=== PATIENT | male | born 1970 | race Hispanic/Latino ===

== ENCOUNTER 2020-10-24 19:09 | Emergency (ER) | payer SELFPAY ==
--- NOTE | 2020-10-24 19:40 | Emergency Department Report ---
ED Neuro Deficit HPI - General Chief Complaint: Neuro Symptoms/Deficit Stated Complaint: STROKE Time Seen by Provider: 10/24/20 19:14 Source: EMS Mode of arrival: Stretcher Limitations: Other - History of Present Illness Initial Comments: [facility] Date of Service: 10/24/2020 19:15:47 Impression: I63.9 - Cerebrovascular accident (CVA), unspecified mechanism (HCC) Comments/Sign-Out: Could be cva versus hypertensive emergency or recurrence of prior stroke sx from HTN. Hes been out of his BP meds 5 years. recommended 20 mg of labetalol and started on nicardipine drip. His systolic blood pressure is actually too high to measure attempting to get a manual cuff.his symptoms started over 24 hours ago . recommend stroke workup and inpatient neurology consultation. Would try to get his pressure to approximately 200/105 Metrics: Last Known Well: 10/23/2020 08:00:00 [facility] Notification Time: 10/24/2020 19:15:47 Arrival Time: 10/24/2020 19:09:00 Stamp Time: 10/24/2020 19:15:47 Time First Login Attempt: 10/24/2020 19:20:14 Symptoms: left sided weakness/numbness NIHSS Start Assessment Time: 10/24/2020 19:25:00 Patient is not a candidate for Alteplase/Activase. Patient was not deemed candidate for Alteplase/Activase thrombolytics because of Last Well Known Above 4.[address] head showed no acute hemorrhage or acute core infarct. Clinical Presentation is not Suggestive of Large Vessel Occlusive Disease Radiologist was not called back for review of advanced imaging because na Our recommendations are outlined below. Recommendations: Activate Stroke Protocol Admission/Order Set Stroke/Telemetry Floor Neuro Checks Bedside Swallow Eval DVT Prophylaxis IV Fluids, Normal Saline Head of Bed 30 Degrees Euglycemia and Avoid Hyperthermia (PRN Acetaminophen) Initiate Aspirin 325 MG Daily Sign Out: Discussed with Emergency Department Provider History of Present Illness: Patient is a 50 year old Male. Patient was brought by EMS for symptoms of left sided weakness/numbness He stopped in at fire station for a BP check and it was 290 systolic. Hes had some left sided weakness and hx of 4 prior strokes. He said last night his bp was 245/12. Then at 11pm he noted his left leg was tingling then he go some heaviness today. He hasn't been to a doctor or filled his BP meds in 5 years. Past Medical History: Hypertension Hyperlipidemia Coronary Artery Disease Stroke There is NO history of Diabetes Mellitus There is NO history of Atrial Fibrillation Anticoagulant use: No Antiplatelet use: asa daily Examination: BP(290/150), Pulse(108), Blood Glucose(pending) 1A: Level of Consciousness - Alert; keenly responsive + 0 1B: Ask Month and Age - Both Questions Right + 0 1C: Blink Eyes & Squeeze Hands - Performs Both Tasks + 0 2: Test Horizontal Extraocular Movements - Normal + 0 3: Test Visual Jackson - No Visual Loss + 0 4: Test Facial Palsy (Use Grimace if Obtunded) - Normal symmetry + 0 5A: Test Left Arm Motor Drift - No Drift for 10 Seconds + 0 5B: Test Right Arm Motor Drift - No Drift for 10 Seconds + 0 6A: Test Left Leg Motor Drift - Drift, but doesn't hit bed + 1 6B: Test Right Leg Motor Drift - No Drift for 5 Seconds + 0 7: Test Limb Ataxia (FNF/Heel-Tellez) - No Ataxia + 0 8: Test Sensation - Mild-Moderate Loss: Less Sharp/More Dull + 1 9: Test Language/Aphasia - Normal; No aphasia + 0 10: Test Dysarthria - Normal + 0 11: Test Extinction/Inattention - No abnormality + 0 NIHSS Score: 2 Pre-Morbid Modified Ranking Scale: 0 Points = No symptoms at all Patient/Family was informed the Neurology Consult would occur via TeleHealth consult by way of interactive audio and video telecommunications and consented to receiving care in this manner. Due to the immediate potential for life-threatening deterioration due to underlying acute neurologic illness, I spent 35 minutes providing critical care. This time includes time for face to face visit via telemedicine, review of medical records, imaging studies and discussion of findings with providers, the patient and/or family. Dr Cony Mathews [facility] Case [id number] - Related Data Allergies/Adverse Reactions: Allergies Allergy/AdvReac Type Severity Reaction Status Date / Time No Known Allergies Allergy Unverified 10/24/20 19:13 ED Review of Systems ROS: Stated complaint: STROKE Other details as noted in HPI ED Neuro Physical Exam - General Limitations: Other Suspected Stroke: Yes - NIHSS Assessment Interval: Baseline 1a. Level of Consciousness: alert/keenly responsive 1b. LOC Questions: answers both correctly 1c. LOC Commands: performs tasks correctly 2. Best Gaze: normal 3. Visual: no visual loss 4. Facial Palsy: normal symmetrical movement 5b. Motor Arm Right: no drift 5a. Motor Arm Left: no drift 6a. Motor Leg Left: drift 6b. Motor Leg Right: no drift 7. Limb Ataxia: absent 8. Sensory: mild/moderate sensory loss 9. Best Language: no aphasia 10. Dysarthria: normal 11. Extinction/Inattention: no abnormality Total Score: 2 Stroke Severity: Minor Stroke ED Course Vital Signs 10/24/20 10/24/20 19:31 19:37 Pulse Rate 106 H Respiratory 28 H Rate Blood Pressure 205/103 [Right] O2 Sat by Pulse 97 Oximetry Critical care attestation.: If time is entered above; I have spent that time in minutes in the direct care of this critically ill patient, excluding procedure time. ED Disposition Clinical Impression: Stroke Qualifiers: CVA mechanism: other Qualified Code(s): I63.89 - Other cerebral infarction Disposition: DC09 OP ADMIT IP TO THIS HOSP Is pt being admited?: Yes Condition: Stable
--- NOTE | 2020-10-24 19:41 | Cat Scan Report ---
CT head/brain wo con INDICATION / CLINICAL INFORMATION: 50 years Male; Stroke symptoms. TECHNIQUE: Routine CT head without contrast. All CT scans at this location are performed using CT dos e reduction for ALARA by means of automated exposure control. COMPARISON: None. FINDINGS: BRAIN / INTRACRANIAL CONTENTS: There is moderate cerebral white matter disease most consistent with m icrovascular angiopathy. There appear to be couple old small lacunar infarcts involving the medial ca psular regions bilaterally. The motion degrades image quality. There is no clear CT evidence of acute intracranial hemorrhage or significant mass effect. There is notable asymmetry of the lateral ventricle with prominence of the right atrium and temporal horn which may be developmental. No obstructing lesions or significant mass effect is identified. The re is mild degree of cerebral atrophy. ORBITS: No significant abnormality of visualized orbits. SINUSES / MASTOIDS: There is scattered mucosal thickening within the ethmoid air cells. Mild mucosal thickening is noted within the visualized maxillary sinuses. CRANIOCERVICAL JUNCTION: No significant abnormality. ADDITIONAL FINDINGS: None. IMPRESSION: 1. There is moderate microvascular angiopathy as described without CT evidence of acute intracranial hemorrhage. The study was specified as code stroke and called to Dr. Mohr in the ER at 6:33 PM Central standard time Signer Name: Rocael Jaime MD Signed: 10/24/2020 7:37 PM Workstation Name: [id number]
[2020-10-24 19:45] LABS: Basophils # (Auto) 0.1 K/mm3 (0.0-0.1); Basophils % (Auto) 0.9 % (0.0-1.8); Eosinophils # (Auto) 0.3 K/mm3 (0.0-0.4); Eosinophils % (Auto) 4.5 % (0.0-4.3); Hematocrit 47.9 % (35.5-45.6); Hemoglobin 16.9 gm/dl (11.8-15.2); Lymphocytes # (Auto) 2.1 K/mm3 (1.2-5.4); Lymphocytes % (Auto) 28.9 % (13.4-35.0); Mean Corpuscular HGB Conc 35 % (32-34); Mean Corpuscular Volume 89 fl (84-94); Monocytes # (Auto) 0.8 K/mm3 (0.0-0.8); Platelet Count 216 K/mm3 (140-440); Red Blood Count 5.41 M/mm3 (3.65-5.03); Red Cell Distribution Width 14.4 % (13.2-15.2)
[2020-10-24 19:56] LABS: INR 0.91 (0.87-1.13)
[2020-10-24 19:57] LABS: Partial Thromboplastin Time 27.3 Sec. (24.2-36.6); Thrombin Time 16.2 Sec. (15.1-19.6)
[2020-10-24 20:03] LABS: Creatine Kinase MB 4.4 ng/mL (0.0-4.0)
[2020-10-24 20:06] LABS: BUN/Creatinine Ratio 18; Blood Urea Nitrogen 16 mg/dL (9-20); Calcium 9.1 mg/dL (8.4-10.2); Hemolysis Index 23
[2020-10-24] MEDS ORDERED: niCARdipine DRIP 40 MG/200 ML BAG IV ONE (20:23)
[2020-10-24] MEDS ORDERED: ASPIRIN 325 MG TAB PO ONE (20:24)
--- NOTE | 2020-10-24 20:43 | Emergency Department Report ---
ED Neuro Deficit HPI - General Chief Complaint: Neuro Symptoms/Deficit Stated Complaint: STROKE Time Seen by Provider: 10/24/20 19:14 Source: EMS Mode of arrival: Stretcher Limitations: Other - History of Present Illness Initial Comments: Patient is a 50-year-old male with a past medical history of hypertension who is been out of his blood pressure medications for approximately 5 days who is presenting with left-sided weakness and a limp. Patient states symptoms started approximately 20 hours ago. He states there is been no difficulty speaking or memory issues. He has no decreased sensation. Paramedics state that the patient had equal eyedotter strength but the patient does feel weaker on his left side. Denies any chest pain shortness of breath at this time. - Related Data Home Medications: Previous Rx's Medication Instructions Recorded Last Taken Type Metoprolol [Lopressor TAB] 50 mg PO BID #60 tablet 10/24/20 Unknown Rx Allergies/Adverse Reactions: Allergies Allergy/AdvReac Type Severity Reaction Status Date / Time No Known Allergies Allergy Unverified 10/24/20 19:13 ED Review of Systems ROS: Stated complaint: STROKE Other details as noted in HPI Comment: All other systems reviewed and negative ED Past Medical Hx - Medications Home Medications: Home Medications Medication Instructions Recorded Confirmed Last Taken Type Metoprolol [Lopressor TAB] 50 mg PO BID #60 tablet 10/24/20 Unknown Rx ED Neuro Physical Exam - General Limitations: Other General appearance: alert, in no apparent distress Suspected Stroke: Yes - Head Head exam: Present: atraumatic, normocephalic - Eye Eye exam: Present: normal appearance - ENT ENT exam: Present: normal orophraynx, mucous membranes moist - Neck Neck exam: Present: normal inspection - Respiratory Respiratory exam: Present: normal lung sounds bilaterally. Absent: respiratory distress, wheezes, rales, rhonchi - Cardiovascular Cardiovascular Exam: Present: regular rate, normal rhythm, normal heart sounds. Absent: systolic murmur, diastolic murmur, rubs, gallop - GI/Abdominal GI/Abdominal exam: Present: soft, normal bowel sounds. Absent: distended, tenderness, guarding, rebound, rigid - Rectal Rectal exam: Present: deferred - Extremities Exam Extremities exam: Present: normal inspection - Back Exam Back exam: Present: normal inspection - Neurological Exam Neurological exam: Present: alert, oriented X3 - NIHSS Assessment Interval: Baseline 1a. Level of Consciousness: alert/keenly responsive 1b. LOC Questions: answers both correctly 1c. LOC Commands: performs tasks correctly 2. Best Gaze: normal 3. Visual: no visual loss 4. Facial Palsy: normal symmetrical movement 5b. Motor Arm Right: no drift 5a. Motor Arm Left: no drift 6a. Motor Leg Left: drift 6b. Motor Leg Right: no drift 7. Limb Ataxia: absent 8. Sensory: mild/moderate sensory loss 9. Best Language: no aphasia 10. Dysarthria: normal 11. Extinction/Inattention: no abnormality Total Score: 2 Stroke Severity: Minor Stroke - Psychiatric Psychiatric exam: Present: normal affect, normal mood - Skin Skin exam: Present: warm, dry, intact, normal color. Absent: rash ED Course Vital Signs 10/24/20 10/24/20 10/24/20 19:30 19:31 19:37 Pulse Rate 109 H 106 H Respiratory 28 H Rate Blood Pressure 300/153 Blood Pressure 300/153 205/103 [Right] O2 Sat by Pulse 97 Oximetry 10/24/20 10/24/20 19:51 20:04 Pulse Rate 83 84 Respiratory 15 Rate Blood Pressure Blood Pressure 187/96 168/90 [Right] O2 Sat by Pulse 97 Oximetry - Reevaluation(s) Reevaluation #1: 10/24/20 20:38 Date of Service: 10/24/2020 19:15:47 Impression: I63.9 - Cerebrovascular accident (CVA), unspecified mechanism (HCC) Comments/Sign-Out: Could be cva versus hypertensive emergency or recurrence of prior stroke sx from HTN. Hes been out of his BP meds 5 years. recommended 20 mg of labetalol and started on nicardipine drip. His systolic blood pressure is actually too high to measure attempting to get a manual cuff.his symptoms started over 24 hours ago . recommend stroke workup and inpatient neurology consultation. Would try to get his pressure to approximately 200/105 Metrics: Last Known Well: 10/23/2020 08:00:00 [employer] Notification Time: 10/24/2020 19:15:47 Arrival Time: 10/24/2020 19:09:00 Stamp Time: 10/24/2020 19:15:47 Time First Login Attempt: 10/24/2020 19:20:14 Symptoms: left sided weakness/numbness NIHSS Start Assessment Time: 10/24/2020 19:25:00 Patient is not a candidate for Alteplase/Activase. Patient was not deemed candidate for Alteplase/Activase thrombolytics because of Last Well Known Above 4.[address] head showed no acute hemorrhage or acute core infarct. Clinical Presentation is not Suggestive of Large Vessel Occlusive Disease Radiologist was not called back for review of advanced imaging because na Our recommendations are outlined below. Recommendations: Activate Stroke Protocol Admission/Order Set Stroke/Telemetry Floor Neuro Checks Bedside Swallow Eval DVT Prophylaxis IV Fluids, Normal Saline Head of Bed 30 Degrees Euglycemia and Avoid Hyperthermia (PRN Acetaminophen) Initiate Aspirin 325 MG Daily Sign Out: Discussed with Emergency Department Provider History of Present Illness: Patient is a 50 year old Male. Patient was brought by EMS for symptoms of left sided weakness/numbness He stopped in at [facility] station for a BP check and it was 290 systolic. Hes had some left sided weakness and hx of 4 prior strokes. He said last night his bp was 245/12. Then at 11pm he noted his left leg was tingling then he go some hea viness today. He hasn't been to a doctor or filled his BP meds in 5 years. Past Medical History: Hypertension Hyperlipidemia Coronary Artery Disease Stroke There is NO history of Diabetes Mellitus There is NO history of Atrial Fibrillation Anticoagulant use: No Antiplatelet use: asa daily Examination: BP(290/150), Pulse(108), Blood Glucose(pending) 1A: Level of Consciousness - Alert; keenly responsive + 0 1B: Ask Month and Age - Both Questions Right + 0 1C: Blink Eyes & Squeeze Hands - Performs Both Tasks + 0 2: Test Horizontal Extraocular Movements - Normal + 0 3: Test Visual Jackson - No Visual Loss + 0 4: Test Facial Palsy (Use Grimace if Obtunded) - Normal symmetry + 0 5A: Test Left Arm Motor Drift - No Drift for 10 Seconds + 0 5B: Test Right Arm Motor Drift - No Drift for 10 Seconds + 0 6A: Test Left Leg Motor Drift - Drift, but doesn't hit bed + 1 6B: Test Right Leg Motor Drift - No Drift for 5 Seconds + 0 7: Test Limb Ataxia (FNF/Heel-Tellez) - No Ataxia + 0 8: Test Sensation - Mild-Moderate Loss: Less Sharp/More Dull + 1 9: Test Language/Aphasia - Normal; No aphasia + 0 10: Test Dysarthria - Normal + 0 11: Test Extinction/Inattention - No abnormality + 0 NIHSS Score: 2 Pre-Morbid Modified Ranking Scale: 0 Points = No symptoms at all Patient/Family was informed the Neurology Consult would occur via TeleHealth consult by way of interactive audio and video telecommunications and consented to receiving care in this manner. Due to the immediate potential for life-threatening deterioration due to underlying acute neurologic illness, I spent 35 minutes providing critical care. This time includes time for face to face visit via telemedicine, review of medical records, imaging studies and discussion of findings with providers, the patient and/or family. Dr Cony Mathews - Lab Data Result diagrams: 10/24/20 19:36 10/24/20 19:36 Lab Results 10/24/20 10/24/20 10/24/20 Range/Units 19:36 19:36 19:36 WBC 7.4 (4.5-11.0) K/mm3 RBC 5.41 H (3.65-5.03) M/mm3 Hgb 16.9 H (11.8-15.2) gm/dl Hct 47.9 H (35.5-45.6) % MCV 89 (84-94) fl MCH 31 (28-32) pg MCHC 35 H (32-34) % RDW 14.4 (13.2-15.2) % Plt Count 216 (140-440) K/mm3 Lymph % (Auto) 28.9 (13.4-35.0) % Young % (Auto) 11.0 H (0.0-7.3) % Eos % (Auto) 4.5 H (0.0-4.3) % Baso % (Auto) 0.9 (0.0-1.8) % Lymph # (Auto) 2.1 (1.2-5.4) K/mm3 Young # (Auto) 0.8 (0.0-0.8) K/mm3 Eos # (Auto) 0.3 (0.0-0.4) K/mm3 Baso # (Auto) 0.1 (0.0-0.1) K/mm3 Seg Neutrophils % 54.7 (40.0-70.0) % Seg Neutrophils # 4.1 (1.8-7.7) K/mm3 PT 12.2 (12.2-14.9) Sec. INR 0.91 (0.87-1.13) APTT 27.3 (24.2-36.6) Sec. Thrombin Time 16.2 (15.1-19.6) Sec. Sodium 138 (137-145) mmol/L Potassium 4.0 (3.6-5.0) mmol/L Chloride 100.2 (98-107) mmol/L Carbon Dioxide 26 (22-30) mmol/L Anion Gap 16 mmol/L BUN 16 (9-20) mg/dL Creatinine 0.9 (0.8-1.3) mg/dL Estimated GFR > 60 ml/min BUN/Creatinine Ratio 18 % Glucose 104 H (75-100) mg/dL Calcium 9.1 (8.4-10.2) mg/dL Total Creatine Kinase 148 (55-170) units/L CK-MB (CK-2) 4.4 H (0.0-4.0) ng/mL CK-MB (CK-2) Rel Index 2.9 (0-4) Troponin T < 0.010 (0.00-0.029) ng/mL Plasma/Serum Alcohol (0-0.07) % 10/24/20 Range/Units 19:36 WBC (4.5-11.0) K/mm3 RBC (3.65-5.03) M/mm3 Hgb (11.8-15.2) gm/dl Hct (35.5-45.6) % MCV (84-94) fl MCH (28-32) pg MCHC (32-34) % RDW (13.2-15.2) % Plt Count (140-440) K/mm3 Lymph % (Auto) (13.4-35.0) % Young % (Auto) (0.0-7.3) % Eos % (Auto) (0.0-4.3) % Baso % (Auto) (0.0-1.8) % Lymph # (Auto) (1.2-5.4) K/mm3 Young # (Auto) (0.0-0.8) K/mm3 Eos # (Auto) (0.0-0.4) K/mm3 Baso # (Auto) (0.0-0.1) K/mm3 Seg Neutrophils % (40.0-70.0) % Seg Neutrophils # (1.8-7.7) K/mm3 PT (12.2-14.9) Sec. INR (0.87-1.13) APTT (24.2-36.6) Sec. Thrombin Time (15.1-19.6) Sec. Sodium (137-145) mmol/L Potassium (3.6-5.0) mmol/L Chloride (98-107) mmol/L Carbon Dioxide (22-30) mmol/L Anion Gap mmol/L BUN (9-20) mg/dL Creatinine (0.8-1.3) mg/dL Estimated GFR ml/min BUN/Creatinine Ratio % Glucose (75-100) mg/dL Calcium (8.4-10.2) mg/dL Total Creatine Kinase (55-170) units/L CK-MB (CK-2) (0.0-4.0) ng/mL CK-MB (CK-2) Rel Index (0-4) Troponin T (0.00-0.029) ng/mL Plasma/Serum Alcohol < 0.01 (0-0.07) % - Radiology Data [facility] [address] [place] [address] Cat Scan Report Signed Patient: DAGMAR MARINELLI MR#: [id number] : 1970 Acct:[id number] Age/Sex: 50 / M ADM Date: 10/24/20 Loc: ED Attending Dr: Ordering Physician: ADAN MOHR MD Date of Service: 10/24/20 Procedure(s): CT head/brain wo con Accession Number(s): [id number] cc: ADAN MOHR MD CT head/brain wo con INDICATION / CLINICAL INFORMATION: 50 years Male; Stroke symptoms. TECHNIQUE: Routine CT head without contrast. All CT scans at this location are performed using CT dose reduction for ALARA by means of automated exposure control. COMPARISON: None. FINDINGS: BRAIN / INTRACRANIAL CONTENTS: There is moderate cerebral white matter disease most consistent with microvascular angiopathy. There appear to be couple old small lacunar infarcts involving the medial capsular regions bilaterally. The motion degrades image quality. There is no clear CT evidence of acute intracranial hemorrhage or significant mass effect. There is notable asymmetry of the lateral ventricle with prominence of the right atrium and temporal horn which may be developmental. No obstructing lesions or significant mass effect is identified. There is mild degree of cerebral atrophy. ORBITS: No significant abnormality of visualized orbits. SINUSES / MASTOIDS: There is scattered mucosal thickening within the ethmoid air cells. Mild mucosal thickening is noted within the visualized maxillary sinuses. CRANIOCERVICAL JUNCTION: No significant abnormality. ADDITIONAL FINDINGS: None. IMPRESSION: 1. There is moderate microvascular angiopathy as described without CT evidence of acute intracranial hemorrhage. The study was specified as code stroke and called to Dr. Mohr in the ER at 6:33 PM Central standard time Signer Name: Rocael Jaime MD Signed: 10/24/2020 7:37 PM Workstation Name: [id number] Transcribed By: MR Dictated By: Rocael Jaime MD Electronically Authenticated By: Rocael Jaime MD Signed Date/Time: 10/24/201936 - Medical Decision Making Patient is a 50-year-old male who is presenting with elevated blood pressure. Systolic was 300. Patient received 20 labetalol his blood pressure immediately dropped to 200 systolic. No bleeding was seen on CT. Patient blood pressure dropped to approximately 165 systolic but then started to rise again and at the time of discharge was greater than 200 systolic. Patient still has some mild subjective weakness on his left side. Patient was urged to be admitted to the hospital however he states he was unwilling and would like to sign out AGAINST MEDICAL ADVICE. Patient is fearful of being in the hospital secondary to COVID-19. I have given the patient reassurance that the patient would not be placed in the Covid unit but he states he is too scared to stay and to take his chances. He is ANO x3. Patient is states he would like our plan be which is to restart him on his blood pressure medications. Patient is states he will take a full dose aspirin and follow-up with neurology. Critical Care Time: Yes (30) Critical care attestation.: If time is entered above; I have spent that time in minutes in the direct care of this critically ill patient, excluding procedure time. ED Disposition Clinical Impression: Hypertensive emergency without congestive heart failure CVA (cerebral vascular accident) Qualifiers: CVA mechanism: other Qualified Code(s): I63.89 - Other cerebral infarction Disposition: DC-07 LEFT AGAINST MED ADVICE Is pt being admited?: No Does the pt Need Aspirin: No Condition: Serious Instructions: Hypertension (ED), Hypertension, Adult, [id number], Stroke Prevention, Ischemic Stroke, [id number], Aspirin capsules or tablets extended release Prescriptions: Metoprolol [Lopressor TAB] 50 mg PO BID #60 tablet Referrals: CARMINE GONZALES MD [Referring] - 3-5 Days Time of Disposition: 20:45
[2020-10-24 20:55] VITALS: BP 206/115
== END 2020-10-24 21:12 | disposition left against medical advice (07) ==
LOC: ED 19:09
DX: I16.0 Hypertensive urgency (principal); I63.89 Other cerebral infarction; Z79.899 Other long term (current) drug therapy
CPT/HCPCS: 36415; 70450; 80048; 80320; 82550; 82553; 82962; 84484; 85025; 85610; 85670; 85730; 96374; G0480

== ENCOUNTER 2021-04-17 15:03 | Inpatient (IN) | payer OTHER ==
--- NOTE | 2021-04-17 15:43 | Emergency Department Report ---
ED Altered Mental Status HPI - General Chief Complaint: Altered Mental Status Stated Complaint: ALTERED MENTAL STATUS PUI?: No Time Seen by Provider: 04/17/21 15:30 Source: EMS, old records reviewed Mode of arrival: Stretcher Limitations: No Limitations - History of Present Illness Initial Comments: CC: altered mental status HPI: This is a 50 yo male with hx of CVA, HTN who presents with altered mental status. Paramedics found patient laying on the kitchen floor. He abrupted got up and walked around the neighborhood,. He then laid back on the floor and would not response. Naloxone 2 mg given without effect. Blood sugar normal per EMS. No further hx available. Unknown last known well time patient was found on the floor approximately 2 PM.. Just prior to being found on the kitchen, patient was outside cutting grass. In September of this year, patient presented with stroke symptoms of left-sided weakness. He decided to leave AGAINST MEDICAL ADVICE declining hospitalization. Mother Janice and girlfriend Akila Patient was cutting grass. Mother Janice and girlfriend Akila were both at home. However they do not know what happened prior to finding Mr. Marinelli on the floor. His girlfriend Akila called EMS immediately. Mother states that her son has "not been right" since September. He has had "cognitive issues". Also appears to have had hearing loss in the right ear. MD Complaint: altered mental status, decreased responsiveness Severity: severe Consistency of Symptoms: waxing and waning Context: other (History of stroke) - Related Data Previous Rx's Medication Instructions Recorded Last Taken Type Metoprolol [Lopressor TAB] 50 mg PO BID #60 tablet 10/24/20 Unknown Rx Allergies Allergy/AdvReac Type Severity Reaction Status Date / Time No Known Allergies Allergy Unverified 10/24/20 19:13 ED Review of Systems ROS: Stated complaint: ALTERED MENTAL STATUS Other details as noted in HPI Comment: Unobtainable due to pts medical conditions (Altered mental status) ED Past Medical Hx - Past Medical History Previous Medical History?: Yes Hx Hypertension: Yes Hx CVA: Yes - Family History Family history: hypertension - Social History Smoking Status: Unknown if ever smoked - Medications Home Medications: Home Medications Medication Instructions Recorded Confirmed Last Taken Type Metoprolol [Lopressor TAB] 50 mg PO BID #60 tablet 10/24/20 Unknown Rx ED Physical Exam - General Limitations: No Limitations (Patient is moving all 4 extremities. Will not follow instructions. Poor eye contact. Nonverbal. ) General appearance: in no apparent distress, lethargic, other (Protecting airway) - Head Head exam: Present: atraumatic, normocephalic - Eye Eye exam: Present: normal appearance. Absent: scleral icterus, conjunctival injection - ENT ENT exam: Present: mucous membranes moist - Neck Neck exam: Present: normal inspection, full ROM. Absent: tenderness, meningismus - Respiratory Respiratory exam: Present: normal lung sounds bilaterally. Absent: respiratory distress, wheezes, rales, rhonchi - Cardiovascular Cardiovascular Exam: Present: regular rate, normal rhythm, normal heart sounds. Absent: systolic murmur, diastolic murmur, rubs, gallop - GI/Abdominal GI/Abdominal exam: Present: soft, normal bowel sounds. Absent: distended, tenderness, guarding, rebound - Rectal Rectal exam: Present: deferred - Extremities Exam Extremities exam: Present: normal inspection - Neurological Exam Neurological exam: Present: altered - Psychiatric Psychiatric exam: Present: flat affect - Skin Skin exam: Present: warm, dry, intact, normal color. Absent: rash - Assessment Assessment Interval: Baseline - Level of Consciousness 1a. Level of Consciousness: arousable/minor stimuli - LOC Questions 1b. LOC Questions: aphasic - LOC Command 1c. LOC Commands: performs no tasks correctly - Best Gaze 2. Best Gaze: normal - Visual 3. Visual: no visual loss - Facial Palsy 4. Facial Palsy: normal symmetrical movement - Motor Arm 5a. Motor Arm Left: no drift 5b. Motor Arm Right: no drift - Motor Leg 6a. Motor Leg Left: no drift 6b. Motor Leg Right: no drift - Limb Ataxia 7. Limb Ataxia: absent - Sensory 8. Sensory: normal - Best Language 9. Best Language: mute/global aphasia - Dysarthria 10. Dysarthria: mute/anarrthric - Extinction and Inattention 11. Extinction/Inattention: visual/tactile inattention - Scoring Total Score: 11 Stroke Severity: Moderate Stroke ED Course Vital Signs 04/17/21 04/17/21 04/17/21 15:42 15:46 16:00 Temperature 97.8 F Pulse Rate 92 H 92 H Respiratory 14 28 H 20 Rate Blood Pressure 121/77 125/82 Blood Pressure 121/77 [Right] O2 Sat by Pulse 85 90 97 Oximetry 04/17/21 04/17/21 04/17/21 16:16 16:30 16:46 Temperature Pulse Rate 94 H Respiratory 15 21 24 Rate Blood Pressure 125/82 125/82 125/82 Blood Pressure [Right] O2 Sat by Pulse 96 96 93 Oximetry 04/17/21 04/17/21 04/17/21 17:00 17:16 19:47 Temperature Pulse Rate 97 H 97 H 114 H Respiratory 27 H 17 21 Rate Blood Pressure 125/82 125/82 Blood Pressure 110/51 [Right] O2 Sat by Pulse 91 96 96 Oximetry - Reevaluation(s) Reevaluation #1: Dr. Valentino Rehman neurologist agrees that CVA is a concern and possibility. I spoke with radiologist who discovered left temporal lobe hypoattenuation which is new from previous CT representing possible acute infarct. Reevaluation #2: 04/17/21 19:13 Patient is altered. He will not allow EKG to be performed he continues to pull off the EKG leads. He now has right lower facial twitching partial seizure. Dr. Avelar recommended 2 mg of lorazepam and Keppra. Reevaluation #3: 04/17/21 19:26 I have attempted to call both contact numbers repeatedly without any success to contact next of kin. Nurse informed me that girlfriend did call. Phone number was not given. Neither phone number is functional. Reevaluation #4: 04/17/21 19:32 I spoke with body technician/painter to expedite transfer of images to [facility] PACS - Consultations Consultation #1: 04/17/21 19:13 I personally paged stroke attending at [place] Dr. Bond after speaking with radiologist and Dr. Avelar. Patient has distal M1 occlusion . Consultation #2: 04/17/21 19:[address] Godfrey discussed case with interventionalist. Considering infarct is evolving compared to imaging from 3 PM, repeat CT scanning of the head is requested by stroke attending to determine if patient is a candidate for intervention. Consultation #3: 04/17/21 20:18 CT head without contrast. According to recommendations by stroke attending at [place]. I informed her via phone that the images were transferred. - Lab Data Result diagrams: 04/17/21 15:55 04/17/21 15:55 Lab Results 04/17/21 04/17/21 04/17/21 Range/Units 15:55 15:55 15:55 WBC 13.4 H (4.5-11.0) K/mm3 RBC 5.81 H (3.65-5.03) M/mm3 Hgb 17.2 H (11.8-15.2) gm/dl Hct 51.2 H (35.5-45.6) % MCV 88 (84-94) fl MCH 30 (28-32) pg MCHC 34 (32-34) % RDW 14.4 (13.2-15.2) % Plt Count 258 (140-440) K/mm3 Lymph % (Auto) 16.0 (13.4-35.0) % [place] % (Auto) 8.1 H (0.0-7.3) % Eos % (Auto) 2.0 (0.0-4.3) % Baso % (Auto) 0.9 (0.0-1.8) % Lymph # (Auto) 2.2 (1.2-5.4) K/mm3 [place] # (Auto) 1.1 H (0.0-0.8) K/mm3 Eos # (Auto) 0.3 (0.0-0.4) K/mm3 Baso # (Auto) 0.1 (0.0-0.1) K/mm3 Seg Neutrophils % 73.0 H (40.0-70.0) % Seg Neutrophils # 9.8 H (1.8-7.7) K/mm3 Sodium 140 (137-145) mmol/L Potassium 3.9 (3.6-5.0) mmol/L Chloride 103.7 (98-107) mmol/L Carbon Dioxide 20 L (22-30) mmol/L Anion Gap 20 mmol/L BUN 25 H (9-20) mg/dL Creatinine 1.5 H (0.8-1.3) mg/dL Estimated GFR 49 ml/min BUN/Creatinine Ratio 17 % Glucose 138 H (75-100) mg/dL Lactic Acid 1.80 (0.7-2.0) mmol/L Calcium 9.5 (8.4-10.2) mg/dL Total Bilirubin 0.30 (0.1-1.2) mg/dL AST 18 (5-40) units/L ALT 22 (7-56) units/L Alkaline Phosphatase 96 (35-129) units/L Total Protein 7.8 (6.3-8.2) g/dL Albumin 4.4 (3.9-5) g/dL Albumin/Globulin Ratio 1.3 % Plasma/Serum Alcohol (0-0.07) % 04/17/ Range/Units 15:55 WBC (4.5-11.0) K/mm3 RBC (3.65-5.03) M/mm3 Hgb (11.8-15.2) gm/dl Hct (35.5-45.6) % MCV (84-94) fl MCH (28-32) pg MCHC (32-34) % RDW (13.2-15.2) % Plt Count (140-440) K/mm3 Lymph % (Auto) (13.4-35.0) % [place] % (Auto) (0.0-7.3) % Eos % (Auto) (0.0-4.3) % Baso % (Auto) (0.0-1.8) % Lymph # (Auto) (1.2-5.4) K/mm3 [place] # (Auto) (0.0-0.8) K/mm3 Eos # (Auto) (0.0-0.4) K/mm3 Baso # (Auto) (0.0-0.1) K/mm3 Seg Neutrophils % (40.0-70.0) % Seg Neutrophils # (1.8-7.7) K/mm3 Sodium (137-145) mmol/L Potassium (3.6-5.0) mmol/L Chloride (98-107) mmol/L Carbon Dioxide (22-30) mmol/L Anion Gap mmol/L BUN (9-20) mg/dL Creatinine (0.8-1.3) mg/dL Estimated GFR ml/min BUN/Creatinine Ratio % Glucose (75-100) mg/dL Lactic Acid (0.7-2.0) mmol/L Calcium (8.4-10.2) mg/dL Total Bilirubin (0.1-1.2) mg/dL AST (5-40) units/L ALT (7-56) units/L Alkaline Phosphatase (35-129) units/L Total Protein (6.3-8.2) g/dL Albumin (3.9-5) g/dL Albumin/Globulin Ratio % Plasma/Serum Alcohol < 0.01 (0-0.07) % - Radiology Data Radiology results: report reviewed Chest radiograph: Minimal bibasilar segmental atelectasis/parenchymal scarring Patient Name: DAGMAR MARINELLI Gender: Male Date of : 1970 Referring Provider: CLEM MOHR Organization: [facility] Accession Number: [id number] Requested Date: April 17, 2021 15:38 Report Status: Final Requested Procedure: 1 Procedure Description: CT head/brain wo con Modality: CT Findings Reporting MD: Luigi Antonio Dictation Time: April 17, 2021 16:19 Rodbuster: Not available Resourcing Consultant Date: CT head/brain wo con INDICATION: CODE STROKE [id number] Altered Mental Status. TECHNIQUE: All CT scans at this location are performed using CT dose reduction for ALARA by means of automated exposure control. COMPARISON: Head CT on 10/24/2020 FINDINGS: There is hypoattenuation in the left lateral temporal lobe cortex and questionable hypoattenuation in the posterior insular cortex and posterior temporal cortex. There is no hemorrhage or adverse mass effect. There is stable mild chronic small vessel schema change in the cerebral white matter. IMPRESSION: 1. Cortical hypoattenuation in the left lateral and posterior temporal lobe concerning for possible acute infarct. No hemorrhage. Findings discussed with Dr. Mohr at 4:19 PM central time. Signer Name: Luigi Antonio MD Signed: 04/17/2021 4:19 PM Workstation Name: [id number] EKG obtained 1907 EKG interpreted by in Sinus tachycardia rate 100 bpm normal axis normal intervals no ST-T sign ischemia - Medical Decision Making Acute CVA: Patient presents with mute aphasia and inattention. He is moving all 4 extremities. With unknown last time well, patient is not a TPA candidate. Teleneurologist also considered seizure as a cause of patient's presentation. Please see previous notes for discussions with family members and [facility] stroke attending. I spoke extensively with [place] stroke attending. She recommended ICU admission at our facility. Patient's repeat CT showed progression of a large left MCA infarct. Intervention will be likely dangerous and not helpful to patient. Patient not candidate for mechanical thrombectomy. Critical Care Time: Yes Critical care time in (mins) excluding proc time.: 95 Critical care attestation.: If time is entered above; I have spent that time in minutes in the direct care of this critically ill patient, excluding procedure time. 95 minutes of critical care time excluding procedures were used in the care of the patient. I came immediately to the bedside upon patient's arrival. I obtained history from EMS at the bedside. I discussed treatment plan with the nursing team members. I reviewed electronic record. I was concerned for CVA, intracranial hemorrhage. I attempted several times to contact family members. I spoke with several consultants including radiologist, teleneurologist and neurologist. Patient required multiple interventions and reassessments. ED Disposition Clinical Impression: Acute CVA (cerebrovascular accident), Acute ischemic left MCA stroke, Occlusion of middle cerebral artery Disposition: OP ADMIT IP TO THIS HOSP Is pt being admited?: Yes Does the pt Need Aspirin: No Condition: Stable
--- NOTE | 2021-04-17 16:05 | XRay Report ---
CHEST 1 VIEW 04/17/2021 2:57 PM INDICATION / CLINICAL INFORMATION: Altered Mental Status. COMPARISON: 11/02/12. FINDINGS: SUPPORT DEVICES: None. HEART / MEDIASTINUM: The heart size and pulmonary vasculature are normal. LUNGS / PLEURA: No significant pulmonary or pleural abnormality. Bibasilar subsegmental parenchymal d isease has almost completely resolved. Minimal residual disease is likely related to scarring. No new abnormality is present. There is no evidence of pneumothorax. ADDITIONAL FINDINGS: No significant additional findings. IMPRESSION: Minimal bibasilar subsegmental atelectasis/parenchymal scarring. Signer Name: Patrice Stern MD Signed: 04/17/2021 4:01 PM Workstation Name: [id number]
[2021-04-17 16:16] LABS: Basophils # (Auto) 0.1 K/mm3 (0.0-0.1); Basophils % (Auto) 0.9 % (0.0-1.8); Eosinophils # (Auto) 0.3 K/mm3 (0.0-0.4); Hematocrit 51.2 % (35.5-45.6); Hemoglobin 17.2 gm/dl (11.8-15.2); Lymphocytes # (Auto) 2.2 K/mm3 (1.2-5.4); Mean Corpuscular HGB Conc 34 % (32-34); Mean Corpuscular Volume 88 fl (84-94); Monocytes # (Auto) 1.1 K/mm3 (0.0-0.8); Monocytes % (Auto) 8.1 % (0.0-7.3); Platelet Count 258 K/mm3 (140-440); Red Blood Count 5.81 M/mm3 (3.65-5.03); Red Cell Distribution Width 14.4 % (13.2-15.2)
[2021-04-17 16:22] LABS: Bilirubin,Urine NEG (Negative); Blood,Urine SM (Negative); Color,Urine Yellow (Yellow); Hyaline Casts,Urine 11 /LPF; Mucus,Urine 1+ /HPF; Urobilinogen,Urine < 2.0 mg/dL (<2.0)
[2021-04-17 16:26] LABS: Amphetamine Screen,Urine Negative; Benzodiazepines Screen,Urine Negative; Cannabinoid Screen,Urine Negative; Cocaine Screen,Urine Negative; Methadone Screen,Urine Negative; Opiate Screen,Urine Negative
[2021-04-17] MEDS ORDERED: LORazepam 2 MG/ML VIAL IV ONE ×3 (16:26→20:00)
[2021-04-17 16:37] LABS: Albumin 4.4 g/dL (3.9-5); Calcium 9.5 mg/dL (8.4-10.2)
--- NOTE | 2021-04-17 17:23 | Cat Scan Report ---
CT head/brain wo con INDICATION: CODE STROKE [id number] Altered Mental Status. TECHNIQUE: All CT scans at this location are performed using CT dose reduction for ALARA by means of automated e xposure control. COMPARISON: Head CT on 10/24/2020 FINDINGS: There is hypoattenuation in the left lateral temporal lobe cortex and questionable hypoattenuation in the posterior insular cortex and posterior temporal cortex. There is no hemorrhage or adverse mass e ffect. There is stable mild chronic small vessel schema change in the cerebral white matter. IMPRESSION: 1. Cortical hypoattenuation in the left lateral and posterior temporal lobe concerning for possible a cute infarct. No hemorrhage. Findings discussed with Dr. Mohr at 4:19 PM central time. Signer Name: Luigi Antonio MD Signed: 04/17/2021 5:19 PM Workstation Name: [id number]
--- NOTE | 2021-04-17 17:33 | Consultation ---
Medications and Allergies Allergies Allergy/AdvReac Type Severity Reaction Status Date / Time No Known Allergies Allergy Unverified 10/24/20 19:13 Home Medications Medication Instructions Recorded Confirmed Last Taken Type Metoprolol [Lopressor TAB] 50 mg PO BID #60 tablet 10/24/20 Unknown Rx Physical Examination - Vital Signs Vital Signs: Vital Signs Temp Pulse Resp BP Pulse Ox 97.8 F 91 H 24 121/77 96 04/17/21 15:46 04/17/21 15:46 04/17/21 15:46 04/17/21 15:46 04/17/21 15:46 Results - Laboratory Findings CBC and BMP: 04/17/21 15:55 04/17/21 15:55 Abnormal Lab Findings: Abnormal Labs 04/17/21 04/17/21 15:55 15:55 WBC 13.4 H RBC 5.81 H Hgb 17.2 H Hct 51.2 H [place] % (Auto) 8.1 H [place] # (Auto) 1.1 H Seg Neutrophils % 73.0 H Seg Neutrophils # 9.8 H Carbon Dioxide 20 L BUN 25 H Creatinine 1.5 H Glucose 138 H Assessment and Plan [facility] Teleneurology Consult Note # Demographics Consult Type: Acute Stroke Level 1 (0-4.5 hrs) Patient Location: Emergency Room First Name: Chandler Last Name: Tc Date of : 1970 Age: 50 Gender: Male Time of Initial Page ( Time): 04/17/2021, 17:12 Time of Return Call ( Time): 04/17/2021, 17:12 # HPI History: 50 yo man with history of stroke/TIA presents with altered mental status, minimally responsive. Was given Narcan without any relief. CT head with left temporal lobe hypodensity concerning for acute stroke. Last Known Normal: I have collected independent history specific to time last normal or last known well. We have collaborated with the provider and at this time, we have the most current timeline with the information that is available. 7:00 am # Scores Time of exam and NIHSS ( Time): 04/17/2021, 17:18 Level of Consciousness 1a: [2] = Not alert; requires strong or painful stim LOC Questions 1b: [2] = Answers neither correctly LOC Commands 1c: [2] = Performs neither correctly Best Gaze 2: [0] = Normal Visual 3: [0] = No visual loss Facial Palsy 4: [0] = Normal symmetrical movements Motor Arm Left 5a: [2] = Some effort against gravity Motor Arm Right 5b: [2] = Some effort against gravity Motor Leg Left 6a: [2] = Some effort against gravity Motor Leg Right 6b: [2] = Some effort against gravity Limb Ataxia 7: [0] = Absent Sensory 8: [0] = Normal Best Language 9: [3] = Mute Dysarthria 10: [2] = Severe dysarthria Extinction and Inattention 11: [0] = No abnormality NIHSS Total: 19 # Exam SBP: 125 DBP: 82 Additional Exam Findings: Exam limited by lack of participation with patient # [id number] Past Medical History: stroke # Assessment Impression: AMS and left temporal lobe hypodensity. # Plan Thrombolytic/Intervention: NOT IV Thrombolysis or IA Intervention candidate Thrombolytic Exclusion: > 4.5 hours Intraarterial Exclusion: other CTA pending, call back if abnormal Target Blood Pressure: SBP < 220 Labs: hemoglobin A1c lipid panel Imaging: (urgency: STAT): CT Angiogram Head and CT Angiogram Neck AND call back with results if abnormal Imaging: (urgency: routine): MRI Brain without contrast Diagnostic Test: echo with bubble study Therapy/Evaluation: NPO until swallow evaluation PT/OT evaluation speech/swallow consultation Medication: aspirin 81 mg daily DVT Prophylaxis: SCD chemical DVT prophylaxis Other: I have discussed my recommendations with the referring provider Disposition: admit
[2021-04-17] MEDS ORDERED: METOCLOPRAMIDE 10 MG TAB PO PRN (18:30)
[2021-04-17] MEDS ORDERED: MAGNESIUM HYDROXIDE (MOM) ORAL LIQD UDC PO PRN (18:30)
[2021-04-17] MEDS ORDERED: oxyCODONE /ACETAMINOPHEN 5-325MG TAB PO PRN (18:30)
[2021-04-17] MEDS ORDERED: ONDANSETRON 4 MG/2 ML INJ IV PRN (18:30)
[2021-04-17] MEDS ORDERED: PROMETHAZINE 25 MG RECT SUPP PR PRN (18:30)
--- NOTE | 2021-04-17 18:36 | History and Physical Report ---
History of Present Illness Chief complaint: Confused History of present illness: 50 YO Male with HTN, CVA presents to ED for evaluation. Patient is lethargic with diminished cognition at the time my evaluation is unable to provide history. Patient history taken from EMS staff, as well as ED staff. As per staff the patient was found lying on his kitchen floor with decreased responsiveness. The patient was found to have a neurologic deficit. A code stroke was called and the patient was transported to [facility] for further care and evaluation of the aforementioned symptoms. The patient was seen and evaluated in the emergency department. All lab imaging studies reviewed. Patient was found to have a neurologic deficit and initiated on stroke protocol. Patient underwent CT scan of the brain and was found to have a large left hemispheric CVA. Repeat imaging study with CTA brain revealed an enlarging focal ischemic CVA with high risk for hemorrhagic conversion. The patient was also found to have systemic inflammatory response syndrome, THAI, with metabolic acidosis, encephalopathy. Patient admitted to ICU due to increased risk of worsening symptoms. Total neurology team consulted in ED. Neurology team also consulted. No further history is obtainable. No prior admission for review. No medication listed at time of admission for reconciliation. Patient has diminished cognition at the time of my evaluation but has a positive gag reflex and is able to protect his airway without difficulty. Past History Past Medical History: hypertension, stroke Past Surgical History: No surgical history, Other (Unable to obtain) Social history: single Family history: no significant family history, other (Unable to obtain) Medications and Allergies Allergies Allergy/AdvReac Type Severity Reaction Status Date / Time No Known Allergies Allergy Unverified 10/24/20 19:13 Home Medications Medication Instructions Recorded Confirmed Last Taken Type Metoprolol [Lopressor TAB] 50 mg PO BID #60 tablet 10/24/20 Unknown Rx Active Meds: Active Medications Acetaminophen (Acetaminophen 325 Mg Tab) 650 mg PO Q4H PRN PRN Reason: Pain, Mild (1-3) Aspirin (Aspirin 325 Mg Tab) 325 mg PO QDAY JUDY Atorvastatin Calcium (Atorvastatin 40 Mg Tab) 40 mg PO QHS JUDY Bisacodyl (Bisacodyl 10 Mg Rect Supp) 10 mg AK QDAY PRN PRN Reason: Constipation Hydromorphone HCl (Hydromorphone 1 Mg/1 Ml Inj) 0.5 mg IV Q12H PRN PRN Reason: Pain , Severe (7-10) Potassium Chloride/Sodium Chloride (Ns/Kcl 20meq) 1,000 mls @ 100 mls/hr IV DIRECT JUDY Magnesium Hydroxide (Magnesium Hydroxide (Mom) Oral Liqd Udc) 30 ml PO Q4H PRN PRN Reason: Constipation Metoclopramide HCl (Metoclopramide 10 Mg Tab) 10 mg PO Q6H PRN PRN Reason: Nausea And Vomiting Ondansetron HCl (Ondansetron 4 Mg/2 Ml Inj) 4 mg IV Q8H PRN PRN Reason: Nausea And Vomiting Oxycodone/Acetaminophen (Oxycodone /Acetaminophen 5-325mg Tab) 1 tab PO Q12H PRN PRN Reason: Pain, Moderate (4-6) Promethazine HCl (Promethazine 25 Mg Rect Supp) 25 mg AK Q6H PRN PRN Reason: Nausea And Vomiting Sodium Chloride (Sodium Chloride 0.9% 10 Ml Flush Syringe) 10 ml INJ PRN PRN PRN Reason: LINE FLUSH Review of Systems ROS unobtainable: due to mental status Exam - Constitutional Vitals: Temp Pulse Resp BP Pulse Ox 97.8 F 97 H 17 125/82 96 04/17/21 15:46 04/17/21 17:16 04/17/21 17:16 04/17/21 17:16 04/17/21 17:16 General appearance: Present: mild distress, disheveled, malodorous - EENT Eyes: Present: PERRL ENT: clear oral mucosa, hearing decreased - Neck Neck: Present: supple, normal ROM - Respiratory Respiratory effort: normal Respiratory: bilateral: CTA - Cardiovascular Heart Sounds: Present: S1 & S2. Absent: rub, click - Extremities Extremities: pulses symmetrical, No edema Peripheral Pulses: within normal limits - Abdominal General gastrointestinal: Present: soft, non-tender, non-distended, normal bowel sounds Male genitourinary: Present: normal - Integumentary Integumentary: Present: clear, dry, decreased turgor - Musculoskeletal Musculoskeletal: generalized weakness - Psychiatric Psychiatric: no appropriate mood/affect, no intact judgment & insight, no memory intact - Neurologic Neurologic: CNII-XII intact, focal deficits, no moves all extremities, no gait n ormal Results - Labs CBC & Chem 7: 04/17/21 15:55 04/17/21 15:55 Labs: Abnormal lab results 04/17/21 04/17/21 Range/Units 15:55 15:55 WBC 13.4 H (4.5-11.0) K/mm3 RBC 5.81 H (3.65-5.03) M/mm3 Hgb 17.2 H (11.8-15.2) gm/dl Hct 51.2 H (35.5-45.6) % [place] % (Auto) 8.1 H (0.0-7.3) % [place] # (Auto) 1.1 H (0.0-0.8) K/mm3 Seg Neutrophils % 73.0 H (40.0-70.0) % Seg Neutrophils # 9.8 H (1.8-7.7) K/mm3 Carbon Dioxide 20 L (22-30) mmol/L BUN 25 H (9-20) mg/dL Creatinine 1.5 H (0.8-1.3) mg/dL Glucose 138 H (75-100) mg/dL Assessment and Plan - Patient Problems (1) Acute CVA (cerebrovascular accident) Current Visit: Yes Status: Acute Plan to address problem: CVA protocol: Teleneurology consulted in ED, CT head, CTA brain, neuro check, seizure precaution, aspiration precaution, fall precautions, echocardiogram, carotid artery Doppler, antiplatelet therapy, supportive care. Repeat CT brain reveals enlarging left hemispheric CVA. Patient admitted to ICU and initiated on CVA protocol. The high probability of a clinically significant, sudden or life threatening deterioration of the [neuro, respiratory, pulmonary, renal] system(s) required my full and direct attention, intervention and personal management. The aggregate critical care time was [95] minutes. This time is in addition to time spent performing reported procedures but includes the following: [x] Data Review and interpretation [x] Patient assessment and monitoring of vital signs [x] Documentation [x] Medication orders and management (2) Encephalopathy Current Visit: Yes Status: Acute Plan to address problem: CT head, neuro check, seizure precaution, aspiration precautions, supportive care. (3) SIRS (systemic inflammatory response syndrome) Current Visit: Yes Status: Acute Plan to address problem: Empiric IV antibiotic therapy x1 dose, CBC, CMP, chest x-ray, urinalysis, supportive care, repeat CBC in a.m. (4) THAI (acute kidney injury) Current Visit: Yes Status: Acute Plan to address problem: IV fluid resuscitation therapy, BMP, repeat BMP in a.m. to monitor serum creatinine as well as GFR. (5) Acidosis Current Visit: Yes Status: Acute Plan to address problem: BMP, IV fluid resuscitation therapy, repeat BMP in a.m. (6) DVT prophylaxis Current Visit: Yes Status: Acute Plan to address problem: SCD to bilateral lower extremities while in bed,
--- NOTE | 2021-04-17 18:58 | Cat Scan Report ---
CTA NECK WITH CONTRAST HISTORY: COMPARISON: None. TECHNIQUE: Routine CTA of the neck was performed. 3-D/MIP reformats were postprocessed. Percentage s tenosis is determined by direct quantitative measurements of diseased internal carotid artery diamete r compared with normal distal internal carotid artery reference segments or by criteria similar to NA SCET where applicable.All CT scans at this location are performed using CT dose reduction for ALARA b y means of automated exposure control CONTRAST: 100 ml of Omnipaque 350 FINDINGS: Aortic arch: No significant abnormality. Cervical vertebral arteries: No significant abnormality. Both vertebral arteries are smaller in lumen Common carotid arteries: No significant abnormality. Carotid bifurcations: Right carotid bifurcation: 2 mm long atheromatous plaque in the proximal right internal carotid arter y; calcification with the thickness of 2 mm anteriorly; soft fibrous plaque between the lumen of the internal carotid artery and the calcification; near the upper end of the more than 50% stenoses Left carotid bifurcation: 2.2 cm long atheromatous plaque in the proximal left internal carotid arter y; large noncalcified fibrous plaque; peripheral calcification; Small ulcer; stenoses more than 60% C ervical internal carotid arteries: No significant abnormality. Additional findings: None. IMPRESSION: Ossified atheromatous plaques in both proximal internal carotid arteries with more than 50% stenoses on the right side and more than 60% stenoses on the left side; soft plaque bilaterally with the perip heral calcification; small ulcer in the left carotid plaque Signer Name: Selene Snider MD Signed: 04/17/2021 6:53 PM Workstation Name: [id number]
--- NOTE | 2021-04-17 19:04 | Cat Scan Report ---
CTA HEAD WITH CONTRAST HISTORY: Stroke COMPARISON: None. TECHNIQUE: Routine non-contrast CT Head, CTA of the head and post-contrast CT Head are performed. 3-D /MIP reformats postprocessed. All CT scans at this location are performed using CT dose reduction for ALARA by means of automated exposure control CONTRAST: 100 ml of Omnipaque 350 FINDINGS: CTA Head: Intracranial vertebral arteries: No significant abnormality. Basilar artery: Patent; smaller in lumen; atherosclerotic changes Posterior cerebral arteries: Both posterior communicating arteries are continuing as posterior cerebr al arteries; moderate atherosclerotic changes at the P2 segment bilaterally Intracranial internal carotid arteries: Atherosclerotic changes in the cavernous segment of right int ernal carotid artery; left internal carotid artery cavernous segment normal Anterior cerebral arteries: No significant abnormality. Middle cerebral arteries: Right M1 segment is normal; left M1 segment is occluded after the origin of left anterior temporal branch; branches of the middle cerebral artery in the left the sylvian fissur e are not opacified posteriorly; very little collateral circulation through the high convexity Dural venous sinuses:Not optimally opacified. No significant abnormality. Additional findings: None. IMPRESSION: Normal CTA of the head Occluded left M1 segment with very poor collateral circulation CODE STROKE: Time of Communication (ENROBING MACHINE FEEDER/CDT): 5:58 PM CDT Licensed Practitioner Receiving Report: ER Physician Signer Name: Selene Snider MD Signed: 04/17/2021 7:00 PM Workstation Name: [email or web address] ([email or web address])
[2021-04-17] MEDS ORDERED: levETIRAcetam 1000 MG/NS 0.75% 1,000 MG/100 ML BAG IV ONE (19:09)
[2021-04-17] MEDS ORDERED: SODIUM CHLORIDE 0.9% 1000 ML 1,000 ML IV ONE ×2 (20:37)
[2021-04-17] MEDS ORDERED: ASPIRIN 300 MG RECT SUPP PR STA (20:38)
--- NOTE | 2021-04-17 20:44 | Cat Scan Report ---
NONENHANCED CT SCAN OF THE HEAD: INDICATION / CLINICAL INFORMATION: 50 years Male; stroke, patient was given contrast 1745 for and angio head and neck, per Abel tomas a repeat head CT scan. TECHNIQUE: Routine CT head without contrast. All CT scans at this location are performed using CT dos e reduction for ALARA by means of automated exposure control. COMPARISON: CT scan of the head obtained today at 4:46 PM FINDINGS: BRAIN / INTRACRANIAL CONTENTS: Infarction has progressed to involve the posterior temporal lobe and l eft inferior parietal lobule. Hemorrhagic changes Paucity of opacified branches of the left middle cerebral artery No hemorrhagic changes marked dilatation of right temporal horn tip; unchanged since the previous CT scan CRANIOCERVICAL JUNCTION: No significant abnormality. ORBITS: No significant abnormality of visualized orbits. SINUSES / MASTOIDS: No significant abnormality of the visualized paranasal sinuses or mastoid air vilma ls. ADDITIONAL FINDINGS: None. IMPRESSION: To the CT scan obtained at 4:45 PM, nonhemorrhagic ischemic changes are now seen extending into the posterior temporal lobe and inferior parietal lobule on the left side: No mass effect over the atrium of the left lateral ventricle Signer Name: Selene Snider MD Signed: 04/17/2021 8:39 PM Workstation Name: [id number]
[2021-04-17] MEDS ORDERED: VANCOMYCIN/NS 1 GM/250 ML 1 GM/250 ML BAG IV ONE (20:48)
[2021-04-17] MEDS ORDERED: VANCOMYCIN 2,000 MG in SODIUM CHLORIDE 0.9% 500 ML 500 ML IV ONE (22:00)
[2021-04-18] MEDS: NACL 0.9%/KCL 20 MEQ 20 MEQ/1,000 ML BAG IV SCH ×2 (02:11→22:15)
[2021-04-18] MEDS ORDERED: VANCOMYCIN 2,000 MG in SODIUM CHLORIDE 0.9% 500 ML 500 ML IV ONE (03:10)
--- NOTE | 2021-04-18 08:58 | Progress Note ---
Assessment and Plan Assessment and plan: --Acute large left MCA distribution cerebrovascular accident[CVA] Current Visit: Yes Status: Acute Not a candidate for TPA CT head #2 nonhemorrhagic ischemic changes extending into the posterior temporal lobe inferior parietal lobe left-sided no mass-effect Telemetry neurologist evaluated the patient, Continue aspirin and statin Patient had extensive neuro work-up as mentioned below. PT OT rehabilitation, Swallow screen, possible Dobbhoff placement for medications and nutrition Neurochecks, supportive care Oxygen titrate O2 sats to more than 90% Pulmonary critical, neurology following. --CTA head; occluded left LA segment; Current Visit: Yes Status: Acute ER physician discussed and consulted [place] neurologist multiple times According to [place] neurologist, and their naprapath, patient is not a candidate for mechanical thrombectomy They recommended to admit the patient to ICU in our hospital and manage[according to ER physician's note] Neuro work-up so far: --CT head without contrast; 04/17/2021 1719 cortical hypoattenuation in the left lateral and posterior temporal lobe concerning for possible acute infarct no hemorrhage --CTA neck; ossified atheromatous plaque in both proximal internal carotid arteries > than 50% stenosis right ,>60% stenosis left --Carotid Doppler; bilateral carotid 50 to 69% stenosis --CT head #2 04/17/2021 8:39 PM Nonhemorrhagic ischemic changes are now seen extending into the posterior temporal lobe and inferior parietal lobules and the left side no mass-effect over the atrium or the left lateral ventricles --MRI brain; 04/18/2021 902 Large left MCA distribution infarction without hemorrhagic conversion or he rniation no hemorrhagic conversion or herniation large MCA infarct --Acute hypoxic respiratory failure; requiring BiPAP Current Visit: Yes Status: Acute Continue oxygen titrate O2 sats to more than 90% BiPAP as needed, pulmonary critical following --Metabolic encephalopathy: Current Visit: Yes Status: Acute CT head, neuro check, seizure precaution, aspiration precautions, supportive care. --SIRS (systemic inflammatory response syndrome) Current Visit: Yes Status: Acute Empiric IV antibiotic therapy x1 dose, cultures. Urine analysis --THAI (acute kidney injury) Current Visit: Yes Status: Acute Due to ATN, vasomotor nephropathy Gentle hydration, monitor renal function, avoid nephrotoxins Nephrology consult if needed --History of hypertension; Current Visit: Yes Status: Acute Patient's blood pressures in the lower range Gentle hydration, if no improvement added midodrine or vasopressors --Polysubstance abuse; Current Visit: Yes Status: Chronic Ongoing tobacco use, Alcohol use Recreational drug use Patient needs counseling, rehabilitation And detox programs when medically stable, --Monitor for alcohol withdrawal symptoms; Current Visit: Yes Status: Chronic Initiate CIWA protocol if needed --Obesity; BMI 31.5 Current Visit: Yes Status: Chronic Patient needs weight reduction when medically stable --DVT prophylaxis Current Visit: Yes Status: Acute SCD to bilateral lower extremities while in bed, Closely monitor the patient and adjust management as needed Plan of care reviewed with the patient's son Mr. Wade MontezJr. at [phone] He had numerous questions answered all of them. He was inquiring about transferring the patient to [facility]. I informed him after referring to the ER note that ER physician has contacted [place] multiple times yesterday In [place] neurologist and they naprapath felt that patient was not a candidate for thrombectomy, no indication for transfer The high probability of a clinically significant, sudden or life threatening deterioration of the [neuro, respiratory, pulmonary, metabolic ,renal] system(s) required my full and direct attention, intervention and personal management. The aggregate critical care time was [45] minutes. This time is in addition to time spent performing reported procedures but includes the following: [x] Data Review and interpretation [x] Patient assessment and monitoring of vital signs [x] Documentation [x] Medication orders and management History Interval history: I have seen and examined the patient in ICU this morning Patient's chart medications overnight events reviewed Patient is restless and agitated, restraint for safety Scheduled for MRI today Vital signs noted Hospitalist Physical - Constitutional Vitals: Temp Pulse Resp BP Pulse Ox 98.5 F 73 22 102/73 100 04/18/21 07:38 04/18/21 07:53 04/18/21 07:53 04/18/21 07:53 04/18/21 07:53 General appearance: Present: mild distress, obese, other (Agitated) - EENT Eyes: Present: PERRL, EOM intact - Neck Neck: Present: supple, normal ROM - Respiratory Respiratory effort: normal Respiratory: bilateral: diminished, rhonchi, negative: rales, wheezing - Cardiovascular Rhythm: regular Heart Sounds: Present: S1 & S2 - Extremities Extremities: no ischemia, No edema - Abdominal General gastrointestinal: soft, non-tender, non-distended, normal bowel sounds - Integumentary Integumentary: Present: clear, warm - Psychiatric Psychiatric: agitated, other (Noncommunicative) - Neurologic Neurologic: other (Acute CVA, agitated, noncommunicative) Results - Labs CBC & Chem 7: 04/17/21 15:55 04/17/21 15:55 Labs: Laboratory Last Values WBC 13.4 K/mm3 (4.5-11.0) H 04/17/21 15:55 RBC 5.81 M/mm3 (3.65-5.03) H 04/17/21 15:55 Hgb 17.2 gm/dl (11.8-15.2) H 04/17/21 15:55 Hct 51.2 % (35.5-45.6) H 04/17/21 15:55 MCV 88 fl (84-94) 04/17/21 15:55 MCH 30 pg (28-32) 04/17/21 15:55 MCHC 34 % (32-34) 04/17/21 15:55 RDW 14.4 % (13.2-15.2) 04/17/21 15:55 Plt Count 258 K/mm3 (140-440) 04/17/21 15:55 Lymph % (Auto) 16.0 % (13.4-35.0) 04/17/21 15:55 [place] % (Auto) 8.1 % (0.0-7.3) H 04/17/21 15:55 Eos % (Auto) 2.0 % (0.0-4.3) 04/17/21 15:55 Baso % (Auto) 0.9 % (0.0-1.8) 04/17/21 15:55 Lymph # (Auto) 2.2 K/mm3 (1.2-5.4) 04/17/21 15:55 [place] # (Auto) 1.1 K/mm3 (0.0-0.8) H 04/17/21 15:55 Eos # (Auto) 0.3 K/mm3 (0.0-0.4) 04/17/21 15:55 Baso # (Auto) 0.1 K/mm3 (0.0-0.1) 04/17/21 15:55 Seg Neutrophils % 73.0 % (40.0-70.0) H 04/17/21 15:55 Seg Neutrophils # 9.8 K/mm3 (1.8-7.7) H 04/17/21 15:55 Sodium 140 mmol/L (137-145) 04/17/21 15:55 Potassium 3.9 mmol/L (3.6-5.0) 04/17/21 15:55 Chloride 103.7 mmol/L (98-107) 04/17/21 15:55 Carbon Dioxide 20 mmol/L (22-30) L 04/17/21 15:55 Anion Gap 20 mmol/L 04/17/21 15:55 BUN 25 mg/dL (9-20) H 04/17/21 15:55 Creatinine 1.5 mg/dL (0.8-1.3) H 04/17/21 15:55 Estimated GFR 49 ml/min 04/17/21 15:55 BUN/Creatinine Ratio 17 % 04/17/21 15:55 Glucose 138 mg/dL (75-100) H 04/17/21 15:55 Lactic Acid 1.80 mmol/L (0.7-2.0) 04/17/21 15:55 Calcium 9.5 mg/dL (8.4-10.2) 04/17/21 15:55 Total Bilirubin 0.30 mg/dL (0.1-1.2) 04/17/21 15:55 AST 18 units/L (5-40) 04/17/21 15:55 ALT 22 units/L (7-56) 04/17/21 15:55 Alkaline Phosphatase 96 units/L (35-129) 04/17/21 15:55 Total Protein 7.8 g/dL (6.3-8.2) 04/17/21 15:55 Albumin 4.4 g/dL (3.9-5) 04/17/21 15:55 Albumin/Globulin Ratio 1.3 % 04/17/21 15:55 Urine Color Yellow (Yellow) 04/17/21 Unknown Urine Turbidity Hazy (Clear) 04/17/21 Unknown Urine pH 5.0 (5.0-7.0) 04/17/21 Unknown Ur Specific Colon 1.023 (1.003-1.030) 04/17/21 Unknown Urine Protein 30 mg/dl mg/dL (Negative) 04/17/21 Unknown Urine Glucose (UA) Neg mg/dL (Negative) 04/17/21 Unknown Urine Ketones Neg mg/dL (Negative) 04/17/21 Unknown Urine Blood Sm (Negative) 04/17/21 Unknown Urine Nitrite Neg (Negative) 04/17/21 Unknown Urine Bilirubin Neg (Negative) 04/17/21 Unknown Urine Urobilinogen < 2.0 mg/dL (<2.0) 04/17/21 Unknown Ur Leukocyte Esterase Neg (Negative) 04/17/21 Unknown Urine WBC (Auto) 2.0 /HPF (0.0-6.0) 04/17/21 Unknown Urine RBC (Auto) 2.0 /HPF (0.0-6.0) 04/17/21 Unknown U Epithel Cells (Auto) < 1.0 /HPF (0-13.0) 04/17/21 Unknown Hyaline Casts 11 /LPF 04/17/21 Unknown Urine Mucus 1+ /HPF 04/17/21 Unknown Urine Opiates Screen Negative 04/17/21 Unknown Urine Methadone Screen Negative 04/17/21 Unknown Ur Barbiturates Screen Negative 04/17/21 Unknown Ur Phencyclidine Scrn Negative 04/17/21 Unknown Ur Amphetamines Screen Negative 04/17/21 Unknown U Benzodiazepines Scrn Negative 04/17/21 Unknown Urine Cocaine Screen Negative 04/17/21 Unknown U Marijuana (THC) Screen Negative 04/17/21 Unknown Drugs of Abuse Note Disclamer 04/17/21 Unknown Plasma/Serum Alcohol < 0.01 % (0-0.07) 04/17/21 15:55 Active Medications - Current Medications Current Medications: Generic Name Dose Route Start Last Admin Trade Name Freq PRN Reason Stop Dose Admin Acetaminophen 650 mg 04/17/21 18:30 Acetaminophen 325 Mg Tab PO Q4H PRN Pain, Mild (1-3) Aspirin 325 mg 04/18/21 10:00 Aspirin 325 Mg Tab PO QDAY JUDY Atorvastatin Calcium 40 mg 04/17/21 22:00 04/17/21 22:00 Atorvastatin 40 Mg Tab PO Not Given QHS JUDY Bisacodyl 10 mg 04/17/21 18:30 Bisacodyl 10 Mg Rect Supp OR QDAY PRN Constipation Hydromorphone HCl 0.5 mg 04/17/21 18:30 Hydromorphone 1 Mg/1 Ml Inj IV Q12H PRN Pain , Severe (7-10) Potassium Chloride/Sodium Chloride 20 meq in 1,000 mls @ 100 mls/hr 04/17/21 19:00 04/18/21 02:11 Ns/Kcl 20meq IV 100 mls/hr DIRECT JUDY Administration Dexmedetomidine HCl 400 mcg/ 104 mls @ 4.737 mls/hr 04/18/21 00:05 04/18/21 01:10 Sodium Chloride IV 0.2 mcg/kg/hr TITRATE JUDY 4.737 mls/hr Titration Protocol 0.2 MCG/KG/HR Magnesium Hydroxide 30 ml 04/17/21 18:30 Magnesium Hydroxide (Mom) Oral Liqd Udc PO Q4H PRN Constipation Metoclopramide HCl 10 mg 04/17/21 18:30 Metoclopramide 10 Mg Tab PO Q6H PRN Nausea And Vomiting Ondansetron HCl 4 mg 04/17/21 18:30 Ondansetron 4 Mg/2 Ml Inj IV Q8H PRN Nausea And Vomiting Oxycodone/Acetaminophen 1 tab 04/17/21 18:30 Oxycodone /Acetaminophen 5-325mg Tab PO Q12H PRN Pain, Moderate (4-6) Promethazine HCl 25 mg 04/17/21 18:30 Promethazine 25 Mg Rect Supp OR Q6H PRN Nausea And Vomiting Sodium Chloride 10 ml 04/17/21 18:30 Sodium Chloride 0.9% 10 Ml Flush Syringe IV PRN PRN LINE FLUSH
[2021-04-18] MEDS ORDERED: LORazepam 2 MG/ML VIAL IV NR (09:15)
[2021-04-18] MEDS: HYDROmorphone 1 MG/1 ML INJ IV PRN (10:01)
[2021-04-18] MEDS: ASPIRIN 325 MG TAB PO SCH (11:27)
--- NOTE | 2021-04-18 12:50 | Consultation ---
History of Present Illness Consult date: 04/18/21 Requesting physician: KARO CARRENO Reason for consult: other (Acute CVA; Acute Encephalopathy) History of present illness: PULMONARY/CCM CONSULT NOTE (Full dictation # [id number]) Please see dictated notes for full details Past History Past Medical History: hypertension, stroke Past Surgical History: No surgical history, Other (Unable to obtain) Social history: single Family history: no significant family history, other (Unable to obtain) Medications and Allergies Allergies Allergy/AdvReac Type Severity Reaction Status Date / Time No Known Allergies Allergy Unverified 10/24/20 19:13 Home Medications Medication Instructions Recorded Confirmed Last Taken Type Metoprolol [Lopressor TAB] 50 mg PO BID #60 tablet 10/24/20 Unknown Rx Active Meds: Active Medications Acetaminophen (Acetaminophen 325 Mg Tab) 650 mg PO Q4H PRN PRN Reason: Pain, Mild (1-3) Aspirin (Aspirin 325 Mg Tab) 325 mg PO QDAY JUDY Last Admin: 04/18/21 11:27 Dose: Not Given Documented by: Atorvastatin Calcium (Atorvastatin 40 Mg Tab) 40 mg PO QHS JUDY Last Admin: 04/17/21 22:00 Dose: Not Given Documented by: Bisacodyl (Bisacodyl 10 Mg Rect Supp) 10 mg VA QDAY PRN PRN Reason: Constipation Hydromorphone HCl (Hydromorphone 1 Mg/1 Ml Inj) 0.5 mg IV Q12H PRN PRN Reason: Pain , Severe (7-10) Last Admin: 04/18/21 10:01 Dose: 0.5 mg Documented by: Potassium Chloride/Sodium Chloride (Ns/Kcl 20meq) 20 meq in 1,000 mls @ 100 mls/hr IV DIRECT JUDY Last Admin: 04/18/21 02:11 Dose: 100 mls/hr Documented by: Dexmedetomidine HCl 400 mcg/ (Sodium Chloride) 104 mls @ 4.737 mls/hr IV TITRATE JUDY; Protocol Last Admin: 04/18/21 12:03 Dose: 0.6 mcg/kg/hr, 14.212 mls/hr Documented by: Lorazepam (Lorazepam 2 Mg/Ml Vial) 2 mg IV BI APPLICATION DEVELOPER NR Stop: 04/18/21 23:59 Magnesium Hydroxide (Magnesium Hydroxide (Mom) Oral Liqd Udc) 30 ml PO Q4H PRN PRN Reason: Constipation Metoclopramide HCl (Metoclopramide 10 Mg Tab) 10 mg PO Q6H PRN PRN Reason: Nausea And Vomiting Ondansetron HCl (Ondansetron 4 Mg/2 Ml Inj) 4 mg IV Q8H PRN PRN Reason: Nausea And Vomiting Oxycodone/Acetaminophen (Oxycodone /Acetaminophen 5-325mg Tab) 1 tab PO Q12H PRN PRN Reason: Pain, Moderate (4-6) Promethazine HCl (Promethazine 25 Mg Rect Supp) 25 mg VA Q6H PRN PRN Reason: Nausea And Vomiting Sodium Chloride (Sodium Chloride 0.9% 10 Ml Flush Syringe) 10 ml IV PRN PRN PRN Reason: LINE FLUSH Physical Examination Vital signs: Vital Signs Pulse Resp Pulse Ox 92 H 14 85 04/17/21 15:42 04/17/21 15:42 04/17/21 15:42 Results - Laboratory Findings CBC and BMP: 04/17/21 15:55 04/17/21 15:55 Abnormal lab findings: Abnormal Labs 04/17/21 04/17/21 15:55 15:55 WBC 13.4 H RBC 5.81 H Hgb 17.2 H Hct 51.2 H [place] % (Auto) 8.1 H [place] # (Auto) 1.1 H Seg Neutrophils % 73.0 H Seg Neutrophils # 9.8 H Carbon Dioxide 20 L BUN 25 H Creatinine 1.5 H Glucose 138 H
[2021-04-18] MEDS ORDERED: SODIUM BICARBONATE 325 MG TAB FEEDTUBE PRN (13:56)
[2021-04-18] MEDS ORDERED: SIMPLE SYRUP 15 ML FEEDTUBE PRN ×2 (13:56)
[2021-04-18] MEDS ORDERED: LIPASE 10,500/PROTEASE 25,000/AMYLASE 43,750 (UNITS) DR CAP FEEDTUBE PRN (13:56)
--- NOTE | 2021-04-18 14:10 | Electrocardiograph Report ---
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
--- NOTE | 2021-04-18 16:52 | Magnetic Resonance Report ---
MR brain wo con INDICATION / CLINICAL INFORMATION: Acute CVA. TECHNIQUE: Multiplanar, multisequence MR images of the brain were obtained. COMPARISON: Yesterday 04/17/2021 CT head, CTA head 04/17/2021 FINDINGS: INTRACRANIAL: Large area of restricted diffusion seen within the left MCA territory. No hemorrhagic c onversion. No herniation. Ventricular caliber is normal. No extra-axial collection. No mass. Gliosis with hemosiderin staining seen within the right lateral temporal lobe related to remote insult. ORBITS: No significant abnormality of visualized orbits. SINUSES / MASTOIDS: No significant abnormality of visualized sinuses and mastoid air cells. ADDITIONAL FINDINGS: None. IMPRESSION: 1. Large left MCA distribution infarction without hemorrhagic conversion or herniation. Signer Name: Dereje Watson MD Signed: 04/18/2021 4:48 PM Workstation Name: [id number]
--- NOTE | 2021-04-18 17:04 | Vascular Lab Report ---
DUPLEX DOPPLER ULTRASOUND CAROTID, BILATERAL INDICATION / CLINICAL INFORMATION: Stroke. COMPARISON: CTA neck 04/17/2021. FINDINGS: Technically difficult and limited exam. RIGHT CAROTID: Intimal thickening and noncalcified plaque is visualized within the CCA and bulb. Calc ified plaque is also present within the bulb and ICA. - PLAQUE ESTIMATE (%): >50% - CCA velocity: 66 cm/sec. - ICA peak systolic velocity: 142 cm/sec. - ICA/CCA PSV Ratio: 2.1 Right Vertebral Artery: Antegrade flow. LEFT CAROTID: Intimal thickening and noncalcified plaque is visualized within the CCA and bulb. Calci fied plaque is also present within the bulb and ICA. - PLAQUE ESTIMATE (%): >50% - CCA velocity: 112 cm/sec. - ICA peak systolic velocity: 231 cm/sec. - ICA/CCA PSV Ratio: 2.1 Left Vertebral Artery: Antegrade flow. IMPRESSION: 1. Right Internal Carotid Artery: 50-69% diameter stenosis. 2. Left Internal Carotid Artery: 50-69% diameter stenosis. Velocity criteria are extrapolated from diameter data as defined by the Society of Radiologists in Ul trasound Consensus Conference, Radiology 2003; 229;340-346. NO STENOSIS (NORMAL) - Plaque = none; ICA PSV < 125 cm/sec; ICA/CCA PSV Ratio < 2.0 <50% STENOSIS - Plaque < 50%; ICA PSV < 125 cm/sec; ICA/CCA PSV Ratio < 2.0 50-69% STENOSIS - Plaque > 50%; ICA PSV = 125-230 cm/sec; ICA/CCA PSV Ratio = 2.0-4.0 >70% BUT <100% STENOSIS - Plaque > 50%; ICA PSV > 230 cm/sec; ICA/CCA PSV Ratio > 4.0 NEAR OCCLUSION - Plaque = visible lumen; ICA PSV = high/low/none; ICA/CCA PSV Ratio = variable TOTAL OCCLUSION - Plaque = no lumen; ICA PSV = none; ICA/CCA PSV Ratio = N/A Scribed by: Rowan Paige RDMS, RVT Scribed: 04/18/2021 11:09 AM I have reviewed the images, agree with this report, and edited this report as needed. Signer Name: Darnell Atkins MD Signed: 04/18/2021 4:59 PM Workstation Name: [id number]
--- NOTE | 2021-04-18 17:42 | Event Note ---
Date: 04/18/21 I spoke with patient's son Chandler Montez Junior at [phone] and discussed extensively patient's condition, tests and reports, MRI findings And ER physicians discussions with [place] neurologist Dr. Bond multiple times, discussing the treatment options and the transfer to their facility. As per [place] neurologist, Dr. Bond who discussed with the interventional list She recommended ICU admission at our facility[[facility] [place] [facility]]. Patient's repeat CT showed progression of a large left MCA infarct. Intervention will be likely dangerous and not helpful to patient. Patient not a candidate for mechanical thrombectomy. I assured him that if patient's condition changes, and if the need arises to transfer the patient For a higher level of care to a tertiary hospital, we will initiate the transfer Patient's son Mr. Wade Montez verbalized understanding And will discuss with his family.
--- NOTE | 2021-04-19 02:15 | Consultation ---
DATE OF CONSULTATION: 04/18/2021 PULMONARY CRITICAL CARE CONSULTATION CONSULTING PHYSICIAN: Dr. Clinton. REASON FOR CONSULTATION: Acute cerebrovascular accident with toxic metabolic encephalopathy, enlarging ischemic CVA. Acute hypoxemic respiratory failure. CHIEF COMPLAINT AND HISTORY OF PRESENT ILLNESS: As follows: The patient is a now 50-year-old obese male with past medical history significant amongst other things according to the son for a diagnosis of sleep disordered breathing, sleep apnea, previously on CPAP for about 10 years, but quit using the CPAP as well as hypertension, brought into the Emergency Room. He was lethargic with diminished cognition, unable to give much of the history. He was reportedly found lying on his kitchen floor with altered mental status. A code stroke was called on arrival. A CT scan of the brain showed a large left hemispheric CVA. A repeat imaging study with CT of the brain revealed an enlarging focal ischemic cerebrovascular accident with high risk for hemorrhagic conversion. He also has had the systemic inflammatory response syndrome. He was reportedly seen by the tele neurologist in the Emergency Room and it seemed it was definitely out of the TPA window. They had recommended apparently supportive care. He was admitted to the intensive care unit and I received a call later that evening that the patient was desaturating. This required the institution of noninvasive ventilatory therapy. He was reportedly very agitated also intermittently and he had been started on a Precedex drip. When I stopped by to see him today, he was on a Precedex drip. I believe going about 0.5 mcg on the dose and he was with intermittent apneas, obvious sleep disordered breathing. He had tolerated the noninvasive ventilation overnight. I do not have a history of vomiting or overt aspiration. He is described as a 20+ pack year daily smoker. The above is as much of the history of presentation as I have. PAST MEDICAL HISTORY: Hypertension, obesity, questionable prior CVA. PAST SURGICAL HISTORY: Unknown. MEDICATIONS: He was on at the time I stopped by to see him, according to the medication administration record included the following: He was on Tylenol 650 mg p.o. q. 4 hours p.r.n. mild pain or fevers, aspirin 325 mg p.o. daily, Lipitor 40 mg p.o. at bedtime, p.r.n., Dulcolax, Precedex drip was going at 0.5 mcg/kg/hour, Dilaudid 0.5 mg IV q. 12 hours p.r.n. severe pain, Ativan 2 mg IV to receive on-call to radiology, Reglan 10 mg p.o. q. 6 hours p.r.n. nausea and vomiting, Zofran 4 mg IV q. 8 hours p.r.n. nausea and vomiting, Percocet 5/325 one tablet p.o. q. 12 hours p.r.n. moderate pain and he received 20 mEq potassium chloride replacement earlier today. ALLERGIES: No known drug allergies. DIET: Obese gentleman. Acute weight loss or gain history is unknown. Family does deny. FAMILY AND SOCIAL HISTORY: Lives in the community. His son was in the room at my evaluation. He is described as a 20 plus pack year daily smoker. Son denies illicit drug use or abuse. Alcohol use or abuse history is unknown. FAMILY HISTORY: Otherwise unknown. REVIEW OF SYSTEMS: Unobtainable secondary to patient's medical and mental condition. Since he has been here, no gross hematochezia or melena, no gross hematuria, no hematemesis, no hemoptysis, no witnessed seizures. Review of systems otherwise unobtainable or as in body of history above. PHYSICAL EXAMINATION: VITAL SIGNS: At presentation, he was afebrile, temperature 97.8 degrees Fahrenheit, pulse of 92, respiratory rate of 24, blood pressure 121/77, O2 sats were as low as 85%; however on 4 liters nasal cannula, O2 sats were 99%. GENERAL: He is an elderly looking obese male. Normocephalic, atraumatic, lying in bed with obvious sleep-disordered breathing at the time of my evaluation, snoring and intermittent apneas. HEAD, EYES, EARS, NOSE, HEENT: Anicteric, No conjunctival erythema. Oropharynx was moist. No gross jugular venous distention, no thyromegaly. He does have a large neck circumference. Grossly, there were no palpable lymph nodes in the supraclavicular or submandibular lymph node chains. LUNGS: Auscultation of both lung crisostomo revealed diminished bilateral breath sounds, but clear. He did have referred upper airway sounds from the snoring. HEART: Sounds 1 and 2 are heard. There were regular rate and rhythm at the time of my evaluation without overt rubs or murmurs. ABDOMEN: Soft, full, protuberant. Bowel sounds are positive, nontender, no palpable hepatosplenomegaly. EXTREMITIES: Without overt digital clubbing or cyanosis, no pedal edema. Pedal pulses are 2+ bilaterally. NEUROLOGIC: Pupils are equal, round, about 3 mm, reactive to light. Extraocular muscle movements could not be assessed. He did have spontaneous movements to all extremities, was on a Precedex drip at that time, agitated when given a sedation vacation. SKIN: Was of normal turgor in the areas I examined without overt cellulitis or rash. Please see the wound care nurses' notes for full description of his skin. PSYCHIATRIC: Mood and affect were flat. He was encephalopathic. LABORATORY DATA: From my review, admission white cell count 13,400, hemoglobin 17.3, hematocrit 51.2, platelet count 258. No manual differential. Serum sodium 140, potassium 3.9, chloride 104, bicarbonate 20, BUN 25, creatinine 1.5, glucose 138. Liver function test within normal limits. Lactic acid within normal limits. Urinalysis negative for nitrites and leukocyte esterase essentially bland. Urine drug screen presumptive negative. Alcohol level undetectable. No microbiology studies. Chest x-ray, clear chest x-ray lordotic film. No acute process. Initial CT of the head, cortical hypotensive attenuation in the left lateral and posterior temporal lobe concerning for possible acute infarct. A repeat CTA of the head was also done yesterday, plaques in both proximal ICAs, more than 50% stenosis of the right side, 60% on the left side. The CTA done showed a normal CTA of the head. A repeat CT scan done a few hours after the first one shows nonhemorrhagic ischemic changes, now extended into the posterior temporal lobe and inferior parietal lobe on the left side. No mass effect. Carotid ultrasounds are pending. MRI of the brain is just about to be done. ASSESSMENT: 1. Acute cerebrovascular accident. 2. Acute toxic metabolic encephalopathy. 3. Sleep disordered breathing, obstructive sleep apnea by history. 4. Hypoxemic respiratory failure, mostly related to the sleep apnea. 5. Systemic inflammatory response syndrome at presentation. 6. Acute kidney injury. 7. Mild metabolic acidosis. 8. Leukocytosis. 9. Obesity. PLAN: Neurology consultation has been placed. I will defer to the neurologist. Of note, the MRI has been done. I have explained to the son that the workup is ongoing. His sleep-disordered breathing is probably going to be worse now that he has had a cerebrovascular accident. We will continue using bilevel positive airway pressure ventilation therapy scheduled at bedtime with p.r.n. daytime use. Supplemental oxygen will be used during the day to keep O2 sats greater than or equal to about 90%. Aspiration precautions will be maintained. With his mental status the way he is, a feeding tube will be placed and enteral nutrition will be the feeding modality of choice. Secondary prevention measures, aspirin, blood pressure control, lipid control will be deferred to the attending physician. EKG will be done to evaluate his QT interval. Especially while on the Precedex drip, gentle hydration will be given. We will repeat the serum electrolytes in the morning and a BUN and creatinine to see if that is improving. He is appropriately going to be placed on GI prophylaxis, DVT prophylaxis is going to be with SCDs for now until we get the MRI that showed there is no bleeding. Flu and pneumonia vaccination will be addressed per protocol. Thank you very much for the consult. We will follow along and make further recommendations as picture progresses/becomes clearer. He is critically ill and at high risk of from cardiopulmonary and neurologic system decompensation. At this time, I spent about 35-40 minutes of critical care time without overlap and excluding any procedural time that may be necessary. TID: [id number] RECEIPT: [id number] SAVITA/ISAAC
[2021-04-19 06:52] LABS: Basophils # (Auto) 0.1 K/mm3 (0.0-0.1); Basophils % (Auto) 0.7 % (0.0-1.8); Eosinophils # (Auto) 0.3 K/mm3 (0.0-0.4); Eosinophils % (Auto) 2.9 % (0.0-4.3); Hematocrit 43.2 % (35.5-45.6); Hemoglobin 14.7 gm/dl (11.8-15.2); Lymphocytes # (Auto) 1.8 K/mm3 (1.2-5.4); Lymphocytes % (Auto) 20.2 % (13.4-35.0); Mean Corpuscular HGB Conc 34 % (32-34); Mean Corpuscular Volume 91 fl (84-94); Monocytes # (Auto) 0.9 K/mm3 (0.0-0.8); Platelet Count 185 K/mm3 (140-440); Red Blood Count 4.76 M/mm3 (3.65-5.03); Red Cell Distribution Width 14.9 % (13.2-15.2)
[2021-04-19 07:12] LABS: Alanine Aminotransferase 16 units/L (7-56); Albumin 3.6 g/dL (3.9-5); BUN/Creatinine Ratio 22; BUN/Creatinine Ratio 23; Blood Urea Nitrogen 20 mg/dL (9-20); Blood Urea Nitrogen 21 mg/dL (9-20); Calcium 8.5 mg/dL (8.4-10.2); Calcium 8.6 mg/dL (8.4-10.2); Chol/HDL Ratio 5.92 %; HDL Cholesterol 38 mg/dL (40-59); Hemolysis Index 18; Hemolysis Index 52; LDL Cholesterol,Direct 170 mg/dL (50-130)
[2021-04-19] MEDS: HYDROmorphone 1 MG/1 ML INJ IV PRN (07:35)
[2021-04-19] MEDS ORDERED: LORazepam 2 MG/ML VIAL IV PRN ×2 (08:00)
--- NOTE | 2021-04-19 10:45 | XRay Report ---
ABDOMEN 1 VIEW 04/19/2021 9:59 AM INDICATION / CLINICAL INFORMATION: NG TUBE PLACEMENT. COMPARISON: None available. FINDINGS: TUBES / LINES: NG tube is within the stomach BOWEL GAS PATTERN: Nonspecific bowel gas pattern with fecal material and gas throughout. FREE AIR / EXTRALUMINAL GAS: None. Signer Name: Dustin Simpson MD Signed: 04/19/2021 10:41 AM Workstation Name: [id number] [id number]
[2021-04-19] MEDS: FAMOTIDINE 20 MG TAB PO SCH (12:52)
[2021-04-19] MEDS: ASPIRIN 325 MG TAB PO SCH (12:52)
--- NOTE | 2021-04-19 16:45 | Progress Note ---
Assessment and Plan Acute cerebrovascular accident Acute toxic metabolic encephalopathy LILO Acute Hypoxemic respiratory failure Acute kidney injuryMild metabolic acidosis Leukocytosis Obesity - continue Precedex drip - begin Seroquel 200 mg po bid - strict aspiration precautions - continue BIPAP qhs re: LILO with prn daytime use - tentatively transfer to step-down unit in am - continue care as below otherwise; - continue to wean supplemental oxygen for target O2 sat's > 90% acutely - prn bronchodilators with pulmonary hygiene per RT - continue accuchecks with glycemic control per SSI (While critically ill target blood glucose of 140-180 mg/dL; avoid hypoglycemia) - avoid nephrotoxins, renally dose all medications - continue to avoid benzodiazepine's, reduce the possibility of delirium - follow clinically re: WBC / fevers - prn analgesia per CPOT score - Maintenance of sleep-wake cycle, avoid delirium - continue enteral nutritional support at goal rate as tolerated - G.I. & VTE prophylaxis - PT/OT/ROM exercises - continue mobility protocols for pressure ulcer prophylaxis - Monitor hemodynamics closely - continue other care per attending / other consultants - discharge planning ongoing concurrently .... Re-evaluate in am & prn CONDITION: CRITICAL PROGNOSIS: GUARDED CODE STATUS: FULL CODE The high probability of a clinically significant, sudden or life-threatening deterioration of the [respiratory & neurologic] system(s) required my full and direct attention, intervention and personal management. The aggregate critical care time was [33] minutes without overlap. Time includes spent on; [x] Data Review and interpretation [x] Patient assessment and monitoring of vital signs [x] Documentation [x] Medication orders and management Subjective Date of service: 04/19/21 Principal diagnosis: Ac CVA; Ac encephalopathy; LILO; Acute Hypoxemic resp failure; THAI Interval history: Patient is seen today for: Acute cerebrovascular accident; Acute toxic metabolic encephalopathy; LILO; Acute Hypoxemic respiratory failure; THAI; Obesity Seen and examined at bedside; 24hour events reviewed; nursing and respiratory care staff consulted; no adverse overnight events reported to me; resting in bed; remains on supplemental oxygen; lethargic / sedated; remains on Precedex drip; agitated during SAT's; no emesis or overt aspiration Objective Vital Signs - 12hr 04/19/21 04/19/21 04/19/21 04:50 05:00 05:10 Temperature Pulse Rate 59 L 59 L 59 L Pulse Rate [ From Monitor] Respiratory 17 17 15 Rate Blood Pressure 124/64 116/63 116/63 O2 Sat by Pulse 100 100 100 Oximetry 04/19/21 04/19/21 04/19/21 05:20 05:30 05:40 Temperature Pulse Rate 60 57 L 58 L Pulse Rate [ From Monitor] Respiratory 15 15 20 Rate Blood Pressure 116/63 121/58 121/58 O2 Sat by Pulse 100 100 100 Oximetry 04/19/21 04/19/21 04/19/21 05:50 06:00 06:10 Temperature Pulse Rate 61 61 60 Pulse Rate [ From Monitor] Respiratory 19 16 20 Rate Blood Pressure 121/58 113/50 113/50 O2 Sat by Pulse 99 99 100 Oximetry 04/19/21 04/19/21 04/19/21 06:20 06:30 06:40 Temperature Pulse Rate 60 62 62 Pulse Rate [ From Monitor] Respiratory 17 19 22 Rate Blood Pressure 113/50 107/60 107/60 O2 Sat by Pulse 100 99 100 Oximetry 04/19/21 04/19/21 04/19/21 06:50 07:00 07:10 Temperature 99.0 F Pulse Rate 61 62 64 Pulse Rate [ From Monitor] Respiratory 21 19 15 Rate Blood Pressure 107/60 102/63 102/63 O2 Sat by Pulse 100 100 100 Oximetry 04/19/21 04/19/21 04/19/21 07:20 07:30 07:40 Temperature Pulse Rate 66 59 L 89 Pulse Rate [ From Monitor] Respiratory 26 H 22 15 Rate Blood Pressure 102/63 104/60 104/60 O2 Sat by Pulse 100 100 100 Oximetry 04/19/21 04/19/21 04/19/21 07:50 08:00 08:09 Temperature Pulse Rate 77 71 Pulse Rate [ 65 From Monitor] Respiratory 16 22 Rate Blood Pressure 104/60 117/69 O2 Sat by Pulse 100 98 94 Oximetry 04/19/21 04/19/21 04/19/21 08:10 08:20 08:30 Temperature Pulse Rate 66 65 65 Pulse Rate [ From Monitor] Respiratory 18 19 20 Rate Blood Pressure 117/69 117/69 117/69 O2 Sat by Pulse 97 98 97 Oximetry 04/19/21 04/19/21 04/19/21 08:40 08:50 09:00 Temperature Pulse Rate 64 63 62 Pulse Rate [ From Monitor] Respiratory 21 16 20 Rate Blood Pressure 117/69 117/69 113/57 O2 Sat by Pulse 97 97 97 Oximetry 04/19/21 04/19/21 04/19/21 09:10 09:20 09:30 Temperature Pulse Rate 63 62 62 Pulse Rate [ From Monitor] Respiratory 21 Rate Blood Pressure 113/57 113/57 102/66 O2 Sat by Pulse 98 97 98 Oximetry 04/19/21 04/19/21 04/19/21 09:40 09:50 10:00 Temperature Pulse Rate 62 61 61 Pulse Rate [ From Monitor] Respiratory 21 12 20 Rate Blood Pressure 102/66 102/66 102/66 O2 Sat by Pulse 99 96 98 Oximetry 04/19/21 04/19/21 04/19/21 10:10 10:20 10:30 Temperature Pulse Rate 62 60 60 Pulse Rate [ From Monitor] Respiratory 20 22 Rate Blood Pressure 123/69 123/69 123/69 O2 Sat by Pulse 99 99 99 Oximetry 04/19/21 04/19/21 04/19/21 10:40 10:50 11:00 Temperature Pulse Rate 61 61 61 Pulse Rate [ From Monitor] Respiratory 24 Rate Blood Pressure 115/70 115/70 115/70 O2 Sat by Pulse 98 99 98 Oximetry 04/19/21 04/19/21 04/19/21 11:10 11:20 11:30 Temperature Pulse Rate 61 54 L 61 Pulse Rate [ From Monitor] Respiratory 23 23 Rate Blood Pressure 126/71 130/71 O2 Sat by Pulse 98 98 98 Oximetry 04/19/21 04/19/21 04/19/21 11:40 11:50 12:00 Temperature 98.4 F Pulse Rate 62 59 L 62 Pulse Rate [ 67 From Monitor] Respiratory 25 H 24 23 Rate Blood Pressure 130/71 130/71 130/71 O2 Sat by Pulse 98 97 98 Oximetry 04/19/21 04/19/21 04/19/21 12:10 12:20 12:30 Temperature Pulse Rate 63 63 63 Pulse Rate [ From Monitor] Respiratory 23 23 26 H Rate Blood Pressure 130/71 130/71 126/84 O2 Sat by Pulse 98 98 98 Oximetry 04/19/21 04/19/21 04/19/21 12:40 12:50 13:00 Temperature Pulse Rate 63 63 63 Pulse Rate [ From Monitor] Respiratory 24 25 H 24 Rate Blood Pressure 126/84 126/84 129/88 O2 Sat by Pulse 98 98 98 Oximetry 04/19/21 04/19/21 04/19/21 13:10 13:20 13:30 Temperature Pulse Rate 64 64 64 Pulse Rate [ From Monitor] Respiratory 24 23 22 Rate Blood Pressure 129/88 129/88 129/88 O2 Sat by Pulse 98 98 98 Oximetry 04/19/21 04/19/21 04/19/21 13:40 13:50 14:00 Temperature Pulse Rate 64 64 64 Pulse Rate [ From Monitor] Respiratory 23 22 25 H Rate Blood Pressure 129/88 129/88 129/75 O2 Sat by Pulse 98 98 98 Oximetry 04/19/21 04/19/21 04/19/21 14:10 14:20 14:30 Temperature Pulse Rate 65 65 66 Pulse Rate [ From Monitor] Respiratory 25 H 25 H 24 Rate Blood Pressure 129/75 129/75 129/75 O2 Sat by Pulse 98 98 98 Oximetry 04/19/21 04/19/21 04/19/21 14:40 14:50 15:00 Temperature Pulse Rate 66 66 66 Pulse Rate [ From Monitor] Respiratory 23 24 22 Rate Blood Pressure 129/75 129/75 136/80 O2 Sat by Pulse 98 98 98 Oximetry Constitutional: no acute distress, other (middle aged obese male resting in bed without increased respiratory effort at rest) Eyes: non-icteric ENT: oropharynx moist Neck: supple, no lymphadenopathy, no JVD, other (large circumference) Effort: mildly labored Ascultation: Bilateral: clear, diminished breath sounds, other (referred upper airway sounds / snoring) Percussion: Bilateral: not dull Cardiovascular: regular rate and rhythm Gastrointestinal: normoactive bowel sounds, soft, non-tender, non-distended Integumentary: normal Extremities: no cyanosis, no edema, pink and warm, pulses normal Neurologic: pupils equal and round, unable to assess Psychiatric: other (unable to assess) CBC and BMP: 04/19/21 06:21 04/19/21 06:21 Abnormal lab findings: Abnormal Labs 04/17/21 04/17/21 04/19/21 15:55 15:55 06:21 WBC 13.4 H RBC 5.81 H Hgb 17.2 H Hct 51.2 H [place] % (Auto) 8.1 H 10.0 H [place] # (Auto) 1.1 H 0.9 H Seg Neutrophils % 73.0 H Seg Neutrophils # 9.8 H Chloride Carbon Dioxide 20 L BUN 25 H Creatinine 1.5 H Glucose 138 H Total Protein Albumin Triglycerides Cholesterol LDL Cholesterol Direct HDL Cholesterol 04/19/21 04/19/21 06:21 06:21 WBC RBC Hgb Hct [place] % (Auto) [place] # (Auto) Seg Neutrophils % Seg Neutrophils # Chloride 107.9 H Carbon Dioxide BUN 21 H Creatinine Glucose 102 H 102 H Total Protein 5.8 L D Albumin 3.6 L Triglycerides 161 H Cholesterol 225 H LDL Cholesterol Direct 170 H HDL Cholesterol 38 L Additional Studies: MRI shows large right MCA infarct Allied health notes reviewed: nursing
[2021-04-19] MEDS: HEPARIN 5,000 UNIT/1 ML VIAL SUB-Q SCH (21:53)
[2021-04-19] MEDS: QUEtiapine 200 MG TAB PO SCH (21:53)
--- NOTE | 2021-04-20 09:42 | Progress Note ---
Assessment and Plan Assessment and Plan: --Acute large left MCA distribution cerebrovascular accident[CVA] Current Visit: Yes Status: Acute Not a candidate for TPA CT head #2 nonhemorrhagic ischemic changes extending into the posterior temporal lobe inferior parietal lobe left-sided no mass-effect Telemetry neurologist evaluated the patient, Continue aspirin and statin Patient had extensive neuro work-up as mentioned below. PT OT rehabilitation, Swallow screen, possible Dobbhoff placement for medications and nutrition Neurochecks, supportive care Oxygen titrate O2 sats to more than 90% Pulmonary critical, neurology following. --CTA head; occluded left [place] segment; Current Visit: Yes Status: Acute ER physician discussed and consulted [place] neurologist multiple times According to [place] neurologist, and their steamblaster, patient is not a candidate for mechanical thrombectomy They recommended to admit the patient to ICU in our hospital and manage[according to ER physician's note] Neuro work-up so far: --CT head without contrast; 04/17/2021 1719 cortical hypoattenuation in the left lateral and posterior temporal lobe concerning for possible acute infarct no hemorrhage --CTA neck; ossified atheromatous plaque in both proximal internal carotid arteries > than 50% stenosis right ,>60% stenosis left --Carotid Doppler; bilateral carotid 50 to 69% stenosis --CT head #2 04/17/2021 8:39 PM Nonhemorrhagic ischemic changes are now seen extending into the posterior temporal lobe and inferior parietal lobules and the left side no mass-effect over the atrium or the left lateral ventricles --MRI brain; 04/18/2021 902 Large left MCA distribution infarction without hemorrhagic conversion or herniation no hemorrhagic conversion or herniation large MCA infarct --Acute hypoxic respiratory failure; requiring BiPAP Current Visit: Yes Status: Acute Continue oxygen titrate O2 sats to more than 90% BiPAP as needed, pulmonary critical following --Metabolic encephalopathy: Current Visit: Yes Status: Acute CT head, neuro check, seizure precaution, aspiration precautions, supportive care. --SIRS (systemic inflammatory response syndrome) Current Visit: Yes Status: Acute Empiric IV antibiotic therapy x1 dose, cultures. Urine analysis --THAI (acute kidney injury) Current Visit: Yes Status: Acute Due to ATN, vasomotor nephropathy Gentle hydration, monitor renal function, avoid nephrotoxins Nephrology consult if needed --History of hypertension; Current Visit: Yes Status: Acute Patient's blood pressures in the lower range Gentle hydration, if no improvement added midodrine or vasopressors --Polysubstance abuse; Current Visit: Yes Status: Chronic Ongoing tobacco use, Alcohol use Recreational drug use Patient needs counseling, rehabilitation And detox programs when medically stable, --Monitor for alcohol withdrawal symptoms; Current Visit: Yes Status: Chronic Initiate CIWA protocol if needed --Obesity; BMI 31.5 Current Visit: Yes Status: Chronic Patient needs weight reduction when medically stable --DVT prophylaxis Current Visit: Yes Status: Acute SCD to bilateral lower extremities while in bed, Closely monitor the patient and adjust management as needed Plan of care reviewed with the patient's son Mr. Wade Montez . at [phone] He had numerous questions answered all of them. He was inquiring about transferring the patient to [facility]. I informed him after referring to the ER note that ER physician has contacted [place] multiple times yesterday In [place] neurologist and they steamblaster felt that patient was not a candidate for thrombectomy, no indication for transfer The high probability of a clinically significant, sudden or life threatening deterioration of the [neuro, respiratory, pulmonary, metabolic ,renal] system(s) required my full and direct attention, intervention and personal management. The aggregate critical care time was [45] minutes. This time is in addition to time spent performing reported procedures but includes the following: [x] Data Review and interpretation [x] Patient assessment and monitoring of vital signs [x] Documentation [x] Medication orders and management Subjective Date of service: 04/19/21 Principal diagnosis: Ac CVA; Ac encephalopathy; LILO; Acute Hypoxemic resp failure; THAI Interval history: 50 YO Male with HTN, CVA presents to ED for evaluation. Patient is lethargic with diminished cognition at the time my evaluation is unable to provide history. Patient history taken from EMS staff, as well as ED staff. As per staff the patient was found lying on his kitchen floor with decreased responsiveness. The patient was found to have a neurologic deficit. A code stroke was called and the patient was transported to [facility] for further care and evaluation of the aforementioned symptoms. The patient was seen and evaluated in the emergency department. All lab imaging studies reviewed. Patient was found to have a neurologic deficit and initiated on stroke protocol. Patient underwent CT scan of the brain and was found to have a large left hemispheric CVA. Repeat imaging study with CTA brain revealed an enlarging focal ischemic CVA with high risk for hemorrhagic conversion. The patient was also found to have systemic inflammatory response syndrome, THAI, with metabolic acidosis, encephalopathy. Patient admitted to ICU due to increased risk of worsening symptoms. Total neurology team consulted in ED. Neurology team also consulted. No further history is obtainable. No prior admission for review. No medication listed at time of admission for reconciliation. Patient has diminished cognition at the time of my evaluation but has a positive gag reflex and is able to protect his airway without difficulty. 04/19/21 Altered sensorium Confused Objective - Constitutional Vitals: Vital Signs - 12hr 04/19/21 04/19/21 04/19/21 21:42 22:00 22:32 Temperature Pulse Rate 93 H 91 H Pulse Rate [ From Monitor] Respiratory 26 H 19 Rate Blood Pressure 173/94 133/79 O2 Sat by Pulse 98 99 100 Oximetry 04/19/21 04/19/21 04/20/21 23:00 23:31 00:00 Temperature 99.2 F Pulse Rate 82 79 83 Pulse Rate [ From Monitor] Respiratory 18 16 20 Rate Blood Pressure 138/79 138/79 140/88 O2 Sat by Pulse 100 100 100 Oximetry 04/20/21 04/20/21 04/20/21 00:06 00:41 01:00 Temperature Pulse Rate 79 79 75 Pulse Rate [ From Monitor] Respiratory 20 23 18 Rate Blood Pressure 140/88 140/88 140/81 O2 Sat by Pulse 100 100 100 Oximetry 04/20/21 04/20/21 04/20/21 02:00 03:00 04:00 Temperature 99.2 F Pulse Rate 76 73 67 Pulse Rate [ From Monitor] Respiratory 17 17 18 Rate Blood Pressure 130/86 118/81 107/74 O2 Sat by Pulse 100 100 98 Oximetry 04/20/21 04/20/21 04/20/21 04:30 05:00 05:15 Temperature Pulse Rate 56 L 77 Pulse Rate [ From Monitor] Respiratory 15 21 17 Rate Blood Pressure 107/74 113/74 O2 Sat by Pulse 100 99 99 Oximetry 04/20/21 04/20/21 04/20/21 06:00 07:00 08:00 Temperature Pulse Rate 78 74 71 Pulse Rate [ 76 From Monitor] Respiratory 20 18 19 Rate Blood Pressure 121/83 128/81 133/83 O2 Sat by Pulse 98 100 100 Oximetry 04/20/21 04/20/21 08:03 09:24 Temperature 100.4 F H Pulse Rate Pulse Rate [ From Monitor] Respiratory Rate Blood Pressure O2 Sat by Pulse 98 Oximetry General appearance: Present: no acute distress, well-nourished - EENT Eyes: PERRL, EOM intact ENT: hearing intact, clear oral mucosa Ears: bilateral: normal - Neck Neck: supple, normal ROM - Respiratory Respiratory effort: normal Respiratory: bilateral: CTA - Breasts Breasts: normal - Cardiovascular Rhythm: regular Heart Sounds: Present: S1 & S2. Absent: gallop, rub Extremities: pulses intact, No edema, normal color, Full ROM - Gastrointestinal General gastrointestinal: Present: soft, non-tender, non-distended, normal bowel sounds - Genitourinary Male genitourinary: normal - Integumentary Integumentary: clear, warm, dry - Neurologic Neurologic: focal deficits - Psychiatric Psychiatric: other (Confused) - Allied health notes Allied health notes reviewed: nursing, case management - Labs CBC & Chem 7: 04/19/21 06:21 04/19/21 06:21 Labs: Abnormal lab results 04/19/21 04/20/21 Range/Units 23:08 06:10 POC Glucose 109 H 127 H (70-105) mg/dL
[2021-04-20] MEDS: HEPARIN 5,000 UNIT/1 ML VIAL SUB-Q SCH ×2 (09:50→21:58)
[2021-04-20] MEDS: QUEtiapine 200 MG TAB PO SCH ×2 (09:50→21:58)
[2021-04-20] MEDS: FAMOTIDINE 20 MG TAB PO SCH (09:50)
[2021-04-20] MEDS: ASPIRIN 325 MG TAB PO SCH (09:50)
--- NOTE | 2021-04-20 13:04 | Progress Note ---
Assessment and Plan Assessment and Plan: --Acute large left MCA distribution cerebrovascular accident[CVA] Current Visit: Yes Status: Acute Extensive CVA on the left side involving the posterior temporal lobe and inferior parietal lobe. No hemorrhage. Not a candidate for TPA CT head #2 nonhemorrhagic ischemic changes extending into the posterior temporal lobe inferior parietal lobe left-sided no mass-effect Telemetry neurologist evaluated the patient, Continue aspirin and statin Patient had extensive neuro work-up as mentioned below. PT OT rehabilitation, Swallow screen, possible Dobbhoff placement for medications and nutrition Neurochecks, supportive care Oxygen titrate O2 sats to more than 90% Pulmonary critical, neurology following. --CTA head; occluded left [place] segment; Current Visit: Yes Status: Acute ER physician discussed and consulted [place] neurologist multiple times According to [place] neurologist, and their care aid, patient is not a candidate for mechanical thrombectomy They recommended to admit the patient to ICU in our hospital and manage[according to ER physician's note] Neuro work-up so far: --CT head without contrast; 04/17/2021 1719 cortical hypoattenuation in the left lateral and posterior temporal lobe concerning for possible acute infarct no hemorrhage --CTA neck; ossified atheromatous plaque in both proximal internal carotid arteries > than 50% stenosis right ,>60% stenosis left --Carotid Doppler; bilateral carotid 50 to 69% stenosis --CT head #2 04/17/2021 8:39 PM Nonhemorrhagic ischemic changes are now seen extending into the posterior temporal lobe and inferior parietal lobules and the left side no mass-effect over the atrium or the left lateral ventricles --MRI brain; 04/18/2021 902 Large left MCA distribution infarction without hemorrhagic conversion or herniation no hemorrhagic conversion or herniation large MCA infarct --Acute hypoxic respiratory failure; requiring BiPAP Current Visit: Yes Status: Acute Continue oxygen titrate O2 sats to more than 90% BiPAP as needed, pulmonary critical following --Metabolic encephalopathy: Current Visit: Yes Status: Acute CT head, neuro check, seizure precaution, aspiration precautions, supportive care. --SIRS (systemic inflammatory response syndrome) Current Visit: Yes Status: Acute Empiric IV antibiotic therapy x1 dose, cultures. Urine analysis --THAI (acute kidney injury) Current Visit: Yes Status: Acute Due to ATN, vasomotor nephropathy Gentle hydration, monitor renal function, avoid nephrotoxins Nephrology consult if needed --History of hypertension; Current Visit: Yes Status: Acute Patient's blood pressures in the lower range Gentle hydration, if no improvement added midodrine or vasopressors --Polysubstance abuse; Current Visit: Yes Status: Chronic Ongoing tobacco use, Alcohol use Recreational drug use Patient needs counseling, rehabilitation And detox programs when medically stable, --Monitor for alcohol withdrawal symptoms; Current Visit: Yes Status: Chronic Initiate CIWA protocol if needed --Obesity; BMI 31.5 Current Visit: Yes Status: Chronic Patient needs weight reduction when medically stable --DVT prophylaxis Current Visit: Yes Status: Acute SCD to bilateral lower extremities while in bed, Closely monitor the patient and adjust management as needed Plan of care reviewed with the patient's son Mr. Wade MontezJr. at [phone] He had numerous questions answered all of them. He was inquiring about transferring the patient to [facility]. I informed him after referring to the ER note that ER physician has contacted [place] multiple times yesterday In [place] neurologist and they care aid felt that patient was not a candidate for thrombectomy, no indication for transfer The high probability of a clinically significant, sudden or life threatening deterioration of the [neuro, respiratory, pulmonary, metabolic ,renal] system(s) required my full and direct attention, intervention and personal management. The aggregate critical care time was [45] minutes. This time is in addition to time spent performing reported procedures but includes the following: [x] Data Review and interpretation [x] Patient assessment and monitoring of vital signs [x] Documentation [x] Medication orders and management Subjective Date of service: 04/20/21 Principal diagnosis: Ac CVA; Ac encephalopathy; LILO; Acute Hypoxemic resp failure; THAI Interval history: 50 YO Male with HTN, CVA presents to ED for evaluation. Patient is lethargic with diminished cognition at the time my evaluation is unable to provide history. Patient history taken from EMS staff, as well as ED staff. As per staff the patient was found lying on his kitchen floor with decreased responsiveness. The patient was found to have a neurologic deficit. A code stroke was called and the patient was transported to [facility] for further care and evaluation of the aforementioned symptoms. The patient was seen and evaluated in the emergency department. All lab imaging studies reviewed. Patient was found to have a neurologic deficit and initiated on stroke protocol. Patient underwent CT scan of the brain and was found to have a large left hemispheric CVA. Repeat imaging study with CTA brain revealed an enlarging focal ischemic CVA with high risk for hemorrhagic conversion. The patient was also found to have systemic inflammatory response syndrome, THAI, with metabolic acidosis, encephalopathy. Patient admitted to ICU due to increased risk of worsening symptoms. Total neurology team consulted in ED. Neurology team also consulted. No further history is obtainable. No prior admission for review. No medication listed at time of admission for reconciliation. Patient has diminished cognition at the time of my evaluation but has a positive gag reflex and is able to protect his airway without difficulty. 04/19/21 Altered sensorium Confused 04/20/2021 Altered sensorium Confused Objective - Constitutional Vitals: Vital Signs - 12hr 04/20/21 04/20/21 04/20/21 02:00 03:00 04:00 Temperature 99.2 F Pulse Rate 76 73 67 Pulse Rate [ From Monitor] Respiratory 17 17 18 Rate Blood Pressure 130/86 118/81 107/74 O2 Sat by Pulse 100 100 98 Oximetry 04/20/21 04/20/21 04/20/21 04:30 05:00 05:15 Temperature Pulse Rate 56 L 77 Pulse Rate [ From Monitor] Respiratory 15 21 17 Rate Blood Pressure 107/74 113/74 O2 Sat by Pulse 100 99 99 Oximetry 04/20/21 04/20/21 04/20/21 06:00 07:00 08:00 Temperature Pulse Rate 78 74 71 Pulse Rate [ 76 From Monitor] Respiratory 20 18 19 Rate Blood Pressure 121/83 128/81 133/83 O2 Sat by Pulse 98 100 100 Oximetry 04/20/21 04/20/21 04/20/21 08:03 09:00 09:24 Temperature 100.4 F H Pulse Rate 79 Pulse Rate [ From Monitor] Respiratory 24 Rate Blood Pressure 113/78 O2 Sat by Pulse 98 99 Oximetry 04/20/21 04/20/21 04/20/21 10:00 11:00 12:00 Temperature Pulse Rate 85 102 H 85 Pulse Rate [ 78 From Monitor] Respiratory 25 H 26 H 24 Rate Blood Pressure 109/85 110/82 119/82 O2 Sat by Pulse 100 97 99 Oximetry General appearance: Present: no acute distress, well-nourished - EENT Eyes: PERRL, EOM intact ENT: hearing intact, clear oral mucosa Ears: bilateral: normal - Neck Neck: supple, normal ROM - Respiratory Respiratory effort: normal Respiratory: bilateral: CTA - Breasts Breasts: normal - Cardiovascular Heart rate: 78 Rhythm: regular Heart Sounds: Present: S1 & S2. Absent: gallop, rub Extremities: pulses intact, No edema, normal color, Full ROM - Gastrointestinal General gastrointestinal: Present: soft, non-tender, non-distended, normal bowel sounds - Genitourinary Male genitourinary: normal - Integumentary Integumentary: clear, warm, dry - Musculoskeletal Musculoskeletal: 1, strength equal bilaterally - Neurologic Neurologic: focal deficits - Psychiatric Psychiatric: other (Lethargic) - Labs CBC & Chem 7: 04/19/21 06:21 04/19/21 06:21 Labs: Abnormal lab results 04/19/21 04/20/21 Range/Units 23:08 06:10 POC Glucose 109 H 127 H (70-105) mg/dL
--- NOTE | 2021-04-20 14:29 | Electrocardiograph Report ---
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
[2021-04-20] MEDS: ACETAMINOPHEN 325 MG TAB PO PRN (15:01)
--- NOTE | 2021-04-20 17:03 | Progress Note ---
Assessment and Plan Acute cerebrovascular accident Acute toxic metabolic encephalopathy LILO Acute Hypoxemic respiratory failure Acute kidney injuryMild metabolic acidosis Leukocytosis Obesity - add scopolamine patch for secretion control - hold Precedex drip - continue Seroquel 200 mg po bid - continue strict aspiration precautions (NT Suction done at bedside) - continue BIPAP qhs re: LILO with prn daytime use - will transfer to step-down unit - continue care as below otherwise; - continue to wean supplemental oxygen for target O2 sat's > 90% acutely - prn bronchodilators with pulmonary hygiene per RT - continue accuchecks with glycemic control per SSI (While critically ill target blood glucose of 140-180 mg/dL; avoid hypoglycemia) - avoid nephrotoxins, renally dose all medications - continue to avoid benzodiazepine's, reduce the possibility of delirium - follow clinically re: WBC / fevers - prn analgesia per CPOT score - Maintenance of sleep-wake cycle, avoid delirium - continue enteral nutritional support at goal rate as tolerated - G.I. & VTE prophylaxis - PT/OT/ROM exercises - continue mobility protocols for pressure ulcer prophylaxis - Monitor hemodynamics closely - continue other care per attending / other consultants - discharge planning ongoing concurrently .... Re-evaluate in am & prn CONDITION: FAIR PROGNOSIS: GUARDED CODE STATUS: FULL CODE I have spent ( >35 ) minutes with the patient w/ >50% of the time spent counseling and/or coordinating care for this patient. Counseling topics and/or how time was spent coordinating patient's care is outlined in the impression and plan above. Subjective Date of service: 04/20/21 Principal diagnosis: Ac CVA; Ac encephalopathy; LILO; Acute Hypoxemic resp failure; THAI Interval history: Patient is seen today for: Acute cerebrovascular accident; Acute toxic metabolic encephalopathy; LILO; Acute Hypoxemic respiratory failure; THAI; Obesity Seen and examined at bedside; 24hour events reviewed; nursing and respiratory care staff consulted; no adverse overnight events reported to me; resting in bed; remains on supplemental oxygen; less agitated; secretions moderate Objective Vital Signs - 12hr 04/20/21 04/20/21 04/20/21 05:15 06:00 07:00 Temperature Pulse Rate 78 74 Pulse Rate [ From Monitor] Respiratory 17 20 18 Rate Blood Pressure 121/83 128/81 O2 Sat by Pulse 99 98 100 Oximetry 04/20/21 04/20/21 04/20/21 08:00 08:03 09:00 Temperature Pulse Rate 71 79 Pulse Rate [ 76 From Monitor] Respiratory 19 24 Rate Blood Pressure 133/83 113/78 O2 Sat by Pulse 100 98 99 Oximetry 04/20/21 04/20/21 04/20/21 09:24 10:00 11:00 Temperature 100.4 F H Pulse Rate 85 102 H Pulse Rate [ From Monitor] Respiratory 25 H 26 H Rate Blood Pressure 109/85 110/82 O2 Sat by Pulse 100 97 Oximetry 04/20/21 04/20/21 04/20/21 12:00 13:00 13:10 Temperature 100.5 F H Pulse Rate 85 84 Pulse Rate [ 78 From Monitor] Respiratory 24 22 Rate Blood Pressure 119/82 118/86 O2 Sat by Pulse 99 98 Oximetry 04/20/21 04/20/21 04/20/21 14:00 15:00 16:00 Temperature 99.8 F H Pulse Rate 87 96 H 86 Pulse Rate [ 87 From Monitor] Respiratory 22 24 24 Rate Blood Pressure 119/76 119/76 143/79 O2 Sat by Pulse 98 99 98 Oximetry Constitutional: no acute distress, other (middle aged obese male resting in bed without increased respiratory effort at rest) Eyes: non-icteric ENT: oropharynx moist, oropharyngeal exudate pre Neck: supple, no lymphadenopathy, no JVD, other (large circumference) Effort: mildly labored Ascultation: Bilateral: diminished breath sounds, rhonchi, other (referred upper airway sounds / snoring) Percussion: Bilateral: not dull Cardiovascular: regular rate and rhythm Gastrointestinal: normoactive bowel sounds, soft, non-tender, non-distended Integumentary: normal Extremities: no cyanosis, no edema, pink and warm, pulses normal Neurologic: pupils equal and round, unable to assess Psychiatric: other (unable to assess) CBC and BMP: 04/19/21 06:21 04/19/21 06:21 Abnormal lab findings: Abnormal Labs 04/17/21 04/17/21 04/19/21 15:55 15:55 06:21 WBC 13.4 H RBC 5.81 H Hgb 17.2 H Hct 51.2 H [place] % (Auto) 8.1 H 10.0 H [place] # (Auto) 1.1 H 0.9 H Seg Neutrophils % 73.0 H Seg Neutrophils # 9.8 H Chloride Carbon Dioxide 20 L BUN 25 H Creatinine 1.5 H Glucose 138 H POC Glucose Total Protein Albumin Triglycerides Cholesterol LDL Cholesterol Direct HDL Cholesterol 04/19/21 04/19/21 04/19/21 06:21 06:21 23:08 WBC RBC Hgb Hct [place] % (Auto) [place] # (Auto) Seg Neutrophils % Seg Neutrophils # Chloride 107.9 H Carbon Dioxide BUN 21 H Creatinine Glucose 102 H 102 H POC Glucose 109 H Total Protein 5.8 L D Albumin 3.6 L Triglycerides 161 H Cholesterol 225 H LDL Cholesterol Direct 170 H HDL Cholesterol 38 L 04/20/21 06:10 WBC RBC Hgb Hct [place] % (Auto) [place] # (Auto) Seg Neutrophils % Seg Neutrophils # Chloride Carbon Dioxide BUN Creatinine Glucose POC Glucose 127 H Total Protein Albumin Triglycerides Cholesterol LDL Cholesterol Direct HDL Cholesterol Chest x-ray: pending Allied health notes reviewed: nursing
[2021-04-20] MEDS: NACL 0.9%/KCL 20 MEQ 20 MEQ/1,000 ML BAG IV SCH (21:58)
[2021-04-20] MEDS: LORazepam 2 MG/ML VIAL IV PRN (22:12)
[2021-04-21] MEDS: ACETAMINOPHEN 325 MG TAB PO PRN (02:01)
[2021-04-21] MEDS: NACL 0.9%/KCL 20 MEQ 20 MEQ/1,000 ML BAG IV SCH ×2 (07:17→16:00)
[2021-04-21] MEDS: QUEtiapine 200 MG TAB PO SCH ×2 (09:25→22:58)
[2021-04-21] MEDS: LORazepam 2 MG/ML VIAL IV PRN ×2 (09:25→15:41)
[2021-04-21] MEDS: ASPIRIN 325 MG TAB PO SCH (09:25)
[2021-04-21] MEDS: FAMOTIDINE 20 MG TAB PO SCH (09:25)
[2021-04-21] MEDS: HEPARIN 5,000 UNIT/1 ML VIAL SUB-Q SCH ×2 (09:26→22:59)
--- NOTE | 2021-04-21 14:25 | Progress Note ---
Assessment and Plan Assessment and Plan: --Acute large left MCA distribution cerebrovascular accident[CVA] Current Visit: Yes Status: Acute Extensive CVA on the left side involving the posterior temporal lobe and inferior parietal lobe. No hemorrhage. Not a candidate for TPA CT head #2 nonhemorrhagic ischemic changes extending into the posterior temporal lobe inferior parietal lobe left-sided no mass-effect Telemetry neurologist evaluated the patient, Continue aspirin and statin Patient had extensive neuro work-up as mentioned below. PT OT rehabilitation, Swallow screen, possible Dobbhoff placement for medications and nutrition Neurochecks, supportive care Oxygen titrate O2 sats to more than 90% Pulmonary critical, neurology following. --CTA head; occluded left [place] segment; Current Visit: Yes Status: Acute ER physician discussed and consulted [facility] neurologist multiple times According to [facility] neurologist, and their sow farm barn technician, patient is not a candidate for mechanical thrombectomy They recommended to admit the patient to ICU in our hospital and manage[according to ER physician's note] Neuro work-up so far: --CT head without contrast; 04/17/2021 1719 cortical hypoattenuation in the left lateral and posterior temporal lobe concerning for possible acute infarct no hemorrhage --CTA neck; ossified atheromatous plaque in both proximal internal carotid arteries > than 50% stenosis right ,>60% stenosis left --Carotid Doppler; bilateral carotid 50 to 69% stenosis --CT head #2 04/17/2021 8:39 PM Nonhemorrhagic ischemic changes are now seen extending into the posterior temporal lobe and inferior parietal lobules and the left side no mass-effect over the atrium or the left lateral ventricles --MRI brain; 04/18/2021 902 Large left MCA distribution infarction without hemorrhagic conversion or herniation no hemorrhagic conversion or herniation large MCA infarct --Acute hypoxic respiratory failure; requiring BiPAP Current Visit: Yes Status: Acute Continue oxygen titrate O2 sats to more than 90% BiPAP as needed, pulmonary critical following --Metabolic encephalopathy: Current Visit: Yes Status: Acute CT head, neuro check, seizure precaution, aspiration precautions, supportive care. --SIRS (systemic inflammatory response syndrome) Current Visit: Yes Status: Acute Empiric IV antibiotic therapy x1 dose, cultures. Urine analysis --THAI (acute kidney injury) Current Visit: Yes Status: Acute Due to ATN, vasomotor nephropathy Gentle hydration, monitor renal function, avoid nephrotoxins Nephrology consult if needed --History of hypertension; Current Visit: Yes Status: Acute Patient's blood pressures in the lower range Gentle hydration, if no improvement added midodrine or vasopressors --Polysubstance abuse; Current Visit: Yes Status: Chronic Ongoing tobacco use, Alcohol use Recreational drug use Patient needs counseling, rehabilitation And detox programs when medically stable, --Monitor for alcohol withdrawal symptoms; Current Visit: Yes Status: Chronic Initiate CIWA protocol if needed --Obesity; BMI 31.5 Current Visit: Yes Status: Chronic Patient needs weight reduction when medically stable --DVT prophylaxis Current Visit: Yes Status: Acute SCD to bilateral lower extremities while in bed, Closely monitor the patient and adjust management as needed Plan of care reviewed with the patient's son Mr. Wade MontezJr. at [phone] He had numerous questions answered all of them. He was inquiring about transferring the patient to [facility]. I informed him after referring to the ER note that ER physician has contacted [facility] multiple times yesterday In [facility] neurologist and they sow farm barn technician felt that patient was not a candidate for thrombectomy, no indication for transfer The high probability of a clinically significant, sudden or life threatening deterioration of the [neuro, respiratory, pulmonary, metabolic ,renal] system(s) required my full and direct attention, intervention and personal management. The aggregate critical care time was [45] minutes. This time is in addition to time spent performing reported procedures but includes the following: [x] Data Review and interpretation [x] Patient assessment and monitoring of vital signs [x] Documentation [x] Medication orders and management Subjective Date of service: 04/21/21 Principal diagnosis: Ac CVA; Ac encephalopathy; LILO; Acute Hypoxemic resp failure; THAI Interval history: 50 YO Male with HTN, CVA presents to ED for evaluation. Patient is lethargic with diminished cognition at the time my evaluation is unable to provide history. Patient history taken from EMS staff, as well as ED staff. As per staff the patient was found lying on his kitchen floor with decreased responsiveness. The patient was found to have a neurologic deficit. A code stroke was called and the patient was transported to [facility] for further care and evaluation of the aforementioned symptoms. The patient was seen and evaluated in the emergency department. All lab imaging studies reviewed. Patient was found to have a neurologic deficit and initiated on stroke protocol. Patient underwent CT scan of the brain and was found to have a large left hemispheric CVA. Repeat imaging study with CTA brain revealed an enlarging focal ischemic CVA with high risk for hemorrhagic conversion. The patient was also found to have systemic inflammatory response syndrome, THAI, with metabolic acidosis, encephalopathy. Patient admitted to ICU due to increased risk of worsening symptoms. Total neurology team consulted in ED. Neurology team also consulted. No further history is obtainable. No prior admission for review. No medication listed at time of admission for reconciliation. Patient has diminished cognition at the time of my evaluation but has a positive gag reflex and is able to protect his airway without difficulty. 04/19/21 Altered sensorium Confused 04/20/2021 Altered sensorium Confused 04/21/2021 Altered sensorium confused Not moving the right upper and lower extremities Objective - Constitutional Vitals: Vital Signs - 12hr 04/21/21 04/21/21 04/21/21 02:30 02:45 03:00 Temperature Pulse Rate 88 87 90 Pulse Rate [ From Monitor] Respiratory 22 50 H 41 H Rate Blood Pressure 133/82 131/85 O2 Sat by Pulse 100 100 99 Oximetry 04/21/21 04/21/21 04/21/21 03:15 03:30 03:45 Temperature Pulse Rate 89 89 90 Pulse Rate [ From Monitor] Respiratory 24 31 H 33 H Rate Blood Pressure 139/85 128/82 125/83 O2 Sat by Pulse 100 99 99 Oximetry 04/21/21 04/21/21 04/21/21 04:00 04:06 04:15 Temperature 100.2 F H Pulse Rate 87 87 85 Pulse Rate [ From Monitor] Respiratory 20 30 H Rate Blood Pressure 134/86 128/88 O2 Sat by Pulse 100 100 Oximetry 04/21/21 04/21/21 04/21/21 04:30 04:34 04:45 Temperature Pulse Rate 84 84 83 Pulse Rate [ From Monitor] Respiratory 21 21 20 Rate Blood Pressure 130/87 130/87 141/83 O2 Sat by Pulse 100 98 100 Oximetry 04/21/21 04/21/21 04/21/21 05:00 05:15 05:30 Temperature Pulse Rate 80 81 81 Pulse Rate [ From Monitor] Respiratory 44 H 18 43 H Rate Blood Pressure 141/83 127/85 129/88 O2 Sat by Pulse 99 100 99 Oximetry 04/21/21 04/21/21 04/21/21 05:45 06:00 06:16 Temperature Pulse Rate 80 78 78 Pulse Rate [ From Monitor] Respiratory 17 18 20 Rate Blood Pressure 139/83 126/84 140/83 O2 Sat by Pulse 100 99 100 Oximetry 04/21/21 04/21/21 04/21/21 07:00 07:49 08:00 Temperature 99.2 F Pulse Rate 82 84 Pulse Rate [ 84 From Monitor] Respiratory 22 16 Rate Blood Pressure 130/93 159/100 O2 Sat by Pulse 100 96 Oximetry 04/21/21 04/21/21 04/21/21 08:17 09:00 09:50 Temperature Pulse Rate 95 H 126 H Pulse Rate [ From Monitor] Respiratory 28 H 44 H Rate Blood Pressure 180/100 195/111 O2 Sat by Pulse 100 97 97 Oximetry 04/21/21 04/21/21 04/21/21 10:00 10:10 11:00 Temperature Pulse Rate 126 H 124 H 110 H Pulse Rate [ From Monitor] Respiratory 29 H 27 H 49 H Rate Blood Pressure 195/111 157/92 157/92 O2 Sat by Pulse 97 97 97 Oximetry 04/21/21 12:00 Temperature 99 F Pulse Rate 103 H Pulse Rate [ 84 From Monitor] Respiratory 22 Rate Blood Pressure 152/92 O2 Sat by Pulse 98 Oximetry General appearance: Present: no acute distress, well-nourished - EENT Eyes: PERRL, EOM intact ENT: hearing intact, clear oral mucosa Ears: bilateral: normal - Neck Neck: supple, normal ROM - Respiratory Respiratory effort: normal Respiratory: bilateral: CTA - Breasts Breasts: normal - Cardiovascular Heart rate: 78 Rhythm: regular Heart Sounds: Present: S1 & S2. Absent: gallop, rub Extremities: pulses intact, No edema, normal color, Full ROM - Gastrointestinal General gastrointestinal: Present: soft, non-tender, non-distended, normal bowel sounds - Genitourinary Male genitourinary: normal - Integumentary Integumentary: clear, warm, dry - Musculoskeletal Musculoskeletal: 1, strength equal bilaterally - Neurologic Neurologic: focal deficits (Right-sided hemiplegia) - Psychiatric Psychiatric: agitated - Allied health notes Allied health notes reviewed: nursing, case management - Labs CBC & Chem 7: 04/19/21 06:21 04/19/21 06:21 Labs: Abnormal lab results 04/20/21 04/21/2121 Range/Units 23:46 05:49 11:20 POC Glucose 112 H 131 H 106 H (70-105) mg/dL
--- NOTE | 2021-04-21 14:30 | Progress Note ---
Assessment and Plan 50 YO Male with HTN, CVA presents to ED for evaluation. Patient is lethargic with diminished cognition and he is unable to provide history. Patient history taken from EMS staff, as well as ED staff. As per staff the patient was found l rigoberto on his kitchen floor with decreased responsiveness. The patient was found to have a neurologic deficit. A code stroke was called and the patient was transported to [facility] for further care and evaluation of the aforementioned symptoms. The patient was seen and evaluated in the emergency department. All lab imaging studies reviewed. Patient was found to have a neurologic deficit and initiated on stroke protocol. Patient underwent CT scan of the brain and was found to have a large left hemispheric CVA. Repeat imaging study with CTA brain revealed an enlarging focal ischemic CVA with high risk for hemorrhagic conversion. The patient was also found to have systemic inflammatory response syndrome, THAI, with metabolic acidosis, encephalopathy. Patient admitted to ICU due to increased risk of worsening symptoms. Neurology team consulted . No further history is obtainable. No prior admission for review. Patient sleeping. Not responding to verbal stimuli. Patient is on 4 litres o2. O2 saturation running 100%. BIPAP 16/6, rate 16, FIO2 35% stand by in the room. No acute respiratory distress at this time. Patient running low grade temp. No leukocytosis. Chest xray done 04/17/21 reported Minimal bibasilar subsegmental atelectasis/parenchymal scarring. Patient is on S/C Heparin and famotidine. I spent critical care time of 35 minutes on this patient, reviewing the chart, examine the patient, review labs, chest xray, talking to the nursing and respiratory staff and work out plan of treatment. - Patient Problems (1) SIRS (systemic inflammatory response syndrome) Current Visit: Yes Status: Acute Plan to address problem: Patient still running low grade temp. Leukocyte count coming down. (2) Acute ischemic left MCA stroke Current Visit: Yes Status: Acute Plan to address problem: Management as per neurology. (3) THAI (acute kidney injury) Current Visit: Yes Status: Acute Plan to address problem: Management as per nephrology. (4) Acidosis Current Visit: Yes Status: Acute Plan to address problem: Improving. Last anion gap 16. Obtaining ABGs. (5) Encephalopathy Current Visit: Yes Status: Acute Plan to address problem: Management as per primary care and neurology. Subjective Date of service: 04/21/21 Principal diagnosis: Ac CVA; Ac encephalopathy; LILO; Acute Hypoxemic resp failure; THAI Interval history: 50 YO Male with HTN, CVA presents to ED for evaluation. Patient is lethargic with diminished cognition and he is unable to provide history. Patient history taken from EMS staff, as well as ED staff. As per staff the patient was found lying on his kitchen floor with decreased responsiveness. The patient was found to have a neurologic deficit. A code stroke was called and the patient was transported to [facility] for further care and evaluation of the aforementioned sympto ms. The patient was seen and evaluated in the emergency department. All lab imaging studies reviewed. Patient was found to have a neurologic deficit and initiated on stroke protocol. Patient underwent CT scan of the brain and was found to have a large left hemispheric CVA. Repeat imaging study with CTA brain revealed an enlarging focal ischemic CVA with high risk for hemorrhagic conversion. The patient was also found to have systemic inflammatory response syndrome, THAI, with metabolic acidosis, encephalopathy. Patient admitted to ICU due to increased risk of worsening symptoms. Neurology team consulted . No further history is obtainable. No prior admission for review. Patient sleeping. Not responding to verbal stimuli. Patient is on 4 litres o2. O2 saturation running 100%. BIPAP 16/6, rate 16, FIO2 35% stand by in the room. No acute respiratory distress at this time. Patient running low grade temp. No leukocytosis. Chest xray done 04/17/21 reported Minimal bibasilar subsegmental atelectasis/parenchymal scarring. Patient is on S/C Heparin and famotidine. Objective Vital Signs - 12hr 04/21/21 04/21/21 04/21/21 02:30 02:45 03:00 Temperature Pulse Rate 88 87 90 Pulse Rate [ From Monitor] Respiratory 22 50 H 41 H Rate Blood Pressure 133/82 131/85 O2 Sat by Pulse 100 100 99 Oximetry 04/21/21 04/21/21 04/21/21 03:15 03:30 03:45 Temperature Pulse Rate 89 89 90 Pulse Rate [ From Monitor] Respiratory 24 31 H 33 H Rate Blood Pressure 139/85 128/82 125/83 O2 Sat by Pulse 100 99 99 Oximetry 04/21/21 04/21/21 04/21/21 04:00 04:06 04:15 Temperature 100.2 F H Pulse Rate 87 87 85 Pulse Rate [ From Monitor] Respiratory 20 30 H Rate Blood Pressure 134/86 128/88 O2 Sat by Pulse 100 100 Oximetry 04/21/21 04/21/21 04/21/21 04:30 04:34 04:45 Temperature Pulse Rate 84 84 83 Pulse Rate [ From Monitor] Respiratory 21 21 20 Rate Blood Pressure 130/87 130/87 141/83 O2 Sat by Pulse 100 98 100 Oximetry 04/21/21 04/21/21 04/21/21 05:00 05:15 05:30 Temperature Pulse Rate 80 81 81 Pulse Rate [ From Monitor] Respiratory 44 H 18 43 H Rate Blood Pressure 141/83 127/85 129/88 O2 Sat by Pulse 99 100 99 Oximetry 04/21/21 04/21/21 04/21/21 05:45 06:00 06:16 Temperature Pulse Rate 80 78 78 Pulse Rate [ From Monitor] Respiratory 17 18 20 Rate Blood Pressure 139/83 126/84 140/83 O2 Sat by Pulse 100 99 100 Oximetry 04/21/21 04/21/21 04/21/21 07:00 07:49 08:00 Temperature 99.2 F Pulse Rate 82 84 Pulse Rate [ 84 From Monitor] Respiratory 22 16 Rate Blood Pressure 130/93 159/100 O2 Sat by Pulse 100 96 Oximetry 04/21/21 04/21/21 04/21/21 08:17 09:00 09:50 Temperature Pulse Rate 95 H 126 H Pulse Rate [ From Monitor] Respiratory 28 H 44 H Rate Blood Pressure 180/100 195/111 O2 Sat by Pulse 100 97 97 Oximetry 04/21/21 04/21/21 04/21/21 10:00 10:10 11:00 Temperature Pulse Rate 126 H 124 H 110 H Pulse Rate [ From Monitor] Respiratory 29 H 27 H 49 H Rate Blood Pressure 195/111 157/92 157/92 O2 Sat by Pulse 97 97 97 Oximetry 04/21/21 12:00 Temperature 99 F Pulse Rate 103 H Pulse Rate [ 84 From Monitor] Respiratory 22 Rate Blood Pressure 152/92 O2 Sat by Pulse 98 Oximetry Constitutional: no acute distress, lethargic, asleep, other (middle aged obese male resting in bed without increased respiratory effort at rest) Eyes: non-icteric ENT: oropharynx moist, oropharyngeal exudate pre Neck: supple, no lymphadenopathy, no JVD, other (large circumference) Effort: mildly labored Ascultation: Bilateral: diminished breath sounds, rhonchi, other (referred upper airway sounds / snoring) Percussion: Bilateral: not dull Cardiovascular: regular rate and rhythm Gastrointestinal: normoactive bowel sounds, soft, non-tender, non-distended Integumentary: normal Extremities: no cyanosis, no edema, pink and warm, pulses normal Neurologic: pupils equal and round, unable to assess Psychiatric: other (unable to assess) CBC and BMP: 04/19/21 06:21 04/19/21 06:21 Abnormal lab findings: Abnormal Labs 04/17/21 04/17/21 04/19/21 15:55 15:55 06:21 WBC 13.4 H RBC 5.81 H Hgb 17.2 H Hct 51.2 H [place] % (Auto) 8.1 H 10.0 H [place] # (Auto) 1.1 H 0.9 H Seg Neutrophils % 73.0 H Seg Neutrophils # 9.8 H Chloride Carbon Dioxide 20 L BUN 25 H Creatinine 1.5 H Glucose 138 H POC Glucose Total Protein Albumin Triglycerides Cholesterol LDL Cholesterol Direct HDL Cholesterol 04/19/21 04/19/21 04/19/21 06:21 06:21 23:08 WBC RBC Hgb Hct [place] % (Auto) [place] # (Auto) Seg Neutrophils % Seg Neutrophils # Chloride 107.9 H Carbon Dioxide BUN 21 H Creatinine Glucose 102 H 102 H POC Glucose 109 H Total Protein 5.8 L D Albumin 3.6 L Triglycerides 161 H Cholesterol 225 H LDL Cholesterol Direct 170 H HDL Cholesterol 38 L 04/20/21 04/20/21 04/21/21 06:10 23:46 05:49 WBC RBC Hgb Hct [place] % (Auto) [place] # (Auto) Seg Neutrophils % Seg Neutrophils # Chloride Carbon Dioxide BUN Creatinine Glucose POC Glucose 127 H 112 H 131 H Total Protein Albumin Triglycerides Cholesterol LDL Cholesterol Direct HDL Cholesterol 04/21/21 11:20 WBC RBC Hgb Hct [place] % (Auto) [place] # (Auto) Seg Neutrophils % Seg Neutrophils # Chloride Carbon Dioxide BUN Creatinine Glucose POC Glucose 106 H Total Protein Albumin Triglycerides Cholesterol LDL Cholesterol Direct HDL Cholesterol Chest x-ray: report reviewed, image reviewed Additional Studies: CHEST 1 VIEW 04/17/2021 2:57 PM INDICATION / CLINICAL INFORMATION: Altered Mental Status. COMPARISON: 11/02/12. FINDINGS: SUPPORT DEVICES: None. HEART / MEDIASTINUM: The heart size and pulmonary vasculature are normal. LUNGS / PLEURA: No significant pulmonary or pleural abnormality. Bibasilar subsegmental parenchymal disease has almost completely resolved. Minimal residual disease is likely related to scarring. No new abnormality is present. There is no evidence of pneumothorax. ADDITIONAL FINDINGS: No significant additional findings. IMPRESSION: Minimal bibasilar subsegmental atelectasis/parenchymal scarring. Allied health notes reviewed: nursing
[2021-04-21] MEDS: hydrALAZINE 20 MG/1 ML INJ IV PRN ×2 (15:41→20:12)
[2021-04-22] MEDS: NACL 0.9%/KCL 20 MEQ 20 MEQ/1,000 ML BAG IV SCH (03:23)
[2021-04-22] MEDS: hydrALAZINE 20 MG/1 ML INJ IV PRN ×2 (04:03→08:42)
[2021-04-22] MEDS: LORazepam 2 MG/ML VIAL IV PRN (05:29)
--- NOTE | 2021-04-22 09:31 | XRay Report ---
ABDOMEN 1 VIEW(S) INDICATION / CLINICAL INFORMATION: NGT Placement. COMPARISON: Abdominal radiograph 04/19/2021 FINDINGS: TUBES / LINES: Enteric tube in place, coiled in the gastric fundus with side hole distal to the gastr oesophageal junction. BOWEL GAS PATTERN: Nonobstructive bowel gas pattern. There is mild gaseous distention of the stomach. FREE AIR / EXTRALUMINAL GAS: None seen. ADDITIONAL FINDINGS: No significant additional findings. IMPRESSION: 1. Enteric tube terminating in the gastric fundus. Signer Name: Jenna Kc MD Signed: 04/22/2021 9:26 AM Workstation Name: [id number]
--- NOTE | 2021-04-22 09:34 | Progress Note ---
Assessment and Plan Assessment and plan: --Hypertensive urgency; Current Visit: Yes Status: Acute Blood pressures are poorly controlled Consider Cardene drip per protocol, Oral and IV hydralazine Closely monitor and adjust as needed --Sinus tachycardia; heart rate in 110s and 130s Current Visit: Yes Status: Acute Metoprolol, start low-dose and increase as needed Check EKG, consider cardiology evaluation if no improvement Echocardiogram for LV function ejection fraction --Febrile illness; Current Visit: Yes Status: Acute Probably; management, however evaluate for sepsis Blood cultures urine cultures, meade PCR Antipyretics, supportive care --Acute large left MCA distribution cerebrovascular accident[CVA] Current Visit: Yes Status: Acute Patient is unresponsive, noncommunicative Extensive CVA ,left side involving posterior temporal lobe and inferior parietal lobe. No hemorrhage., Not a candidate for TPA CT head #2 nonhemorrhagic ischemic changes extending into the posterior temporal lobe inferior parietal lobe left-sided no mass-effect Telemetry neurologist evaluated the patient, Continue aspirin and statin Patient had extensive neuro work-up as mentioned below. PT OT rehabilitation, Swallow screen, possible Dobbhoff placement for medications and nutrition Neurochecks, supportive care Oxygen titrate O2 sats to more than 90% Pulmonary critical, neurology following. --CTA head; occluded left IN segment; Current Visit: Yes Status: Acute ER physician discussed and consulted [place] neurologist multiple times According to [place] neurologist, and their case monitor, patient is not a candidate for mechanical thrombectomy They recommended to admit the patient to ICU in our hospital and manage[according to ER physician's note] Neuro work-up so far: --CT head without contrast; 04/17/2021 1719 cortical hypoattenuation in the left lateral and posterior temporal lobe concerning for possible acute infarct no hemorrhage --CTA neck; ossified atheromatous plaque in both proximal internal carotid arteries > than 50% stenosis right ,>60% stenosis left --Carotid Doppler; bilateral carotid 50 to 69% stenosis --CT head #2 04/17/2021 8:39 PM Nonhemorrhagic ischemic changes are now seen extending into the posterior temporal lobe and inferior parietal lobules and the left side no mass-effect over the atrium or the left lateral ventricles --MRI brain; 04/18/2021 902 Large left MCA distribution infarction without hemorrhagic conversion or herniation no hemorrhagic conversion or herniation large MCA infarct --Acute hypoxic respiratory failure; requiring BiPAP Current Visit: Yes Status: Acute Continue oxygen titrate O2 sats to more than 90% BiPAP as needed, pulmonary critical following --Metabolic encephalopathy: Current Visit: Yes Status: Acute CT head, neuro check, seizure precaution, aspiration precautions, supportive care. --SIRS (systemic inflammatory response syndrome) Current Visit: Yes Status: Acute Empiric IV antibiotic therapy x1 dose, cultures. Urine analysis --THAI (acute kidney injury) Current Visit: Yes Status: Acute Due to ATN, vasomotor nephropathy Resolved, monitor renal function Avoid nephrotoxins --Polysubstance abuse; Current Visit: Yes Status: Chronic Ongoing tobacco use, Alcohol use Recreational drug use Patient needs counseling, rehabilitation And detox programs when medically stable, --Monitor for alcohol withdrawal symptoms; Current Visit: Yes Status: Chronic Initiate CIWA protocol if needed --Obesity; BMI 31.5 Current Visit: Yes Status: Chronic Patient needs weight reduction when medically stable --DVT prophylaxis Current Visit: Yes Status: Acute SCD to bilateral lower extremities while in bed, Closely monitor the patient and adjust management as needed Plan of care reviewed with the patient's son Mr. Wade MontezJr. at [phone] He had numerous questions answered all of them. He was inquiring about transferring the patient to [facility]. I informed him after referring to the ER note that ER physician has contacted [place] multiple times yesterday In [place] neurologist and they case monitor felt that patient was not a candidate for thrombectomy, no indication for transfer The high probability of a clinically significant, sudden or life threatening deterioration of the [neuro, respiratory, pulmonary, metabolic ,renal] system(s) required my full and direct attention, intervention and personal management. The aggregate critical care time was [35] minutes. This time is in addition to time spent performing reported procedures but includes the following: [x] Data Review and interpretation [x] Patient assessment and monitoring of vital signs [x] Documentation [x] Medication orders and management Subjective Date of service: 04/21/21 Principal diagnosis: Ac CVA; Ac encephalopathy; LILO; Acute Hypoxemic resp failure; THAI Interval history: 50 YO Male with HTN, CVA presents to ED for evaluation. Patient is lethargic with diminished cognition at the time my evaluation is unable to provide history. Patient history taken from EMS staff, as well as ED staff. As per staff the patient was found lying on his kitchen floor with decreased responsiveness. The patient was found to have a neurologic deficit. A code stroke was called and the patient was transported to [facility] for further care and evaluation of the aforementioned symptoms. The patient was seen and evaluated in the emergency department. All lab imaging studies reviewed. Patient was found to have a neurologic deficit and initiated on stroke protocol. Patient underwent CT scan of the brain and was found to have a large left hemispheric CVA. Repeat imaging study with CTA brain revealed an enlarging focal ischemic CVA with high risk for hemorrhagic conversion. The patient was also found to have systemic inflammatory response syndrome, THAI, with metabolic acidosis, encephalopathy. Patient admitted to ICU due to increased risk of worsening symptoms. Total neurology team consulted in ED. Neurology team also consulted. No further history is obtainable. No prior admission for review. No medication listed at time of admission for reconciliation. Patient has diminished cognition at the time of my evaluation but has a positive gag reflex and is able to protect his airway without difficulty. 04/19/21 Altered sensorium Confused 04/20/2021 Altered sensorium Confused 04/21/2021 Altered sensorium confused Not moving the right upper and lower extremities 04/22/2021; Patient's blood pressures are uncontrolled, hypertensive urgency Hydralazine, nifedipine, Cardene drip if needed Patient is unresponsive, acute large CVA PT OT and rehab History Interval history: I have seen and examined the patient at the bedside this morning Patient's chart and medications reviewed Patient remains unresponsive noncommunicative Uncontrolled blood pressures in sinus tachycardia Vital signs reviewed Hospitalist Physical - Constitutional Vitals: Temp Pulse Resp BP Pulse Ox 99.4 F 119 H 15 187/108 98 04/22/21 04:00 04/22/21 08:42 04/22/21 06:00 04/22/21 08:42 04/22/21 07:42 General appearance: Present: no acute distress, well-nourished - EENT Eyes: Present: PERRL, EOM intact - Neck Neck: Present: supple, normal ROM - Respiratory Respiratory effort: normal Respiratory: bilateral: diminished, negative: rales, rhonchi, wheezing - Cardiovascular Rhythm: regular Heart Sounds: Present: S1 & S2 (Sinus tachycardia) - Extremities Extremities: no ischemia, No edema - Abdominal General gastrointestinal: soft, non-tender, non-distended, normal bowel sounds - Integumentary Integumentary: Present: clear, warm - Psychiatric Psychiatric: other (Unresponsive noncommunicative) - Neurologic Neurologic: other (Acute CVA with residual weakness) Results - Labs CBC & Chem 7: 04/19/21 06:21 04/19/21 06:21 Labs: Laboratory Last Values WBC 9.1 K/mm3 (4.5-11.0) 04/19/21 06:21 RBC 4.76 M/mm3 (3.65-5.03) 04/19/21 06:21 Hgb 14.7 gm/dl (11.8-15.2) 04/19/21 06:21 Hct 43.2 % (35.5-45.6) D 04/19/21 06:21 MCV 91 fl (84-94) 04/19/21 06:21 MCH 31 pg (28-32) 04/19/21 06:21 MCHC 34 % (32-34) 04/19/21 06:21 RDW 14.9 % (13.2-15.2) 04/19/21 06:21 Plt Count 185 K/mm3 (140-440) 04/19/21 06:21 Lymph % (Auto) 20.2 % (13.4-35.0) 04/19/21 06:21 [place] % (Auto) 10.0 % (0.0-7.3) H 04/19/21 06:21 Eos % (Auto) 2.9 % (0.0-4.3) 04/19/21 06:21 Baso % (Auto) 0.7 % (0.0-1.8) 04/19/21 06:21 Lymph # (Auto) 1.8 K/mm3 (1.2-5.4) 04/19/21 06:21 [place] # (Auto) 0.9 K/mm3 (0.0-0.8) H 04/19/21 06:21 Eos # (Auto) 0.3 K/mm3 (0.0-0.4) 04/19/21 06:21 Baso # (Auto) 0.1 K/mm3 (0.0-0.1) 04/19/21 06:21 Seg Neutrophils % 66.2 % (40.0-70.0) 04/19/21 06:21 Seg Neutrophils # 6.0 K/mm3 (1.8-7.7) 04/19/21 06:21 Sodium 142 mmol/L (137-145) 04/19/21 06:21 Sodium 143 mmol/L (137-145) 04/19/21 06:21 Potassium 4.5 mmol/L (3.6-5.0) 04/19/21 06:21 Potassium 4.5 mmol/L (3.6-5.0) 04/19/21 06:21 Chloride 106.6 mmol/L (98-107) 04/19/21 06:21 Chloride 107.9 mmol/L (98-107) H 04/19/21 06:21 Carbon Dioxide 24 mmol/L (22-30) 04/19/21 06:21 Carbon Dioxide 24 mmol/L (22-30) 04/19/21 06:21 Anion Gap 16 mmol/L 04/19/21 06:21 Anion Gap 16 mmol/L 04/19/21 06:21 BUN 20 mg/dL (9-20) 04/19/21 06:21 BUN 21 mg/dL (9-20) H 04/19/21 06:21 Creatinine 0.9 mg/dL (0.8-1.3) 04/19/21 06:21 Creatinine 0.9 mg/dL (0.8-1.3) 04/19/21 06:21 Estimated GFR > 60 ml/min 04/19/21 06:21 Estimated GFR > 60 ml/min 04/19/21 06:21 BUN/Creatinine Ratio 22 % 04/19/21 06:21 BUN/Creatinine Ratio 23 % 04/19/21 06:21 Glucose 102 mg/dL (75-100) H 04/19/21 06:21 Glucose 102 mg/dL (75-100) H 04/19/21 06:21 POC Glucose 117 mg/dL (70-105) H 04/22/21 05:30 Lactic Acid 1.80 mmol/L (0.7-2.0) 04/17/21 15:55 Calcium 8.5 mg/dL (8.4-10.2) 04/19/21 06:21 Calcium 8.6 mg/dL (8.4-10.2) 04/19/21 06:21 Phosphorus 2.60 mg/dL (2.5-4.5) 04/19/21 06:21 Magnesium 1.90 mg/dL (1.7-2.3) 04/19/21 06:21 Total Bilirubin 0.40 mg/dL (0.1-1.2) 04/19/21 06:21 AST 17 units/L (5-40) 04/19/21 06:21 ALT 16 units/L (7-56) 04/19/21 06:21 Alkaline Phosphatase 78 units/L (35-129) 04/19/21 06:21 Total Protein 5.8 g/dL (6.3-8.2) L D 04/19/21 06:21 Albumin 3.6 g/dL (3.9-5) L 04/19/21 06:21 Albumin/Globulin Ratio 1.6 % 04/19/21 06:21 Triglycerides 161 mg/dL (2-149) H 04/19/21 06:21 Cholesterol 225 mg/dL (50-199) H 04/19/21 06:21 LDL Cholesterol Direct 170 mg/dL (50-130) H 04/19/21 06:21 HDL Cholesterol 38 mg/dL (40-59) L 04/19/21 06:21 Cholesterol/HDL Ratio 5.92 % 04/19/21 06:21 Urine Color Yellow (Yellow) 04/17/21 Unknown Urine Turbidity Hazy (Clear) 04/17/21 Unknown Urine pH 5.0 (5.0-7.0) 04/17/21 Unknown Ur Specific Boyce 1.023 (1.003-1.030) 04/17/21 Unknown Urine Protein 30 mg/dl mg/dL (Negative) 04/17/21 Unknown Urine Glucose (UA) Neg mg/dL (Negative) 04/17/21 Unknown Urine Ketones Neg mg/dL (Negative) 04/17/21 Unknown Urine Blood Sm (Negative) 04/17/21 Unknown Urine Nitrite Neg (Negative) 04/17/21 Unknown Urine Bilirubin Neg (Negative) 04/17/21 Unknown Urine Urobilinogen < 2.0 mg/dL (<2.0) 04/17/21 Unknown Ur Leukocyte Esterase Neg (Negative) 04/17/21 Unknown Urine WBC (Auto) 2.0 /HPF (0.0-6.0) 04/17/21 Unknown Urine RBC (Auto) 2.0 /HPF (0.0-6.0) 04/17/21 Unknown U Epithel Cells (Auto) < 1.0 /HPF (0-13.0) 04/17/21 Unknown Hyaline Casts 11 /LPF 04/17/21 Unknown Urine Mucus 1+ /HPF 04/17/21 Unknown Urine Opiates Screen Negative 04/17/21 Unknown Urine Methadone Screen Negative 04/17/21 Unknown Ur Barbiturates Screen Negative 04/17/21 Unknown Ur Phencyclidine Scrn Negative 04/17/21 Unknown Ur Amphetamines Screen Negative 04/17/21 Unknown U Benzodiazepines Scrn Negative 04/17/21 Unknown Urine Cocaine Screen Negative 04/17/21 Unknown U Marijuana (THC) Screen Negative 04/17/21 Unknown Drugs of Abuse Note Disclamer 04/17/21 Unknown Plasma/Serum Alcohol < 0.01 % (0-0.07) 04/17/21 15:55 Pérez/IV: Voiding Method Condom Catheter Active Medications - Current Medications Current Medications: Generic Name Dose Route Start Last Admin Trade Name Freq PRN Reason Stop Dose Admin Acetaminophen 650 mg 04/17/21 18:30 04/21/21 02:01 Acetaminophen 325 Mg Tab PO 650 mg Q4H PRN Administration Pain, Mild (1-3) Lipase/Protease/Amylase 1 each 04/18/21 13:56 Lipase 10,500/Protease 25,000/Amylase 43,750 (Units) Dr Metzger FEEDTUBE PRN PRN For Clogged Feeding Tube Aspirin 325 mg 04/18/21 10:00 04/21/21 09:25 Aspirin 325 Mg Tab PO 325 mg QDAY JUDY Administration Atorvastatin Calcium 40 mg 04/17/21 22:00 04/21/21 22:59 Atorvastatin 40 Mg Tab PO 40 mg QHS JUDY Administration Bisacodyl 10 mg 04/17/21 18:30 Bisacodyl 10 Mg Rect Supp [place] QDAY PRN Constipation Famotidine 20 mg 04/19/21 10:00 04/21/21 09:25 Famotidine 20 Mg Tab PO 20 mg QDAY JUDY Administration Heparin Sodium (Porcine) 5,000 unit 04/19/21 22:00 04/21/21 22:59 Heparin 5,000 Unit/1 Ml Vial SUB-Q 5,000 unit Q12HR JUDY Administration Hydralazine HCl 10 mg 04/21/21 10:07 04/22/21 08:42 Hydralazine 20 Mg/1 Ml Inj IV 10 mg Q4H PRN Administration Blood Pressure Hydralazine HCl 25 mg 04/22/21 14:00 Hydralazine 25 Mg Tab PO Q8HR JUDY Hydromorphone HCl 0.5 mg 04/17/21 18:30 04/19/21 07:35 Hydromorphone 1 Mg/1 Ml Inj IV 0.5 mg Q12H PRN Administration Pain , Severe (7-10) Potassium Chloride/Sodium Chloride 20 meq in 1,000 mls @ 100 mls/hr 04/17/21 19:00 04/22/21 03:23 Ns/Kcl 20meq IV 100 mls/hr DIRECT JUDY Administration Lorazepam 2 mg 04/19/21 08:00 04/22/21 05:29 Lorazepam 2 Mg/Ml Vial IV 2 mg Q1HR PRN Administration CIWA-Ar 8-15 Lorazepam 4 mg 04/19/21 08:00 04/19/21 08:00 Lorazepam 2 Mg/Ml Vial IV 4 mg Q1HR PRN Administration CIWA-Ar 16-25 Lorazepam 4 mg 04/19/21 08:00 04/22/21 06:52 Lorazepam 2 Mg/Ml Vial IV 4 mg Q15MIN PRN Administration CIWA-Ar >25 Magnesium Hydroxide 30 ml 04/17/21 18:30 Magnesium Hydroxide (Mom) Oral Liqd Udc PO Q4H PRN Constipation Metoclopramide HCl 10 mg 04/17/21 18:30 Metoclopramide 10 Mg Tab PO Q6H PRN Nausea And Vomiting Nifedipine 30 mg 04/22/21 10:00 Nifedipine Xl 30 Mg Tab PO Q12HR JUDY Ondansetron HCl 4 mg 04/17/21 18:30 Ondansetron 4 Mg/2 Ml Inj IV Q8H PRN Nausea And Vomiting Oxycodone/Acetaminophen 1 tab 04/17/21 18:30 Oxycodone /Acetaminophen 5-325mg Tab PO Q12H PRN Pain, Moderate (4-6) Quetiapine Fumarate 200 mg 04/19/21 22:00 04/21/21 22:58 Quetiapine 200 Mg Tab PO 200 mg BID JUDY Administration Simple Syrup 15 ml 04/18/21 13:56 Simple Syrup 15 Ml FEEDTUBE PRN PRN Hypoglycemia Simple Syrup 30 ml 04/18/21 13:56 Simple Syrup 15 Ml FEEDTUBE PRN PRN Hypoglycemia Sodium Bicarbonate 325 mg 04/18/21 13:56 Sodium Bicarbonate 325 Mg Tab FEEDTUBE PRN PRN For Clogged Feeding Tube Sodium Chloride 10 ml 04/17/21 18:30 04/20/21 21:58 Sodium Chloride 0.9% 10 Ml Flush Syringe IV 10 ml PRN PRN Administration LINE FLUSH Nutrition/Malnutrition Assess - Dietary Evaluation Nutrition/Malnutrition Findings: Nutrition Notes Start: 04/18/21 13:50 Freq: Status: Active Protocol: Document 04/21/21 11:55 (Rec: 04/21/21 11:59 [id number]) Nutrition Notes Initial or Follow up Reassessment Current Diagnosis Acute Kidney Injury, Hypertension,Stroke Other Pertinent Diagnosis SIRS Current Diet Osmolite 1.5 at 45 ml/hr Labs/Tests Reviewed Pertinent Medications NS with 20 mEq KCl at 100 ml/ hr Height 5 ft 7 in Weight 90.7 kg [place] Body Weight (kg) 67.27 BMI 31.3 Weight change and time frame wt change noted Weight Status Obese Subjective/Other Information F/u for TF tolerance. Observed pt tolerating TF at goal rate . Percent of energy/protein needs met: 99%/100% Burn Absent Trauma Absent Current % PO Negligible Minimum of two criteria No physical signs of malnutrition #1 Nutrition Diagnosis Inadequate oral intake As Evidenced by Signs and Symptoms VIDEO CONTROL OPERATOR unable to eval pt Diagnosis Progress(for reassessment Continues documentation) Is patient on ventilator? No Is Patient Ambulatory and/or Out of Bed No REE-([facility]-confined to bed) 2.656 Kcal/Kg value to use for calculation 18 Approximate Energy Requirements Using 1633 kcal/Kg Calculation Used for Recommendations Kcal/kg Additional Notes Protein: (0.8-1g/kg AdjBW: 79kg) 63-79g Fluid: 1 ml/kcal or per MD Nutrition Intervention Change Diet Order: continue or advance diet per VIDEO CONTROL OPERATOR Nutrition Support: Osmolite 1.5 at 45 ml/hr Flush 125 ml q4h or per MD Kcal 1,620 Protein (gm) 68 Fluid (mL) 823 Goal #1 Meet at least 75% of protein and energy needs via TF Anticipated Discharge Needs: Unable to determine at this time Follow-Up By: 04/23/21 Additional Comments FU for VIDEO CONTROL OPERATOR eval and/or TF tolerance
[2021-04-22] MEDS ORDERED: NIFEdipine XL 30 MG TAB PO SCH (10:00)
[2021-04-22] MEDS: FAMOTIDINE 20 MG TAB PO SCH (10:02)
[2021-04-22] MEDS: ASPIRIN 325 MG TAB PO SCH (10:02)
[2021-04-22] MEDS: HEPARIN 5,000 UNIT/1 ML VIAL SUB-Q SCH ×2 (10:02→22:11)
[2021-04-22] MEDS: QUEtiapine 200 MG TAB PO SCH ×2 (10:02→22:09)
[2021-04-22] MEDS ORDERED: METOPROLOL TARTRATE 25 MG TAB PO SCH (12:00)
[2021-04-22] MEDS ORDERED: niCARdipine 50 MG in SODIUM CHLORIDE 0.9% 250ML 230 ML IV SCH (12:00)
--- NOTE | 2021-04-22 12:03 | Progress Note ---
Assessment and Plan 50 YO Male with HTN, CVA presents to ED for evaluation. Patient is lethargic with diminished cognition and he is unable to provide history. Patient history taken from EMS staff, as well as ED staff. As per staff the patient was found l rigoberto on his kitchen floor with decreased responsiveness. The patient was found to have a neurologic deficit. A code stroke was called and the patient was transported to [facility] for further care and evaluation of the aforementioned symptoms. The patient was seen and evaluated in the emergency department. All lab imaging studies reviewed. Patient was found to have a neurologic deficit and initiated on stroke protocol. Patient underwent CT scan of the brain and was found to have a large left hemispheric CVA. Repeat imaging study with CTA brain revealed an enlarging focal ischemic CVA with high risk for hemorrhagic conversion. The patient was also found to have systemic inflammatory response syndrome, THAI, with metabolic acidosis, encephalopathy. Patient admitted to ICU due to increased risk of worsening symptoms. Neurology team consulted . No further history is obtainable. No prior admission for review. Patient sleeping. Not responding to verbal stimuli. Patient is on 4 litres o2. O2 saturation running 97%. BIPAP 16/6, rate 16, FIO2 35% stand by in the room. No acute respiratory distress at this time. Patient running low grade temp. No leukocytosis. Chest xray done 04/17/21 reported Minimal bibasilar subsegmental atelectasis/parenchymal scarring. Patient is on S/C Heparin and famotidine. I spent critical care time of 32 minutes on this patient, reviewing the chart, examine the patient, review labs, chest xray, talking to the nursing and respiratory staff and work out plan of treatment. - Patient Problems (1) SIRS (systemic inflammatory response syndrome) Current Visit: Yes Status: Acute Plan to address problem: Patient still running low grade temp. Leukocyte count came down. (2) Acute ischemic left MCA stroke Current Visit: Yes Status: Acute Plan to address problem: Management as per neurology. (3) THAI (acute kidney injury) Current Visit: Yes Status: Acute Plan to address problem: Management as per nephrology. (4) Acidosis Current Visit: Yes Status: Acute Plan to address problem: Improving. Last anion gap 14. ABGs: PH 7.43, PCO2 36, PO2 66, HCO3 24 and O2 saturation 93% on room air. (5) Encephalopathy Current Visit: Yes Status: Acute Plan to address problem: Management as per primary care and neurology. Subjective Date of service: 04/22/21 Principal diagnosis: Ac CVA; Ac encephalopathy; LILO; Acute Hypoxemic resp failure; THAI Interval history: 50 YO Male with HTN, CVA presents to ED for evaluation. Patient is lethargic with diminished cognition and he is unable to provide history. Patient history taken from EMS staff, as well as ED staff. As per staff the patient was found lying on his kitchen floor with decreased responsiveness. The patient was found to have a neurologic deficit. A code stroke was called and the patient was transported to [facility] for further care and evaluation of the aforementioned symptoms. The patient was seen and evaluated in the emergency department. All lab imaging studies reviewed. Patient was found to have a neurologic deficit and initiated on stroke protocol. Patient underwent CT scan of the brain and was found to have a large left hemispheric CVA. Repeat imaging study with CTA brain revealed an enlarging focal ischemic CVA with high risk for hemorrhagic conversion. The patient was also found to have systemic inflammatory response syndrome, THAI, with metabolic acidosis, encephalopathy. Patient admitted to ICU due to increased risk of worsening symptoms. Neurology team consulted . No further history is obtainable. No prior admission for review. Patient sleeping. Not responding to verbal stimuli. Patient is on 4 litres o2. O2 saturation running 97%. BIPAP 16/6, rate 16, FIO2 35% stand by in the room. No acute respiratory distress at this time. Patient running low grade temp. No leukocytosis. Chest xray done 04/17/21 reported Minimal bibasilar subsegmental atelectasis/parenchymal scarring. Patient is on S/C Heparin and famotidine. Objective Vital Signs - 12hr 04/22/21 04/22/21 04/22/21 01:00 01:15 02:00 Temperature Pulse Rate 121 H 136 H 116 H Pulse Rate [ From Monitor] Respiratory 17 20 19 Rate Blood Pressure 138/93 148/85 144/98 O2 Sat by Pulse 100 100 99 Oximetry 04/22/21 04/22/21 04/22/21 03:00 04:00 04:01 Temperature 99.4 F Pulse Rate 105 H 115 H 111 H Pulse Rate [ 115 H From Monitor] Respiratory 21 20 17 Rate Blood Pressure 162/89 170/95 O2 Sat by Pulse 97 98 98 Oximetry 04/22/21 04/22/2104/22/21 04:03 05:00 06:00 Temperature Pulse Rate 110 H 105 H 113 H Pulse Rate [ From Monitor] Respiratory 24 15 Rate Blood Pressure 170/99 168/64 204/131 O2 Sat by Pulse 99 99 Oximetry 04/22/21 04/22/21 04/22/21 07:00 07:42 08:00 Temperature Pulse Rate 106 H 117 H Pulse Rate [ From Monitor] Respiratory 28 H 34 H Rate Blood Pressure 193/137 176/111 O2 Sat by Pulse 98 98 98 Oximetry 04/22/21 04/22/21 04/22/21 08:42 09:01 10:00 Temperature Pulse Rate 119 H 127 H 126 H Pulse Rate [ From Monitor] Respiratory 31 H 39 H Rate Blood Pressure 187/108 152/83 168/100 O2 Sat by Pulse 96 97 Oximetry 04/22/21 11:01 Temperature Pulse Rate 134 H Pulse Rate [ From Monitor] Respiratory 43 H Rate Blood Pressure 122/69 O2 Sat by Pulse 96 Oximetry Constitutional: no acute distress, lethargic, asleep, other (middle aged obese male resting in bed without increased respiratory effort at rest) Eyes: non-icteric ENT: oropharynx moist, oropharyngeal exudate pre Neck: supple, no lymphadenopathy, no JVD, other (large circumference) Effort: mildly labored Ascultation: Bilateral: diminished breath sounds, rhonchi, other (referred upper airway sounds / snoring) Percussion: Bilateral: not dull Cardiovascular: regular rate and rhythm Gastrointestinal: normoactive bowel sounds, soft, non-tender, non-distended Integumentary: normal Extremities: no cyanosis, no edema, pink and warm, pulses normal Neurologic: pupils equal and round, unable to assess Psychiatric: other (unable to assess) CBC and BMP: 04/19/21 06:21 04/23/21 04:40 Abnormal lab findings: Abnormal Labs 04/17/21 04/17/21 04/19/21 15:55 15:55 06:21 WBC 13.4 H RBC 5.81 H Hgb 17.2 H Hct 51.2 H [place] % (Auto) 8.1 H 10.0 H [place] # (Auto) 1.1 H 0.9 H Seg Neutrophils % 73.0 H Seg Neutrophils # 9.8 H Chloride Carbon Dioxide 20 L BUN 25 H Creatinine 1.5 H Glucose 138 H POC Glucose Total Protein Albumin Triglycerides Cholesterol LDL Cholesterol Direct HDL Cholesterol 04/19/21 04/19/21 04/19/21 06:21 06:21 23:08 WBC RBC Hgb Hct [place] % (Auto) [place] # (Auto) Seg Neutrophils % Seg Neutrophils # Chloride 107.9 H Carbon Dioxide BUN 21 H Creatinine Glucose 102 H 102 H POC Glucose 109 H Total Protein 5.8 L D Albumin 3.6 L Triglycerides 161 H Cholesterol 225 H LDL Cholesterol Direct 170 H HDL Cholesterol 38 L 04/20/21 04/20/21 04/21/21 06:10 23:46 05:49 WBC RBC Hgb Hct [place] % (Auto) [place] # (Auto) Seg Neutrophils % Seg Neutrophils # Chloride Carbon Dioxide BUN Creatinine Glucose POC Glucose 127 H 112 H 131 H Total Protein Albumin Triglycerides Cholesterol LDL Cholesterol Direct HDL Cholesterol 04/21/21 04/21/21 04/22/21 11:20 23:32 05:30 WBC RBC Hgb Hct [place] % (Auto) [place] # (Auto) Seg Neutrophils % Seg Neutrophils # Chloride Carbon Dioxide BUN Creatinine Glucose POC Glucose 106 H 161 H 117 H Total Protein Albumin Triglycerides Cholesterol LDL Cholesterol Direct HDL Cholesterol Allied health notes reviewed: nursing
[2021-04-22 13:15] LABS: ABG Base Excess 0.4 mmol/L (-2.0-3.0); ABG HCO3 24.1 mmol/L (20.0-26.0); ABG Methemoglobin 0.5 % (0.0-1.5); ABG PCO2 36.4 mm Hg; ABG PH 7.439 pH Units (7.350-7.450); ABG PO2 66.3 mm Hg (80.0-90.0)
[2021-04-22] MEDS: METOPROLOL TARTRATE 25 MG TAB PO SCH ×2 (14:47→19:48)
[2021-04-22] MEDS: hydrALAZINE 25 MG TAB PO SCH ×2 (14:47→22:10)
--- NOTE | 2021-04-22 15:36 | Progress Note ---
Assessment and Plan 1. Reviewed Consult Note and Chart . There is evidence of Large MCA CVA . The patient was not a candidate for any intervention at the time of admission . 2. Superimposed Encephalopathy which can worsen neurological issues . 3. Repeat Head CT if the Head CT is suggestive of Brain Herniation stat Neurosurgical Consult / Transfer [facility] to [facility] . 4. Neurological Prognosis is Guarded. 5. Seizure Precautions Dr. Medrano Subjective Date of service: 04/22/21 Principal diagnosis: Ac CVA; Ac encephalopathy; LILO; Acute Hypoxemic resp failure; THAI Interval history: Reconsulted for Neurological Prognosis . Objective - Exam Narrative Exam: The patient was not examined . - Vital Sign Vital Signs - 12hr 04/22/21 04/22/21 04/22/21 04:00 04:01 04:03 Temperature 99.4 F Pulse Rate 115 H 111 H 110 H Pulse Rate [ 115 H From Monitor] Respiratory 20 17 Rate Blood Pressure 170/95 170/99 O2 Sat by Pulse 98 98 Oximetry 04/22/21 04/22/21 04/22/21 05:00 06:00 07:00 Temperature Pulse Rate 105 H 113 H 106 H Pulse Rate [ From Monitor] Respiratory 24 15 28 H Rate Blood Pressure 168/64 204/131 193/137 O2 Sat by Pulse 99 99 98 Oximetry 04/22/21 04/22/21 04/22/21 07:42 08:00 08:42 Temperature Pulse Rate 117 H 119 H Pulse Rate [ From Monitor] Respiratory 34 H Rate Blood Pressure 176/111 187/108 O2 Sat by Pulse 98 98 Oximetry 04/22/21 04/22/21 04/22/21 09:01 10:00 11:01 Temperature Pulse Rate 127 H 126 H 134 H Pulse Rate [ From Monitor] Respiratory 31 H 39 H 43 H Rate Blood Pressure 152/83 168/100 122/69 O2 Sat by Pulse 96 97 96 Oximetry 04/22/21 04/22/21 12:00 12:48 Temperature 100.1 F H Pulse Rate 124 H Pulse Rate [ From Monitor] Respiratory Rate Blood Pressure 131/78 O2 Sat by Pulse Oximetry - Laboratory Findings CBC and BMP: 04/19/21 06:21 04/19/21 06:21 Abnormal Lab Findings: Abnormal Labs 04/17/21 04/17/21 04/19/21 15:55 15:55 06:21 WBC 13.4 H RBC 5.81 H Hgb 17.2 H Hct 51.2 H [place] % (Auto) 8.1 H 10.0 H [place] # (Auto) 1.1 H 0.9 H Seg Neutrophils % 73.0 H Seg Neutrophils # 9.8 H ABG pO2 Oxyhemoglobin Chloride Carbon Dioxide 20 L BUN 25 H Creatinine 1.5 H Glucose 138 H POC Glucose Total Protein Albumin Triglycerides Cholesterol LDL Cholesterol Direct HDL Cholesterol 04/19/21 04/19/21 04/19/21 06:21 06:21 23:08 WBC RBC Hgb Hct [place] % (Auto) [place] # (Auto) Seg Neutrophils % Seg Neutrophils # ABG pO2 Oxyhemoglobin Chloride 107.9 H Carbon Dioxide BUN 21 H Creatinine Glucose 102 H 102 H POC Glucose 109 H Total Protein 5.8 L D Albumin 3.6 L Triglycerides 161 H Cholesterol 225 H LDL Cholesterol Direct 170 H HDL Cholesterol 38 L 04/20/21 04/20/21 04/21/21 06:10 23:46 05:49 WBC RBC Hgb Hct [place] % (Auto) [place] # (Auto) Seg Neutrophils % Seg Neutrophils # ABG pO2 Oxyhemoglobin Chloride Carbon Dioxide BUN Creatinine Glucose POC Glucose 127 H 112 H 131 H Total Protein Albumin Triglycerides Cholesterol LDL Cholesterol Direct HDL Cholesterol 04/21/21 04/21/21 04/22/21 11:20 23:32 05:30 WBC RBC Hgb Hct [place] % (Auto) [place] # (Auto) Seg Neutrophils % Seg Neutrophils # ABG pO2 Oxyhemoglobin Chloride Carbon Dioxide BUN Creatinine Glucose POC Glucose 106 H 161 H 117 H Total Protein Albumin Triglycerides Cholesterol LDL Cholesterol Direct HDL Cholesterol 04/22/21 04/22/21 12:03 12:40 WBC RBC Hgb Hct [place] % (Auto) [place] # (Auto) Seg Neutrophils % Seg Neutrophils # ABG pO2 66.3 L Oxyhemoglobin 93.2 L Chloride Carbon Dioxide BUN Creatinine Glucose POC Glucose 120 H Total Protein Albumin Triglycerides Cholesterol LDL Cholesterol Direct HDL Cholesterol
--- NOTE | 2021-04-22 17:32 | Cat Scan Report ---
CT head/brain wo con INDICATION / CLINICAL INFORMATION: 50 years Male; Drowsiness. TECHNIQUE: Routine CT head without contrast. All CT scans at this location are performed using CT dos e reduction for ALARA by means of automated exposure control. COMPARISON: The study is compared to the previous CT of 04/17/2021. FINDINGS: BRAIN / INTRACRANIAL CONTENTS: The motion significantly degrades the image quality. However, there garcia s been notable interval evolutionary changes of the left MCA infarct from 04/17/2021 with extensive ed jeff. There is also increasing of mass effect with notable compression of the left lateral ventricle a nd approximately 1 cm of midline shift with subfalcine herniation. Additionally, there is also relati ve effacement of the left suprasellar cistern. There is no clear CT evidence of hemorrhagic transform ation at. There is continued prominence of the right lateral ventricle which is essentially unchanged though continued follow-up would be recommended to exclude developing hydrocephalus given the interv al mass effect at. ORBITS: No significant abnormality of visualized orbits. SINUSES / MASTOIDS: There is presence of a nasogastric tube with increasing opacification of the ethm oid air cells. There is continued mucosal thickening along the inferior left maxillary sinus. CRANIOCERVICAL JUNCTION: No significant abnormality. ADDITIONAL FINDINGS: None. IMPRESSION: 1. The study is limited by motion. However, there had been notable interval evolutionary changes of t he large left MCA infarct from 04/17/2021 with developing edema and mass effect with midline shift as detailed above. However, there is no clear CT evidence of hemorrhagic transformation. The study was specified as stat and dictated on an emergent basis at 4:26 PM Central standard time. Signer Name: Rocael Jaime MD Signed: 04/22/2021 5:28 PM Workstation Name: [id number]
[2021-04-22] MEDS: ACETAMINOPHEN 325 MG TAB PO PRN (22:16)
[2021-04-23] MEDS: hydrALAZINE 25 MG TAB PO SCH ×3 (05:11→22:39)
[2021-04-23] MEDS: LORazepam 2 MG/ML VIAL IV PRN (05:35)
[2021-04-23 05:40] LABS: Blood Urea Nitrogen 14 mg/dL (9-20); Calcium 9.1 mg/dL (8.4-10.2); Hemolysis Index 5
[2021-04-23 05:49] LABS: BUN/Creatinine Ratio 20
[2021-04-23] MEDS: QUEtiapine 200 MG TAB PO SCH ×2 (09:21→22:40)
[2021-04-23] MEDS: ASPIRIN 325 MG TAB PO SCH (09:21)
[2021-04-23] MEDS: METOPROLOL TARTRATE 25 MG TAB PO SCH ×3 (09:21→22:39)
[2021-04-23] MEDS: FAMOTIDINE 20 MG TAB PO SCH (09:21)
[2021-04-23] MEDS: hydrALAZINE 20 MG/1 ML INJ IV PRN (09:21)
[2021-04-23] MEDS: HEPARIN 5,000 UNIT/1 ML VIAL SUB-Q SCH ×2 (09:22→22:40)
--- NOTE | 2021-04-23 10:19 | Electrocardiograph Report ---
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 Electronically Signed On 04-23-2021 10:19:02 EDT by Petar Fernandez
[2021-04-23] MEDS ORDERED: SUCCINYLCHOLINE CHLORIDE 200 MG/10 ML INJ MDV ONE (10:30)
[2021-04-23] MEDS ORDERED: ROCURONIUM 50 MG/5 ML INJ IV ONE (10:30)
[2021-04-23] MEDS ORDERED: ETOMIDATE 20 MG/10 ML INJ IV ONE (10:30)
--- NOTE | 2021-04-23 10:51 | Progress Note ---
Assessment and Plan Assessment and plan: --Evolving large left MCA infarct; edema/mass-effect CT head without contrast; 04/22/2021 Interval evolutionary changes of the large left MCA infarct from 04/17/2021 developing edema and mass-effect with midline shift; Neurosurgery consulted I contacted with neurosurgeon Dr. Lin who was in a procedure ,discussed with neurosurgeon Dr Mosher who recommended Stat CT scan intubate the patient if, GCS is less than 8. I discussed with water treatment plant operator Dr. Beckford regarding intubation and ventilation,and I discussed with family the son Mr. Chandler Montez at [phone], and discussed the new developments and the findings of CT brain and the discussions with neurosurgeon and the treatment plan. We also addressed the CODE STATUS and the goals of treatment The son informed that he would discuss with other family members and will get back to us, Full code at this point --Acute large left MCA distribution cerebrovascular accident[CVA] Current Visit: Yes Status: Acute Not a candidate for TPA ,patient is unresponsive, noncommunicative Extensive CVA ,left side involving posterior temporal lobe and inferior parietal lobe.No hemorrhage CT head #2 nonhemorrhagic ischemic changes extending into the posterior temporal lobe inferior parietal lobe left-sided no mass-effect Neurologist following CT head; 04/22/2021 Interval evolutionary changes of the large left MCA infarct from 04/17/2021 developing edema and mass-effect with midline shift; Neurosurgery consulted this morning --CTA head; occluded left ND segment; Current Visit: Yes Status: Acute ER physician discussed and consulted [place] neurologist multiple times According to [place] neurologist, and their user experience team lead, patient is not a candidate for mechanical thrombectomy They recommended to admit the patient to ICU in our hospital and manage[according to ER physician's note] Neuro work-up so far: --CT head without contrast; 04/17/2021 1719 cortical hypoattenuation in the left lateral and posterior temporal lobe concerning for possible acute infarct no hemorrhage --CTA neck; ossified atheromatous plaque in both proximal internal carotid arteries > than 50% stenosis right ,>60% stenosis left --Carotid Doppler; bilateral carotid 50 to 69% stenosis --CT head #2 04/17/2021 8:39 PM Nonhemorrhagic ischemic changes are now seen extending into the posterior temporal lobe and inferior parietal lobules and the left side no mass-effect over the atrium or the left lateral ventricles --MRI brain; 04/18/2021 902 Large left MCA distribution infarction without hemorrhagic conversion or herniation no hemorrhagic conversion or herniation large MCA infarct --Hypertensive urgency; patient on admission Current Visit: Yes Status: Acute Blood pressures well controlled today Continue current antihypertensives --Febrile illness; Current Visit: Yes Status: Acute Probably; management, however evaluate for sepsis Blood cultures urine cultures, meade PCR Antipyretics, supportive care --Acute hypoxic respiratory failure; requiring BiPAP Current Visit: Yes Status: Acute Continue oxygen titrate O2 sats to more than 90% BiPAP as needed, pulmonary critical following --Metabolic encephalopathy: Current Visit: Yes Status: Acute CT head, neuro check, seizure precaution, aspiration precautions, supportive care. --SIRS (systemic inflammatory response syndrome) Current Visit: Yes Status: Acute Empiric IV antibiotic therapy x1 dose, cultures. Urine analysis --THAI (acute kidney injury)/resolved Current Visit: Yes Status: Acute --Polysubstance abuse; Current Visit: Yes Status: Chronic Ongoing tobacco use, Alcohol use Recreational drug use Patient needs counseling, rehabilitation And detox programs when medically stable, --Monitor for alcohol withdrawal symptoms; Current Visit: Yes Status: Chronic Initiate CIWA protocol if needed --Obesity; BMI 31.5 Current Visit: Yes Status: Chronic Patient needs weight reduction when medically stable --DVT prophylaxis Current Visit: Yes Status: Acute SCD to bilateral lower extremities while in bed, Patient is critically ill, discussed with patient's son Mr. Wade MontezJr. at [phone] Patient's condition, new developments on CT, need for intubation, need for neurosurgical evaluation And goals of treatment, he requested full code at this point, however will discuss with the family members and get back to us The high probability of a clinically significant, sudden or life threatening deterioration of the [neuro, respiratory, pulmonary, metabolic ,renal] system(s) required my full and direct attention, intervention and personal management. The aggregate critical care time was [55] minutes. This time is in addition to time spent performing reported procedures but includes the following: [x] Data Review and interpretation [x] Patient assessment and monitoring of vital signs [x] Documentation [x] Medication orders and management Subjective Date of service: 04/21/21 Principal diagnosis: Ac CVA; Ac encephalopathy; LILO; Acute Hypoxemic resp failure; THAI Interval history: 50 YO Male with HTN, was admitted through emergency room with acute CVA, not a candidate for TPA, no indication for transfer for thrombectomy Patient is unresponsive, neurology, medicare contact specialist following the patient. Follow-up CT scan yesterday 04/22/21 Interval evolutionary changes of the large left MCA infarct from 04/17/2021 dev eloping edema and mass-effect with midline shift; neurosurgeon consulted 04/19/21 Altered sensorium Confused 04/20/2021 Altered sensorium Confused 04/21/2021 Altered sensorium confused Not moving the right upper and lower extremities 04/22/2021; Patient's blood pressures are uncontrolled, hypertensive urgency Hydralazine, nifedipine, Cardene drip if needed Patient is unresponsive, acute large CVA PT OT and rehab 04/23/2021; Follow-up CT findings noted, discussed with neurosurgeon, water treatment plant operator I also discussed with patient's son, regarding the goals of treatment Neurosurgeon recommended intubation and went mechanical ventilation. History Interval history: Pt had repeat CT head without contrast :Interval evolutionary changes of the large left MCA infarct from 04/17/2021 developing edema and mass-effect with midline shift I have seen and examined the patient at the bedside in ICU this morning Patient's chart medications tests and reports reviewed Follow-up CT scan with new changes noted Patient remains unresponsive, on nasal cannula oxygen saturating 95 to 96% Not in acute distress Vital signs reviewed Hospitalist Physical - Constitutional Vitals: Temp Pulse Resp BP Pulse Ox 99.6 F 101 H 21 164/90 94 04/23/21 03:43 04/23/21 08:00 04/23/21 08:00 04/23/21 08:00 04/23/21 09:07 General appearance: Present: no acute distress, well-nourished, other (Unresponsive) - EENT Eyes: Absent: scleral icterus, conjunctival injection - Neck Neck: Present: supple, normal ROM - Respiratory Respiratory effort: normal Respiratory: bilateral: diminished, rhonchi, negative: rales, wheezing - Cardiovascular Rhythm: regular Heart Sounds: Present: S1 & S2 - Extremities Extremities: no ischemia, No edema - Abdominal General gastrointestinal: soft, non-distended, normal bowel sounds - Integumentary Integumentary: Present: clear, warm - Psychiatric Psychiatric: other (Unresponsive) - Neurologic Neurologic: other (Unresponsive) Results - Labs CBC & Chem 7: 04/19/21 06:21 04/23/21 04:40 Labs: Laboratory Last Values WBC 9.1 K/mm3 (4.5-11.0) 04/19/21 06:21 RBC 4.76 M/mm3 (3.65-5.03) 04/19/21 06:21 Hgb 14.7 gm/dl (11.8-15.2) 04/19/21 06:21 Hct 43.2 % (35.5-45.6) D 04/19/21 06:21 MCV 91 fl (84-94) 04/19/21 06:21 MCH 31 pg (28-32) 04/19/21 06:21 MCHC 34 % (32-34) 04/19/21 06:21 RDW 14.9 % (13.2-15.2) 04/19/21 06:21 Plt Count 185 K/mm3 (140-440) 04/19/21 06:21 Lymph % (Auto) 20.2 % (13.4-35.0) 04/19/21 06:21 [place] % (Auto) 10.0 % (0.0-7.3) H 04/19/21 06:21 Eos % (Auto) 2.9 % (0.0-4.3) 04/19/21 06:21 Baso % (Auto) 0.7 % (0.0-1.8) 04/19/21 06:21 Lymph # (Auto) 1.8 K/mm3 (1.2-5.4) 04/19/21 06:21 [place] # (Auto) 0.9 K/mm3 (0.0-0.8) H 04/19/21 06:21 Eos # (Auto) 0.3 K/mm3 (0.0-0.4) 04/19/21 06:21 Baso # (Auto) 0.1 K/mm3 (0.0-0.1) 04/19/21 06:21 Seg Neutrophils % 66.2 % (40.0-70.0) 04/19/21 06:21 Seg Neutrophils # 6.0 K/mm3 (1.8-7.7) 04/19/21 06:21 ABG pH 7.439 pH Units (7.350-7.450) 04/22/21 12:40 ABG pCO2 36.4 mm Hg 04/22/21 12:40 ABG pO2 66.3 mm Hg (80.0-90.0) L 04/22/21 12:40 ABG HCO3 24.1 mmol/L (20.0-26.0) 04/22/21 12:40 ABG O2 Saturation 95.0 % (95.0-99.0) 04/22/21 12:40 ABG O2 Content 19.2 (0.0-44) 04/22/21 12:40 ABG Base Excess 0.4 mmol/L (-2.0-3.0) 04/22/21 12:40 ABG Hemoglobin 14.6 gm/dl (14.0-18.0) 04/22/21 12:40 ABG Carboxyhemoglobin 1.4 % (0.0-5.0) 04/22/21 12:40 ABG Methemoglobin 0.5 % (0.0-1.5) 04/22/21 12:40 Oxyhemoglobin 93.2 % (95.0-99.0) L 04/22/21 12:40 FiO2 21 % 04/22/21 12:40 Sodium 138 mmol/L (137-145) 04/23/21 04:40 Potassium 4.2 mmol/L (3.6-5.0) 04/23/21 04:40 Chloride 101.1 mmol/L (98-107) 04/23/21 04:40 Carbon Dioxide 27 mmol/L (22-30) 04/23/21 04:40 Anion Gap 14 mmol/L 04/23/21 04:40 BUN 14 mg/dL (9-20) 04/23/21 04:40 Creatinine 0.7 mg/dL (0.8-1.3) L 04/23/21 04:40 Estimated GFR > 60 ml/min 04/23/21 04:40 BUN/Creatinine Ratio 20 % 04/23/21 04:40 Glucose 108 mg/dL (75-100) H 04/23/21 04:40 POC Glucose 108 mg/dL (70-105) H 04/23/21 05:01 Lactic Acid 1.80 mmol/L (0.7-2.0) 04/17/21 15:55 Calcium 9.1 mg/dL (8.4-10.2) 04/23/21 04:40 Phosphorus 2.60 mg/dL (2.5-4.5) 04/19/21 06:21 Magnesium 2.10 mg/dL (1.7-2.3) 04/23/21 04:40 Total Bilirubin 0.40 mg/dL (0.1-1.2) 04/19/21 06:21 AST 17 units/L (5-40) 04/19/21 06:21 ALT 16 units/L (7-56) 04/19/21 06:21 Alkaline Phosphatase 78 units/L (35-129) 04/19/21 06:21 Total Protein 5.8 g/dL (6.3-8.2) L D 04/19/21 06:21 Albumin 3.6 g/dL (3.9-5) L 04/19/21 06:21 Albumin/Globulin Ratio 1.6 % 04/19/21 06:21 Triglycerides 161 mg/dL (2-149) H 04/19/21 06:21 Cholesterol 225 mg/dL (50-199) H 04/19/21 06:21 LDL Cholesterol Direct 170 mg/dL (50-130) H 04/19/21 06:21 HDL Cholesterol 38 mg/dL (40-59) L 04/19/21 06:21 Cholesterol/HDL Ratio 5.92 % 04/19/21 06:21 Urine Color Yellow (Yellow) 04/17/21 Unknown Urine Turbidity Hazy (Clear) 04/17/21 Unknown Urine pH 5.0 (5.0-7.0) 04/17/21 Unknown Ur Specific [place] 1.023 (1.003-1.030) 04/17/21 Unknown Urine Protein 30 mg/dl mg/dL (Negative) 04/17/21 Unknown Urine Glucose (UA) Neg mg/dL (Negative) 04/17/21 Unknown Urine Ketones Neg mg/dL (Negative) 04/17/21 Unknown Urine Blood Sm (Negative) 04/17/21 Unknown Urine Nitrite Neg (Negative) 04/17/21 Unknown Urine Bilirubin Neg (Negative) 04/17/21 Unknown Urine Urobilinogen < 2.0 mg/dL (<2.0) 04/17/21 Unknown Ur Leukocyte Esterase Neg (Negative) 04/17/21 Unknown Urine WBC (Auto) 2.0 /HPF (0.0-6.0) 04/17/21 Unknown Urine RBC (Auto) 2.0 /HPF (0.0-6.0) 04/17/21 Unknown U Epithel Cells (Auto) < 1.0 /HPF (0-13.0) 04/17/21 Unknown Hyaline Casts 11 /LPF 04/17/21 Unknown Urine Mucus 1+ /HPF 04/17/21 Unknown Urine Opiates Screen Negative 04/17/21 Unknown Urine Methadone Screen Negative 04/17/21 Unknown Ur Barbiturates Screen Negative 04/17/21 Unknown Ur Phencyclidine Scrn Negative 04/17/21 Unknown Ur Amphetamines Screen Negative 04/17/21 Unknown U Benzodiazepines Scrn Negative 04/17/21 Unknown Urine Cocaine Screen Negative 04/17/21 Unknown U Marijuana (THC) Screen Negative 04/17/21 Unknown Drugs of Abuse Note Disclamer 04/17/21 Unknown Plasma/Serum Alcohol < 0.01 % (0-0.07) 04/17/21 15:55 Pérez/IV: Voiding Method Condom Catheter Active Medications - Current Medications Current Medications: Generic Name Dose Route Start Last Admin Trade Name Freq PRN Reason Stop Dose Admin Acetaminophen 650 mg 04/17/21 18:30 04/22/21 22:16 Acetaminophen 325 Mg Tab PO 650 mg Q4H PRN Administration Pain, Mild (1-3) Lipase/Protease/Amylase 1 each 04/18/21 13:56 Lipase 10,500/Protease 25,000/Amylase 43,750 (Units) Dr Metzger FEEDTUBE PRN PRN For Clogged Feeding Tube Aspirin 325 mg 04/18/21 10:00 04/23/21 09:21 Aspirin 325 Mg Tab PO 325 mg QDAY JUDY Administration Atorvastatin Calcium 40 mg 04/17/21 22:00 04/22/21 22:09 Atorvastatin 40 Mg Tab PO 40 mg QHS JUDY Administration Bisacodyl 10 mg 04/17/21 18:30 Bisacodyl 10 Mg Rect Supp SD QDAY PRN Constipation Famotidine 20 mg 04/19/21 10:00 04/23/21 09:21 Famotidine 20 Mg Tab PO 20 mg QDAY JUDY Administration Heparin Sodium (Porcine) 5,000 unit 04/19/21 22:00 04/23/21 09:22 Heparin 5,000 Unit/1 Ml Vial SUB-Q 5,000 unit Q12HR JUDY Administration Hydralazine HCl 10 mg 04/21/21 10:07 04/23/21 09:21 Hydralazine 20 Mg/1 Ml Inj IV 10 mg Q4H PRN Administration Blood Pressure Hydralazine HCl 25 mg 04/22/21 14:00 04/23/21 05:11 Hydralazine 25 Mg Tab PO 25 mg Q8HR JUDY Administration Hydromorphone HCl 0.5 mg 04/17/21 18:30 04/19/21 07:35 Hydromorphone 1 Mg/1 Ml Inj IV 0.5 mg Q12H PRN Administration Pain , Severe (7-10) Lorazepam 2 mg 04/19/21 08:00 04/23/21 05:35 Lorazepam 2 Mg/Ml Vial IV 2 mg Q1HR PRN Administration CIWA-Ar 8-15 Lorazepam 4 mg 04/19/21 08:00 04/19/21 08:00 Lorazepam 2 Mg/Ml Vial IV 4 mg Q1HR PRN Administration CIWA-Ar 16-25 Lorazepam 4 mg 04/19/21 08:00 04/22/21 06:52 Lorazepam 2 Mg/Ml Vial IV 4 mg Q15MIN PRN Administration CIWA-Ar >25 Magnesium Hydroxide 30 ml 04/17/21 18:30 Magnesium Hydroxide (Mom) Oral Liqd Udc PO Q4H PRN Constipation Metoclopramide HCl 10 mg 04/17/21 18:30 Metoclopramide 10 Mg Tab PO Q6H PRN Nausea And Vomiting Metoprolol Tartrate 25 mg 04/22/21 14:00 04/23/21 09:21 Metoprolol Tartrate 25 Mg Tab PO 25 mg TID JUDY Administration Ondansetron HCl 4 mg 04/17/21 18:30 Ondansetron 4 Mg/2 Ml Inj IV Q8H PRN Nausea And Vomiting Oxycodone/Acetaminophen 1 tab 04/17/21 18:30 Oxycodone /Acetaminophen 5-325mg Tab PO Q12H PRN Pain, Moderate (4-6) Quetiapine Fumarate 200 mg 04/19/21 22:00 04/23/21 09:21 Quetiapine 200 Mg Tab PO 200 mg BID JUDY Administration Simple Syrup 15 ml 04/18/21 13:56 Simple Syrup 15 Ml FEEDTUBE PRN PRN Hypoglycemia Simple Syrup 30 ml 04/18/21 13:56 Simple Syrup 15 Ml FEEDTUBE PRN PRN Hypoglycemia Sodium Bicarbonate 325 mg 04/18/21 13:56 Sodium Bicarbonate 325 Mg Tab FEEDTUBE PRN PRN For Clogged Feeding Tube Sodium Chloride 10 ml 04/17/21 18:30 04/20/21 21:58 Sodium Chloride 0.9% 10 Ml Flush Syringe IV 10 ml PRN PRN Administration LINE FLUSH Nutrition/Malnutrition Assess - Dietary Evaluation Nutrition/Malnutrition Findings: Nutrition Notes Start: 04/18/21 13:50 Freq: Status: Active Protocol: Document 04/21/21 11:55 (Rec: 04/21/21 11:59 [email or web address]) Nutrition Notes Initial or Follow up Reassessment Current Diagnosis Acute Kidney Injury, Hypertension,Stroke Other Pertinent Diagnosis SIRS Current Diet Osmolite 1.5 at 45 ml/hr Labs/Tests Reviewed Pertinent Medications NS with 20 mEq KCl at 100 ml/ hr Height 5 ft 7 in Weight 90.7 kg [place] Body Weight (kg) 67.27 BMI 31.3 Weight change and time frame wt change noted Weight Status Obese Subjective/Other Information F/u for TF tolerance. Observed pt tolerating TF at goal rate . Percent of energy/protein needs met: 99%/100% Burn Absent Trauma Absent Current % PO Negligible Minimum of two criteria No physical signs of malnutrition #1 Nutrition Diagnosis Inadequate oral intake As Evidenced by Signs and Symptoms PLAYGROUND MONITOR unable to eval pt Diagnosis Progress(for reassessment Continues documentation) Is patient on ventilator? No Is Patient Ambulatory and/or Out of Bed No REE-([facility]-confined to bed) 2062.656 Kcal/Kg value to use for calculation 18 Approximate Energy Requirements Using 1633 kcal/Kg Calculation Used for Recommendations Kcal/kg Additional Notes Protein: (0.8-1g/kg AdjBW: 79kg) 63-79g Fluid: 1 ml/kcal or per MD Nutrition Intervention Change Diet Order: continue or advance diet per PLAYGROUND MONITOR Nutrition Support: Osmolite 1.5 at 45 ml/hr Flush 125 ml q4h or per MD Kcal 1,620 Protein (gm) 68 Fluid (mL) 823 Goal #1 Meet at least 75% of protein and energy needs via TF Anticipated Discharge Needs: Unable to determine at this time Follow-Up By: 04/23/21 Additional Comments FU for PLAYGROUND MONITOR eval and/or TF tolerance
[2021-04-23] MEDS ORDERED: SODIUM CHLORIDE 0.9% 1000 ML 1,000 ML ONE (11:24)
[2021-04-23] MEDS: fentaNYL DRIP Premix 2,000 MCG/100 ML BAG IV SCH (11:30)
--- NOTE | 2021-04-23 11:44 | Progress Note ---
Assessment and Plan Acute cerebrovascular accident with mass effect now Acute toxic metabolic encephalopathy LILO Acute Hypoxemic respiratory failure Acute kidney injuryMild metabolic acidosis Leukocytosis Obesity (Discussed with son and later his sister with his 's permission and the decision is to intubate and protect his airway pending neurosurgery / neurology complete evaluation at which time care goals will be revisited) - intubated RSI - follow post intubation CXR - continue scopolamine for secretion control - vent orders placed - Daily SAT's and SBT assessment as tolerated - wean supplemental oxygen for target O2 sat's > 90% acutely - VAP bundle addressed - continue lung protective strategies - continue bronchodilators with pulmonary hygiene per RT - wean per pulmonary driven protocols otherwise - continue accuchecks with glycemic control per SSI (While critically ill target blood glucose of 140-180 mg/dL; avoid hypoglycemia) - sedation prn for target RASS 0 to -1 - avoid nephrotoxins, renally dose all medications - continue to avoid benzodiazepine's, reduce the possibility of delirium - AB's per ID rec's - prn analgesia per CPOT score - Maintenance of sleep-wake cycle, avoid delirium - continue enteral nutritional support at goal rate as tolerated - G.I. & VTE prophylaxis - PT/OT/ROM exercises - continue mobility protocols for pressure ulcer prophylaxis - Monitor hemodynamics closely - continue other care per attending / other consultants - discharge planning ongoing concurrently COVID SPECIFIC INTERVENTIONS - COVID-19 test result pending - Continue empiric contact and airborne isolation .... Re-evaluate in am & prn CONDITION: CRITICAL PROGNOSIS: GUARDED CODE STATUS: FULL CODE The high probability of a clinically significant, sudden or life-threatening deterioration of the [respiratory, cardiovascular & neurologic] system(s) required my full and direct attention, intervention and personal management. The aggregate critical care time was [40] minutes without overlap. Time includes spent on; [x] Data Review and interpretation [x] Patient assessment and monitoring of vital signs [x] Documentation [x] Medication orders and management Subjective Date of service: 04/23/21 Principal diagnosis: Ac CVA; Ac encephalopathy; LILO; Acute Hypoxemic resp failure; THAI Interval history: Patient is seen today for: Acute cerebrovascular accident; Acute toxic metabolic encephalopathy; LILO; Acute Hypoxemic respiratory failure; THAI; Obesity Seen and examined at bedside; 24hour events reviewed; nursing and respiratory care staff consulted; no adverse overnight events reported to me; resting in bed; remains on supplemental oxygen; lethargic; CT brain repeat shows mass effect from cerebral edema; oropharyngeal secretions increased; + possible aspiration earlier Objective Vital Signs - 12hr 04/22/21 04/23/21 04/23/21 23:53 00:00 00:01 Temperature 99.3 F Pulse Rate 93 H 89 89 Pulse Rate [ 89 From Monitor] Respiratory 21 29 H 19 Rate Blood Pressure 124/58 98/55 O2 Sat by Pulse 95 96 95 Oximetry 04/23/21 04/23/21 04/23/21 00:25 01:00 02:00 Temperature Pulse Rate 88 90 98 H Pulse Rate [ From Monitor] Respiratory 16 15 20 Rate Blood Pressure 98/55 109/77 123/84 O2 Sat by Pulse 97 97 95 Oximetry 04/23/21 04/23/21 04/23/21 03:00 03:43 04:00 Temperature 99.6 F Pulse Rate 102 H 101 H Pulse Rate [ 100 H From Monitor] Respiratory 23 24 Rate Blood Pressure 136/85 170/99 O2 Sat by Pulse 96 96 Oximetry 04/23/21 04/23/21 04/23/21 05:00 05:11 05:30 Temperature Pulse Rate 100 H 94 H Pulse Rate [ From Monitor] Respiratory 28 H Rate Blood Pressure 136/76 136/76 O2 Sat by Pulse 96 96 Oximetry 04/23/21 04/23/21 04/23/21 06:00 07:00 08:00 Temperature Pulse Rate 111 H 104 H 101 H Pulse Rate [ From Monitor] Respiratory 45 H 35 H 21 Rate Blood Pressure 157/91 169/95 164/90 O2 Sat by Pulse 99 98 98 Oximetry 04/23/21 09:07 Temperature Pulse Rate Pulse Rate [ From Monitor] Respiratory Rate Blood Pressure O2 Sat by Pulse 94 Oximetry Constitutional: appears uncomfortable, other (middle aged obese male resting in bed with mildly increased respiratory effort at rest) Eyes: non-icteric ENT: oropharynx moist, oropharyngeal exudate pre, other (ETT 24 cm ARTHUR) Neck: supple, no lymphadenopathy, no JVD, other (large circumference) Effort: mildly labored Ascultation: Bilateral: diminished breath sounds, rales, other (referred upper airway sounds ) Percussion: Bilateral: not dull Cardiovascular: regular rate and rhythm Gastrointestinal: normoactive bowel sounds, soft, non-tender, non-distended Integumentary: normal Extremities: no cyanosis, no edema, pink and warm, pulses normal Neurologic: pupils equal and round, other (left hemiparesis) Psychiatric: other (unable to assess) CBC and BMP: 04/19/21 06:21 04/23/21 04:40 ABG, PT/INR, D-dimer: ABG ABG pH 7.439 pH Units (7.350-7.450) 04/22/21 12:40 ABG pCO2 36.4 mm Hg 04/22/21 12:40 ABG pO2 66.3 mm Hg (80.0-90.0) L 04/22/21 12:40 ABG O2 Saturation 95.0 % (95.0-99.0) 04/22/21 12:40 Abnormal lab findings: Abnormal Labs 04/17/21 04/17/21 04/19/21 15:55 15:55 06:21 WBC 13.4 H RBC 5.81 H Hgb 17.2 H Hct 51.2 H [place] % (Auto) 8.1 H 10.0 H [place] # (Auto) 1.1 H 0.9 H Seg Neutrophils % 73.0 H Seg Neutrophils # 9.8 H ABG pO2 Oxyhemoglobin Chloride Carbon Dioxide 20 L BUN 25 H Creatinine 1.5 H Glucose 138 H POC Glucose Total Protein Albumin Triglycerides Cholesterol LDL Cholesterol Direct HDL Cholesterol 04/19/21 04/19/21 04/19/21 06:21 06:21 23:08 WBC RBC Hgb Hct [place] % (Auto) [place] # (Auto) Seg Neutrophils % Seg Neutrophils # ABG pO2 Oxyhemoglobin Chloride 107.9 H Carbon Dioxide BUN 21 H Creatinine Glucose 102 H 102 H POC Glucose 109 H Total Protein 5.8 L D Albumin 3.6 L Triglycerides 161 H Cholesterol 225 H LDL Cholesterol Direct 170 H HDL Cholesterol 38 L 04/20/21 04/20/21 04/21/21 06:10 23:46 05:49 WBC RBC Hgb Hct [place] % (Auto) [place] # (Auto) Seg Neutrophils % Seg Neutrophils # ABG pO2 Oxyhemoglobin Chloride Carbon Dioxide BUN Creatinine Glucose POC Glucose 127 H 112 H 131 H Total Protein Albumin Triglycerides Cholesterol LDL Cholesterol Direct HDL Cholesterol 04/21/21 04/21/21 04/22/21 11:20 23:32 05:30 WBC RBC Hgb Hct [place] % (Auto) [place] # (Auto) Seg Neutrophils % Seg Neutrophils # ABG pO2 Oxyhemoglobin Chloride Carbon Dioxide BUN Creatinine Glucose POC Glucose 106 H 161 H 117 H Total Protein Albumin Triglycerides Cholesterol LDL Cholesterol Direct HDL Cholesterol 04/22/21 04/22/21 04/22/21 12:03 12:40 23:36 WBC RBC Hgb Hct [place] % (Auto) [place] # (Auto) Seg Neutrophils % Seg Neutrophils # ABG pO2 66.3 L Oxyhemoglobin 93.2 L Chloride Carbon Dioxide BUN Creatinine Glucose POC Glucose 120 H 144 H Total Protein Albumin Triglycerides Cholesterol LDL Cholesterol Direct HDL Cholesterol 04/23/21 04/23/21 04:40 05:01 WBC RBC Hgb Hct [place] % (Auto) [place] # (Auto) Seg Neutrophils % Seg Neutrophils # ABG pO2 Oxyhemoglobin Chloride Carbon Dioxide BUN Creatinine 0.7 L Glucose 108 H POC Glucose 108 H Total Protein Albumin Triglycerides Cholesterol LDL Cholesterol Direct HDL Cholesterol Chest x-ray: pending Allied health notes reviewed: nursing
[2021-04-23] MEDS ORDERED: LIP THERAPY VASELINE TP PRN (11:54)
[2021-04-23] MEDS ORDERED: MINERAL OIL/PETROLATUM, WHITE OPHTH OINT 3.5 GM OU PRN (11:54)
[2021-04-23] MEDS ORDERED: fentaNYL 100 MCG/2 ML INJ IV PRN (11:54)
--- NOTE | 2021-04-23 13:11 | Consultation ---
History of Present Illness Consult date: 04/23/21 Requesting physician: MARY ANN MONDRAGON Reason for Consult: Malignant MCA stroke Chief complaint: Chandler Montez is a 50 y/o Male w/ that was admitted to [facility] 5 days ago. He was diagnosed with a left MCA stroke. He was transferred to the ICU for further evaluation. Per report, [facility] was contacted. At that time, he was outside of the window for intervention so transfer was not recommended. He has been essentially unresponsive since arrival. CT scan on yesterday revealed worsening mass effect from left MCA stroke, 1 cm of MLS with cisternal crowding. There is no evidence of herniation at this time. He was intubated today for airway protection. Past History Past Medical History: hypertension, stroke Past Surgical History: No surgical history, Other (Unable to obtain) Social history: single Family history: no significant family history, other (Unable to obtain) Medications and Allergies Allergies Allergy/AdvReac Type Severity Reaction Status Date / Time No Known Allergies Allergy Unverified 10/24/20 19:13 Home Medications Medication Instructions Recorded Confirmed Last Taken Type Metoprolol [Lopressor TAB] 50 mg PO BID #60 tablet 10/24/20 04/21/21 Unknown Rx Clonidine HCl 0.5 mg PO DAILY 04/21/21 04/21/21 Unknown History Active Meds: Active Medications Acetaminophen (Acetaminophen 325 Mg Tab) 650 mg PO Q4H PRN PRN Reason: Pain, Mild (1-3) Last Admin: 04/22/21 22:16 Dose: 650 mg Documented by: Lipase/Protease/Amylase (Lipase 10,500/Protease 25,000/Amylase 43,750 (Units) Dr Metzger) 1 each FEEDTUBE PRN PRN PRN Reason: For Clogged Feeding Tube Aspirin (Aspirin 325 Mg Tab) 325 mg PO QDAY [facility] Last Admin: 04/23/21 09:21 Dose: 325 mg Documented by: Atorvastatin Calcium (Atorvastatin 40 Mg Tab) 40 mg PO QHS [facility] Last Admin: 04/22/21 22:09 Dose: 40 mg Documented by: Bisacodyl (Bisacodyl 10 Mg Rect Supp) 10 mg ME QDAY PRN PRN Reason: Constipation Famotidine (Famotidine 20 Mg/2 Ml Inj) 20 mg IV BID [facility] Fentanyl (Fentanyl 100 Mcg/2 Ml Inj) 50 mcg IV Q10MIN PRN PRN Reason: ANALGESIA Heparin Sodium (Porcine) (Heparin 5,000 Unit/1 Ml Vial) 5,000 unit SUB-Q Q12HR JUDY Last Admin: 04/23/21 09:22 Dose: 5,000 unit Documented by: Hydralazine HCl (Hydralazine 20 Mg/1 Ml Inj) 10 mg IV Q4H PRN PRN Reason: Blood Pressure Last Admin: 04/23/21 09:21 Dose: 10 mg Documented by: Hydralazine HCl (Hydralazine 25 Mg Tab) 25 mg PO Q8HR JUDY Last Admin: 04/23/21 05:11 Dose: 25 mg Documented by: Hydromorphone HCl (Hydromorphone 1 Mg/1 Ml Inj) 0.5 mg IV Q12H PRN PRN Reason: Pain , Severe (7-10) Last Admin: 04/19/21 07:35 Dose: 0.5 mg Documented by: Hydrophilic Ointment (Lip Therapy Vaseline) 1 applic TP Q2HR PRN PRN Reason: Dry Lips Fentanyl Citrate (Fentanyl Drip Premix) 2,000 mcg in 100 mls @ 4.535 mls/hr IV TITR JUDY; Protocol Last Titration: 04/23/21 11:50 Dose: 2 mcg/kg/hr, 9.07 mls/hr Documented by: Propofol (Diprivan 10 Mg/Ml) 1,000 mg in 100 mls @ 2.721 mls/hr IV TITR JUDY; Protocol Last Admin: 04/23/21 12:50 Dose: 5 mcg/kg/min, 2.721 mls/hr Documented by: Lorazepam (Lorazepam 2 Mg/Ml Vial) 2 mg IV Q1HR PRN PRN Reason: CIWA-Ar 8-15 Last Admin: 04/23/21 05:35 Dose: 2 mg Documented by: Lorazepam (Lorazepam 2 Mg/Ml Vial) 4 mg IV Q1HR PRN PRN Reason: CIWA-Ar 16-25 Last Admin: 04/19/21 08:00 Dose: 4 mg Documented by: Lorazepam (Lorazepam 2 Mg/Ml Vial) 4 mg IV Q15MIN PRN PRN Reason: CIWA-Ar >25 Last Admin: 04/22/21 06:52 Dose: 4 mg Documented by: Magnesium Hydroxide (Magnesium Hydroxide (Mom) Oral Liqd Udc) 30 ml PO Q4H PRN PRN Reason: Constipation Metoclopramide HCl (Metoclopramide 10 Mg Tab) 10 mg PO Q6H PRN PRN Reason: Nausea And Vomiting Metoprolol Tartrate (Metoprolol Tartrate 25 Mg Tab) 25 mg PO TID [facility] Last Admin: 04/23/21 09:21 Dose: 25 mg Documented by: Multi-Ingred Cream/Lotion/Oil/Oint (Mineral Oil/Petrolatum, White Ophth Oint 3.5 Gm) 1 applic OU Q4HR PRN PRN Reason: Dry Eye(s) Ondansetron HCl (Ondansetron 4 Mg/2 Ml Inj) 4 mg IV Q8H PRN PRN Reason: Nausea And Vomiting Oxycodone/Acetaminophen (Oxycodone /Acetaminophen 5-325mg Tab) 1 tab PO Q12H PRN PRN Reason: Pain, Moderate (4-6) Quetiapine Fumarate (Quetiapine 200 Mg Tab) 200 mg PO BID [facility] Last Admin: 04/23/21 09:21 Dose: 200 mg Documented by: Senna/Docusate Sodium (Sennosides/Docusate Sodium 8.6/50 Mg Tab) 1 tab FEEDTUBE BID [facility] Simple Syrup (Simple Syrup 15 Ml) 15 ml FEEDTUBE PRN PRN PRN Reason: Hypoglycemia Simple Syrup (Simple Syrup 15 Ml) 30 ml FEEDTUBE PRN PRN PRN Reason: Hypoglycemia Sodium Bicarbonate (Sodium Bicarbonate 325 Mg Tab) 325 mg FEEDTUBE PRN PRN PRN Reason: For Clogged Feeding Tube Sodium Chloride (Sodium Chloride 0.9% 10 Ml Flush Syringe) 10 ml IV PRN PRN PRN Reason: LINE FLUSH Last Admin: 04/20/21 21:58 Dose: 10 ml Documented by: Review of Systems All systems: negative (what is specified in HPI) Physical Examination - Vital Signs Vital Signs: Vital Signs Pulse Resp Pulse Ox 92 H 14 85 04/17/21 15:42 04/17/21 15:42 04/17/21 15:42 - Physical Exam Narrative exam: seen and examined intubated no sedation RRR airway secure abdomen soft no cyanosis or clubbing no eye opening pupils 3-4 mm, reactive +corneals b/l +cough moves left hemibody purposefully to stim Results - Laboratory Findings CBC and BMP: 04/19/21 06:21 04/23/21 04:40 Abnormal Lab Findings: Abnormal Labs 04/17/21 04/17/21 04/19/21 15:55 15:55 06:21 WBC 13.4 H RBC 5.81 H Hgb 17.2 H Hct 51.2 H [place] % (Auto) 8.1 H 10.0 H [place] # (Auto) 1.1 H 0.9 H Seg Neutrophils % 73.0 H Seg Neutrophils # 9.8 H ABG pO2 Oxyhemoglobin Chloride Carbon Dioxide 20 L BUN 25 H Creatinine 1.5 H Glucose 138 H POC Glucose Total Protein Albumin Triglycerides Cholesterol LDL Cholesterol Direct HDL Cholesterol 04/19/21 04/19/21 04/19/21 06:21 06:21 23:08 WBC RBC Hgb Hct [place] % (Auto) [place] # (Auto) Seg Neutrophils % Seg Neutrophils # ABG pO2 Oxyhemoglobin Chloride 107.9 H Carbon Dioxide BUN 21 H Creatinine Glucose 102 H 102 H POC Glucose 109 H Total Protein 5.8 L D Albumin 3.6 L Triglycerides 161 H Cholesterol 225 H LDL Cholesterol Direct 170 H HDL Cholesterol 38 L 04/20/21 04/20/21 04/21/21 06:10 23:46 05:49 WBC RBC Hgb Hct [place] % (Auto) [place] # (Auto) Seg Neutrophils % Seg Neutrophils # ABG pO2 Oxyhemoglobin Chloride Carbon Dioxide BUN Creatinine Glucose POC Glucose 127 H 112 H 131 H Total Protein Albumin Triglycerides Cholesterol LDL Cholesterol Direct HDL Cholesterol 04/21/21 04/21/21 04/22/21 11:20 23:32 05:30 WBC RBC Hgb Hct [place] % (Auto) [place] # (Auto) Seg Neutrophils % Seg Neutrophils # ABG pO2 Oxyhemoglobin Chloride Carbon Dioxide BUN Creatinine Glucose POC Glucose 106 H 161 H 117 H Total Protein Albumin Triglycerides Cholesterol LDL Cholesterol Direct HDL Cholesterol 04/22/21 04/22/21 04/22/21 12:03 12:40 23:36 WBC RBC Hgb Hct [place] % (Auto) [place] # (Auto) Seg Neutrophils % Seg Neutrophils # ABG pO2 66.3 L Oxyhemoglobin 93.2 L Chloride Carbon Dioxide BUN Creatinine Glucose POC Glucose 120 H 144 H Total Protein Albumin Triglycerides Cholesterol LDL Cholesterol Direct HDL Cholesterol 04/23/21 04/23/21 04:40 05:01 WBC RBC Hgb Hct [place] % (Auto) [place] # (Auto) Seg Neutrophils % Seg Neutrophils # ABG pO2 Oxyhemoglobin Chloride Carbon Dioxide BUN Creatinine 0.7 L Glucose 108 H POC Glucose 108 H Total Protein Albumin Triglycerides Cholesterol LDL Cholesterol Direct HDL Cholesterol Assessment and Plan Chandler Montez is a 50 y/o M w/ malignant left MCA stroke, 1 cm MLS -unfortunately, there is no role for surgical intervention at the present time -repeat CT head non-contrast -will need MRI brain non-contrast none urgently -recommend medical ICP management, PCO2 < 40, maintain normotension -HOB > 30 degrees -maintain serum Na > 145 -recommend keppra 500 mg BID for seizure prophylaxis -will follow, please notify if questions
--- NOTE | 2021-04-23 14:27 | XRay Report ---
CHEST 1 VIEW INDICATION: NGT PLACEMENT. COMPARISON: 04/17/2021 FINDINGS: Support devices: A right mainstem bronchus intubation is identified. Recommend retraction of the endo tracheal tube by 4 cm. Heart: Within normal limits. Lungs/Pleura: Moderate to large areas of atelectasis are suspected in the lingula and left lower lobe . The right lung is clear. Additional findings: None. IMPRESSION: Right mainstem bronchus intubation. CRITICAL RESULT: Time of Discovery (REGULATORY SERVICES CONSULTANT/CDT): 1318 hours Time of Communication (REGULATORY SERVICES CONSULTANT/CDT): 1322 hours Licensed Practitioner Receiving Report: DREW Rico Read-Back Performed: Yes. ABDOMEN 1 VIEW(S) INDICATION / CLINICAL INFORMATION: NGT PLACEMENT. COMPARISON: Yesterday FINDINGS: TUBES / LINES: Nasogastric tube is coiled in the fundus of the stomach and appears essentially unchan ged in position since yesterday's exam. BOWEL GAS PATTERN: No significant abnormality. FREE AIR / EXTRALUMINAL GAS: None seen. ADDITIONAL FINDINGS: No significant additional findings. IMPRESSION: Nasogastric tube as described. No acute process is appreciated in the abdomen. Signer Name: Mauri Pina Jr, MD Signed: 04/23/2021 2:23 PM Workstation Name: [id number]
--- NOTE | 2021-04-23 14:27 | XRay Report ---
CHEST 1 VIEW INDICATION: NGT PLACEMENT. COMPARISON: 04/17/2021 FINDINGS: Support devices: A right mainstem bronchus intubation is identified. Recommend retraction of the endo tracheal tube by 4 cm. Heart: Within normal limits. Lungs/Pleura: Moderate to large areas of atelectasis are suspected in the lingula and left lower lobe . The right lung is clear. Additional findings: None. IMPRESSION: Right mainstem bronchus intubation. CRITICAL RESULT: Time of Discovery (DIRECTOR OF TRAINING/CDT): 1318 hours Time of Communication (DIRECTOR OF TRAINING/CDT): 1322 hours Licensed Practitioner Receiving Report: DREW Rico Read-Back Performed: Yes. ABDOMEN 1 VIEW(S) INDICATION / CLINICAL INFORMATION: NGT PLACEMENT. COMPARISON: Yesterday FINDINGS: TUBES / LINES: Nasogastric tube is coiled in the fundus of the stomach and appears essentially unchan ged in position since yesterday's exam. BOWEL GAS PATTERN: No significant abnormality. FREE AIR / EXTRALUMINAL GAS: None seen. ADDITIONAL FINDINGS: No significant additional findings. IMPRESSION: Nasogastric tube as described. No acute process is appreciated in the abdomen. Signer Name: Mauri Pina Jr, MD Signed: 04/23/2021 2:23 PM Workstation Name: [id number]
--- NOTE | 2021-04-23 16:05 | Event Note ---
Date: 04/23/21 Neurosurgery evaluation and recommendations noted and appreciated; As per neurosurgeons recommendations CT head without contrast, urgent MRI brain without contrast, both of them requested Keppra 500 mg IV twice a day added to the regimen, hypertonic saline 3% normal saline started IV 50 mL/h to maintain sodium levels more than 145 Close monitoring of sodium, nephrology consulted, Head end elevated more than 30 degrees, Informed respiratory therapist/animal humane agent supervisor to maintain PCO2 less than 40 And also maintain blood pressures in the normal range. The above treatment plan discussed with the patient's nurse
[2021-04-23] MEDS ORDERED: SODIUM CHLORIDE 3% 500 ML IV ONE (16:30)
--- NOTE | 2021-04-23 16:57 | Consultation ---
History of Present Illness - Reason for Consult Consult date: 04/23/21 other (To maintain Sodium > 145 meq/L) Requesting physician: MARY ANN MONDRAGON - History of Present Illness Mr.William Montez is a 50 y/o male with history significant for HTN, CVA with residual L sided weakness and MEdical non-compliance who presented to [facility] ED 04/17 with altered mental status. Patient was not able to provide any history and there was no family member at the bedside. Paramedics found patient laying on the kitchen floor. Naloxone 2 mg given without effect. Blood sugar normal p er EMS. He was diagnosed with a left MCA stroke. He was transferred to the ICU for further evaluation. He has been essentially unresponsive since arrival. CT head done yesterday revealed worsening mass effect from left MCA stroke, 1 cm of MLS with cisternal crowding. There is no evidence of herniation at this time. He was intubated today for airway protection. Neuro-surgery recommended to keep Sodium level above 145 meq/L to reduce intracranial pressure. Nephrology was consulted for further evaluation and treatment. Past History Past Medical History: hypertension, stroke Past Surgical History: No surgical history, Other (Unable to obtain) Social history: single Family history: no significant family history, other (Unable to obtain) Medications and Allergies Allergies Allergy/AdvReac Type Severity Reaction Status Date / Time No Known Allergies Allergy Unverified 10/24/20 19:13 Home Medications Medication Instructions Recorded Confirmed Last Taken Type Metoprolol [Lopressor TAB] 50 mg PO BID #60 tablet 10/24/20 04/21/21 Unknown Rx Clonidine HCl 0.5 mg PO DAILY 04/21/21 04/21/21 Unknown History Active Meds: Active Medications Acetaminophen (Acetaminophen 325 Mg Tab) 650 mg PO Q4H PRN PRN Reason: Pain, Mild (1-3) Last Admin: 04/22/21 22:16 Dose: 650 mg Documented by: Lipase/Protease/Amylase (Lipase 10,500/Protease 25,000/Amylase 43,750 (Units) Dr Metzger) 1 each FEEDTUBE PRN PRN PRN Reason: For Clogged Feeding Tube Aspirin (Aspirin 325 Mg Tab) 325 mg PO QDAY [facility] Last Admin: 04/23/21 09:21 Dose: 325 mg Documented by: Atorvastatin Calcium (Atorvastatin 40 Mg Tab) 40 mg PO QHS [facility] Last Admin: 04/22/21 22:09 Dose: 40 mg Documented by: Bisacodyl (Bisacodyl 10 Mg Rect Supp) 10 mg ME QDAY PRN PRN Reason: Constipation Famotidine (Famotidine 20 Mg/2 Ml Inj) 20 mg IV BID JUDY Fentanyl (Fentanyl 100 Mcg/2 Ml Inj) 50 mcg IV Q10MIN PRN PRN Reason: ANALGESIA Heparin Sodium (Porcine) (Heparin 5,000 Unit/1 Ml Vial) 5,000 unit SUB-Q Q12HR JUDY Last Admin: 04/23/21 09:22 Dose: 5,000 unit Documented by: Hydralazine HCl (Hydralazine 20 Mg/1 Ml Inj) 10 mg IV Q4H PRN PRN Reason: Blood Pressure Last Admin: 04/23/21 09:21 Dose: 10 mg Documented by: Hydralazine HCl (Hydralazine 25 Mg Tab) 25 mg PO Q8HR JUDY Last Admin: 04/23/21 05:11 Dose: 25 mg Documented by: Hydromorphone HCl (Hydromorphone 1 Mg/1 Ml Inj) 0.5 mg IV Q12H PRN PRN Reason: Pain , Severe (7-10) Last Admin: 04/19/21 07:35 Dose: 0.5 mg Documented by: Hydrophilic Ointment (Lip Therapy Vaseline) 1 applic TP Q2HR PRN PRN Reason: Dry Lips Fentanyl Citrate (Fentanyl Drip Premix) 2,000 mcg in 100 mls @ 4.535 mls/hr IV TITR JUDY; Protocol Last Titration: 04/23/21 11:50 Dose: 2 mcg/kg/hr, 9.07 mls/hr Documented by: Propofol (Diprivan 10 Mg/Ml) 1,000 mg in 100 mls @ 2.721 mls/hr IV TITR JUDY; Protocol Last Admin: 04/23/21 12:50 Dose: 5 mcg/kg/min, 2.721 mls/hr Documented by: Levetiracetam 500 mg/ Dextrose 105 mls @ 400 mls/hr IV Q12HR JUDY Sodium Chloride (Nacl 3%) 500 mls @ 50 mls/hr IV DIRECT ONE Stop: 04/24/21 02:29 Lorazepam (Lorazepam 2 Mg/Ml Vial) 2 mg IV Q1HR PRN PRN Reason: CIWA-Ar 8-15 Last Admin: 04/23/21 05:35 Dose: 2 mg Documented by: Lorazepam (Lorazepam 2 Mg/Ml Vial) 4 mg IV Q1HR PRN PRN Reason: CORTEZ-Ar 16-25 Last Admin: 04/19/21 08:00 Dose: 4 mg Documented by: Lorazepam (Lorazepam 2 Mg/Ml Vial) 4 mg IV Q15MIN PRN PRN Reason: CORTEZ-Ar >25 Last Admin: 04/22/21 06:52 Dose: 4 mg Documented by: Magnesium Hydroxide (Magnesium Hydroxide (Mom) Oral Liqd Udc) 30 ml PO Q4H PRN PRN Reason: Constipation Metoclopramide HCl (Metoclopramide 10 Mg Tab) 10 mg PO Q6H PRN PRN Reason: Nausea And Vomiting Metoprolol Tartrate (Metoprolol Tartrate 25 Mg Tab) 25 mg PO TID [facility] Last Admin: 04/23/21 09:21 Dose: 25 mg Documented by: Multi-Ingred Cream/Lotion/Oil/Oint (Mineral Oil/Petrolatum, White Ophth Oint 3.5 Gm) 1 applic OU Q4HR PRN PRN Reason: Dry Eye(s) Ondansetron HCl (Ondansetron 4 Mg/2 Ml Inj) 4 mg IV Q8H PRN PRN Reason: Nausea And Vomiting Oxycodone/Acetaminophen (Oxycodone /Acetaminophen 5-325mg Tab) 1 tab PO Q12H PRN PRN Reason: Pain, Moderate (4-6) Quetiapine Fumarate (Quetiapine 200 Mg Tab) 200 mg PO BID [facility] Last Admin: 04/23/21 09:21 Dose: 200 mg Documented by: Senna/Docusate Sodium (Sennosides/Docusate Sodium 8.6/50 Mg Tab) 1 tab FEEDTUBE BID [facility] Simple Syrup (Simple Syrup 15 Ml) 15 ml FEEDTUBE PRN PRN PRN Reason: Hypoglycemia Simple Syrup (Simple Syrup 15 Ml) 30 ml FEEDTUBE PRN PRN PRN Reason: Hypoglycemia Sodium Bicarbonate (Sodium Bicarbonate 325 Mg Tab) 325 mg FEEDTUBE PRN PRN PRN Reason: For Clogged Feeding Tube Sodium Chloride (Sodium Chloride 0.9% 10 Ml Flush Syringe) 10 ml IV PRN PRN PRN Reason: LINE FLUSH Last Admin: 04/20/21 21:58 Dose: 10 ml Documented by: Sodium Chloride (Sodium Chloride 1 Gm Tab) 1 gm PO BID JUDY Review of Systems ROS unobtainable: due to mental status Exam - Vital Signs Vital signs: Vital Signs Pulse Resp Pulse Ox 92 H 14 85 04/17/21 15:42 04/17/21 15:42 04/17/21 15:42 Results - Lab Results 04/19/21 06:21 04/23/21 04:40 Most recent lab results ABG pH 7.317 (7.320-7.450) L 04/23/21 13:30 ABG pCO2 36.4 mm Hg 04/22/21 12:40 ABG pO2 66.3 mm Hg (80.0-90.0) L 04/22/21 12:40 ABG HCO3 24.1 mmol/L (20.0-26.0) 04/22/21 12:40 ABG O2 Saturation 98.8 (0-100) 04/23/21 13:30 Calcium 9.1 mg/dL (8.4-10.2) 04/23/21 04:40 Phosphorus 2.60 mg/dL (2.5-4.5) 04/19/21 06:21 Magnesium 2.10 mg/dL (1.7-2.3) 04/23/21 04:40 Assessment and Plan 1. To maintain serum Na > 145 meq/L: To treat intracranial HTN. 3% saline ordered. One dose of IV Lasix. Serial Sodium level. 2. Evolving large left MCA infarct; edema/mass-effect: Evaluated by Neurosurgery. Currently intubated. 3. Acute large left MCA distribution cerebrovascular accident[CVA]: Not a candidate for TPA ,patient is unresponsive, noncommunicative. Extensive CVA, left side involving posterior temporal lobe and inferior parietal lobe. No hemorrhage. S/p multile CT head. Followed by Neuro and evaluated by Neurosurgery. CTA head; occluded left [place] segment. According to [place] neurologist, and their program manager slp, patient is not a candidate for mechanical thrombectomy. MRI brain; 04/18/2021; Large left MCA distribution infarction without hemorrhagic conversion or herniation no hemorrhagic conversion or herniation large MCA infarct. 4. THAI (acute kidney injury), POA: Resolved. Monitor renal function. 5. Acute hypoxic respiratory failure: Currently intubated on vent. 6. Hypertensive urgency, POA: Monitor Blood pressures and adjust meds as needed. 7. Febrile illness: Follow cultures. Covid test negative. Antipyretics, supportive care. 8. Acute encephalopathy: 2/2 acuet CVA. Neuro check, seizure precaution, aspiration precautions, supportive care. Subjective: Patient was seen and examined at the bedside. Examination: General appearance: well-developed, appears stated age, no distress, on vent, FiO2 100% HEENT: ATNC, HAILEY Neck: Trachea midline Respiratory: ctab Cardiology: regular, S1S2, no murmur Abdomen: soft, not tender, BS heard Integumentary: warm, dry, no obvious rash Neurologic: not responding Ext: no edema noted
--- NOTE | 2021-04-23 17:01 | Cat Scan Report ---
CT HEAD WITHOUT CONTRAST INDICATION / CLINICAL INFORMATION: Follow-up left MCA infarction. TECHNIQUE: All CT scans at this location are performed using CT dose reduction for ALARA by means of automated e xposure control. COMPARISON: MRI brain 04/18/[address] 04/22/2021. FINDINGS: Again demonstrated is a large area of decreased attenuation corresponding to patient's recent left fr ontal, temporal, parietal lobes and lateral portion of the occipital lobe. Persistent mass effect is demonstrated. There are about 10 mm [id number] transit falcine herniation at the level of the sept um pellucidum which is increased slightly in comparison to previous study when about 8 mm of left-to- right midline shift were demonstrated.. There is no indication of uncal herniation. Is complete effac ement of the third ventricle. Subtotal effacement of the left lateral ventricle is noted. There is di latation of the atria and temporal horn of the right lateral ventricle, where, these findings were pr esent prior to onset of mass effect based on MRI brain 04/18/2021. There is no indication of hemorrhagic transformation. A radiation of the extra cranial structures is remarkable for the presence of a nasogastric tube and orotracheal tube which are incompletely evaluated on this CT head examination. Mucosal disease is pre sent within the maxillary sinuses bilaterally and in multiple bilateral ethmoid air cells. Sphenoid s inuses are clear. Mastoid air cells and middle ear cavities are normally pneumatized. IMPRESSION: 1. Increasing mass effect associated with the patient's large left MCA infarction as described in det ail above. Signer Name: James Carrillo MD Signed: 04/23/2021 4:57 PM Workstation Name: [id number]
[2021-04-23] MEDS ORDERED: FUROSEMIDE 40 MG/4 ML INJ IV ONE (17:06)
--- NOTE | 2021-04-23 19:12 | XRay Report ---
CHEST 1 VIEW 04/23/2021 6:04 PM INDICATION / CLINICAL INFORMATION: EET PLACEMENT. COMPARISON: 04/23/2021 at 1332 FINDINGS: SUPPORT DEVICES: There is an endotracheal tube which terminates approximately 3.8 cm from the kelly. HEART / MEDIASTINUM: No significant abnormality. LUNGS / PLEURA: Bibasilar opacities, not significant change from prior radiograph No pneumothorax. ADDITIONAL FINDINGS: No significant additional findings. IMPRESSION: 1. Endotracheal tube terminating approximately 3.8 cm the kelly. 2. Redemonstrated bibasilar opacities. Signer Name: Homero Gilmore DO Signed: 04/23/2021 7:07 PM Workstation Name: [id number]
--- NOTE | 2021-04-23 19:23 | Magnetic Resonance Report ---
NONENHANCED MR SCAN OF THE BRAIN: INDICATION / CLINICAL INFORMATION: CVA mass effect midline shift/rec by NSG Dr Dubose. TECHNIQUE: Multiplanar, multisequence MR images of the brain obtained. COMPARISON: MR scan of the brain from 04/18/2021 FINDINGS: BRAIN / INTRACRANIAL CONTENTS: 1. Subacute left middle cerebral artery territory (posterior division) has not progressed. 2. In the gradient echo images, no petechial changes; Decreased signal intensity in the branches of l eft middle cerebral artery in the sylvian fissure from thromboses. In addition, chronic old hemorrhag ic changes seen in the right basal ganglia and temporal lobe. 3. Mass effect over the left lateral ventricle has increased significantly resulting in left to right midline shift of 9 mm at the level of foramen of Monro. 4. Though brainstem is rotated, in the sagittal images, no descending tentorial herniation. 5. Encephalomalacia in the right basal ganglia from old hemorrhagic lesion with compensatory enlargem ent of right temporal horn with surrounding gliosis. 6. Since the last MRI scan, small area of restrictive diffusion seen in the right occipital lobe. In addition, increased diffusion signal with low ADC is also seen in the cerebellar hemispheres bilater ally. Since this is seen bilaterally, new ischemic changes in the cerebellar hemispheres likely (bila teral cerebellar lesions would exclude crossed cerebellar diaschisis). CRANIOCERVICAL JUNCTION: No significant abnormality. VASCULAR FLOW-VOIDS: Occluded branches of left middle cerebral artery ORBITS: No significant abnormality of visualized orbits. SINUSES / MASTOIDS: No significant abnormality of visualized sinuses and mastoid air cells. ADDITIONAL FINDINGS: IMPRESSION: 1. Left middle cerebral artery territory infarction has not progressed; however, mass effect over the left lateral ventricle has increased significantly resulting in [id number] midline shift of 9 mm at the level of foramen of Monro. No hemorrhagic changes in the left MCA infarction Signer Name: Selene Snider MD Signed: 04/23/2021 7:19 PM Workstation Name: [id number]
[2021-04-23] MEDS: SODIUM CHLORIDE 1 GM TAB PO SCH ×2 (19:26→22:39)
[2021-04-23] MEDS: SENNOSIDES/DOCUSATE SODIUM 8.6/50 MG TAB FEEDTUBE SCH (22:40)
[2021-04-23] MEDS: FAMOTIDINE 20 MG/2 ML INJ IV SCH (22:44)
[2021-04-24] MEDS: fentaNYL DRIP Premix 2,000 MCG/100 ML BAG IV SCH ×3 (01:20→19:53)
[2021-04-24] MEDS: levETIRAcetam 500 MG in DEXTROSE 5% IN WATER 100 ML IV SCH ×2 (07:29→09:09)
[2021-04-24] MEDS: hydrALAZINE 25 MG TAB PO SCH ×3 (07:29→22:34)
[2021-04-24 07:54] LABS: BUN/Creatinine Ratio 25; Blood Urea Nitrogen 25 mg/dL (9-20); Calcium 8.3 mg/dL (8.4-10.2); Hemolysis Index 8
[2021-04-24] MEDS: QUEtiapine 200 MG TAB PO SCH (09:08)
[2021-04-24] MEDS: SENNOSIDES/DOCUSATE SODIUM 8.6/50 MG TAB FEEDTUBE SCH ×2 (09:08→22:31)
[2021-04-24] MEDS: ACETAMINOPHEN 325 MG TAB PO PRN ×2 (09:08→16:40)
[2021-04-24] MEDS: ASPIRIN 325 MG TAB PO SCH (09:08)
[2021-04-24] MEDS: METOPROLOL TARTRATE 25 MG TAB PO SCH ×3 (09:08→22:32)
[2021-04-24] MEDS: FAMOTIDINE 20 MG/2 ML INJ IV SCH ×2 (09:09→22:34)
[2021-04-24] MEDS: HEPARIN 5,000 UNIT/1 ML VIAL SUB-Q SCH ×2 (09:09→22:50)
[2021-04-24] MEDS ORDERED: DEXTROSE 50% IN WATER (25GM) 50 ML SYRINGE IV PRN (09:26)
[2021-04-24] MEDS: SODIUM CHLORIDE 1 GM TAB PO SCH ×4 (09:45→22:32)
[2021-04-24] MEDS ORDERED: INSULIN REGULAR, HUMAN 100 UNITS/1 ML SUB-Q SCH (10:00)
[2021-04-24] MEDS ORDERED: SODIUM CHLORIDE 3% 500 ML IV ONE ×2 (11:30→21:53)
[2021-04-24] MEDS: INSULIN REGULAR, HUMAN 100 UNITS/1 ML SUB-Q SCH ×2 (11:56→17:46)
--- NOTE | 2021-04-24 12:03 | Progress Note ---
Assessment and Plan 1. To maintain serum Na > 145 meq/L: To treat intracranial HTN. Patient received 3% saline overnight for 10 hrs. Restart 3% saline. Salt tablet dose increased. Serial Sodium level. 2. Evolving large left MCA infarct; edema/mass-effect: Evaluated by Neurosurgery. Currently intubated. 3. Acute large left MCA distribution cerebrovascular accident[CVA]: Not a candidate for TPA ,patient is unresponsive, noncommunicative. Extensive CVA, left side involving posterior temporal lobe and inferior parietal lobe. No hemorrhage. S/p multile CT head. Followed by Neuro and evaluated by Neurosurgery. CTA head; occluded left [place] segment. According to [place] neurologist, and their natural resource specialist, patient is not a candidate for mechanical thrombectomy. 4. THAI (acute kidney injury), POA: Resolved. Monitor renal function. 5. Acute hypoxic respiratory failure: Currently intubated on vent. 6. Hypertensive urgency, POA: Monitor Blood pressures and adjust meds as needed. 7. Febrile illness: Follow cultures. Covid test negative. Antipyretics, supportive care. 8. Acute encephalopathy: 2/2 acute CVA. Neuro check, seizure precaution, aspiration precautions, supportive care. Subjective: Patient was seen and examined at the bedside. Examination: General appearance: well-developed, appears stated age, no distress, on vent HEENT: ATNC, HAILEY Neck: Trachea midline Respiratory: ctab Cardiology: regular, S1S2, no murmur Abdomen: soft, not tender, BS heard Integumentary: warm, dry, no obvious rash Neurologic: not responding Ext: no edema noted Subjective Date of service: 04/24/21 Principal diagnosis: Ac CVA; Ac encephalopathy; LILO; Acute Hypoxemic resp failure; THAI Objective - Vital Signs Vital signs: Vital Signs - 12hr 04/24/21 04/24/21 04/24/21 01:00 02:00 03:00 Temperature Pulse Rate 95 H 95 H 104 H Pulse Rate [ From Monitor] Respiratory 20 20 20 Rate Blood Pressure 103/68 114/71 109/70 O2 Sat by Pulse 98 97 Oximetry 04/24/21 04/24/21 04/24/21 03:39 04:00 05:00 Temperature 99.9 F H Pulse Rate 104 H 102 H 103 H Pulse Rate [ 101 H From Monitor] Respiratory 20 20 Rate Blood Pressure 108/73 102/67 120/73 O2 Sat by Pulse 96 95 94 Oximetry 04/24/21 04/24/21 04/24/21 06:00 07:00 07:29 Temperature 101.1 F H Pulse Rate 104 H 104 H 105 H Pulse Rate [ From Monitor] Respiratory 20 20 Rate Blood Pressure 111/72 118/75 118/83 O2 Sat by Pulse 94 95 Oximetry 04/24/21 04/24/21 04/24/21 08:00 09:00 09:08 Temperature Pulse Rate 108 H 111 H 115 H Pulse Rate [ 103 H From Monitor] Respiratory 20 20 Rate Blood Pressure 117/72 126/78 126/78 O2 Sat by Pulse 100 94 Oximetry 04/24/21 04/24/21 04/24/21 10:00 11:00 11:38 Temperature 102.1 F H Pulse Rate 103 H 111 H Pulse Rate [ From Monitor] Respiratory Rate Blood Pressure 111/62 111/67 O2 Sat by Pulse 97 Oximetry - Lab 04/19/21 06:21 04/24/21 13:26 Most recent lab results ABG pH 7.407 (7.320-7.450) 04/24/21 03:00 ABG pCO2 36.4 mm Hg 04/22/21 12:40 ABG pO2 66.3 mm Hg (80.0-90.0) L 04/22/21 12:40 ABG HCO3 24.1 mmol/L (20.0-26.0) 04/22/21 12:40 ABG O2 Saturation 97.1 (0-100) 04/24/21 03:00 Calcium 8.3 mg/dL (8.4-10.2) L 04/24/21 06:52 Phosphorus 2.60 mg/dL (2.5-4.5) 04/19/21 06:21 Magnesium 2.10 mg/dL (1.7-2.3) 04/23/21 04:40 Medications & Allergies - Medications Allergies/Adverse Reactions: Allergies No Known Allergies Allergy (Unverified 10/24/20 19:13) Home Medications: Home Medications Medication Instructions Recorded Confirmed Last Taken Type Metoprolol [Lopressor TAB] 50 mg PO BID #60 tablet 10/24/20 04/21/21 Unknown Rx Clonidine HCl 0.5 mg PO DAILY 04/21/21 04/21/21 Unknown History Active Medications: Generic Name Dose Route Start Last Admin Trade Name Freq PRN Reason Stop Dose Admin Acetaminophen 650 mg 04/17/21 18:30 04/24/21 09:08 Acetaminophen 325 Mg Tab PO 650 mg Q4H PRN Administration Pain, Mild (1-3) Lipase/Protease/Amylase 1 each 04/18/21 13:56 Lipase 10,500/Protease 25,000/Amylase 43,750 (Units) Dr Metzger FEEDTUBE PRN PRN For Clogged Feeding Tube Aspirin 325 mg 04/18/21 10:00 04/24/21 09:08 Aspirin 325 Mg Tab PO 325 mg QDAY JUDY Administration Atorvastatin Calcium 40 mg 04/17/21 22:00 04/23/21 22:39 Atorvastatin 40 Mg Tab PO 40 mg QHS JUDY Administration Bisacodyl 10 mg 04/17/21 18:30 Bisacodyl 10 Mg Rect Supp SD QDAY PRN Constipation Dextrose 50 ml 04/24/21 09:26 Dextrose 50% In Water (25gm) 50 Ml Syringe IV Q30MIN PRN Hypoglycemia Protocol Famotidine 20 mg 04/23/21 22:00 04/24/21 09:09 Famotidine 20 Mg/2 Ml Inj IV 20 mg BID JUDY Administration Fentanyl 50 mcg 04/23/21 11:54 Fentanyl 100 Mcg/2 Ml Inj IV Q10MIN PRN ANALGESIA Heparin Sodium (Porcine) 5,000 unit 04/19/21 22:00 04/24/21 09:09 Heparin 5,000 Unit/1 Ml Vial SUB-Q 5,000 unit Q12HR JUDY Administration Hydralazine HCl 10 mg 04/21/21 10:07 04/23/21 09:21 Hydralazine 20 Mg/1 Ml Inj IV 10 mg Q4H PRN Administration Blood Pressure Hydralazine HCl 25 mg 04/22/21 14:00 04/24/21 07:29 Hydralazine 25 Mg Tab PO Not Given Q8HR JUDY Hydromorphone HCl 0.5 mg 04/17/21 18:30 04/19/21 07:35 Hydromorphone 1 Mg/1 Ml Inj IV 0.5 mg Q12H PRN Administration Pain , Severe (7-10) Hydrophilic Ointment 1 applic 04/23/21 11:54 Lip Therapy Vaseline TP Q2HR PRN Dry Lips Fentanyl Citrate 2,000 mcg in 100 mls @ 4.535 mls/hr 04/23/21 12:00 04/24/21 01:20 Fentanyl Drip Premix IV 2 mcg/kg/hr TITR JUDY 9.07 mls/hr Administration Protocol 1 MCG/KG/HR Propofol 1,000 mg in 100 mls @ 2.721 mls/hr 04/23/21 13:00 04/23/21 12:50 Diprivan 10 Mg/Ml IV 5 mcg/kg/min TITR JUDY 2.721 mls/hr Administration Protocol 5 MCG/KG/MIN Levetiracetam 500 mg/ Dextrose 105 mls @ 400 mls/hr 04/23/21 22:00 04/24/21 09:09 IV 400 mls/hr Q12HR COUNTS INCLUDE 234 BEDS AT THE [facility] Administration Sodium Chloride 500 mls @ 50 mls/hr 04/24/21 11:30 Nacl 3% IV 04/24/21 21:29 DIRECT ONE Insulin Human Regular 0 units 04/24/21 12:00 04/24/21 11:56 Insulin Regular, Human 100 Units/1 Ml SUB-Q Not Given Q6H COUNTS INCLUDE 234 BEDS AT THE [facility] Protocol Lorazepam 2 mg 04/24/21 10:09 Lorazepam 2 Mg/Ml Vial IV Q4H PRN Seizures Magnesium Hydroxide 30 ml 04/17/21 18:30 Magnesium Hydroxide (Mom) Oral Liqd Udc PO Q4H PRN Constipation Metoclopramide HCl 10 mg 04/17/21 18:30 Metoclopramide 10 Mg Tab PO Q6H PRN Nausea And Vomiting Metoprolol Tartrate 25 mg 04/22/21 14:00 04/24/21 09:08 Metoprolol Tartrate 25 Mg Tab PO 25 mg TID COUNTS INCLUDE 234 BEDS AT THE [facility] Administration Multi-Ingred Cream/Lotion/Oil/Oint 1 applic 04/23/21 11:54 Mineral Oil/Petrolatum, White Ophth Oint 3.5 Gm OU Q4HR PRN Dry Eye(s) Ondansetron HCl 4 mg 04/17/21 18:30 Ondansetron 4 Mg/2 Ml Inj IV Q8H PRN Nausea And Vomiting Oxycodone/Acetaminophen 1 tab 04/17/21 18:30 Oxycodone /Acetaminophen 5-325mg Tab PO Q12H PRN Pain, Moderate (4-6) Senna/Docusate Sodium 1 tab 04/23/21 22:00 04/24/21 09:08 Sennosides/Docusate Sodium 8.6/50 Mg Tab FEEDTUBE 1 tab BID JUDY Administration Simple Syrup 15 ml 04/18/21 13:56 Simple Syrup 15 Ml FEEDTUBE PRN PRN Hypoglycemia Simple Syrup 30 ml 04/18/21 13:56 Simple Syrup 15 Ml FEEDTUBE PRN PRN Hypoglycemia Sodium Bicarbonate 325 mg 04/18/21 13:56 Sodium Bicarbonate 325 Mg Tab FEEDTUBE PRN PRN For Clogged Feeding Tube Sodium Chloride 10 ml 04/17/21 18:30 04/24/21 09:10 Sodium Chloride 0.9% 10 Ml Flush Syringe IV 10 ml PRN PRN Administration LINE FLUSH Sodium Chloride 2 gm 04/24/21 10:00 04/24/21 09:45 Sodium Chloride 1 Gm Tab PO 2 gm QID JUDY Administration
--- NOTE | 2021-04-24 13:15 | Progress Note ---
Assessment and Plan Acute cerebrovascular accident with mass effect now Acute toxic metabolic encephalopathy LILO Acute Hypoxemic respiratory failure Acute kidney injuryMild metabolic acidosis Leukocytosis Obesity - continue Daily SAT's and SBT assessment as tolerated - wean supplemental oxygen for target O2 sat's > 90% acutely - VAP bundle addressed - continue lung protective strategies - continue bronchodilators with pulmonary hygiene per RT - wean per pulmonary driven protocols otherwise - continue accuchecks with glycemic control per SSI (While critically ill target blood glucose of 140-180 mg/dL; avoid hypoglycemia) - sedation prn for target RASS 0 to -1 - avoid nephrotoxins, renally dose all medications - continue to avoid benzodiazepine's, reduce the possibility of delirium - AB's per ID rec's - prn analgesia per CPOT score - Maintenance of sleep-wake cycle, avoid delirium - continue enteral nutritional support at goal rate as tolerated - G.I. & VTE prophylaxis - PT/OT/ROM exercises - continue mobility protocols for pressure ulcer prophylaxis - Monitor hemodynamics closely - continue other care per attending / other consultants - discharge planning ongoing concurrently COVID SPECIFIC INTERVENTIONS - COVID-19 test result pending - Continue empiric contact and airborne isolation .... Re-evaluate in am & prn CONDITION: CRITICAL PROGNOSIS: GUARDED CODE STATUS: FULL CODE The high probability of a clinically significant, sudden or life-threatening deterioration of the [respiratory, cardiovascular & neurologic] system(s) required my full and direct attention, intervention and personal management. The aggregate critical care time was [35] minutes without overlap. Time includes spent on; [x] Data Review and interpretation [x] Patient assessment and monitoring of vital signs [x] Documentation [x] Medication orders and management Subjective Date of service: 04/24/21 Principal diagnosis: Ac CVA; Ac encephalopathy; LILO; Acute Hypoxemic resp failure; THAI Interval history: Patient is seen today for: Acute cerebrovascular accident; Acute toxic metabolic encephalopathy; LILO; Acute Hypoxemic respiratory failure; THAI; Obesity Seen and examined at bedside; 24hour events reviewed; nursing and respiratory care staff consulted; no adverse overnight events reported to me; resting in bed; remains on MVS; his son is visiting; family contemplating end of life issues; tolerating 3% saline infusions well so far Objective Vital Signs - 12hr 04/24/21 04/24/21 04/24/21 02:00 03:00 03:39 Temperature Pulse Rate 95 H 104 H 104 H Pulse Rate [ From Monitor] Respiratory 20 20 Rate Blood Pressure 114/71 109/70 108/73 O2 Sat by Pulse 98 97 96 Oximetry 04/24/21 04/24/21 04/24/21 04:00 05:00 06:00 Temperature 99.9 F H Pulse Rate 102 H 103 H 104 H Pulse Rate [ 101 H From Monitor] Respiratory 20 20 20 Rate Blood Pressure 102/67 120/73 111/72 O2 Sat by Pulse 95 94 Oximetry 04/24/21 04/24/21 04/24/21 07:00 07:29 08:00 Temperature 101.1 F H Pulse Rate 104 H 105 H 108 H Pulse Rate [ 103 H From Monitor] Respiratory 20 20 Rate Blood Pressure 118/75 118/83 117/72 O2 Sat by Pulse 94 95 100 Oximetry 04/24/21 04/24/21 04/24/21 09:00 09:08 10:00 Temperature Pulse Rate 111 H 115 H 103 H Pulse Rate [ From Monitor] Respiratory 20 Rate Blood Pressure 126/78 126/78 111/62 O2 Sat by Pulse 94 Oximetry 04/24/21 04/24/21 04/24/21 11:00 11:38 12:00 Temperature 102.1 F H Pulse Rate 106 H 111 H 112 H Pulse Rate [ 113 H From Monitor] Respiratory 20 Rate Blood Pressure 111/64 111/67 115/73 O2 Sat by Pulse 97 97 95 Oximetry 04/24/21 13:00 Temperature Pulse Rate 113 H Pulse Rate [ From Monitor] Respiratory 20 Rate Blood Pressure 102/72 O2 Sat by Pulse 98 Oximetry Constitutional: no acute distress, other (middle aged male resting in bed with mildly increased respiratory effort at rest on MVS) Eyes: non-icteric ENT: oropharynx moist, oropharyngeal exudate pre, other (ETT 24 cm ARTHUR) Neck: supple, no lymphadenopathy, no JVD, other (large circumference) Effort: mildly labored Ascultation: Bilateral: diminished breath sounds, rhonchi Percussion: Bilateral: not dull Cardiovascular: regular rate and rhythm Gastrointestinal: normoactive bowel sounds, soft, non-tender, non-distended Integumentary: normal Extremities: no cyanosis, no edema, pink and warm, pulses normal Neurologic: pupils equal and round, other (left hemiparesis) Psychiatric: other (unable to assess) CBC and BMP: 04/19/21 06:21 04/25/21 10:54 ABG, PT/INR, D-dimer: ABG ABG pH 7.407 (7.320-7.450) 04/24/21 03:00 POC ABG pCO2 43.1 mmHg (32.0-48.0) 04/24/21 03:00 ABG pCO2 36.4 mm Hg 04/22/21 12:40 POC ABG pO2 94.8 mmHg (83-108) 04/24/21 03:00 ABG pO2 66.3 mm Hg (80.0-90.0) L 04/22/21 12:40 POC ABG HCO3 26.5 04/24/21 03:00 ABG O2 Saturation 97.1 (0-100) 04/24/21 03:00 Abnormal lab findings: Abnormal Labs 04/17/21 04/17/21 04/19/21 15:55 15:55 06:21 WBC 13.4 H RBC 5.81 H Hgb 17.2 H Hct 51.2 H [place] % (Auto) 8.1 H 10.0 H [place] # (Auto) 1.1 H 0.9 H Seg Neutrophils % 73.0 H Seg Neutrophils # 9.8 H ABG pH POC ABG pCO2 POC ABG pO2 ABG pO2 ABG Glucose Oxyhemoglobin Carboxyhemoglobin Sodium Chloride Carbon Dioxide 20 L BUN 25 H Creatinine 1.5 H Glucose 138 H POC Glucose Calcium Total Protein Albumin Triglycerides Cholesterol LDL Cholesterol Direct HDL Cholesterol Arterial Blood Glucose Arterial Blood Ionized Calcium 04/19/21 04/19/21 04/19/21 06:21 06:21 23:08 WBC RBC Hgb Hct [place] % (Auto) [place] # (Auto) Seg Neutrophils % Seg Neutrophils # ABG pH POC ABG pCO2 POC ABG pO2 ABG pO2 ABG Glucose Oxyhemoglobin Carboxyhemoglobin Sodium Chloride 107.9 H Carbon Dioxide BUN 21 H Creatinine Glucose 102 H 102 H POC Glucose 109 H Calcium Total Protein 5.8 L D Albumin 3.6 L Triglycerides 161 H Cholesterol 225 H LDL Cholesterol Direct 170 H HDL Cholesterol 38 L Arterial Blood Glucose Arterial Blood Ionized Calcium 04/20/21 04/20/21 04/21/21 06:10 23:46 05:49 WBC RBC Hgb Hct [place] % (Auto) [place] # (Auto) Seg Neutrophils % Seg Neutrophils # ABG pH POC ABG pCO2 POC ABG pO2 ABG pO2 ABG Glucose Oxyhemoglobin Carboxyhemoglobin Sodium Chloride Carbon Dioxide BUN Creatinine Glucose POC Glucose 127 H 112 H 131 H Calcium Total Protein Albumin Triglycerides Cholesterol LDL Cholesterol Direct HDL Cholesterol Arterial Blood Glucose Arterial Blood Ionized Calcium 04/21/21 04/21/21 04/22/21 11:20 23:32 05:30 WBC RBC Hgb Hct [place] % (Auto) [place] # (Auto) Seg Neutrophils % Seg Neutrophils # ABG pH POC ABG pCO2 POC ABG pO2 ABG pO2 ABG Glucose Oxyhemoglobin Carboxyhemoglobin Sodium Chloride Carbon Dioxide BUN Creatinine Glucose POC Glucose 106 H 161 H 117 H Calcium Total Protein Albumin Triglycerides Cholesterol LDL Cholesterol Direct HDL Cholesterol Arterial Blood Glucose Arterial Blood Ionized Calcium 04/22/21 04/22/21 04/22/21 12:03 12:40 23:36 WBC RBC Hgb Hct [place] % (Auto) [place] # (Auto) Seg Neutrophils % Seg Neutrophils # ABG pH POC ABG pCO2 POC ABG pO2 ABG pO2 66.3 L ABG Glucose Oxyhemoglobin 93.2 L Carboxyhemoglobin Sodium Chloride Carbon Dioxide BUN Creatinine Glucose POC Glucose 120 H 144 H Calcium Total Protein Albumin Triglycerides Cholesterol LDL Cholesterol Direct HDL Cholesterol Arterial Blood Glucose Arterial Blood Ionized Calcium 04/23/21 04/23/21 04/23/21 04:40 05:01 13:30 WBC RBC Hgb Hct [place] % (Auto) [place] # (Auto) Seg Neutrophils % Seg Neutrophils # ABG pH 7.317 L POC ABG pCO2 48.9 H POC ABG pO2 131.3 H ABG pO2 ABG Glucose 143 H Oxyhemoglobin Carboxyhemoglobin Sodium Chloride Carbon Dioxide BUN Creatinine 0.7 L Glucose 108 H POC Glucose 108 H Calcium Total Protein Albumin Triglycerides Cholesterol LDL Cholesterol Direct HDL Cholesterol Arterial Blood Glucose 143 H Arterial Blood Ionized Calcium 04/23/21 04/23/21 04/24/21 17:40 19:06 03:00 WBC RBC Hgb Hct [place] % (Auto) [place] # (Auto) Seg Neutrophils % Seg Neutrophils # ABG pH POC ABG pCO2 POC ABG pO2 ABG pO2 ABG Glucose 158 H Oxyhemoglobin Carboxyhemoglobin 0.4 L Sodium 136 L Chloride Carbon Dioxide BUN Creatinine Glucose POC Glucose 126 H Calcium Total Protein Albumin Triglycerides Cholesterol LDL Cholesterol Direct HDL Cholesterol Arterial Blood Glucose 158 H Arterial Blood Ionized Calcium 4.5 L 04/24/21 04/24/21 04/24/21 06:08 06:52 11:31 WBC RBC Hgb Hct [place] % (Auto) [place] # (Auto) Seg Neutrophils % Seg Neutrophils # ABG pH POC ABG pCO2 POC ABG pO2 ABG pO2 ABG Glucose Oxyhemoglobin Carboxyhemoglobin Sodium Chloride Carbon Dioxide BUN 25 H Creatinine Glucose 151 H POC Glucose 165 H 116 H Calcium 8.3 L Total Protein Albumin Triglycerides Cholesterol LDL Cholesterol Direct HDL Cholesterol Arterial Blood Glucose Arterial Blood Ionized Calcium Chest x-ray: image reviewed (LLL atelectasis) Allied health notes reviewed: nursing
--- NOTE | 2021-04-24 16:16 | Progress Note ---
Assessment and Plan Assessment and plan: This is a 48-year-old male with HTN, CVA admitted with large left hemispheric evolving CVA, SIRS, acute kidney injury, metabolic acidosis and acute metabolic encephalopathy Past medical history: HTN, CVA Past surgical history: Unknown Past social history: Unknown NOK: Son (listed under social media content specialist notes), sister, ex-, mother A/P: Neuro: Large evolving left MCA infarct with edema/mass-effect, large acute left MCA distribution CVA, occluded left M1 segment, acute metabolic encephalopathy polysubstance abuse (ongoing nicotine and EtOH abuse) -Neurology, neurosurgery consulted, appreciate recommendations -Keppra twice daily -Hypertonic saline with goal sodium of greater than 145 -HOB greater than 30 degrees at all times -Maintain normotensive, normothermia -04/17 CT head shows possible acute infarct -04/17 CTA head/neck shows occluded left M1 segment with very poor collateral circulation/greater than 50% stenosis on the right side, more than 60% stenosis on the left side in both internal carotid arteries, small ulcer in the left carotid plaque -04/17 bilateral carotid ultrasound shows right internal carotid artery 50 to 69% diameter stenosis, left internal carotid artery 50 to 69% diameter stenosis -04/17 CT head shows nonhemorrhagic ischemic changes extending into the posterior temporal lobe and inferior parietal lobule on the left side, no mass- effect -04/18 MRI brain shows large left MCA distribution infarction without hemorrhagic conversion or herniation -04/22 CT head shows evolutionary changes of the large left MCA infarct from 04/17/2021 with developing edema and mass-effect with midline shift with no clear CT evidence of hemorrhagic transformation -04/23 CT head shows increasing mass-effect associated with patient's large left MCA infarct -04/23 MRI brain shows left middle cerebral artery territory infarction has not progressed however mass-effect over the left lateral ventricle has increased significantly resulting in [id number] midline shift of 9 mm at the level of foramen of [place]ro, no hemorrhagic changes in the left MCA infarction -Intubated for GCS of less than 8 -Sedated with propofol, RASS goal of 0 to -1 Cardio: Hypertensive emergency, hyperlipidemia, H/O HTN -Hold antihypertensive regimen in setting of borderline blood pressure -Blood pressure monitoring per protocol Respiratory: Acute hypoxic respiratory failure -S/p BiPAP -Intubated 04/23 for airway protection -Serial ABGs -7/29 ABG seven-point 100% -Mechanical ventilation settings as follows tidal volume 500, rate of 20, PEEP of 10 and 70% FiO2 -VAP bundle -Daily SBT and SAT as tolerated GI: Tube feedings, obesity -Bowel regimen Senokot -Accu-Cheks every 6, SSI -Avoid hypoglycemia -PPI : Acute metabolic encephalopathy, THAI (resolved) -Strict intake and output -Avoid nephrotoxic medications -Daily weights -Renally dose medications -Trend BMP ID: SIRS -Met SIRS criteria on presentation -Patient is now febrile, per [facility] use ice packs until temperature greater than 100.3 Heme: NAD -Transfuse for hemoglobin less than 7 -Trend CBC -SCDs to bilateral actions while in bed -Heparin subq Endo: -Accu-Cheks every 6 -Avoid hypoglycemia The high probability of a clinically significant, sudden or life threatening deterioration of the [neuro, respiratory, pulmonary, metabolic ,renal] system(s) required my full and direct attention, intervention and personal management. The aggregate critical care time was [80] minutes. This time is in addition to time spent performing reported procedures but includes the following: [x] Data Review and interpretation [x] Patient assessment and monitoring of vital signs [x] Documentation [x] Medication orders and management History Interval history: This is a 50 YO Male with HTN, CVA who presented to [facility] on on 04/17 after being found lying on his kitchen floor with decreased responsiveness per ED staff. A code stroke was called in the emergency room. Patient was found to have a neurologic deficit and initiated on stroke protocol. Patient underwent CT scan of the brain and was found to have a large left hemispheric CVA and repeat imaging study with CTA brain revealed an enlarging focal ischemic CVA with high risk for hemorrhagic conversion. The patient was also found to have SIRs, THAI, with metabolic acidosis, and encephalopathy. Patient was admitted to ICU due to increased risk of worsening symptoms. Tele neurology team consulted in ED. Neurology team also consulted. 04/19/21: Altered sensorium, Confused 04/20/2021: Altered sensorium, Confused 04/21/2021: Altered sensorium confused, Not moving the right upper and lower extremities 04/22/2021: Patient's blood pressures are uncontrolled, hypertensive urgency: Hydralazine, nifedipine, Cardene drip if needed. Patient is unresponsive, acute large CVA. PT OT and rehab 04/23/2021: Follow-up CT findings noted, discussed with neurosurgeon, melt supervisor, I also discussed with patient's son, regarding the goals of treatment. Neurosurgeon recommended intubation and went mechanical ventilation. 04/24: MRI obtained last evening shows shift, RN overnight contacted neurosurgery/ unknown if called returned and nsgy informed. Family at bedside. Goals of care being discussed among family. Na <145, 3% saline ordered along with serial Na. Nephrology aware. Patient has been febrile. Per [facility] icepacks for now for cooling Hospitalist Physical - Constitutional Vitals: Temp Pulse Resp BP Pulse Ox 102.1 F H 116 H 20 130/75 96 04/24/21 11:00 04/24/21 15:24 04/24/21 13:00 04/24/21 15:24 04/24/21 15:24 General appearance: Present: no acute distress, well-nourished, other (Unresponsive) - EENT Eyes: Present: PERRL ENT: clear oral mucosa - Neck Neck: Absent: masses or JVD - Respiratory Respiratory effort: normal Respiratory: bilateral: CTA - Cardiovascular Rhythm: regular Heart Sounds: Present: S1 & S2. Absent: systolic murmur, diastolic murmur - Extremities Extremities: no ischemia, pulses intact, pulses symmetrical, No edema, normal temperature, normal color Peripheral Pulses: within normal limits - Abdominal General gastrointestinal: soft, non-tender, non-distended, normal bowel sounds - Integumentary Integumentary: Present: warm - Psychiatric Psychiatric: other (sedated) - Neurologic Neurologic: other (sedated, nonresponsive to painful stimuli, not follow commands, does not follow/track, intact cough/gag, pupils equal round reactive) - Allied Health Allied health notes reviewed: nursing, RT, social work Results - Labs CBC & Chem 7: 04/19/21 06:21 04/24/21 13:26 Labs: Laboratory Last Values WBC 9.1 K/mm3 (4.5-11.0) 04/19/21 06:21 RBC 4.76 M/mm3 (3.65-5.03) 04/19/21 06:21 Hgb 14.7 gm/dl (11.8-15.2) 04/19/21 06:21 Hct 43.2 % (35.5-45.6) D 04/19/21 06:21 MCV 91 fl (84-94) 04/19/21 06:21 MCH 31 pg (28-32) 04/19/21 06:21 MCHC 34 % (32-34) 04/19/21 06:21 RDW 14.9 % (13.2-15.2) 04/19/21 06:21 Plt Count 185 K/mm3 (140-440) 04/19/21 06:21 Lymph % (Auto) 20.2 % (13.4-35.0) 04/19/21 06:21 Cloud % (Auto) 10.0 % (0.0-7.3) H 04/19/21 06:21 Eos % (Auto) 2.9 % (0.0-4.3) 04/19/21 06:21 Baso % (Auto) 0.7 % (0.0-1.8) 04/19/21 06:21 Lymph # (Auto) 1.8 K/mm3 (1.2-5.4) 04/19/21 06:21 Cloud # (Auto) 0.9 K/mm3 (0.0-0.8) H 04/19/21 06:21 Eos # (Auto) 0.3 K/mm3 (0.0-0.4) 04/19/21 06:21 Baso # (Auto) 0.1 K/mm3 (0.0-0.1) 04/19/21 06:21 Seg Neutrophils % 66.2 % (40.0-70.0) 04/19/21 06:21 Seg Neutrophils # 6.0 K/mm3 (1.8-7.7) 04/19/21 06:21 ABG pH 7.407 (7.320-7.450) 04/24/21 03:00 POC ABG pCO2 43.1 mmHg (32.0-48.0) 04/24/21 03:00 ABG pCO2 36.4 mm Hg 04/22/21 12:40 POC ABG pO2 94.8 mmHg (83-108) 04/24/21 03:00 ABG pO2 66.3 mm Hg (80.0-90.0) L 04/22/21 12:40 POC ABG HCO3 26.5 04/24/21 03:00 ABG HCO3 24.1 mmol/L (20.0-26.0) 04/22/21 12:40 ABG O2 Saturation 97.1 (0-100) 04/24/21 03:00 ABG O2 Content 19.2 (0.0-44) 04/22/21 12:40 POC ABG Base Excess 1.5 04/24/21 03:00 ABG Base Excess 0.4 mmol/L (-2.0-3.0) 04/22/21 12:40 ABG Hemoglobin 15.2 (12.0-17.5) 04/24/21 03:00 ABG Oxyhemoglobin 96.4 (94-98) 04/24/21 03:00 ABG Carboxyhemoglobin 1.4 % (0.0-5.0) 04/22/21 12:40 ABG Methemoglobin 0.3 (0.0-1.5) 04/24/21 03:00 ABG Sodium 139.2 mmol/L (136.0-145.0) 04/24/21 03:00 ABG Potassium 4.2 mmol/L (3.40-4.50) 04/24/21 03:00 ABG Chloride 105.0 mmol/L (98-107) 04/24/21 03:00 ABG Glucose 158 mg/dL (65-95) H 04/24/21 03:00 Oxyhemoglobin 93.2 % (95.0-99.0) L 04/22/21 12:40 Carboxyhemoglobin 0.4 (0.5-1.5) L 04/24/21 03:00 FiO2 21 % 04/22/21 12:40 FiO2 % 100.0 04/24/21 03:00 Sodium 141 mmol/L (137-145) 04/24/21 13:26 Potassium 4.4 mmol/L (3.6-5.0) 04/24/21 06:52 Chloride 106.7 mmol/L (98-107) 04/24/21 06:52 Carbon Dioxide 26 mmol/L (22-30) 04/24/21 06:52 Anion Gap 14 mmol/L 04/24/21 06:52 BUN 25 mg/dL (9-20) H 04/24/21 06:52 Creatinine 1.0 mg/dL (0.8-1.3) 04/24/21 06:52 Estimated GFR > 60 ml/min 04/24/21 06:52 BUN/Creatinine Ratio 25 % 04/24/21 06:52 Glucose 151 mg/dL (75-100) H 04/24/21 06:52 POC Glucose 116 mg/dL (70-105) H 04/24/21 11:31 Lactic Acid 1.80 mmol/L (0.7-2.0) 04/17/21 15:55 Calcium 8.3 mg/dL (8.4-10.2) L 04/24/21 06:52 Phosphorus 2.60 mg/dL (2.5-4.5) 04/19/21 06:21 Magnesium 2.10 mg/dL (1.7-2.3) 04/23/21 04:40 Total Bilirubin 0.40 mg/dL (0.1-1.2) 04/19/21 06:21 AST 17 units/L (5-40) 04/19/21 06:21 ALT 16 units/L (7-56) 04/19/21 06:21 Alkaline Phosphatase 78 units/L (35-129) 04/19/21 06:21 Total Protein 5.8 g/dL (6.3-8.2) L D 04/19/21 06:21 Albumin 3.6 g/dL (3.9-5) L 04/19/21 06:21 Albumin/Globulin Ratio 1.6 % 04/19/21 06:21 Triglycerides 161 mg/dL (2-149) H 04/19/21 06:21 Cholesterol 225 mg/dL (50-199) H 04/19/21 06:21 LDL Cholesterol Direct 170 mg/dL (50-130) H 04/19/21 06:21 HDL Cholesterol 38 mg/dL (40-59) L 04/19/21 06:21 Cholesterol/HDL Ratio 5.92 % 04/19/21 06:21 Arterial Blood Glucose 158 mg/dL (65-95) H 04/24/21 03:00 Arterial Blood Ionized Calcium 4.5 mg/dL (4.6-5.3) L 04/24/21 03:00 Urine Color Yellow (Yellow) 04/17/21 Unknown Urine Turbidity Hazy (Clear) 04/17/21 Unknown Urine pH 5.0 (5.0-7.0) 04/17/21 Unknown Ur Specific [place] 1.023 (1.003-1.030) 04/17/21 Unknown Urine Protein 30 mg/dl mg/dL (Negative) 04/17/21 Unknown Urine Glucose (UA) Neg mg/dL (Negative) 04/17/21 Unknown Urine Ketones Neg mg/dL (Negative) 04/17/21 Unknown Urine Blood Sm (Negative) 04/17/21 Unknown Urine Nitrite Neg (Negative) 04/17/21 Unknown Urine Bilirubin Neg (Negative) 04/17/21 Unknown Urine Urobilinogen < 2.0 mg/dL (<2.0) 04/17/21 Unknown Ur Leukocyte Esterase Neg (Negative) 04/17/21 Unknown Urine WBC (Auto) 2.0 /HPF (0.0-6.0) 04/17/21 Unknown Urine RBC (Auto) 2.0 /HPF (0.0-6.0) 04/17/21 Unknown U Epithel Cells (Auto) < 1.0 /HPF (0-13.0) 04/17/21 Unknown Hyaline Casts 11 /LPF 04/17/21 Unknown Urine Mucus 1+ /HPF 04/17/21 Unknown Urine Sodium 93 mmol/L 04/24/21 Unknown Urine Opiates Screen Negative 04/17/21 Unknown Urine Methadone Screen Negative 04/17/21 Unknown Ur Barbiturates Screen Negative 04/17/21 Unknown Ur Phencyclidine Scrn Negative 04/17/21 Unknown Ur Amphetamines Screen Negative 04/17/21 Unknown U Benzodiazepines Scrn Negative 04/17/21 Unknown Urine Cocaine Screen Negative 04/17/21 Unknown U Marijuana (THC) Screen Negative 04/17/21 Unknown Drugs of Abuse Note Disclamer 04/17/21 Unknown Plasma/Serum Alcohol < 0.01 % (0-0.07) 04/17/21 15:55 Coronavirus (PCR) Negative (Negative) 04/22/21 Unknown Pérez/IV: Voiding Method Condom Catheter Active Medications - Current Medications Current Medications: Generic Name Dose Route Start Last Admin Trade Name Freq PRN Reason Stop Dose Admin Acetaminophen 650 mg 04/17/21 18:30 04/24/21 09:08 Acetaminophen 325 Mg Tab PO 650 mg Q4H PRN Administration Pain, Mild (1-3) Lipase/Protease/Amylase 1 each 04/18/21 13:56 Lipase 10,500/Protease 25,000/Amylase 43,750 (Units) Dr Cap FEEDTUBE PRN PRN For Clogged Feeding Tube Aspirin 325 mg 04/18/21 10:00 04/24/21 09:08 Aspirin 325 Mg Tab PO 325 mg QDAY JUDY Administration Atorvastatin Calcium 40 mg 04/17/21 22:00 04/23/21 22:39 Atorvastatin 40 Mg Tab PO 40 mg QHS JUDY Administration Bisacodyl 10 mg 04/17/21 18:30 Bisacodyl 10 Mg Rect Supp IN QDAY PRN Constipation Dextrose 50 ml 04/24/21 09:26 Dextrose 50% In Water (25gm) 50 Ml Syringe IV Q30MIN PRN Hypoglycemia Protocol Famotidine 20 mg 04/23/21 22:00 04/24/21 09:09 Famotidine 20 Mg/2 Ml Inj IV 20 mg BID JUDY Administration Fentanyl 50 mcg 04/23/21 11:54 Fentanyl 100 Mcg/2 Ml Inj IV Q10MIN PRN ANALGESIA Heparin Sodium (Porcine) 5,000 unit 04/19/21 22:00 04/24/21 09:09 Heparin 5,000 Unit/1 Ml Vial SUB-Q 5,000 unit Q12HR [facility] Administration Hydralazine HCl 10 mg 04/21/21 10:07 04/23/21 09:21 Hydralazine 20 Mg/1 Ml Inj IV 10 mg Q4H PRN Administration Blood Pressure Hydralazine HCl 25 mg 04/22/21 14:00 04/24/21 13:10 Hydralazine 25 Mg Tab PO Not Given Q8HR [facility] Hydromorphone HCl 0.5 mg 04/17/21 18:30 04/19/21 07:35 Hydromorphone 1 Mg/1 Ml Inj IV 0.5 mg Q12H PRN Administration Pain , Severe (7-10) Hydrophilic Ointment 1 applic 04/23/21 11:54 Lip Therapy Vaseline TP Q2HR PRN Dry Lips Fentanyl Citrate 2,000 mcg in 100 mls @ 4.535 mls/hr 04/23/21 12:00 04/24/21 12:05 Fentanyl Drip Premix IV 2 mcg/kg/hr TITR JUDY 9.07 mls/hr Administration Protocol 1 MCG/KG/HR Propofol 1,000 mg in 100 mls @ 2.721 mls/hr 04/23/21 13:00 04/23/21 12:50 Diprivan 10 Mg/Ml IV 5 mcg/kg/min TITR JUDY 2.721 mls/hr Administration Protocol 5 MCG/KG/MIN Levetiracetam 500 mg/ Dextrose 105 mls @ 400 mls/hr 04/23/21 22:00 04/24/21 09:09 IV 400 mls/hr Q12HR JUDY Administration Sodium Chloride 500 mls @ 50 mls/hr 04/24/21 11:30 04/24/21 14:06 Nacl 3% IV 04/24/21 21:29 50 mls/hr DIRECT ONE Administration Insulin Human Regular 0 units 04/24/21 12:00 04/24/21 11:56 Insulin Regular, Human 100 Units/1 Ml SUB-Q Not Given Q6H [facility] Protocol Lorazepam 2 mg 04/24/21 10:09 Lorazepam 2 Mg/Ml Vial IV Q4H PRN Seizures Magnesium Hydroxide 30 ml 04/17/21 18:30 Magnesium Hydroxide (Mom) Oral Liqd Udc PO Q4H PRN Constipation Metoclopramide HCl 10 mg 04/17/21 18:30 Metoclopramide 10 Mg Tab PO Q6H PRN Nausea And Vomiting Metoprolol Tartrate 25 mg 04/22/21 14:00 04/24/21 13:09 Metoprolol Tartrate 25 Mg Tab PO Not Given TID [facility] Multi-Ingred Cream/Lotion/Oil/Oint 1 applic 04/23/21 11:54 Mineral Oil/Petrolatum, White Ophth Oint 3.5 Gm OU Q4HR PRN Dry Eye(s) Ondansetron HCl 4 mg 04/17/21 18:30 Ondansetron 4 Mg/2 Ml Inj IV Q8H PRN Nausea And Vomiting Oxycodone/Acetaminophen 1 tab 04/17/21 18:30 Oxycodone /Acetaminophen 5-325mg Tab PO Q12H PRN Pain, Moderate (4-6) Senna/Docusate Sodium 1 tab 04/23/21 22:00 04/24/21 09:08 Sennosides/Docusate Sodium 8.6/50 Mg Tab FEEDTUBE 1 tab BID JUDY Administration Simple Syrup 15 ml 04/18/21 13:56 Simple Syrup 15 Ml FEEDTUBE PRN PRN Hypoglycemia Simple Syrup 30 ml 04/18/21 13:56 Simple Syrup 15 Ml FEEDTUBE PRN PRN Hypoglycemia Sodium Bicarbonate 325 mg 04/18/21 13:56 Sodium Bicarbonate 325 Mg Tab FEEDTUBE PRN PRN For Clogged Feeding Tube Sodium Chloride 10 ml 04/17/21 18:30 04/24/21 09:10 Sodium Chloride 0.9% 10 Ml Flush Syringe IV 10 ml PRN PRN Administration LINE FLUSH Sodium Chloride 2 gm 04/24/21 10:00 04/24/21 13:30 Sodium Chloride 1 Gm Tab PO 2 gm QID JUDY Administration Nutrition/Malnutrition Assess - Dietary Evaluation Nutrition/Malnutrition Findings: Nutrition Notes Start: 04/18/21 13:50 Freq: Status: Active Protocol: Document 04/23/21 12:34 (Rec: 04/23/21 12:42 [id number]) Nutrition Notes Need for Assessment generated from: MD Order Initial or Follow up Reassessment Current Diagnosis Acute Kidney Injury, Hypertension,Stroke Other Pertinent Diagnosis SIRS, COVID PUI Current Diet Osmolite 1.5 at 45 ml/hr Labs/Tests Reviewed Pertinent Medications Reviewed Height 5 ft 7 in Weight 90.7 kg [place] Body Weight (kg) 67.27 BMI 31.3 Weight Status Obese Subjective/Other Information MD order to eval intakes. Pt continues to tolerate TF at goal rate. Pt now intubated. Pt without BM documented in chart for 5 days. Percent of energy/protein needs met: 99%/100% Burn Absent Trauma Absent GI Symptoms Last BM Current % PO Negligible Minimum of two criteria No physical signs of malnutrition #1 Nutrition Diagnosis Inadequate oral intake Diagnosis Progress(for reassessment Continues documentation) Is patient on ventilator? No Is Patient Ambulatory and/or Out of Bed No REE-([facility]-confined to bed) 2062.656 Kcal/Kg value to use for calculation 17 Approximate Energy Requirements Using 1542 kcal/Kg Calculation Used for Recommendations Kcal/kg Additional Notes Protein: (>2g/kg IBW) >135g Fluid: 1 ml/kcal or per MD Nutrition Intervention Change Diet Order: change TF Nutrition Support: Vital HP at 65 ml/hr Flush 50 q4h Kcal 1,560 Protein (gm) 137 Fluid (mL) 1,304 Goal #1 Meet at least 75% of protein and energy needs via TF Anticipated Discharge Needs: Unable to determine at this time Follow-Up By: 04/25/21 Additional Comments FU for TF change
[2021-04-25] MEDS: hydrALAZINE 20 MG/1 ML INJ IV PRN ×2 (00:09→21:41)
--- NOTE | 2021-04-25 02:49 | XRay Report ---
CHEST 1 VIEW 04/25/2021 1:21 AM INDICATION / CLINICAL INFORMATION: follow up respiratory failure. COMPARISON: One view of the chest from 04/23/2021 FINDINGS: SUPPORT DEVICES: Unchanged. HEART / MEDIASTINUM: No significant abnormality. LUNGS / PLEURA: Lung volumes remain reduced, but have improved compared to the prior study with decre ased bibasilar opacities. The upper lungs are clear. No significant pleural effusion. No pneumothorax . ADDITIONAL FINDINGS: No significant additional findings. IMPRESSION: Improved aeration of the lungs without other significant interval changes. Signer Name: Darnell Atkins MD Signed: 04/25/2021 2:45 AM Workstation Name: [id number]
[2021-04-25] MEDS: INSULIN REGULAR, HUMAN 100 UNITS/1 ML SUB-Q SCH ×4 (06:00→18:30)
[2021-04-25] MEDS: hydrALAZINE 25 MG TAB PO SCH (08:41)
[2021-04-25] MEDS: METOPROLOL TARTRATE 25 MG TAB PO SCH ×3 (08:41→20:12)
[2021-04-25] MEDS: levETIRAcetam 500 MG in DEXTROSE 5% IN WATER 100 ML IV SCH ×3 (10:45→21:42)
[2021-04-25] MEDS: HEPARIN 5,000 UNIT/1 ML VIAL SUB-Q SCH ×2 (10:51→21:13)
[2021-04-25] MEDS: ASPIRIN 325 MG TAB PO SCH (10:51)
[2021-04-25] MEDS: FAMOTIDINE 20 MG/2 ML INJ IV SCH ×2 (10:51→21:13)
[2021-04-25] MEDS: SODIUM CHLORIDE 1 GM TAB PO SCH ×4 (10:51→21:42)
[2021-04-25] MEDS: SENNOSIDES/DOCUSATE SODIUM 8.6/50 MG TAB FEEDTUBE SCH ×2 (11:32→21:14)
[2021-04-25 12:29] LABS: BUN/Creatinine Ratio 24; Blood Urea Nitrogen 19 mg/dL (9-20); Calcium 8.9 mg/dL (8.4-10.2); Hemolysis Index 12
[2021-04-25] MEDS ORDERED: SODIUM CHLORIDE 3% 500 ML IV ONE (12:47)
--- NOTE | 2021-04-25 12:51 | Progress Note ---
Assessment and Plan Assessment and plan: This is a 48-year-old male with HTN, CVA admitted with large left hemispheric evolving CVA, SIRS, acute kidney injury, metabolic acidosis and acute metabolic encephalopathy Past medical history: HTN, CVA Past surgical history: Unknown Past social history: Unknown NOK: Son (listed under social media marketing specialist notes), sister, ex-, mother A/P: Neuro: Large evolving left MCA infarct with edema/mass-effect, large acute left MCA distribution CVA, occluded left M1 segment, acute metabolic encephalopathy polysubstance abuse (ongoing nicotine and EtOH abuse) -Neurology, neurosurgery consulted, appreciate recommendations -Keppra twice daily -Sansca x1 with goal sodium of greater than 145 per nephro -HOB greater than 30 degrees at all times -Maintain normotensive, normothermia -04/17 CT head shows possible acute infarct -04/17 CTA head/neck shows occluded left M1 segment with very poor collateral circulation/greater than 50% stenosis on the right side, more than 60% stenosis on the left side in both internal carotid arteries, small ulcer in the left carotid plaque -04/17 bilateral carotid ultrasound shows right internal carotid artery 50 to 69% diameter stenosis, left internal carotid artery 50 to 69% diameter stenosis -04/17 CT head shows nonhemorrhagic ischemic changes extending into the posterior temporal lobe and inferior parietal lobule on the left side, no mass-effect -04/18 MRI brain shows large left MCA distribution infarction without hemorrhagic conversion or herniation -04/22 CT head shows evolutionary changes of the large left MCA infarct from 04/17/2021 with developing edema and mass-effect with midline shift with no clear CT evidence of hemorrhagic transformation -04/23 CT head shows increasing mass-effect associated with patient's large left MCA infarct -04/23 MRI brain shows left middle cerebral artery territory infarction has not progressed however mass-effect over the left lateral ventricle has increased significantly resulting in [id number] midline shift of 9 mm at the level of foramen of [place]ro, no hemorrhagic changes in the left MCA infarction -Intubated for GCS of less than 8 -Sedated with propofol and Fentanyl, RASS goal of 0 to -1 -Patient moved LLE to painful stimuli Cardio: Hypertensive emergency, hyperlipidemia, H/O HTN -Hold antihypertensive regimen in setting of borderline blood pressure -Blood pressure monitoring per protocol Respiratory: Acute hypoxic respiratory failure -S/p BiPAP -Intubated 04/23 for airway protection -Serial ABGs -04/25 ABG 7.3/45//26 -Mechanical ventilation settings as follows tidal volume 500, rate of 20, PEEP of 10 and 60% FiO2 -VAP bundle -Daily SBT and SAT as tolerated GI: Tube feedings, obesity -Bowel regimen Senokot -Accu-Cheks every 6, SSI -Avoid hypoglycemia -PPI : Acute metabolic encephalopathy, THAI (resolved) -Strict intake and output -Avoid nephrotoxic medications -Daily weights -Renally dose medications -Trend BMP -Serial Na ID: SIRS -Met SIRS criteria on presentation -Patient is now febrile, per [facility] use ice packs until temperature greater than 103 Heme: NAD -Transfuse for hemoglobin less than 7 -Trend CBC -SCDs to bilateral actions while in bed -Heparin subq Endo: NAD -Accu-Checks every 6 -Avoid hypoglycemia The high probability of a clinically significant, sudden or life threatening deterioration of the [neuro, respiratory, pulmonary, metabolic ,renal] system(s) required my full and direct attention, intervention and personal management. The aggregate critical care time was [60] minutes. This time is in addition to time spent performing reported procedures but includes the following: [x] Data Review and interpretation [x] Patient assessment and monitoring of vital signs [x] Documentation [x] Medication orders and management Disposition Plan: ICU; possible hospice Total Time Spent with Patient (Minutes): 60 History Interval history: This is a 50 YO Male with HTN, CVA who presented to [facility] on on 04/17 after being found lying on his kitchen floor with decreased responsiveness per ED staff. A code stroke was called in the emergency room. Patient was found to have a neurologic deficit and initiated on stroke protocol. Patient underwent CT scan of the brain and was found to have a large left hemispheric CVA and repeat imaging study with CTA brain revealed an enlarging focal ischemic CVA with high risk for hemorrhagic conversion. The patient was also found to have SIRs, THAI, with metabolic acidosis, and encephalopathy. Patient was admitted to ICU due to increased risk of worsening symptoms. Tele neurology team consulted in ED. Neurology team also consulted. 04/19/21: Altered sensorium, Confused 04/20/2021: Altered sensorium, Confused 04/21/2021: Altered sensorium confused, Not moving the right upper and lower extremities 04/22/2021: Patient's blood pressures are uncontrolled, hypertensive urgency: Hydralazine, nifedipine, Cardene drip if needed. Patient is unresponsive, acute large CVA. PT OT and rehab 04/23/2021: Follow-up CT findings noted, discussed with neurosurgeon, transformer assembler, I also discussed with patient's son, regarding the goals of treatment. Neurosurgeon recommended intubation and went mechanical ventilation. 04/24: MRI obtained last evening shows shift, RN overnight contacted neurosurger y/ unknown if called returned and nsgy informed. Family at bedside. Goals of care being discussed among family. Na <145, 3% saline ordered along with serial Na. Nephrology aware. Patient has been febrile. Per [facility] icepacks for now for cooling 04/25: Nephro started Samsca and d/c 3%NS and had signed off. Hospice consult placed to aid in goals of care. Hospitalist Physical - Constitutional Vitals: Temp Pulse Resp BP Pulse Ox 100.6 F H 99 H 20 137/73 98 04/25/21 11:44 04/25/21 12:13 04/25/21 12:13 04/25/21 12:00 04/25/21 12:13 General appearance: Present: no acute distress, well-nourished, other (resting on MV) - EENT Eyes: Present: PERRL (sluggish) - Neck Neck: Absent: masses or JVD, cervical LAD - Respiratory Respiratory effort: normal Respiratory: bilateral: CTA - Cardiovascular Rhythm: regular Heart Sounds: Present: S1 & S2. Absent: systolic murmur, diastolic murmur - Extremities Extremities: no ischemia, pulses intact, pulses symmetrical, normal temperature, normal color Extremity abnormal: edema Peripheral Pulses: within normal limits - Abdominal General gastrointestinal: soft, non-tender, non-distended - Integumentary Integumentary: Present: warm, dry - Psychiatric Psychiatric: other - Neurologic Neurologic: other (moves left LE to painful stimuli) - Allied Health Allied health notes reviewed: nursing, RT, social work Results - Labs CBC & Chem 7: 04/19/21 06:21 04/25/21 10:54 Labs: Laboratory Last Values WBC 9.1 K/mm3 (4.5-11.0) 04/19/21 06:21 RBC 4.76 M/mm3 (3.65-5.03) 04/19/21 06:21 Hgb 14.7 gm/dl (11.8-15.2) 04/19/21 06:21 Hct 43.2 % (35.5-45.6) D 04/19/21 06:21 MCV 91 fl (84-94) 04/19/21 06:21 MCH 31 pg (28-32) 04/19/21 06:21 MCHC 34 % (32-34) 04/19/21 06:21 RDW 14.9 % (13.2-15.2) 04/19/21 06:21 Plt Count 185 K/mm3 (140-440) 04/19/21 06:21 Lymph % (Auto) 20.2 % (13.4-35.0) 04/19/21 06:21 [place] % (Auto) 10.0 % (0.0-7.3) H 04/19/21 06:21 Eos % (Auto) 2.9 % (0.0-4.3) 04/19/21 06:21 Baso % (Auto) 0.7 % (0.0-1.8) 04/19/21 06:21 Lymph # (Auto) 1.8 K/mm3 (1.2-5.4) 04/19/21 06:21 [place] # (Auto) 0.9 K/mm3 (0.0-0.8) H 04/19/21 06:21 Eos # (Auto) 0.3 K/mm3 (0.0-0.4) 04/19/21 06:21 Baso # (Auto) 0.1 K/mm3 (0.0-0.1) 04/19/21 06:21 Seg Neutrophils % 66.2 % (40.0-70.0) 04/19/21 06:21 Seg Neutrophils # 6.0 K/mm3 (1.8-7.7) 04/19/21 06:21 ABG pH 7.382 (7.320-7.450) 04/25/21 03:15 POC ABG pCO2 45.5 mmHg (32.0-48.0) 04/25/21 03:15 ABG pCO2 36.4 mm Hg 04/22/21 12:40 POC ABG pO2 93.0 mmHg (83-108) 04/25/21 03:15 ABG pO2 66.3 mm Hg (80.0-90.0) L 04/22/21 12:40 POC ABG HCO3 26.4 04/25/21 03:15 ABG HCO3 24.1 mmol/L (20.0-26.0) 04/22/21 12:40 ABG O2 Saturation 97.4 (0-100) 04/25/21 03:15 ABG O2 Content 19.2 (0.0-44) 04/22/21 12:40 POC ABG Base Excess 0.9 04/25/21 03:15 ABG Base Excess 0.4 mmol/L (-2.0-3.0) 04/22/21 12:40 ABG Hemoglobin 14.3 (12.0-17.5) 04/25/21 03:15 ABG Oxyhemoglobin 96.8 (94-98) 04/25/21 03:15 ABG Carboxyhemoglobin 1.4 % (0.0-5.0) 04/22/21 12:40 ABG Methemoglobin 0.1 (0.0-1.5) 04/25/21 03:15 ABG Sodium 144.7 mmol/L (136.0-145.0) 04/25/21 03:15 ABG Potassium 4.6 mmol/L (3.40-4.50) H 04/25/21 03:15 ABG Chloride 111.0 mmol/L (98-107) H 04/25/21 03:15 ABG Glucose 175 mg/dL (65-95) H 04/25/21 03:15 Oxyhemoglobin 93.2 % (95.0-99.0) L 04/22/21 12:40 Carboxyhemoglobin 0.5 (0.5-1.5) 04/25/21 03:15 FiO2 21 % 04/22/21 12:40 FiO2 % 65.0 04/25/21 03:15 Sodium 146 mmol/L (137-145) H 04/25/21 10:54 Potassium 4.5 mmol/L (3.6-5.0) 04/25/21 10:54 Chloride 111.3 mmol/L (98-107) H 04/25/21 10:54 Carbon Dioxide 30 mmol/L (22-30) 04/25/21 10:54 Anion Gap 9 mmol/L 04/25/21 10:54 BUN 19 mg/dL (9-20) 04/25/21 10:54 Creatinine 0.8 mg/dL (0.8-1.3) 04/25/21 10:54 Estimated GFR > 60 ml/min 04/25/21 10:54 BUN/Creatinine Ratio 24 % 04/25/21 10:54 Glucose 171 mg/dL (75-100) H 04/25/21 10:54 POC Glucose 181 mg/dL (70-105) H 04/25/21 11:32 Lactic Acid 1.80 mmol/L (0.7-2.0) 04/17/21 15:55 Calcium 8.9 mg/dL (8.4-10.2) 04/25/21 10:54 Phosphorus 2.60 mg/dL (2.5-4.5) 04/19/21 06:21 Magnesium 2.10 mg/dL (1.7-2.3) 04/23/21 04:40 Total Bilirubin 0.40 mg/dL (0.1-1.2) 04/19/21 06:21 AST 17 units/L (5-40) 04/19/21 06:21 ALT 16 units/L (7-56) 04/19/21 06:21 Alkaline Phosphatase 78 units/L (35-129) 04/19/21 06:21 Total Protein 5.8 g/dL (6.3-8.2) L D 04/19/21 06:21 Albumin 3.6 g/dL (3.9-5) L 04/19/21 06:21 Albumin/Globulin Ratio 1.6 % 04/19/21 06:21 Triglycerides 161 mg/dL (2-149) H 04/19/21 06:21 Cholesterol 225 mg/dL (50-199) H 04/19/21 06:21 LDL Cholesterol Direct 170 mg/dL (50-130) H 04/19/21 06:21 HDL Cholesterol 38 mg/dL (40-59) L 04/19/21 06:21 Cholesterol/HDL Ratio 5.92 % 04/19/21 06:21 Arterial Blood Glucose 175 mg/dL (65-95) H 04/25/21 03:15 Arterial Blood Ionized Calcium 4.6 mg/dL (4.6-5.3) 04/25/21 03:15 Urine Color Yellow (Yellow) 04/17/21 Unknown Urine Turbidity Hazy (Clear) 04/17/21 Unknown Urine pH 5.0 (5.0-7.0) 04/17/21 Unknown Ur Specific [place] 1.023 (1.003-1.030) 04/17/21 Unknown Urine Protein 30 mg/dl mg/dL (Negative) 04/17/21 Unknown Urine Glucose (UA) Neg mg/dL (Negative) 04/17/21 Unknown Urine Ketones Neg mg/dL (Negative) 04/17/21 Unknown Urine Blood Sm (Negative) 04/17/21 Unknown Urine Nitrite Neg (Negative) 04/17/21 Unknown Urine Bilirubin Neg (Negative) 04/17/21 Unknown Urine Urobilinogen < 2.0 mg/dL (<2.0) 04/17/21 Unknown Ur Leukocyte Esterase Neg (Negative) 04/17/21 Unknown Urine WBC (Auto) 2.0 /HPF (0.0-6.0) 04/17/21 Unknown Urine RBC (Auto) 2.0 /HPF (0.0-6.0) 04/17/21 Unknown U Epithel Cells (Auto) < 1.0 /HPF (0-13.0) 04/17/21 Unknown Hyaline Casts 11 /LPF 04/17/21 Unknown Urine Mucus 1+ /HPF 04/17/21 Unknown Urine Sodium 170 mmol/L 04/25/21 08:40 Urine Opiates Screen Negative 04/17/21 Unknown Urine Methadone Screen Negative 04/17/21 Unknown Ur Barbiturates Screen Negative 04/17/21 Unknown Ur Phencyclidine Scrn Negative 04/17/21 Unknown Ur Amphetamines Screen Negative 04/17/21 Unknown U Benzodiazepines Scrn Negative 04/17/21 Unknown Urine Cocaine Screen Negative 04/17/21 Unknown U Marijuana (THC) Screen Negative 04/17/21 Unknown Drugs of Abuse Note Disclamer 04/17/21 Unknown Plasma/Serum Alcohol < 0.01 % (0-0.07) 04/17/21 15:55 Coronavirus (PCR) Negative (Negative) 04/22/21 Unknown Pérez/IV: Voiding Method Condom Catheter Active Medications - Current Medications Current Medications: Generic Name Dose Route Start Last Admin Trade Name Freq PRN Reason Stop Dose Admin Acetaminophen 650 mg 04/17/21 18:30 04/24/21 16:40 Acetaminophen 325 Mg Tab PO 650 mg Q4H PRN Administration Pain, Mild (1-3) Lipase/Protease/Amylase 1 each 04/18/21 13:56 Lipase 10,500/Protease 25,000/Amylase 43,750 (Units) Dr Cap FEEDTUBE PRN PRN For Clogged Feeding Tube Aspirin 325 mg 04/18/21 10:00 04/25/21 10:51 Aspirin 325 Mg Tab PO 325 mg QDAY JUDY Administration Atorvastatin Calcium 40 mg 04/17/21 22:00 04/24/21 22:32 Atorvastatin 40 Mg Tab PO 40 mg QHS JUDY Administration Bisacodyl 10 mg 04/17/21 18:30 Bisacodyl 10 Mg Rect Supp [place] QDAY PRN Constipation Dextrose 50 ml 04/24/21 09:26 Dextrose 50% In Water (25gm) 50 Ml Syringe IV Q30MIN PRN Hypoglycemia Protocol Famotidine 20 mg 04/23/21 22:00 04/25/21 10:51 Famotidine 20 Mg/2 Ml Inj IV 20 mg BID JUDY Administration Fentanyl 50 mcg 04/23/21 11:54 Fentanyl 100 Mcg/2 Ml Inj IV Q10MIN PRN ANALGESIA Heparin Sodium (Porcine) 5,000 unit 04/19/21 22:00 04/25/21 10:51 Heparin 5,000 Unit/1 Ml Vial SUB-Q 5,000 unit Q12HR JUDY Administration Hydralazine HCl 10 mg 04/21/21 10:07 04/25/21 00:09 Hydralazine 20 Mg/1 Ml Inj IV 10 mg Q4H PRN Administration Blood Pressure Hydromorphone HCl 0.5 mg 04/17/21 18:30 04/19/21 07:35 Hydromorphone 1 Mg/1 Ml Inj IV 0.5 mg Q12H PRN Administration Pain , Severe (7-10) Hydrophilic Ointment 1 applic 04/23/21 11:54 Lip Therapy Vaseline TP Q2HR PRN Dry Lips Fentanyl Citrate 2,000 mcg in 100 mls @ 4.535 mls/hr 04/23/21 12:00 04/24/21 19:53 Fentanyl Drip Premix IV 2 mcg/kg/hr TITR JUDY 9.07 mls/hr Administration Protocol 1 MCG/KG/HR Propofol 1,000 mg in 100 mls @ 2.721 mls/hr 04/23/21 13:00 04/24/21 17:07 Diprivan 10 Mg/Ml IV 5 mcg/kg/min TITR JUDY 2.721 mls/hr Administration Protocol 5 MCG/KG/MIN Levetiracetam 500 mg/ Dextrose 105 mls @ 400 mls/hr 04/23/21 22:00 04/25/21 11:36 IV Not Given Q12HR [facility] Insulin Human Regular 0 units 04/24/21 12:00 04/25/21 11:35 Insulin Regular, Human 100 Units/1 Ml SUB-Q 1 units Q6H [facility] Administration Protocol Lorazepam 2 mg 04/24/21 10:09 Lorazepam 2 Mg/Ml Vial IV Q4H PRN Seizures Magnesium Hydroxide 30 ml 04/17/21 18:30 Magnesium Hydroxide (Mom) Oral Liqd Udc PO Q4H PRN Constipation Metoclopramide HCl 10 mg 04/17/21 18:30 Metoclopramide 10 Mg Tab PO Q6H PRN Nausea And Vomiting Metoprolol Tartrate 25 mg 04/22/21 14:00 04/25/21 08:41 Metoprolol Tartrate 25 Mg Tab PO 25 mg TID JUDY Administration Multi-Ingred Cream/Lotion/Oil/Oint 1 applic 04/23/21 11:54 Mineral Oil/Petrolatum, White Ophth Oint 3.5 Gm OU Q4HR PRN Dry Eye(s) Ondansetron HCl 4 mg 04/17/21 18:30 Ondansetron 4 Mg/2 Ml Inj IV Q8H PRN Nausea And Vomiting Oxycodone/Acetaminophen 1 tab 04/17/21 18:30 Oxycodone /Acetaminophen 5-325mg Tab PO Q12H PRN Pain, Moderate (4-6) Senna/Docusate Sodium 1 tab 04/23/21 22:00 04/25/21 11:32 Sennosides/Docusate Sodium 8.6/50 Mg Tab FEEDTUBE 1 tab BID JUDY Administration Simple Syrup 15 ml 04/18/21 13:56 Simple Syrup 15 Ml FEEDTUBE PRN PRN Hypoglycemia Simple Syrup 30 ml 04/18/21 13:56 Simple Syrup 15 Ml FEEDTUBE PRN PRN Hypoglycemia Sodium Bicarbonate 325 mg 04/18/21 13:56 Sodium Bicarbonate 325 Mg Tab FEEDTUBE PRN PRN For Clogged Feeding Tube Sodium Chloride 10 ml 04/17/21 18:30 04/25/21 10:51 Sodium Chloride 0.9% 10 Ml Flush Syringe IV 10 ml PRN PRN Administration LINE FLUSH Sodium Chloride 2 gm 04/24/21 10:00 04/25/21 10:51 Sodium Chloride 1 Gm Tab PO 2 gm QID JUDY Administration Nutrition/Malnutrition Assess - Dietary Evaluation Nutrition/Malnutrition Findings: Nutrition Notes Start: 04/18/21 13:50 Freq: Status: Active Protocol: Document 04/25/21 12:26 (Rec: 04/25/21 12:29 [email or web address]) Nutrition Notes Initial or Follow up Reassessment Current Diagnosis Acute Kidney Injury, Hypertension,Stroke Other Pertinent Diagnosis SIRS, COVID PUI Current Diet Osmolite 1.5 at 45 ml/hr Labs/Tests Reviewed Pertinent Medications Senokot Height 5 ft 7 in Weight 90.7 kg [place] Body Weight (kg) 67.27 BMI 31.3 Weight Status Obese Subjective/Other Information No BM in chart yet. Pt tolerating TF at goal rate. Percent of energy/protein needs met: 99%/100% Burn Absent Trauma Absent Current % PO Negligible Minimum of two criteria No physical signs of malnutrition #1 Nutrition Diagnosis Inadequate oral intake Diagnosis Progress(for reassessment Continues documentation) Is patient on ventilator? No Is Patient Ambulatory and/or Out of Bed No REE-([facility]-confined to bed) 2062.656 Kcal/Kg value to use for calculation 17 Approximate Energy Requirements Using 1542 kcal/Kg Calculation Used for Recommendations Kcal/kg Additional Notes Protein: (>2g/kg IBW) >135g Fluid: 1 ml/kcal or per MD Nutrition Intervention Change Diet Order: continue Nutrition Support: Vital HP at 65 ml/hr Flush 50 q4h Kcal 1,560 Protein (gm) 137 Fluid (mL) 1,304 Goal #1 Meet at least 75% of protein and energy needs via TF Anticipated Discharge Needs: Unable to determine at this time Follow-Up By: 05/02/21 Additional Comments F/u: stable TF
[2021-04-25] MEDS ORDERED: TOLVAPTAN 15 MG TAB PO ONE (13:11)
--- NOTE | 2021-04-25 13:13 | Progress Note ---
Assessment and Plan 1. To maintain serum Na > 145 meq/L: To treat intracranial HTN. Patient received 3% saline overnight for 10 hrs. Was on 3% saline. Continue Salt tablets. One dose of Tolvaptan today. Serial Sodium level. 2. Evolving large left MCA infarct; edema/mass-effect: Evaluated by Neurosurgery. Currently intubated. 3. Acute large left MCA distribution cerebrovascular accident[CVA]: Not a candidate for TPA ,patient is unresponsive, noncommunicative. Extensive CVA, left side involving posterior temporal lobe and inferior parietal lobe. No hemorrhage. S/p multile CT head. Followed by Neuro and evaluated by Neurosurgery. CTA head; occluded left MS segment. According to [place] neurologist, and their wellness coordinator, patient is not a candidate for mechanical thrombectomy. 4. THAI (acute kidney injury), POA: Resolved. Monitor renal function. 5. Acute hypoxic respiratory failure: Currently intubated on vent. 6. Hypertensive urgency, POA: Monitor Blood pressures and adjust meds as needed. 7. Febrile illness: Covid test negative. Antipyretics, supportive care. 8. Acute encephalopathy: 2/2 acute CVA. Neuro check, seizure precaution, aspiration precautions, supportive care. 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 Prognosis slim. Will sign off. Subjective: Patient was seen and examined at the bedside. Examination: General appearance: well-developed, appears stated age, no distress, on vent HEENT: ATNC, [place] Neck: Trachea midline Respiratory: ctab Cardiology: regular, S1S2, no murmur Abdomen: soft, not tender, BS heard Integumentary: warm, dry, no obvious rash Neurologic: not responding Ext: no edema noted Subjective Date of service: 04/25/21 Principal diagnosis: Ac CVA; Ac encephalopathy; LILO; Acute Hypoxemic resp failure; THAI Objective - Vital Signs Vital signs: Vital Signs - 12hr 04/25/21 04/25/21 04/25/21 02:00 03:00 03:11 Temperature 101.8 F H Pulse Rate 113 H 116 H Pulse Rate [ From Monitor] Respiratory 20 21 Rate Blood Pressure 183/92 186/95 O2 Sat by Pulse 92 94 Oximetry 04/25/21 04/25/21 04/25/21 03:51 04:00 05:00 Temperature Pulse Rate 124 H 114 H 116 H Pulse Rate [ 114 H From Monitor] Respiratory 22 20 Rate Blood Pressure 155/94 183/84 152/77 O2 Sat by Pulse 97 94 96 Oximetry 04/25/21 04/25/21 04/25/21 06:00 07:00 07:26 Temperature 101.9 F H Pulse Rate 111 H 108 H 105 H Pulse Rate [ From Monitor] Respiratory 20 20 Rate Blood Pressure 151/75 97/69 O2 Sat by Pulse 96 94 Oximetry 04/25/21 04/25/21 04/25/21 08:00 08:37 08:41 Temperature Pulse Rate 115 H 106 H Pulse Rate [ 107 H From Monitor] Respiratory 20 20 Rate Blood Pressure 157/81 135/73 O2 Sat by Pulse 96 98 Oximetry 04/25/21 04/25/21 04/25/21 09:00 10:00 11:00 Temperature Pulse Rate 108 H 113 H 117 H Pulse Rate [ From Monitor] Respiratory 20 20 20 Rate Blood Pressure 122/75 148/92 150/81 O2 Sat by Pulse 95 92 Oximetry 04/25/21 04/25/21 04/25/21 11:07 11:44 12:00 Temperature 100.6 F H Pulse Rate 113 H 102 H Pulse Rate [ From Monitor] Respiratory 20 Rate Blood Pressure 137/73 O2 Sat by Pulse 95 Oximetry 04/25/21 12:13 Temperature Pulse Rate Pulse Rate [ 99 H From Monitor] Respiratory 20 Rate Blood Pressure O2 Sat by Pulse 98 Oximetry - Lab 04/19/21 06:21 04/25/21 10:54 Most recent lab results ABG pH 7.382 (7.320-7.450) 04/25/21 03:15 ABG pCO2 36.4 mm Hg 04/22/21 12:40 ABG pO2 66.3 mm Hg (80.0-90.0) L 04/22/21 12:40 ABG HCO3 24.1 mmol/L (20.0-26.0) 04/22/21 12:40 ABG O2 Saturation 97.4 (0-100) 04/25/21 03:15 Calcium 8.9 mg/dL (8.4-10.2) 04/25/21 10:54 Phosphorus 2.60 mg/dL (2.5-4.5) 04/19/21 06:21 Magnesium 2.10 mg/dL (1.7-2.3) 04/23/21 04:40 Urine Sodium 170 mmol/L 04/25/21 08:40 Medications & Allergies - Medications Allergies/Adverse Reactions: Allergies No Known Allergies Allergy (Unverified 10/24/20 19:13) Home Medications: Home Medications Medication Instructions Recorded Confirmed Last Taken Type Metoprolol [Lopressor TAB] 50 mg PO BID #60 tablet 10/24/20 04/21/21 Unknown Rx Clonidine HCl 0.5 mg PO DAILY 04/21/21 04/21/21 Unknown History Active Medications: Generic Name Dose Route Start Last Admin Trade Name Freq PRN Reason Stop Dose Admin Acetaminophen 650 mg 04/17/21 18:30 04/24/21 16:40 Acetaminophen 325 Mg Tab PO 650 mg Q4H PRN Administration Pain, Mild (1-3) Lipase/Protease/Amylase 1 each 04/18/21 13:56 Lipase 10,500/Protease 25,000/Amylase 43,750 (Units) Dr Metzger FEEDTUBE PRN PRN For Clogged Feeding Tube Aspirin 325 mg 04/18/21 10:00 04/25/21 10:51 Aspirin 325 Mg Tab PO 325 mg QDAY JUDY Administration Atorvastatin Calcium 40 mg 04/17/21 22:00 04/24/21 22:32 Atorvastatin 40 Mg Tab PO 40 mg QHS JUDY Administration Bisacodyl 10 mg 04/17/21 18:30 Bisacodyl 10 Mg Rect Supp DC QDAY PRN Constipation Dextrose 50 ml 04/24/21 09:26 Dextrose 50% In Water (25gm) 50 Ml Syringe IV Q30MIN PRN Hypoglycemia Protocol Famotidine 20 mg 04/23/21 22:00 04/25/21 10:51 Famotidine 20 Mg/2 Ml Inj IV 20 mg BID JUDY Administration Fentanyl 50 mcg 04/23/21 11:54 Fentanyl 100 Mcg/2 Ml Inj IV Q10MIN PRN ANALGESIA Heparin Sodium (Porcine) 5,000 unit 04/19/21 22:00 04/25/21 10:51 Heparin 5,000 Unit/1 Ml Vial SUB-Q 5,000 unit Q12HR JUDY Administration Hydralazine HCl 10 mg 04/21/21 10:07 04/25/21 00:09 Hydralazine 20 Mg/1 Ml Inj IV 10 mg Q4H PRN Administration Blood Pressure Hydromorphone HCl 0.5 mg 04/17/21 18:30 04/19/21 07:35 Hydromorphone 1 Mg/1 Ml Inj IV 0.5 mg Q12H PRN Administration Pain , Severe (7-10) Hydrophilic Ointment 1 applic 04/23/21 11:54 Lip Therapy Vaseline TP Q2HR PRN Dry Lips Fentanyl Citrate 2,000 mcg in 100 mls @ 4.535 mls/hr 04/23/21 12:00 04/24/21 19:53 Fentanyl Drip Premix IV 2 mcg/kg/hr TITR JUDY 9.07 mls/hr Administration Protocol 1 MCG/KG/HR Propofol 1,000 mg in 100 mls @ 2.721 mls/hr 04/23/21 13:00 04/24/21 17:07 Diprivan 10 Mg/Ml IV 5 mcg/kg/min TITR JUDY 2.721 mls/hr Administration Protocol 5 MCG/KG/MIN Levetiracetam 500 mg/ Dextrose 105 mls @ 400 mls/hr 04/23/21 22:00 04/25/21 11:36 IV Not Given Q12HR [facility] Sodium Chloride 500 mls @ 50 mls/hr 04/25/21 12:47 Nacl 3% IV 04/25/21 22:46 DIRECT ONE Insulin Human Regular 0 units 04/24/21 12:00 04/25/21 11:35 Insulin Regular, Human 100 Units/1 Ml SUB-Q 1 units Q6H [facility] Administration Protocol Lorazepam 2 mg 04/24/21 10:09 Lorazepam 2 Mg/Ml Vial IV Q4H PRN Seizures Magnesium Hydroxide 30 ml 04/17/21 18:30 Magnesium Hydroxide (Mom) Oral Liqd Udc PO Q4H PRN Constipation Metoclopramide HCl 10 mg 04/17/21 18:30 Metoclopramide 10 Mg Tab PO Q6H PRN Nausea And Vomiting Metoprolol Tartrate 25 mg 04/22/21 14:00 04/25/21 08:41 Metoprolol Tartrate 25 Mg Tab PO 25 mg TID [facility] Administration Multi-Ingred Cream/Lotion/Oil/Oint 1 applic 04/23/21 11:54 Mineral Oil/Petrolatum, White Ophth Oint 3.5 Gm OU Q4HR PRN Dry Eye(s) Ondansetron HCl 4 mg 04/17/21 18:30 Ondansetron 4 Mg/2 Ml Inj IV Q8H PRN Nausea And Vomiting Oxycodone/Acetaminophen 1 tab 04/17/21 18:30 Oxycodone /Acetaminophen 5-325mg Tab PO Q12H PRN Pain, Moderate (4-6) Senna/Docusate Sodium 1 tab 04/23/21 22:00 04/25/21 11:32 Sennosides/Docusate Sodium 8.6/50 Mg Tab FEEDTUBE 1 tab BID JUDY Administration Simple Syrup 15 ml 04/18/21 13:56 Simple Syrup 15 Ml FEEDTUBE PRN PRN Hypoglycemia Simple Syrup 30 ml 04/18/21 13:56 Simple Syrup 15 Ml FEEDTUBE PRN PRN Hypoglycemia Sodium Bicarbonate 325 mg 04/18/21 13:56 Sodium Bicarbonate 325 Mg Tab FEEDTUBE PRN PRN For Clogged Feeding Tube Sodium Chloride 10 ml 04/17/21 18:30 04/25/21 10:51 Sodium Chloride 0.9% 10 Ml Flush Syringe IV 10 ml PRN PRN Administration LINE FLUSH Sodium Chloride 2 gm 04/24/21 10:00 04/25/21 10:51 Sodium Chloride 1 Gm Tab PO 2 gm QID JUDY Administration
[2021-04-25] MEDS ORDERED: ALBUTEROL 2.5 MG/3 ML NEBU IH PRN (13:23)
--- NOTE | 2021-04-25 13:55 | Progress Note ---
Assessment and Plan Acute cerebrovascular accident with mass effect now Acute toxic metabolic encephalopathy LILO Acute Hypoxemic respiratory failure Acute kidney injuryMild metabolic acidosis Leukocytosis Obesity - hospice consult placed so family can ask questions - prn albuterol nebs added - continue care as below otherwise; - continue Daily SAT's and SBT assessment as tolerated - wean supplemental oxygen for target O2 sat's > 90% acutely - VAP bundle addressed - continue lung protective strategies - continue bronchodilators with pulmonary hygiene per RT - wean per pulmonary driven protocols otherwise - continue accuchecks with glycemic control per SSI (While critically ill target blood glucose of 140-180 mg/dL; avoid hypoglycemia) - sedation prn for target RASS 0 to -1 - avoid nephrotoxins, renally dose all medications - continue to avoid benzodiazepine's, reduce the possibility of delirium - AB's per ID rec's - prn analgesia per CPOT score - Maintenance of sleep-wake cycle, avoid delirium - continue enteral nutritional support at goal rate as tolerated - G.I. & VTE prophylaxis - PT/OT/ROM exercises - continue mobility protocols for pressure ulcer prophylaxis - Monitor hemodynamics closely - continue other care per attending / other consultants - discharge planning ongoing concurrently COVID SPECIFIC INTERVENTIONS - COVID-19 test result pending - Continue empiric contact and airborne isolation .... Re-evaluate in am & prn CONDITION: CRITICAL PROGNOSIS: GUARDED CODE STATUS: FULL CODE The high probability of a clinically significant, sudden or life-threatening deterioration of the [respiratory, cardiovascular & neurologic] system(s) required my full and direct attention, intervention and personal management. The aggregate critical care time was [32] minutes without overlap. Time includes spent on; [x] Data Review and interpretation [x] Patient assessment and monitoring of vital signs [x] Documentation [x] Medication orders and management Subjective Date of service: 04/25/21 Principal diagnosis: Ac CVA; Ac encephalopathy; LILO; Acute Hypoxemic resp failure; THAI Interval history: Patient is seen today for: Acute cerebrovascular accident; Acute toxic metabolic encephalopathy; LILO; Acute Hypoxemic respiratory failure; THAI; Obesity Seen and examined at bedside; 24hour events reviewed; nursing and respiratory care staff consulted; no adverse overnight events reported to me; resting in bed; remains on MVS; his ? common law of 16+ years is visiting; they are still expecting his mother to visit; no final decision on Hospice vs trach & PEG yet; no emesis or overt aspiration Objective Vital Signs - 12hr 04/25/21 04/25/21 04/25/21 02:00 03:00 03:11 Temperature 101.8 F H Pulse Rate 113 H 116 H Pulse Rate [ From Monitor] Respiratory 20 21 Rate Blood Pressure 183/92 186/95 O2 Sat by Pulse 92 94 Oximetry 04/25/21 04/25/21 04/25/21 03:51 04:00 05:00 Temperature Pulse Rate 124 H 114 H 116 H Pulse Rate [ 114 H From Monitor] Respiratory 22 20 Rate Blood Pressure 155/94 183/84 152/77 O2 Sat by Pulse 97 94 96 Oximetry 04/25/21 04/25/21 04/25/21 06:00 07:00 07:26 Temperature 101.9 F H Pulse Rate 111 H 108 H 105 H Pulse Rate [ From Monitor] Respiratory 20 20 Rate Blood Pressure 151/75 97/69 O2 Sat by Pulse 96 94 Oximetry 04/25/21 04/25/21 04/25/21 08:00 08:37 08:41 Temperature Pulse Rate 115 H 106 H Pulse Rate [ 107 H From Monitor] Respiratory 20 20 Rate Blood Pressure 157/81 135/73 O2 Sat by Pulse 96 98 Oximetry 04/25/21 04/25/21 04/25/21 09:00 10:00 11:00 Temperature Pulse Rate 108 H 113 H 117 H Pulse Rate [ From Monitor] Respiratory 20 20 20 Rate Blood Pressure 122/75 148/92 150/81 O2 Sat by Pulse 95 92 Oximetry 04/25/21 04/25/21 04/25/21 11:07 11:44 12:00 Temperature 100.6 F H Pulse Rate 113 H 102 H Pulse Rate [ From Monitor] Respiratory 20 Rate Blood Pressure 137/73 O2 Sat by Pulse 95 Oximetry 04/25/21 12:13 Temperature Pulse Rate Pulse Rate [ 99 H From Monitor] Respiratory 20 Rate Blood Pressure O2 Sat by Pulse 98 Oximetry Constitutional: no acute distress, other (middle aged male resting in bed with mildly increased respiratory effort at rest on MVS) Eyes: non-icteric ENT: oropharynx moist, oropharyngeal exudate pre, other (ETT 24 cm ARTHUR) Neck: supple, no lymphadenopathy, no JVD, other (large circumference) Effort: mildly labored Ascultation: Bilateral: diminished breath sounds, rhonchi (scant), other (r eferred upper airway sounds ) Percussion: Bilateral: not dull Cardiovascular: regular rate and rhythm Gastrointestinal: normoactive bowel sounds, soft, non-tender, non-distended Integumentary: normal Extremities: no cyanosis, no edema, pink and warm, pulses normal Neurologic: pupils equal and round, other (left hemiparesis) Psychiatric: other (unable to assess) CBC and BMP: 04/19/21 06:21 04/27/21 00:13 ABG, PT/INR, D-dimer: ABG ABG pH 7.382 (7.320-7.450) 04/25/21 03:15 POC ABG pCO2 45.5 mmHg (32.0-48.0) 04/25/21 03:15 ABG pCO2 36.4 mm Hg 04/22/21 12:40 POC ABG pO2 93.0 mmHg (83-108) 04/25/21 03:15 ABG pO2 66.3 mm Hg (80.0-90.0) L 04/22/21 12:40 POC ABG HCO3 26.4 04/25/21 03:15 ABG O2 Saturation 97.4 (0-100) 04/25/21 03:15 Abnormal lab findings: Abnormal Labs 04/17/21 04/17/21 04/19/21 15:55 15:55 06:21 WBC 13.4 H RBC 5.81 H Hgb 17.2 H Hct 51.2 H [place] % (Auto) 8.1 H 10.0 H [place] # (Auto) 1.1 H 0.9 H Seg Neutrophils % 73.0 H Seg Neutrophils # 9.8 H ABG pH POC ABG pCO2 POC ABG pO2 ABG pO2 ABG Potassium ABG Chloride ABG Glucose Oxyhemoglobin Carboxyhemoglobin Sodium Chloride Carbon Dioxide 20 L BUN 25 H Creatinine 1.5 H Glucose 138 H POC Glucose Calcium Total Protein Albumin Triglycerides Cholesterol LDL Cholesterol Direct HDL Cholesterol Arterial Blood Glucose Arterial Blood Ionized Calcium 04/19/21 04/19/21 04/19/21 06:21 06:21 23:08 WBC RBC Hgb Hct [place] % (Auto) [place] # (Auto) Seg Neutrophils % Seg Neutrophils # ABG pH POC ABG pCO2 POC ABG pO2 ABG pO2 ABG Potassium ABG Chloride ABG Glucose Oxyhemoglobin Carboxyhemoglobin Sodium Chloride 107.9 H Carbon Dioxide BUN 21 H Creatinine Glucose 102 H 102 H POC Glucose 109 H Calcium Total Protein 5.8 L D Albumin 3.6 L Triglycerides 161 H Cholesterol 225 H LDL Cholesterol Direct 170 H HDL Cholesterol 38 L Arterial Blood Glucose Arterial Blood Ionized Calcium 04/20/21 04/20/21 04/21/21 06:10 23:46 05:49 WBC RBC Hgb Hct [place] % (Auto) [place] # (Auto) Seg Neutrophils % Seg Neutrophils # ABG pH POC ABG pCO2 POC ABG pO2 ABG pO2 ABG Potassium ABG Chloride ABG Glucose Oxyhemoglobin Carboxyhemoglobin Sodium Chloride Carbon Dioxide BUN Creatinine Glucose POC Glucose 127 H 112 H 131 H Calcium Total Protein Albumin Triglycerides Cholesterol LDL Cholesterol Direct HDL Cholesterol Arterial Blood Glucose Arterial Blood Ionized Calcium 04/21/21 04/21/21 04/22/21 11:20 23:32 05:30 WBC RBC Hgb Hct [place] % (Auto) [place] # (Auto) Seg Neutrophils % Seg Neutrophils # ABG pH POC ABG pCO2 POC ABG pO2 ABG pO2 ABG Potassium ABG Chloride ABG Glucose Oxyhemoglobin Carboxyhemoglobin Sodium Chloride Carbon Dioxide BUN Creatinine Glucose POC Glucose 106 H 161 H 117 H Calcium Total Protein Albumin Triglycerides Cholesterol LDL Cholesterol Direct HDL Cholesterol Arterial Blood Glucose Arterial Blood Ionized Calcium 04/22/21 04/22/21 04/22/21 12:03 12:40 23:36 WBC RBC Hgb Hct [place] % (Auto) [place] # (Auto) Seg Neutrophils % Seg Neutrophils # ABG pH POC ABG pCO2 POC ABG pO2 ABG pO2 66.3 L ABG Potassium ABG Chloride ABG Glucose Oxyhemoglobin 93.2 L Carboxyhemoglobin Sodium Chloride Carbon Dioxide BUN Creatinine Glucose POC Glucose 120 H 144 H Calcium Total Protein Albumin Triglycerides Cholesterol LDL Cholesterol Direct HDL Cholesterol Arterial Blood Glucose Arterial Blood Ionized Calcium 04/23/21 04/23/21 04/23/21 04:40 05:01 13:30 WBC RBC Hgb Hct [place] % (Auto) [place] # (Auto) Seg Neutrophils % Seg Neutrophils # ABG pH 7.317 L POC ABG pCO2 48.9 H POC ABG pO2 131.3 H ABG pO2 ABG Potassium ABG Chloride ABG Glucose 143 H Oxyhemoglobin Carboxyhemoglobin Sodium Chloride Carbon Dioxide BUN Creatinine 0.7 L Glucose 108 H POC Glucose 108 H Calcium Total Protein Albumin Triglycerides Cholesterol LDL Cholesterol Direct HDL Cholesterol Arterial Blood Glucose 143 H Arterial Blood Ionized Calcium 04/23/21 04/23/21 04/24/21 17:40 19:06 03:00 WBC RBC Hgb Hct [place] % (Auto) [place] # (Auto) Seg Neutrophils % Seg Neutrophils # ABG pH POC ABG pCO2 POC ABG pO2 ABG pO2 ABG Potassium ABG Chloride ABG Glucose 158 H Oxyhemoglobin Carboxyhemoglobin 0.4 L Sodium 136 L Chloride Carbon Dioxide BUN Creatinine Glucose POC Glucose 126 H Calcium Total Protein Albumin Triglycerides Cholesterol LDL Cholesterol Direct HDL Cholesterol Arterial Blood Glucose 158 H Arterial Blood Ionized Calcium 4.5 L 04/24/21 04/24/21 04/24/21 06:08 06:52 11:31 WBC RBC Hgb Hct [place] % (Auto) [place] # (Auto) Seg Neutrophils % Seg Neutrophils # ABG pH POC ABG pCO2 POC ABG pO2 ABG pO2 ABG Potassium ABG Chloride ABG Glucose Oxyhemoglobin Carboxyhemoglobin Sodium Chloride Carbon Dioxide BUN 25 H Creatinine Glucose 151 H POC Glucose 165 H 116 H Calcium 8.3 L Total Protein Albumin Triglycerides Cholesterol LDL Cholesterol Direct HDL Cholesterol Arterial Blood Glucose Arterial Blood Ionized Calcium 04/24/21 04/25/21 04/25/21 17:25 00:12 03:15 WBC RBC Hgb Hct [place] % (Auto) [place] # (Auto) Seg Neutrophils % Seg Neutrophils # ABG pH POC ABG pCO2 POC ABG pO2 ABG pO2 ABG Potassium 4.6 H ABG Chloride 111.0 H ABG Glucose 175 H Oxyhemoglobin Carboxyhemoglobin Sodium Chloride Carbon Dioxide BUN Creatinine Glucose POC Glucose 172 H 163 H Calcium Total Protein Albumin Triglycerides Cholesterol LDL Cholesterol Direct HDL Cholesterol Arterial Blood Glucose 175 H Arterial Blood Ionized Calcium 04/25/21 04/25/21 04/25/21 05:31 10:54 11:32 WBC RBC Hgb Hct [place] % (Auto) [place] # (Auto) Seg Neutrophils % Seg Neutrophils # ABG pH POC ABG pCO2 POC ABG pO2 ABG pO2 ABG Potassium ABG Chloride ABG Glucose Oxyhemoglobin Carboxyhemoglobin Sodium 146 H Chloride 111.3 H Carbon Dioxide BUN Creatinine Glucose 171 H POC Glucose 180 H 181 H Calcium Total Protein Albumin Triglycerides Cholesterol LDL Cholesterol Direct HDL Cholesterol Arterial Blood Glucose Arterial Blood Ionized Calcium Chest x-ray: image reviewed (persistent pulmonary infiltrates) Allied health notes reviewed: nursing
[2021-04-25] MEDS: fentaNYL DRIP Premix 2,000 MCG/100 ML BAG IV SCH (17:43)
--- NOTE | 2021-04-25 18:02 | Progress Note ---
Assessment and Plan 50 y/o M w/ large left MCA infarct -cont medical management -maintain Na > 140 as MRI does not show any cisternal effacement or critical ma ss effect -wean sedation as tolerated -please notify if questions or concerns Subjective Date of service: 04/25/21 Principal diagnosis: Ac CVA; Ac encephalopathy; LILO; Acute Hypoxemic resp failure; THAI Interval history: NAEON; pt stable overnight Objective - Exam Narrative Exam: seen and examined intubated sedated on propofol and fentanyl no eye opening pupils 3-4 mm, reactive +corneals b/l +gag moves L side purposefully to stimuli no movement in R hemibody does not follow commands - Vital Sign Vital Signs - 12hr 04/25/21 04/25/21 04/25/21 06:00 07:00 07:26 Temperature 101.9 F H Pulse Rate 111 H 108 H 105 H Pulse Rate [ From Monitor] Respiratory 20 20 Rate Blood Pressure 151/75 97/69 O2 Sat by Pulse 96 94 Oximetry 04/25/21 04/25/21 04/25/21 08:00 08:37 08:41 Temperature Pulse Rate 115 H 106 H Pulse Rate [ 107 H From Monitor] Respiratory 20 20 Rate Blood Pressure 157/81 135/73 O2 Sat by Pulse 96 98 Oximetry 04/25/21 04/25/21 04/25/21 09:00 10:00 11:00 Temperature Pulse Rate 108 H 113 H 117 H Pulse Rate [ From Monitor] Respiratory 20 20 20 Rate Blood Pressure 122/75 148/92 150/81 O2 Sat by Pulse 95 92 Oximetry 04/25/21 04/25/21 04/25/21 11:07 11:44 12:00 Temperature 100.6 F H Pulse Rate 113 H 108 H Pulse Rate [ From Monitor] Respiratory 20 Rate Blood Pressure 157/78 O2 Sat by Pulse 96 Oximetry 04/25/21 04/25/21 04/25/21 12:13 13:00 14:00 Temperature Pulse Rate 98 H 103 H Pulse Rate [ 99 H From Monitor] Respiratory 20 20 20 Rate Blood Pressure 130/74 141/75 O2 Sat by Pulse 98 93 93 Oximetry 04/25/21 04/25/21 04/25/21 15:00 15:30 15:54 Temperature Pulse Rate 106 H 105 H Pulse Rate [ 106 H From Monitor] Respiratory 20 20 Rate Blood Pressure 143/75 O2 Sat by Pulse 92 95 Oximetry 04/25/21 04/25/21 04/25/21 16:00 17:00 17:41 Temperature 101.5 F H Pulse Rate 106 H 110 H 113 H Pulse Rate [ From Monitor] Respiratory 20 20 Rate Blood Pressure 137/76 148/74 147/78 O2 Sat by Pulse 93 95 Oximetry - Laboratory Findings CBC and BMP: 04/19/21 06:21 04/25/21 10:54 Abnormal Lab Findings: Abnormal Labs 04/17/21 04/17/21 04/19/21 15:55 15:55 06:21 WBC 13.4 H RBC 5.81 H Hgb 17.2 H Hct 51.2 H [place] % (Auto) 8.1 H 10.0 H [place] # (Auto) 1.1 H 0.9 H Seg Neutrophils % 73.0 H Seg Neutrophils # 9.8 H ABG pH POC ABG pCO2 POC ABG pO2 ABG pO2 ABG Potassium ABG Chloride ABG Glucose Oxyhemoglobin Carboxyhemoglobin Sodium Chloride Carbon Dioxide 20 L BUN 25 H Creatinine 1.5 H Glucose 138 H POC Glucose Calcium Total Protein Albumin Triglycerides Cholesterol LDL Cholesterol Direct HDL Cholesterol Arterial Blood Glucose Arterial Blood Ionized Calcium 04/19/21 04/19/21 04/19/21 06:21 06:21 23:08 WBC RBC Hgb Hct [place] % (Auto) [place] # (Auto) Seg Neutrophils % Seg Neutrophils # ABG pH POC ABG pCO2 POC ABG pO2 ABG pO2 ABG Potassium ABG Chloride ABG Glucose Oxyhemoglobin Carboxyhemoglobin Sodium Chloride 107.9 H Carbon Dioxide BUN 21 H Creatinine Glucose 102 H 102 H POC Glucose 109 H Calcium Total Protein 5.8 L D Albumin 3.6 L Triglycerides 161 H Cholesterol 225 H LDL Cholesterol Direct 170 H HDL Cholesterol 38 L Arterial Blood Glucose Arterial Blood Ionized Calcium 04/20/21 04/20/21 04/21/21 06:10 23:46 05:49 WBC RBC Hgb Hct [place] % (Auto) [place] # (Auto) Seg Neutrophils % Seg Neutrophils # ABG pH POC ABG pCO2 POC ABG pO2 ABG pO2 ABG Potassium ABG Chloride ABG Glucose Oxyhemoglobin Carboxyhemoglobin Sodium Chloride Carbon Dioxide BUN Creatinine Glucose POC Glucose 127 H 112 H 131 H Calcium Total Protein Albumin Triglycerides Cholesterol LDL Cholesterol Direct HDL Cholesterol Arterial Blood Glucose Arterial Blood Ionized Calcium 04/21/21 04/21/2121 11:20 23:32 05:30 WBC RBC Hgb Hct [place] % (Auto) [place] # (Auto) Seg Neutrophils % Seg Neutrophils # ABG pH POC ABG pCO2 POC ABG pO2 ABG pO2 ABG Potassium ABG Chloride ABG Glucose Oxyhemoglobin Carboxyhemoglobin Sodium Chloride Carbon Dioxide BUN Creatinine Glucose POC Glucose 106 H 161 H 117 H Calcium Total Protein Albumin Triglycerides Cholesterol LDL Cholesterol Direct HDL Cholesterol Arterial Blood Glucose Arterial Blood Ionized Calcium 04/22/21 04/22/21 04/22/21 12:03 12:40 23:36 WBC RBC Hgb Hct [place] % (Auto) [place] # (Auto) Seg Neutrophils % Seg Neutrophils # ABG pH POC ABG pCO2 POC ABG pO2 ABG pO2 66.3 L ABG Potassium ABG Chloride ABG Glucose Oxyhemoglobin 93.2 L Carboxyhemoglobin Sodium Chloride Carbon Dioxide BUN Creatinine Glucose POC Glucose 120 H 144 H Calcium Total Protein Albumin Triglycerides Cholesterol LDL Cholesterol Direct HDL Cholesterol Arterial Blood Glucose Arterial Blood Ionized Calcium 04/23/21 04/23/21 04/23/21 04:40 05:01 13:30 WBC RBC Hgb Hct [place] % (Auto) [place] # (Auto) Seg Neutrophils % Seg Neutrophils # ABG pH 7.317 L POC ABG pCO2 48.9 H POC ABG pO2 131.3 H ABG pO2 ABG Potassium ABG Chloride ABG Glucose 143 H Oxyhemoglobin Carboxyhemoglobin Sodium Chloride Carbon Dioxide BUN Creatinine 0.7 L Glucose 108 H POC Glucose 108 H Calcium Total Protein Albumin Triglycerides Cholesterol LDL Cholesterol Direct HDL Cholesterol Arterial Blood Glucose 143 H Arterial Blood Ionized Calcium 04/23/21 04/23/21 04/24/21 17:40 19:06 03:00 WBC RBC Hgb Hct [place] % (Auto) [place] # (Auto) Seg Neutrophils % Seg Neutrophils # ABG pH POC ABG pCO2 POC ABG pO2 ABG pO2 ABG Potassium ABG Chloride ABG Glucose 158 H Oxyhemoglobin Carboxyhemoglobin 0.4 L Sodium 136 L Chloride Carbon Dioxide BUN Creatinine Glucose POC Glucose 126 H Calcium Total Protein Albumin Triglycerides Cholesterol LDL Cholesterol Direct HDL Cholesterol Arterial Blood Glucose 158 H Arterial Blood Ionized Calcium 4.5 L 04/24/21 04/24/21 04/24/21 06:08 06:52 11:31 WBC RBC Hgb Hct [place] % (Auto) [place] # (Auto) Seg Neutrophils % Seg Neutrophils # ABG pH POC ABG pCO2 POC ABG pO2 ABG pO2 ABG Potassium ABG Chloride ABG Glucose Oxyhemoglobin Carboxyhemoglobin Sodium Chloride Carbon Dioxide BUN 25 H Creatinine Glucose 151 H POC Glucose 165 H 116 H Calcium 8.3 L Total Protein Albumin Triglycerides Cholesterol LDL Cholesterol Direct HDL Cholesterol Arterial Blood Glucose Arterial Blood Ionized Calcium 04/24/21 04/25/21 04/25/21 17:25 00:12 03:15 WBC RBC Hgb Hct [place] % (Auto) [place] # (Auto) Seg Neutrophils % Seg Neutrophils # ABG pH POC ABG pCO2 POC ABG pO2 ABG pO2 ABG Potassium 4.6 H ABG Chloride 111.0 H ABG Glucose 175 H Oxyhemoglobin Carboxyhemoglobin Sodium Chloride Carbon Dioxide BUN Creatinine Glucose POC Glucose 172 H 163 H Calcium Total Protein Albumin Triglycerides Cholesterol LDL Cholesterol Direct HDL Cholesterol Arterial Blood Glucose 175 H Arterial Blood Ionized Calcium 04/25/21 04/25/21 04/25/21 05:31 10:54 11:32 WBC RBC Hgb Hct [place] % (Auto) [place] # (Auto) Seg Neutrophils % Seg Neutrophils # ABG pH POC ABG pCO2 POC ABG pO2 ABG pO2 ABG Potassium ABG Chloride ABG Glucose Oxyhemoglobin Carboxyhemoglobin Sodium 146 H Chloride 111.3 H Carbon Dioxide BUN Creatinine Glucose 171 H POC Glucose 180 H 181 H Calcium Total Protein Albumin Triglycerides Cholesterol LDL Cholesterol Direct HDL Cholesterol Arterial Blood Glucose Arterial Blood Ionized Calcium
[2021-04-26] MEDS: INSULIN REGULAR, HUMAN 100 UNITS/1 ML SUB-Q SCH ×4 (00:29→17:21)
[2021-04-26] MEDS: hydrALAZINE 20 MG/1 ML INJ IV PRN ×2 (02:48→07:59)
[2021-04-26] MEDS: LORazepam 2 MG/ML VIAL IV PRN (02:51)
[2021-04-26] MEDS: METOPROLOL TARTRATE 25 MG TAB PO SCH ×3 (07:59→20:12)
--- NOTE | 2021-04-26 08:34 | Progress Note ---
Assessment and Plan Acute cerebrovascular accident with mass effect Acute toxic metabolic encephalopathy LILO Acute Hypoxemic respiratory failure Acute kidney injury Hypernatremia, mild Mild metabolic acidosis Leukocytosis Obesity - titrate supplemental oxygen for target SpO2 89-92% - VAP bundle addressed, aspiration precautions HOB >30 - continue lung protective strategies - continue bronchodilators with pulmonary hygiene per RT - wean per pulmonary driven protocols otherwise - continue accuchecks with glycemic control per SSI (While critically ill target blood glucose of 140-180 mg/dL; avoid hypoglycemia) - sedation prn for target RASS 0 to -1 - avoid nephrotoxins, renally dose all medications - continue to avoid benzodiazepines, reduce the possibility of delirium - ABs per ID rec - prn analgesia per CPOT score - Maintenance of sleep-wake cycle, avoid delirium - continue enteric nutritional support at goal rate as tolerated -Increase free water flushes and trend sodium - Stress ulcer and VTE prophylaxis - PT/OT/ROM exercises - continue mobility, off loading and frequent turning per facility protocols for pressure ulcer prevention - Monitor hemodynamics closely - continue other care per attending / other consultants Will need to address goals of care with the family to facility further management decisions. His daughter and his mother will be visiting later today ABG in the morning, if gas exchange is acceptable, decrease PEEP to 6 and initiate SAT and SBT as tolerated CONDITION: CRITICAL PROGNOSIS: GUARDED CODE STATUS: FULL CODE The high probability of a clinically significant, sudden or life-threatening deterioration of the [respiratory, cardiovascular & neurologic] system(s) required my full and direct attention, intervention and personal management. The aggregate critical care time was [34] minutes without overlap. Time includes spent on; [x] Data Review and interpretation [x] Patient assessment and monitoring of vital signs [x] Documentation [x] Medication orders and management Subjective Date of service: 04/26/21 Principal diagnosis: Ac CVA; Ac encephalopathy; LILO; Acute Hypoxemic resp failure; THAI Interval history: Patient is seen today for: Acute cerebrovascular accident; Acute toxic metabolic encephalopathy; LILO; Acute Hypoxemic respiratory failure; THAI; Obesity Seen and examined at bedside; 24hour events reviewed; nursing and respiratory care staff consulted; no adverse overnight events reported to me; resting in bed; remains on MVS; on Propofol and Fentanyl. On PEEP +8/FIO2 40%. Changes on MVS was made this morning after ABG 7. No reported fevers, no vomiting, no diarrhea. Mental status changes persist, intermittent hiccups, moderate oral secretions Objective Vital Signs - 12hr 04/25/21 04/25/21 04/25/21 21:00 21:41 22:00 Temperature Pulse Rate 120 H 102 H 104 H Pulse Rate [ From Monitor] Respiratory 20 21 Rate Blood Pressure 170/85 176/91 162/80 O2 Sat by Pulse 90 89 Oximetry 04/25/21 04/25/21 04/25/21 23:00 23:40 23:51 Temperature 103 F H Pulse Rate 115 H 121 H Pulse Rate [ From Monitor] Respiratory 25 H Rate Blood Pressure 172/84 156/88 O2 Sat by Pulse 89 95 Oximetry 04/26/21 04/26/21 04/26/21 00:00 01:00 02:00 Temperature Pulse Rate 120 H 122 H 121 H Pulse Rate [ 115 H From Monitor] Respiratory 26 H 22 23 Rate Blood Pressure 171/79 180/81 181/83 O2 Sat by Pulse 90 90 91 Oximetry 04/26/21 04/26/21 04/26/21 02:48 03:00 03:46 Temperature 103 F H Pulse Rate 119 H 123 H Pulse Rate [ From Monitor] Respiratory 21 Rate Blood Pressure 169/92 158/77 O2 Sat by Pulse 91 Oximetry 04/26/21 04/26/21 04/26/21 04:00 04:15 05:00 Temperature Pulse Rate 131 H 135 H 126 H Pulse Rate [ 125 H From Monitor] Respiratory 23 24 Rate Blood Pressure 174/81 157/83 170/79 O2 Sat by Pulse 88 94 90 Oximetry 04/26/21 04/26/21 04/26/21 06:00 07:00 07:52 Temperature Pulse Rate 128 H 120 H Pulse Rate [ 113 H From Monitor] Respiratory 25 H 22 23 Rate Blood Pressure 160/77 144/76 O2 Sat by Pulse 90 93 96 Oximetry 04/26/21 07:59 Temperature Pulse Rate 113 H Pulse Rate [ From Monitor] Respiratory Rate Blood Pressure 175/77 O2 Sat by Pulse Oximetry Constitutional: no acute distress, other (middle aged male resting in bed with normal respiratory effort at rest on MVS) Eyes: non-icteric ENT: oropharynx moist, oropharyngeal exudate pre, other (ETT 24 cm ARTHUR) Neck: supple, no lymphadenopathy, no JVD, other (large circumference) Effort: normal Ascultation: Bilateral: diminished breath sounds, rhonchi Percussion: Bilateral: not dull Cardiovascular: regular rate and rhythm, other (S1,S2) Gastrointestinal: normoactive bowel sounds, soft, non-tender, non-distended, other (NGT, condom catheter) Integumentary: normal Extremities: no cyanosis, no edema, pink and warm, pulses normal Neurologic: pupils equal and round, other (unable to assess, on sedation) Psychiatric: other (unable to assess) CBC and BMP: 04/19/21 06:21 04/26/21 07:51 ABG, PT/INR, D-dimer: ABG ABG pH 7.445 (7.320-7.450) 04/26/21 03:35 POC ABG pCO2 40.7 mmHg (32.0-48.0) 04/26/21 03:35 ABG pCO2 36.4 mm Hg 04/22/21 12:40 POC ABG pO2 87.2 mmHg (83-108) 04/26/21 03:35 ABG pO2 66.3 mm Hg (80.0-90.0) L 04/22/21 12:40 POC ABG HCO3 27.3 04/26/21 03:35 ABG O2 Saturation 97.6 (0-100) 04/26/21 03:35 Abnormal lab findings: Abnormal Labs 04/17/21 04/17/21 04/19/21 15:55 15:55 06:21 WBC 13.4 H RBC 5.81 H Hgb 17.2 H Hct 51.2 H [place] % (Auto) 8.1 H 10.0 H [place] # (Auto) 1.1 H 0.9 H Seg Neutrophils % 73.0 H Seg Neutrophils # 9.8 H ABG pH POC ABG pCO2 POC ABG pO2 ABG pO2 ABG Sodium ABG Potassium ABG Chloride ABG Glucose Oxyhemoglobin Carboxyhemoglobin Sodium Chloride Carbon Dioxide 20 L BUN 25 H Creatinine 1.5 H Glucose 138 H POC Glucose Calcium Total Protein Albumin Triglycerides Cholesterol LDL Cholesterol Direct HDL Cholesterol Arterial Blood Glucose Arterial Blood Ionized Calcium 04/19/21 04/19/21 04/19/21 06:21 06:21 23:08 WBC RBC Hgb Hct [place] % (Auto) [place] # (Auto) Seg Neutrophils % Seg Neutrophils # ABG pH POC ABG pCO2 POC ABG pO2 ABG pO2 ABG Sodium ABG Potassium ABG Chloride ABG Glucose Oxyhemoglobin Carboxyhemoglobin Sodium Chloride 107.9 H Carbon Dioxide BUN 21 H Creatinine Glucose 102 H 102 H POC Glucose 109 H Calcium Total Protein 5.8 L D Albumin 3.6 L Triglycerides 161 H Cholesterol 225 H LDL Cholesterol Direct 170 H HDL Cholesterol 38 L Arterial Blood Glucose Arterial Blood Ionized Calcium 04/20/21 04/20/21 04/21/21 06:10 23:46 05:49 WBC RBC Hgb Hct [place] % (Auto) [place] # (Auto) Seg Neutrophils % Seg Neutrophils # ABG pH POC ABG pCO2 POC ABG pO2 ABG pO2 ABG Sodium ABG Potassium ABG Chloride ABG Glucose Oxyhemoglobin Carboxyhemoglobin Sodium Chloride Carbon Dioxide BUN Creatinine Glucose POC Glucose 127 H 112 H 131 H Calcium Total Protein Albumin Triglycerides Cholesterol LDL Cholesterol Direct HDL Cholesterol Arterial Blood Glucose Arterial Blood Ionized Calcium 04/21/21 04/21/21 04/22/21 11:20 23:32 05:30 WBC RBC Hgb Hct [place] % (Auto) [place] # (Auto) Seg Neutrophils % Seg Neutrophils # ABG pH POC ABG pCO2 POC ABG pO2 ABG pO2 ABG Sodium ABG Potassium ABG Chloride ABG Glucose Oxyhemoglobin Carboxyhemoglobin Sodium Chloride Carbon Dioxide BUN Creatinine Glucose POC Glucose 106 H 161 H 117 H Calcium Total Protein Albumin Triglycerides Cholesterol LDL Cholesterol Direct HDL Cholesterol Arterial Blood Glucose Arterial Blood Ionized Calcium 04/22/21 04/22/21 04/22/21 12:03 12:40 23:36 WBC RBC Hgb Hct [place] % (Auto) [place] # (Auto) Seg Neutrophils % Seg Neutrophils # ABG pH POC ABG pCO2 POC ABG pO2 ABG pO2 66.3 L ABG Sodium ABG Potassium ABG Chloride ABG Glucose Oxyhemoglobin 93.2 L Carboxyhemoglobin Sodium Chloride Carbon Dioxide BUN Creatinine Glucose POC Glucose 120 H 144 H Calcium Total Protein Albumin Triglycerides Cholesterol LDL Cholesterol Direct HDL Cholesterol Arterial Blood Glucose Arterial Blood Ionized Calcium 04/23/21 04/23/21 04/23/21 04:40 05:01 13:30 WBC RBC Hgb Hct [place] % (Auto) [place] # (Auto) Seg Neutrophils % Seg Neutrophils # ABG pH 7.317 L POC ABG pCO2 48.9 H POC ABG pO2 131.3 H ABG pO2 ABG Sodium ABG Potassium ABG Chloride ABG Glucose 143 H Oxyhemoglobin Carboxyhemoglobin Sodium Chloride Carbon Dioxide BUN Creatinine 0.7 L Glucose 108 H POC Glucose 108 H Calcium Total Protein Albumin Triglycerides Cholesterol LDL Cholesterol Direct HDL Cholesterol Arterial Blood Glucose 143 H Arterial Blood Ionized Calcium 04/23/21 04/23/21 04/24/21 17:40 19:06 03:00 WBC RBC Hgb Hct [place] % (Auto) [place] # (Auto) Seg Neutrophils % Seg Neutrophils # ABG pH POC ABG pCO2 POC ABG pO2 ABG pO2 ABG Sodium ABG Potassium ABG Chloride ABG Glucose 158 H Oxyhemoglobin Carboxyhemoglobin 0.4 L Sodium 136 L Chloride Carbon Dioxide BUN Creatinine Glucose POC Glucose 126 H Calcium Total Protein Albumin Triglycerides Cholesterol LDL Cholesterol Direct HDL Cholesterol Arterial Blood Glucose 158 H Arterial Blood Ionized Calcium 4.5 L 04/24/21 04/24/21 04/24/21 06:08 06:52 11:31 WBC RBC Hgb Hct [place] % (Auto) [place] # (Auto) Seg Neutrophils % Seg Neutrophils # ABG pH POC ABG pCO2 POC ABG pO2 ABG pO2 ABG Sodium ABG Potassium ABG Chloride ABG Glucose Oxyhemoglobin Carboxyhemoglobin Sodium Chloride Carbon Dioxide BUN 25 H Creatinine Glucose 151 H POC Glucose 165 H 116 H Calcium 8.3 L Total Protein Albumin Triglycerides Cholesterol LDL Cholesterol Direct HDL Cholesterol Arterial Blood Glucose Arterial Blood Ionized Calcium 04/24/21 04/25/21 04/25/21 17:25 00:12 03:15 WBC RBC Hgb Hct [place] % (Auto) [place] # (Auto) Seg Neutrophils % Seg Neutrophils # ABG pH POC ABG pCO2 POC ABG pO2 ABG pO2 ABG Sodium ABG Potassium 4.6 H ABG Chloride 111.0 H ABG Glucose 175 H Oxyhemoglobin Carboxyhemoglobin Sodium Chloride Carbon Dioxide BUN Creatinine Glucose POC Glucose 172 H 163 H Calcium Total Protein Albumin Triglycerides Cholesterol LDL Cholesterol Direct HDL Cholesterol Arterial Blood Glucose 175 H Arterial Blood Ionized Calcium 04/25/21 04/25/21 04/25/21 05:31 10:54 11:32 WBC RBC Hgb Hct [place] % (Auto) [place] # (Auto) Seg Neutrophils % Seg Neutrophils # ABG pH POC ABG pCO2 POC ABG pO2 ABG pO2 ABG Sodium ABG Potassium ABG Chloride ABG Glucose Oxyhemoglobin Carboxyhemoglobin Sodium 146 H Chloride 111.3 H Carbon Dioxide BUN Creatinine Glucose 171 H POC Glucose 180 H 181 H Calcium Total Protein Albumin Triglycerides Cholesterol LDL Cholesterol Direct HDL Cholesterol Arterial Blood Glucose Arterial Blood Ionized Calcium 04/25/21 04/25/21 04/26/21 17:59 23:28 03:35 WBC RBC Hgb Hct [place] % (Auto) [place] # (Auto) Seg Neutrophils % Seg Neutrophils # ABG pH POC ABG pCO2 POC ABG pO2 ABG pO2 ABG Sodium 147.4 H ABG Potassium ABG Chloride 110.0 H ABG Glucose 210 H Oxyhemoglobin Carboxyhemoglobin Sodium Chloride Carbon Dioxide BUN Creatinine Glucose POC Glucose 216 H 213 H Calcium Total Protein Albumin Triglycerides Cholesterol LDL Cholesterol Direct HDL Cholesterol Arterial Blood Glucose 210 H Arterial Blood Ionized Calcium 04/26/21 05:07 WBC RBC Hgb Hct [place] % (Auto) [place] # (Auto) Seg Neutrophils % Seg Neutrophils # ABG pH POC ABG pCO2 POC ABG pO2 ABG pO2 ABG Sodium ABG Potassium ABG Chloride ABG Glucose Oxyhemoglobin Carboxyhemoglobin Sodium Chloride Carbon Dioxide BUN Creatinine Glucose POC Glucose 223 H Calcium Total Protein Albumin Triglycerides Cholesterol LDL Cholesterol Direct HDL Cholesterol Arterial Blood Glucose Arterial Blood Ionized Calcium Chest x-ray: image reviewed (Low lung volumes) Allied health notes reviewed: RT
[2021-04-26 08:42] LABS: BUN/Creatinine Ratio 19; Blood Urea Nitrogen 19 mg/dL (9-20); Hemolysis Index 9
--- NOTE | 2021-04-26 09:10 | XRay Report ---
CHEST 1 VIEW INDICATION / CLINICAL INFORMATION: follow up respiratory failure. COMPARISON: 04/25/2021 FINDINGS: SUPPORT DEVICES: Stable, satisfactory device positioning. HEART / MEDIASTINUM: No significant abnormality. LUNGS / PLEURA: Low lung volumes. Mild bibasilar parenchymal disease is stable and more than likely r epresents atelectasis. The lungs are otherwise grossly clear. No pneumothorax. ADDITIONAL FINDINGS: No significant additional findings. IMPRESSION: 1. Stable appearance of the chest radiograph. Signer Name: Lolita Segal MD Signed: 04/26/2021 9:05 AM Workstation Name: [id number]
[2021-04-26] MEDS: SODIUM CHLORIDE 1 GM TAB PO SCH ×4 (09:51→21:37)
[2021-04-26] MEDS: SENNOSIDES/DOCUSATE SODIUM 8.6/50 MG TAB FEEDTUBE SCH ×2 (09:51→21:36)
[2021-04-26] MEDS: ASPIRIN 325 MG TAB PO SCH (09:51)
[2021-04-26] MEDS: FAMOTIDINE 20 MG/2 ML INJ IV SCH ×2 (09:52→21:34)
[2021-04-26] MEDS: levETIRAcetam 500 MG in DEXTROSE 5% IN WATER 100 ML IV SCH ×2 (09:53→21:47)
[2021-04-26] MEDS: HEPARIN 5,000 UNIT/1 ML VIAL SUB-Q SCH ×2 (09:53→21:35)
[2021-04-26] MEDS ORDERED: SODIUM BICARBONATE 325 MG TAB FEEDTUBE PRN (10:57)
[2021-04-26] MEDS ORDERED: amLODIPine 5 MG TAB PO SCH (11:00)
[2021-04-26] MEDS ORDERED: SIMPLE SYRUP 15 ML FEEDTUBE PRN (11:08)
[2021-04-26] MEDS: hydrALAZINE 25 MG TAB PO SCH ×3 (11:30→21:35)
[2021-04-26] MEDS: fentaNYL DRIP Premix 2,000 MCG/100 ML BAG IV SCH (11:30)
--- NOTE | 2021-04-26 17:55 | Progress Note ---
Assessment and Plan Assessment and plan: This is a 48-year-old male with HTN, CVA admitted with large left hemispheric evolving CVA, SIRS, acute kidney injury, metabolic acidosis and acute metabolic encephalopathy A/P: Neuro: Large evolving left MCA infarct with edema/mass-effect, large acute left MCA distribution CVA, occluded left M1 segment, acute metabolic encephalopathy polysubstance abuse (ongoing nicotine and EtOH abuse) -Neurology, neurosurgery consulted, appreciate recommendations -Keppra twice daily -Sansca x1 with goal sodium of greater than 145 per nephro -HOB greater than 30 degrees at all times -Maintain normotensive, normothermia -04/17 CT head shows possible acute infarct -04/17 CTA head/neck shows occluded left M1 segment with very poor collateral circulation/greater than 50% stenosis on the right side, more than 60% stenosis on the left side in both internal carotid arteries, small ulcer in the left carotid plaque -04/17 bilateral carotid ultrasound shows right internal carotid artery 50 to 69% diameter stenosis, left internal carotid artery 50 to 69% diameter stenosis -04/17 CT head shows nonhemorrhagic ischemic changes extending into the posterior temporal lobe and inferior parietal lobule on the left side, no mass- effect -04/18 MRI brain shows large left MCA distribution infarction without hemorrhagic conversion or herniation -04/22 CT head shows evolutionary changes of the large left MCA infarct from 04/17/2021 with developing edema and mass-effect with midline shift with no clear CT evidence of hemorrhagic transformation -04/23 CT head shows increasing mass-effect associated with patient's large left MCA infarct -04/23 MRI brain shows left middle cerebral artery territory infarction has not progressed however mass-effect over the left lateral ventricle has increased significantly resulting in [id number] midline shift of 9 mm at the level of foramen of [place]ro, no hemorrhagic changes in the left MCA infarction -Intubated for GCS of less than 8 -Sedated with propofol and Fentanyl, RASS goal of 0 to -1 -Patient moved LLE to painful stimuli Cardio: Hypertensive emergency, hyperlipidemia, H/O HTN -Resume antihypertensives -Hydralazine as needed -Blood pressure monitoring per protocol Respiratory: Acute hypoxic respiratory failure -S/p BiPAP -Intubated 04/23 for airway protection -Serial ABGs - ABG 7.4 / on 50% -Mechanical ventilation settings as follows tidal volume 500, rate of 20, PEEP of 6 and 60% FiO2 -VAP bundle -Daily SBT and SAT as tolerated GI: Tube feedings, obesity -Bowel regimen Senokot -Accu-Cheks every 6, SSI -Avoid hypoglycemia -PPI : Acute metabolic encephalopathy, THAI (resolved) -Strict intake and output -Avoid nephrotoxic medications -Daily weights -Renally dose medications -Trend BMP -Serial Na ID: SIRS, febrile -Met SIRS criteria on presentation -Patient is now febrile, per [facility] use ice packs until temperature greater than 103 Heme: NAD -Transfuse for hemoglobin less than 7 -Trend CBC -SCDs to bilateral actions while in bed -Heparin subq Endo: Hyperglycemia -Accu-Checks every 6, SSI, long-acting insulin -Avoid hypoglycemia CODE STATUS: DNR The high probability of a clinically significant, sudden or life threatening deterioration of the [neuro, respiratory, pulmonary, metabolic ,renal] system(s) required my full and direct attention, intervention and personal management. The aggregate critical care time was [120] minutes. This time is in addition to time spent performing reported procedures but includes the following: [x] Data Review and interpretation [x] Patient assessment and monitoring of vital signs [x] Documentation [x] Medication orders and management Disposition Plan: ICU Total Time Spent with Patient (Minutes): 120 History Interval history: This is a 50 YO Male with HTN, CVA who presented to [facility] on on 04/17 after being found lying on his kitchen floor with decreased responsiveness per ED staff. A code stroke was called in the emergency room. Patient was found to have a neurologic deficit and initiated on stroke protocol. Patient underwent CT scan of the brain and was found to have a large left hemispheric CVA and repeat imaging study with CTA brain revealed an enlarging focal ischemic CVA with high risk for hemorrhagic conversion. The patient was also found to have SIRs, THAI, with metabolic acidosis, and encephalopathy. Patient was admitted to ICU due to increased risk of worsening symptoms. Tele neurology team consulted in ED. Neurology team also consulted. 04/19/21: Altered sensorium, Confused 04/20/2021: Altered sensorium, Confused 04/21/2021: Altered sensorium confused, Not moving the right upper and lower extremities 04/22/2021: Patient's blood pressures are uncontrolled, hypertensive urgency: Hydralazine, nifedipine, Cardene drip if needed. Patient is unresponsive, acute large CVA. PT OT and rehab 04/23/2021: Follow-up CT findings noted, discussed with neurosurgeon, construction operations manager, I also discussed with patient's son, regarding the goals of treatment. Neurosurgeon recommended intubation and went mechanical ventilation. 04/24: MRI obtained last evening shows shift, RN overnight contacted neurosurgery/ unknown if called returned and nsgy informed. Family at bedside. Goals of care being discussed among family. Na <145, 3% saline ordered along with serial Na. Nephrology aware. Patient has been febrile. Per [facility] icepacks for now for cooling 04/25: Nephro started Samsca and d/c 3%NS and had signed off. Hospice consult placed to aid in goals of care. 04/26: Patient noted to be hyperglycemic, Lantus increased. Family at bedside. CODE STATUS changed to allow natural , de-escalation of care paperwork signed. Family requesting for de-escalation to happen tomorrow. Patient's family will call. Hospitalist Physical - Constitutional Vitals: Temp Pulse Resp BP Pulse Ox 102.6 F H 105 H 18 149/77 95 04/26/21 16:00 04/26/21 17:00 04/26/21 17:00 04/26/21 17:00 04/26/21 17:00 General appearance: Present: no acute distress, well-nourished, other (resting on MV) - EENT ENT: dentition normal, other (Pupils are very sluggish) - Neck Neck: Present: normal ROM - Respiratory Respiratory effort: normal Respiratory: bilateral: CTA - Cardiovascular Rhythm: regular Heart Sounds: Present: S1 & S2. Absent: systolic murmur, diastolic murmur - Extremities Extremities: no ischemia, pulses intact, pulses symmetrical, normal temperature, normal color Peripheral Pulses: within normal limits - Abdominal General gastrointestinal: soft, non-tender, non-distended, normal bowel sounds - Integumentary Integumentary: Present: warm, dry - Psychiatric Psychiatric: other (Noninteractive) - Neurologic Neurologic: other (Noninteractive, does not follow commands, does not track/focus, moves extremities spontaneously) Results - Labs CBC & Chem 7: 04/19/21 06:21 04/26/21 07:51 Labs: Laboratory Last Values WBC 9.1 K/mm3 (4.5-11.0) 04/19/21 06:21 RBC 4.76 M/mm3 (3.65-5.03) 04/19/21 06:21 Hgb 14.7 gm/dl (11.8-15.2) 04/19/21 06:21 Hct 43.2 % (35.5-45.6) D 04/19/21 06:21 MCV 91 fl (84-94) 04/19/21 06:21 MCH 31 pg (28-32) 04/19/21 06:21 MCHC 34 % (32-34) 04/19/21 06:21 RDW 14.9 % (13.2-15.2) 04/19/21 06:21 Plt Count 185 K/mm3 (140-440) 04/19/21 06:21 Lymph % (Auto) 20.2 % (13.4-35.0) 04/19/21 06:21 [place] % (Auto) 10.0 % (0.0-7.3) H 04/19/21 06:21 Eos % (Auto) 2.9 % (0.0-4.3) 04/19/21 06:21 Baso % (Auto) 0.7 % (0.0-1.8) 04/19/21 06:21 Lymph # (Auto) 1.8 K/mm3 (1.2-5.4) 04/19/21 06:21 [place] # (Auto) 0.9 K/mm3 (0.0-0.8) H 04/19/21 06:21 Eos # (Auto) 0.3 K/mm3 (0.0-0.4) 04/19/21 06:21 Baso # (Auto) 0.1 K/mm3 (0.0-0.1) 04/19/21 06:21 Seg Neutrophils % 66.2 % (40.0-70.0) 04/19/21 06:21 Seg Neutrophils # 6.0 K/mm3 (1.8-7.7) 04/19/21 06:21 ABG pH 7.445 (7.320-7.450) 04/26/21 03:35 POC ABG pCO2 40.7 mmHg (32.0-48.0) 04/26/21 03:35 ABG pCO2 36.4 mm Hg 04/22/21 12:40 POC ABG pO2 87.2 mmHg (83-108) 04/26/21 03:35 ABG pO2 66.3 mm Hg (80.0-90.0) L 04/22/21 12:40 POC ABG HCO3 27.3 04/26/21 03:35 ABG HCO3 24.1 mmol/L (20.0-26.0) 04/22/21 12:40 ABG O2 Saturation 97.6 (0-100) 04/26/21 03:35 ABG O2 Content 19.2 (0.0-44) 04/22/21 12:40 POC ABG Base Excess 3.0 04/26/21 03:35 ABG Base Excess 0.4 mmol/L (-2.0-3.0) 04/22/21 12:40 ABG Hemoglobin 14.1 (12.0-17.5) 04/26/21 03:35 ABG Oxyhemoglobin 96.9 (94-98) 04/26/21 03:35 ABG Carboxyhemoglobin 1.4 % (0.0-5.0) 04/22/21 12:40 ABG Methemoglobin 0.1 (0.0-1.5) 04/26/21 03:35 ABG Sodium 147.4 mmol/L (136.0-145.0) H 04/26/21 03:35 ABG Potassium 4.2 mmol/L (3.40-4.50) 04/26/21 03:35 ABG Chloride 110.0 mmol/L (98-107) H 04/26/21 03:35 ABG Glucose 210 mg/dL (65-95) H 04/26/21 03:35 Oxyhemoglobin 93.2 % (95.0-99.0) L 04/22/21 12:40 Carboxyhemoglobin 0.6 (0.5-1.5) 04/26/21 03:35 FiO2 21 % 04/22/21 12:40 FiO2 % 50.0 04/26/21 03:35 Sodium 149 mmol/L (137-145) H 04/26/21 07:51 Potassium 4.4 mmol/L (3.6-5.0) 04/26/21 07:51 Chloride 109.4 mmol/L (98-107) H 04/26/21 07:51 Carbon Dioxide 30 mmol/L (22-30) 04/26/21 07:51 Anion Gap 14 mmol/L 04/26/21 07:51 BUN 19 mg/dL (9-20) 04/26/21 07:51 Creatinine 1.0 mg/dL (0.8-1.3) 04/26/21 07:51 Estimated GFR > 60 ml/min 04/26/21 07:51 BUN/Creatinine Ratio 19 % 04/26/21 07:51 Glucose 238 mg/dL (75-100) H 04/26/21 07:51 POC Glucose 205 mg/dL (70-105) H 04/26/21 17:16 Lactic Acid 1.80 mmol/L (0.7-2.0) 04/17/21 15:55 Calcium 9.0 mg/dL (8.4-10.2) 04/26/21 07:51 Phosphorus 2.60 mg/dL (2.5-4.5) 04/19/21 06:21 Magnesium 2.10 mg/dL (1.7-2.3) 04/23/21 04:40 Total Bilirubin 0.40 mg/dL (0.1-1.2) 04/19/21 06:21 AST 17 units/L (5-40) 04/19/21 06:21 ALT 16 units/L (7-56) 04/19/21 06:21 Alkaline Phosphatase 78 units/L (35-129) 04/19/21 06:21 Total Protein 5.8 g/dL (6.3-8.2) L D 04/19/21 06:21 Albumin 3.6 g/dL (3.9-5) L 04/19/21 06:21 Albumin/Globulin Ratio 1.6 % 04/19/21 06:21 Triglycerides 161 mg/dL (2-149) H 04/19/21 06:21 Cholesterol 225 mg/dL (50-199) H 04/19/21 06:21 LDL Cholesterol Direct 170 mg/dL (50-130) H 04/19/21 06:21 HDL Cholesterol 38 mg/dL (40-59) L 04/19/21 06:21 Cholesterol/HDL Ratio 5.92 % 04/19/21 06:21 Arterial Blood Glucose 210 mg/dL (65-95) H 04/26/21 03:35 Arterial Blood Ionized Calcium 4.7 mg/dL (4.6-5.3) 04/26/21 03:35 Urine Color Yellow (Yellow) 04/17/21 Unknown Urine Turbidity Hazy (Clear) 04/17/21 Unknown Urine pH 5.0 (5.0-7.0) 04/17/21 Unknown Ur Specific [place] 1.023 (1.003-1.030) 04/17/21 Unknown Urine Protein 30 mg/dl mg/dL (Negative) 04/17/21 Unknown Urine Glucose (UA) Neg mg/dL (Negative) 04/17/21 Unknown Urine Ketones Neg mg/dL (Negative) 04/17/21 Unknown Urine Blood Sm (Negative) 04/17/21 Unknown Urine Nitrite Neg (Negative) 04/17/21 Unknown Urine Bilirubin Neg (Negative) 04/17/21 Unknown Urine Urobilinogen < 2.0 mg/dL (<2.0) 04/17/21 Unknown Ur Leukocyte Esterase Neg (Negative) 04/17/21 Unknown Urine WBC (Auto) 2.0 /HPF (0.0-6.0) 04/17/21 Unknown Urine RBC (Auto) 2.0 /HPF (0.0-6.0) 04/17/21 Unknown U Epithel Cells (Auto) < 1.0 /HPF (0-13.0) 04/17/21 Unknown Hyaline Casts 11 /LPF 04/17/21 Unknown Urine Mucus 1+ /HPF 04/17/21 Unknown Urine Sodium 170 mmol/L 04/25/21 08:40 Urine Opiates Screen Negative 04/17/21 Unknown Urine Methadone Screen Negative 04/17/21 Unknown Ur Barbiturates Screen Negative 04/17/21 Unknown Ur Phencyclidine Scrn Negative 04/17/21 Unknown Ur Amphetamines Screen Negative 04/17/21 Unknown U Benzodiazepines Scrn Negative 04/17/21 Unknown Urine Cocaine Screen Negative 04/17/21 Unknown U Marijuana (THC) Screen Negative 04/17/21 Unknown Drugs of Abuse Note Disclamer 04/17/21 Unknown Plasma/Serum Alcohol < 0.01 % (0-0.07) 04/17/21 15:55 Coronavirus (PCR) Negative (Negative) 04/22/21 Unknown Pérez/IV: Voiding Method Condom Catheter Active Medications - Current Medications Current Medications: Generic Name Dose Route Start Last Admin Trade Name Freq PRN Reason Stop Dose Admin Acetaminophen 650 mg 04/17/21 18:30 04/24/21 16:40 Acetaminophen 325 Mg Tab PO 650 mg Q4H PRN Administration Pain, Mild (1-3) Albuterol 2.5 mg 04/25/21 13:23 Albuterol 2.5 Mg/3 Ml Nebu IH Q4HRT PRN Wheezing Lipase/Protease/Amylase 1 each 04/18/21 13:56 Lipase 10,500/Protease 25,000/Amylase 43,750 (Units) Dr Metzger FEEDTUBE PRN PRN For Clogged Feeding Tube Aspirin 325 mg 04/18/21 10:00 04/26/21 09:51 Aspirin 325 Mg Tab PO 325 mg QDAY JUDY Administration Atorvastatin Calcium 40 mg 04/17/21 22:00 04/25/21 21:13 Atorvastatin 40 Mg Tab PO 40 mg QHS JUDY Administration Bisacodyl 10 mg 04/17/21 18:30 Bisacodyl 10 Mg Rect Supp DE QDAY PRN Constipation Dextrose 50 ml 04/24/21 09:26 Dextrose 50% In Water (25gm) 50 Ml Syringe IV Q30MIN PRN Hypoglycemia Protocol Famotidine 20 mg 04/23/21 22:00 04/26/21 09:52 Famotidine 20 Mg/2 Ml Inj IV 20 mg BID JUDY Administration Fentanyl 50 mcg 04/23/21 11:54 Fentanyl 100 Mcg/2 Ml Inj IV Q10MIN PRN ANALGESIA Heparin Sodium (Porcine) 5,000 unit 04/19/21 22:00 04/26/21 09:53 Heparin 5,000 Unit/1 Ml Vial SUB-Q 5,000 unit Q12HR JUDY Administration Hydralazine HCl 10 mg 04/21/21 10:07 04/26/21 07:59 Hydralazine 20 Mg/1 Ml Inj IV 10 mg Q4H PRN Administration Blood Pressure Hydralazine HCl 50 mg 04/26/21 10:30 04/26/21 14:03 Hydralazine 25 Mg Tab PO 50 mg Q8HR JUDY Administration Hydromorphone HCl 0.5 mg 04/17/21 18:30 04/19/21 07:35 Hydromorphone 1 Mg/1 Ml Inj IV 0.5 mg Q12H PRN Administration Pain , Severe (7-10) Hydrophilic Ointment 1 applic 04/23/21 11:54 Lip Therapy Vaseline TP Q2HR PRN Dry Lips Fentanyl Citrate 2,000 mcg in 100 mls @ 4.535 mls/hr 04/23/21 12:00 04/26/21 11:30 Fentanyl Drip Premix IV 1 mcg/kg/hr TITR JUDY 4.535 mls/hr Administration Protocol 1 MCG/KG/HR Propofol 1,000 mg in 100 mls @ 2.721 mls/hr 04/23/21 13:00 04/26/21 06:05 Diprivan 10 Mg/Ml IV 5 mcg/kg/min TITR JUDY 2.721 mls/hr Administration Protocol 5 MCG/KG/MIN Levetiracetam 500 mg/ Dextrose 105 mls @ 400 mls/hr 04/23/21 22:00 04/26/21 09:53 IV 400 mls/hr Q12HR [facility] Administration Insulin Glargine 5 units 04/26/21 22:00 Insulin Glargine 100 Units/Ml SUB-Q QHS [facility] Insulin Human Regular 0 units 04/24/21 12:00 04/26/21 17:21 Insulin Regular, Human 100 Units/1 Ml SUB-Q 3 units Q6H [facility] Administration Protocol Lorazepam 2 mg 04/24/21 10:09 04/26/21 02:51 Lorazepam 2 Mg/Ml Vial IV 2 mg Q4H PRN Administration Seizures Magnesium Hydroxide 30 ml 04/17/21 18:30 Magnesium Hydroxide (Mom) Oral Liqd Udc PO Q4H PRN Constipation Metoclopramide HCl 10 mg 04/17/21 18:30 Metoclopramide 10 Mg Tab PO Q6H PRN Nausea And Vomiting Metoprolol Tartrate 25 mg 04/22/21 14:00 04/26/21 13:27 Metoprolol Tartrate 25 Mg Tab PO 25 mg TID JUDY Administration Multi-Ingred Cream/Lotion/Oil/Oint 1 applic 04/23/21 11:54 Mineral Oil/Petrolatum, White Ophth Oint 3.5 Gm OU Q4HR PRN Dry Eye(s) Ondansetron HCl 4 mg 04/17/21 18:30 Ondansetron 4 Mg/2 Ml Inj IV Q8H PRN Nausea And Vomiting Oxycodone/Acetaminophen 1 tab 04/17/21 18:30 Oxycodone /Acetaminophen 5-325mg Tab PO Q12H PRN Pain, Moderate (4-6) Senna/Docusate Sodium 1 tab 04/23/21 22:00 04/26/21 09:51 Sennosides/Docusate Sodium 8.6/50 Mg Tab FEEDTUBE 1 tab BID JUDY Administration Simple Syrup 30 ml 04/18/21 13:56 Simple Syrup 15 Ml FEEDTUBE PRN PRN Hypoglycemia Simple Syrup 15 ml 04/26/21 11:08 Simple Syrup 15 Ml FEEDTUBE PRN PRN Hypoglycemia Sodium Bicarbonate 325 mg 04/26/21 10:57 Sodium Bicarbonate 325 Mg Tab FEEDTUBE PRN PRN For Clogged Feeding Tube Sodium Chloride 10 ml 04/17/21 18:30 04/26/21 09:50 Sodium Chloride 0.9% 10 Ml Flush Syringe IV 10 ml PRN PRN Administration LINE FLUSH Sodium Chloride 2 gm 04/24/21 10:00 04/26/21 17:15 Sodium Chloride 1 Gm Tab PO 2 gm QID JUDY Administration Nutrition/Malnutrition Assess - Dietary Evaluation Nutrition/Malnutrition Findings: Nutrition Notes Start: 04/18/21 13:50 Freq: Status: Active Protocol: Document 04/26/21 11:53 CW (Rec: 04/26/21 11:55 CW [id number]) Nutrition Notes Need for Assessment generated from: MD Order Initial or Follow up Brief Note Current Diet Vital HP at 65 ml/hr Labs/Tests Na 149 Subjective/Other Information increased flush to 75 ml q5h from 50 ml q4h d/t hypernatremia. Nutrition Intervention Change Diet Order: continue Nutrition Support: Vital HP at 65 ml/hr Flush 75 q4h for hypernatremia . Once resolved, resume flush of 50 ml q4h Kcal 1,560 Protein (gm) 137 Fluid (mL) 1,304 Goal #1 Meet at least 75% of protein and energy needs via TF Anticipated Discharge Needs: Unable to determine at this time Follow-Up By: 04/29/21 Additional Comments F/U for stable TF and Na levels
[2021-04-26] MEDS ORDERED: INSULIN GLARGINE 100 UNITS/ML SUB-Q SCH (22:00)
[2021-04-27] MEDS: INSULIN REGULAR, HUMAN 100 UNITS/1 ML SUB-Q SCH ×4 (00:38→18:00)
[2021-04-27 00:44] LABS: BUN/Creatinine Ratio 21; Blood Urea Nitrogen 21 mg/dL (9-20); Calcium 8.6 mg/dL (8.4-10.2); Hemolysis Index 12
[2021-04-27] MEDS: hydrALAZINE 20 MG/1 ML INJ IV PRN (02:38)
[2021-04-27] MEDS: LORazepam 2 MG/ML VIAL IV PRN ×13 (02:39→23:50)
[2021-04-27] MEDS: hydrALAZINE 25 MG TAB PO SCH (05:49)
[2021-04-27] MEDS: fentaNYL DRIP Premix 2,000 MCG/100 ML BAG IV SCH (05:50)
[2021-04-27] MEDS: METOPROLOL TARTRATE 25 MG TAB PO SCH (07:50)
[2021-04-27] MEDS: ACETAMINOPHEN 325 MG TAB PO PRN (08:48)
[2021-04-27] MEDS: FAMOTIDINE 20 MG/2 ML INJ IV SCH ×2 (10:05→21:18)
[2021-04-27] MEDS: HEPARIN 5,000 UNIT/1 ML VIAL SUB-Q SCH ×2 (10:05→21:17)
[2021-04-27] MEDS: levETIRAcetam 500 MG in DEXTROSE 5% IN WATER 100 ML IV SCH ×2 (10:05→22:17)
[2021-04-27] MEDS: SODIUM CHLORIDE 1 GM TAB PO SCH ×4 (10:05→21:20)
[2021-04-27] MEDS: ASPIRIN 325 MG TAB PO SCH (10:05)
[2021-04-27] MEDS: MORPHINE 2 MG/1 ML INJ IV PRN ×16 (11:27→23:19)
[2021-04-27] MEDS ORDERED: MORPHINE 2 MG/1 ML INJ IV PRN (11:30)
[2021-04-27] MEDS: GLYCOPYRROLATE 0.4 MG/2 ML INJ IV PRN ×2 (11:36→18:30)
--- NOTE | 2021-04-27 13:02 | Progress Note ---
Assessment and Plan Acute cerebrovascular accident with mass effect Acute toxic metabolic encephalopathy LILO Acute Hypoxemic respiratory failure Acute kidney injury Hypernatremia, mild Mild metabolic acidosis Leukocytosis Obesity CODE STATUS: DNAR Compassionate extubation Subjective Date of service: 04/27/21 Principal diagnosis: Ac CVA; Ac encephalopathy; LILO; Acute Hypoxemic resp failure; THAI Interval history: Patient is seen today for: Acute cerebrovascular accident; Acute toxic metabolic encephalopathy; LILO; Acute Hypoxemic respiratory failure; THAI; Obesity Seen and examined at bedside; 24hour events reviewed; nursing and respiratory care staff consulted; no adverse overnight events reported to me; resting in bed; remains on MVS; on Propofol and Fentanyl. On PEEP +8/FIO2 40%. Family decided to de-escalate care this morning. He has been compassionately extubated Objective Vital Signs - 12hr 04/27/21 04/27/21 04/27/21 02:00 02:38 03:00 Temperature Pulse Rate 115 H 114 H 113 H Pulse Rate [ From Monitor] Respiratory 20 19 Rate Blood Pressure 181/82 167/89 127/73 O2 Sat by Pulse 91 91 Oximetry 04/27/21 04/27/21 04/27/21 03:42 03:50 04:00 Temperature 102.6 F H Pulse Rate 115 H 121 H Pulse Rate [ 120 H From Monitor] Respiratory 20 Rate Blood Pressure 134/75 147/72 O2 Sat by Pulse 95 94 Oximetry 04/27/21 04/27/21 04/27/21 05:00 05:49 06:00 Temperature Pulse Rate 122 H 120 H 121 H Pulse Rate [ From Monitor] Respiratory 21 17 Rate Blood Pressure 163/91 144/75 154/73 O2 Sat by Pulse 91 88 Oximetry 04/27/21 04/27/21 04/27/21 07:00 07:10 07:50 Temperature Pulse Rate 130 H 130 H 128 H Pulse Rate [ From Monitor] Respiratory 25 H Rate Blood Pressure 153/84 151/86 163/83 O2 Sat by Pulse 88 94 Oximetry 04/27/21 04/27/21 04/27/21 08:00 09:00 10:00 Temperature Pulse Rate 123 H 110 H 112 H Pulse Rate [ 113 H From Monitor] Respiratory 18 22 26 H Rate Blood Pressure 127/75 138/72 149/69 O2 Sat by Pulse 91 87 89 Oximetry 04/27/21 04/27/21 04/27/21 11:00 11:20 12:00 Temperature Pulse Rate 119 H 144 H Pulse Rate [ 142 H From Monitor] Respiratory 22 42 H Rate Blood Pressure 140/79 163/83 O2 Sat by Pulse 90 81 L 81 L Oximetry Ascultation: Bilateral: clear, diminished breath sounds, rales, rhonchi, other (referred upper airway sounds ) Percussion: Bilateral: not dull Psychiatric: other (unable to assess) CBC and BMP: 04/19/21 06:21 04/27/21 00:13 ABG, PT/INR, D-dimer: ABG ABG pH 7.445 (7.320-7.450) 04/26/21 03:35 POC ABG pCO2 40.7 mmHg (32.0-48.0) 04/26/21 03:35 ABG pCO2 36.4 mm Hg 04/22/21 12:40 POC ABG pO2 87.2 mmHg (83-108) 04/26/21 03:35 ABG pO2 66.3 mm Hg (80.0-90.0) L 04/22/21 12:40 POC ABG HCO3 27.3 04/26/21 03:35 ABG O2 Saturation 97.6 (0-100) 04/26/21 03:35 Abnormal lab findings: Abnormal Labs 04/17/21 04/17/21 04/19/21 15:55 15:55 06:21 WBC 13.4 H RBC 5.81 H Hgb 17.2 H Hct 51.2 H [place] % (Auto) 8.1 H 10.0 H [place] # (Auto) 1.1 H 0.9 H Seg Neutrophils % 73.0 H Seg Neutrophils # 9.8 H ABG pH POC ABG pCO2 POC ABG pO2 ABG pO2 ABG Sodium ABG Potassium ABG Chloride ABG Glucose Oxyhemoglobin Carboxyhemoglobin Sodium Chloride Carbon Dioxide 20 L BUN 25 H Creatinine 1.5 H Glucose 138 H POC Glucose Calcium Total Protein Albumin Triglycerides Cholesterol LDL Cholesterol Direct HDL Cholesterol Arterial Blood Glucose Arterial Blood Ionized Calcium 04/19/21 04/19/21 04/19/21 06:21 06:21 23:08 WBC RBC Hgb Hct [place] % (Auto) [place] # (Auto) Seg Neutrophils % Seg Neutrophils # ABG pH POC ABG pCO2 POC ABG pO2 ABG pO2 ABG Sodium ABG Potassium ABG Chloride ABG Glucose Oxyhemoglobin Carboxyhemoglobin Sodium Chloride 107.9 H Carbon Dioxide BUN 21 H Creatinine Glucose 102 H 102 H POC Glucose 109 H Calcium Total Protein 5.8 L D Albumin 3.6 L Triglycerides 161 H Cholesterol 225 H LDL Cholesterol Direct 170 H HDL Cholesterol 38 L Arterial Blood Glucose Arterial Blood Ionized Calcium 04/20/21 04/20/21 04/21/21 06:10 23:46 05:49 WBC RBC Hgb Hct [place] % (Auto) [place] # (Auto) Seg Neutrophils % Seg Neutrophils # ABG pH POC ABG pCO2 POC ABG pO2 ABG pO2 ABG Sodium ABG Potassium ABG Chloride ABG Glucose Oxyhemoglobin Carboxyhemoglobin Sodium Chloride Carbon Dioxide BUN Creatinine Glucose POC Glucose 127 H 112 H 131 H Calcium Total Protein Albumin Triglycerides Cholesterol LDL Cholesterol Direct HDL Cholesterol Arterial Blood Glucose Arterial Blood Ionized Calcium 04/21/21 04/21/21 04/22/21 11:20 23:32 05:30 WBC RBC Hgb Hct [place] % (Auto) [place] # (Auto) Seg Neutrophils % Seg Neutrophils # ABG pH POC ABG pCO2 POC ABG pO2 ABG pO2 ABG Sodium ABG Potassium ABG Chloride ABG Glucose Oxyhemoglobin Carboxyhemoglobin Sodium Chloride Carbon Dioxide BUN Creatinine Glucose POC Glucose 106 H 161 H 117 H Calcium Total Protein Albumin Triglycerides Cholesterol LDL Cholesterol Direct HDL Cholesterol Arterial Blood Glucose Arterial Blood Ionized Calcium 04/22/21 04/22/21 04/22/21 12:03 12:40 23:36 WBC RBC Hgb Hct [place] % (Auto) [place] # (Auto) Seg Neutrophils % Seg Neutrophils # ABG pH POC ABG pCO2 POC ABG pO2 ABG pO2 66.3 L ABG Sodium ABG Potassium ABG Chloride ABG Glucose Oxyhemoglobin 93.2 L Carboxyhemoglobin Sodium Chloride Carbon Dioxide BUN Creatinine Glucose POC Glucose 120 H 144 H Calcium Total Protein Albumin Triglycerides Cholesterol LDL Cholesterol Direct HDL Cholesterol Arterial Blood Glucose Arterial Blood Ionized Calcium 04/23/21 04/23/21 04/23/21 04:40 05:01 13:30 WBC RBC Hgb Hct [place] % (Auto) [place] # (Auto) Seg Neutrophils % Seg Neutrophils # ABG pH 7.317 L POC ABG pCO2 48.9 H POC ABG pO2 131.3 H ABG pO2 ABG Sodium ABG Potassium ABG Chloride ABG Glucose 143 H Oxyhemoglobin Carboxyhemoglobin Sodium Chloride Carbon Dioxide BUN Creatinine 0.7 L Glucose 108 H POC Glucose 108 H Calcium Total Protein Albumin Triglycerides Cholesterol LDL Cholesterol Direct HDL Cholesterol Arterial Blood Glucose 143 H Arterial Blood Ionized Calcium 04/23/21 04/23/21 04/24/21 17:40 19:06 03:00 WBC RBC Hgb Hct [place] % (Auto) [place] # (Auto) Seg Neutrophils % Seg Neutrophils # ABG pH POC ABG pCO2 POC ABG pO2 ABG pO2 ABG Sodium ABG Potassium ABG Chloride ABG Glucose 158 H Oxyhemoglobin Carboxyhemoglobin 0.4 L Sodium 136 L Chloride Carbon Dioxide BUN Creatinine Glucose POC Glucose 126 H Calcium Total Protein Albumin Triglycerides Cholesterol LDL Cholesterol Direct HDL Cholesterol Arterial Blood Glucose 158 H Arterial Blood Ionized Calcium 4.5 L 04/24/21 04/24/21 04/24/21 06:08 06:52 11:31 WBC RBC Hgb Hct [place] % (Auto) [place] # (Auto) Seg Neutrophils % Seg Neutrophils # ABG pH POC ABG pCO2 POC ABG pO2 ABG pO2 ABG Sodium ABG Potassium ABG Chloride ABG Glucose Oxyhemoglobin Carboxyhemoglobin Sodium Chloride Carbon Dioxide BUN 25 H Creatinine Glucose 151 H POC Glucose 165 H 116 H Calcium 8.3 L Total Protein Albumin Triglycerides Cholesterol LDL Cholesterol Direct HDL Cholesterol Arterial Blood Glucose Arterial Blood Ionized Calcium 04/24/21 04/25/21 04/25/21 17:25 00:12 03:15 WBC RBC Hgb Hct [place] % (Auto) [place] # (Auto) Seg Neutrophils % Seg Neutrophils # ABG pH POC ABG pCO2 POC ABG pO2 ABG pO2 ABG Sodium ABG Potassium 4.6 H ABG Chloride 111.0 H ABG Glucose 175 H Oxyhemoglobin Carboxyhemoglobin Sodium Chloride Carbon Dioxide BUN Creatinine Glucose POC Glucose 172 H 163 H Calcium Total Protein Albumin Triglycerides Cholesterol LDL Cholesterol Direct HDL Cholesterol Arterial Blood Glucose 175 H Arterial Blood Ionized Calcium 04/25/21 04/25/21 04/25/21 05:31 10:54 11:32 WBC RBC Hgb Hct [place] % (Auto) [place] # (Auto) Seg Neutrophils % Seg Neutrophils # ABG pH POC ABG pCO2 POC ABG pO2 ABG pO2 ABG Sodium ABG Potassium ABG Chloride ABG Glucose Oxyhemoglobin Carboxyhemoglobin Sodium 146 H Chloride 111.3 H Carbon Dioxide BUN Creatinine Glucose 171 H POC Glucose 180 H 181 H Calcium Total Protein Albumin Triglycerides Cholesterol LDL Cholesterol Direct HDL Cholesterol Arterial Blood Glucose Arterial Blood Ionized Calcium 04/25/21 04/25/21 04/26/21 17:59 23:28 03:35 WBC RBC Hgb Hct [place] % (Auto) [place] # (Auto) Seg Neutrophils % Seg Neutrophils # ABG pH POC ABG pCO2 POC ABG pO2 ABG pO2 ABG Sodium 147.4 H ABG Potassium ABG Chloride 110.0 H ABG Glucose 210 H Oxyhemoglobin Carboxyhemoglobin Sodium Chloride Carbon Dioxide BUN Creatinine Glucose POC Glucose 216 H 213 H Calcium Total Protein Albumin Triglycerides Cholesterol LDL Cholesterol Direct HDL Cholesterol Arterial Blood Glucose 210 H Arterial Blood Ionized Calcium 04/26/21 04/26/21 04/26/21 05:07 07:51 11:23 WBC RBC Hgb Hct [place] % (Auto) [place] # (Auto) Seg Neutrophils % Seg Neutrophils # ABG pH POC ABG pCO2 POC ABG pO2 ABG pO2 ABG Sodium ABG Potassium ABG Chloride ABG Glucose Oxyhemoglobin Carboxyhemoglobin Sodium 149 H Chloride 109.4 H Carbon Dioxide BUN Creatinine Glucose 238 H POC Glucose 223 H 240 H Calcium Total Protein Albumin Triglycerides Cholesterol LDL Cholesterol Direct HDL Cholesterol Arterial Blood Glucose Arterial Blood Ionized Calcium 04/26/21 04/26/21 04/27/21 17:16 23:32 00:13 WBC RBC Hgb Hct [place] % (Auto) [place] # (Auto) Seg Neutrophils % Seg Neutrophils # ABG pH POC ABG pCO2 POC ABG pO2 ABG pO2 ABG Sodium ABG Potassium ABG Chloride ABG Glucose Oxyhemoglobin Carboxyhemoglobin Sodium 149 H Chloride 113.7 H Carbon Dioxide BUN 21 H Creatinine Glucose 226 H POC Glucose 205 H 195 H Calcium Total Protein Albumin Triglycerides Cholesterol LDL Cholesterol Direct HDL Cholesterol Arterial Blood Glucose Arterial Blood Ionized Calcium 04/27/21 04:58 WBC RBC Hgb Hct [place] % (Auto) [place] # (Auto) Seg Neutrophils % Seg Neutrophils # ABG pH POC ABG pCO2 POC ABG pO2 ABG pO2 ABG Sodium ABG Potassium ABG Chloride ABG Glucose Oxyhemoglobin Carboxyhemoglobin Sodium Chloride Carbon Dioxide BUN Creatinine Glucose POC Glucose 208 H Calcium Total Protein Albumin Triglycerides Cholesterol LDL Cholesterol Direct HDL Cholesterol Arterial Blood Glucose Arterial Blood Ionized Calcium Allied health notes reviewed: nursing
--- NOTE | 2021-04-27 15:04 | Progress Note ---
Assessment and Plan Assessment and plan: This is a 48-year-old male with HTN, CVA admitted with large left hemispheric evolving CVA, SIRS, acute kidney injury, metabolic acidosis and acute metabolic encephalopathy A/P: Neuro: Large evolving left MCA infarct with edema/mass-effect, large acute left MCA distribution CVA, occluded left M1 segment, acute metabolic encephalopathy polysubstance abuse (ongoing nicotine and EtOH abuse) -Neurology, neurosurgery consulted, appreciate recommendations -Keppra twice daily -Sansca x1 with goal sodium of greater than 145 per nephro -HOB greater than 30 degrees at all times -Maintain normotensive, normothermia -04/17 CT head shows possible acute infarct -04/17 CTA head/neck shows occluded left M1 segment with very poor collateral circulation/greater than 50% stenosis on the right side, more than 60% stenosis on the left side in both internal carotid arteries, small ulcer in the left carotid plaque -04/17 bilateral carotid ultrasound shows right internal carotid artery 50 to 69% diameter stenosis, left internal carotid artery 50 to 69% diameter stenosis -04/17 CT head shows nonhemorrhagic ischemic changes extending into the posterior temporal lobe and inferior parietal lobule on the left side, no mass- effect -04/18 MRI brain shows large left MCA distribution infarction without hemorrhagic conversion or herniation -04/22 CT head shows evolutionary changes of the large left MCA infarct from 04/17/2021 with developing edema and mass-effect with midline shift with no clear CT evidence of hemorrhagic transformation -04/23 CT head shows increasing mass-effect associated with patient's large left MCA infarct -04/23 MRI brain shows left middle cerebral artery territory infarction has not progressed however mass-effect over the left lateral ventricle has increased significantly resulting in [id number] midline shift of 9 mm at the level of foramen of Monro, no hemorrhagic changes in the left MCA infarction -Intubated for GCS of less than 8 -Sedated with propofol and Fentanyl, RASS goal of 0 to -1 -Patient moved LLE to painful stimuli Cardio: Hypertensive emergency, hyperlipidemia, H/O HTN -Resume antihypertensives -Hydralazine as needed -Blood pressure monitoring per protocol Respiratory: Acute hypoxic respiratory failure -S/p BiPAP -Intubated 04/23 for airway protection -Serial ABGs - ABG 7.4 / on 50% -Mechanical ventilation settings as follows tidal volume 500, rate of 20, PEEP of 6 and 60% FiO2 -VAP bundle -Daily SBT and SAT as tolerated Patient was extubated today on 04/27 per family wishes GI: Tube feedings, obesity -Bowel regimen Senokot -Accu-Cheks every 6, SSI -Avoid hypoglycemia -PPI : Acute metabolic encephalopathy, THAI (resolved) -Strict intake and output -Avoid nephrotoxic medications -Daily weights -Renally dose medications -Trend BMP -Serial Na ID: SIRS, febrile -Met SIRS criteria on presentation -Patient is now febrile, per [facility] use ice packs until temperature greater than 103 Heme: NAD -Transfuse for hemoglobin less than 7 -Trend CBC -SCDs to bilateral actions while in bed -Heparin subq Endo: Hyperglycemia -Accu-Checks every 6, SSI, long-acting insulin -Avoid hypoglycemia CODE STATUS: DNR The high probability of a clinically significant, sudden or life threatening deterioration of the [neuro, respiratory, pulmonary, metabolic ,renal] system(s) required my full and direct attention, intervention and personal management. The aggregate critical care time was [60] minutes. This time is in addition to time spent performing reported procedures but includes the following: [x] Data Review and interpretation [x] Patient assessment and monitoring of vital signs [x] Documentation [x] Medication orders and management History Interval history: This is a 50 YO Male with HTN, CVA who presented to [facility] on on 04/17 after being found lying on his kitchen floor with decreased responsiveness per ED staff. A code stroke was called in the emergency room. Patient was found to have a neurologic deficit and initiated on stroke protocol. Patient underwent CT scan of the brain and was found to have a large left hemispheric CVA and repeat imaging study with CTA brain revealed an enlarging focal ischemic CVA with high risk for hemorrhagic conversion. The patient was also found to have SIRs, THAI, with metabolic acidosis, and encephalopathy. Patient was admitted to ICU due to increased risk of worsening symptoms. Tele neurology team consulted in ED. Neurology team also consulted. 04/19/21: Altered sensorium, Confused 04/20/2021: Altered sensorium, Confused 04/21/2021: Altered sensorium confused, Not moving the right upper and lower extremities 04/22/2021: Patient's blood pressures are uncontrolled, hypertensive urgency: Hydralazine, nifedipine, Cardene drip if needed. Patient is unresponsive, acute large CVA. PT OT and rehab 04/23/2021: Follow-up CT findings noted, discussed with neurosurgeon, chipper machine operator, I also discussed with patient's son, regarding the goals of treatment. Neurosurgeon recommended intubation and went mechanical ventilation. 04/24: MRI obtained last evening shows shift, RN overnight contacted neuro surgery/ unknown if called returned and nsgy informed. Family at bedside. Goals of care being discussed among family. Na <145, 3% saline ordered along with serial Na. Nephrology aware. Patient has been febrile. Per [facility] icepacks for now for cooling 04/25: Nephro started Samsca and d/c 3%NS and had signed off. Hospice consult placed to aid in goals of care. 04/26: Patient noted to be hyperglycemic, Lantus increased. Family at bedside. CODE STATUS changed to allow natural , de-escalation of care paperwork signed. Family requesting for de-escalation to happen tomorrow. Patient's family will call. 04/27: Bedside counseling proved again today. [facility] ruled out pt for donation given he does not meet criteria. Family at bedside for deceleration of care. End-of-life orders placed Hospitalist Physical - Constitutional Vitals: Temp Pulse Resp BP Pulse Ox 102.6 F H 142 H 42 H 163/83 80 L 04/27/21 03:50 04/27/21 12:00 04/27/21 12:00 04/27/21 12:00 04/27/21 12:00 General appearance: Present: no acute distress, well-nourished, other (resting on MV) - EENT Eyes: Present: PERRL ENT: clear oral mucosa - Neck Neck: Absent: masses or JVD, cervical LAD - Respiratory Respiratory effort: normal Respiratory: bilateral: CTA, diminished - Cardiovascular Rhythm: regular - Extremities Extremities: no ischemia, pulses intact, pulses symmetrical Peripheral Pulses: within normal limits - Abdominal General gastrointestinal: soft - Integumentary Integumentary: Present: warm, dry - Psychiatric Psychiatric: other - Neurologic Neurologic: other (Intact reflexes, does not follow commands, does not open eyes to verbal or tactile stimuli) - Allied Health Allied health notes reviewed: nursing, RT, social work Results - Labs CBC & Chem 7: 04/19/21 06:21 04/27/21 00:13 Labs: Laboratory Last Values WBC 9.1 K/mm3 (4.5-11.0) 04/19/21 06:21 RBC 4.76 M/mm3 (3.65-5.03) 04/19/21 06:21 Hgb 14.7 gm/dl (11.8-15.2) 04/19/21 06:21 Hct 43.2 % (35.5-45.6) D 04/19/21 06:21 MCV 91 fl (84-94) 04/19/21 06:21 MCH 31 pg (28-32) 04/19/21 06:21 MCHC 34 % (32-34) 04/19/21 06:21 RDW 14.9 % (13.2-15.2) 04/19/21 06:21 Plt Count 185 K/mm3 (140-440) 04/19/21 06:21 Lymph % (Auto) 20.2 % (13.4-35.0) 04/19/21 06:21 [place] % (Auto) 10.0 % (0.0-7.3) H 04/19/21 06:21 Eos % (Auto) 2.9 % (0.0-4.3) 04/19/21 06:21 Baso % (Auto) 0.7 % (0.0-1.8) 04/19/21 06:21 Lymph # (Auto) 1.8 K/mm3 (1.2-5.4) 04/19/21 06:21 [place] # (Auto) 0.9 K/mm3 (0.0-0.8) H 04/19/21 06:21 Eos # (Auto) 0.3 K/mm3 (0.0-0.4) 04/19/21 06:21 Baso # (Auto) 0.1 K/mm3 (0.0-0.1) 04/19/21 06:21 Seg Neutrophils % 66.2 % (40.0-70.0) 04/19/21 06:21 Seg Neutrophils # 6.0 K/mm3 (1.8-7.7) 04/19/21 06:21 ABG pH 7.445 (7.320-7.450) 04/26/21 03:35 POC ABG pCO2 40.7 mmHg (32.0-48.0) 04/26/21 03:35 ABG pCO2 36.4 mm Hg 04/22/21 12:40 POC ABG pO2 87.2 mmHg (83-108) 04/26/21 03:35 ABG pO2 66.3 mm Hg (80.0-90.0) L 04/22/21 12:40 POC ABG HCO3 27.3 04/26/21 03:35 ABG HCO3 24.1 mmol/L (20.0-26.0) 04/22/21 12:40 ABG O2 Saturation 97.6 (0-100) 04/26/21 03:35 ABG O2 Content 19.2 (0.0-44) 04/22/21 12:40 POC ABG Base Excess 3.0 04/26/21 03:35 ABG Base Excess 0.4 mmol/L (-2.0-3.0) 04/22/21 12:40 ABG Hemoglobin 14.1 (12.0-17.5) 04/26/21 03:35 ABG Oxyhemoglobin 96.9 (94-98) 04/26/21 03:35 ABG Carboxyhemoglobin 1.4 % (0.0-5.0) 04/22/21 12:40 ABG Methemoglobin 0.1 (0.0-1.5) 04/26/21 03:35 ABG Sodium 147.4 mmol/L (136.0-145.0) H 04/26/21 03:35 ABG Potassium 4.2 mmol/L (3.40-4.50) 04/26/21 03:35 ABG Chloride 110.0 mmol/L (98-107) H 04/26/21 03:35 ABG Glucose 210 mg/dL (65-95) H 04/26/21 03:35 Oxyhemoglobin 93.2 % (95.0-99.0) L 04/22/21 12:40 Carboxyhemoglobin 0.6 (0.5-1.5) 04/26/21 03:35 FiO2 21 % 04/22/21 12:40 FiO2 % 50.0 04/26/21 03:35 Sodium 149 mmol/L (137-145) H 04/27/21 00:13 Potassium 4.3 mmol/L (3.6-5.0) 04/27/21 00:13 Chloride 113.7 mmol/L (98-107) H 04/27/21 00:13 Carbon Dioxide 28 mmol/L (22-30) 04/27/21 00:13 Anion Gap 12 mmol/L 04/27/21 00:13 BUN 21 mg/dL (9-20) H 04/27/21 00:13 Creatinine 1.0 mg/dL (0.8-1.3) 04/27/21 00:13 Estimated GFR > 60 ml/min 04/27/21 00:13 BUN/Creatinine Ratio 21 % 04/27/21 00:13 Glucose 226 mg/dL (75-100) H 04/27/21 00:13 POC Glucose 208 mg/dL (70-105) H 04/27/21 04:58 Lactic Acid 1.80 mmol/L (0.7-2.0) 04/17/21 15:55 Calcium 8.6 mg/dL (8.4-10.2) 04/27/21 00:13 Phosphorus 2.60 mg/dL (2.5-4.5) 04/19/21 06:21 Magnesium 2.10 mg/dL (1.7-2.3) 04/23/21 04:40 Total Bilirubin 0.40 mg/dL (0.1-1.2) 04/19/21 06:21 AST 17 units/L (5-40) 04/19/21 06:21 ALT 16 units/L (7-56) 04/19/21 06:21 Alkaline Phosphatase 78 units/L (35-129) 04/19/21 06:21 Total Protein 5.8 g/dL (6.3-8.2) L D 04/19/21 06:21 Albumin 3.6 g/dL (3.9-5) L 04/19/21 06:21 Albumin/Globulin Ratio 1.6 % 04/19/21 06:21 Triglycerides 161 mg/dL (2-149) H 04/19/21 06:21 Cholesterol 225 mg/dL (50-199) H 04/19/21 06:21 LDL Cholesterol Direct 170 mg/dL (50-130) H 04/19/21 06:21 HDL Cholesterol 38 mg/dL (40-59) L 04/19/21 06:21 Cholesterol/HDL Ratio 5.92 % 04/19/21 06:21 Arterial Blood Glucose 210 mg/dL (65-95) H 04/26/21 03:35 Arterial Blood Ionized Calcium 4.7 mg/dL (4.6-5.3) 04/26/21 03:35 Urine Color Yellow (Yellow) 04/17/21 Unknown Urine Turbidity Hazy (Clear) 04/17/21 Unknown Urine pH 5.0 (5.0-7.0) 04/17/21 Unknown Ur Specific [place] 1.023 (1.003-1.030) 04/17/21 Unknown Urine Protein 30 mg/dl mg/dL (Negative) 04/17/21 Unknown Urine Glucose (UA) Neg mg/dL (Negative) 04/17/21 Unknown Urine Ketones Neg mg/dL (Negative) 04/17/21 Unknown Urine Blood Sm (Negative) 04/17/21 Unknown Urine Nitrite Neg (Negative) 04/17/21 Unknown Urine Bilirubin Neg (Negative) 04/17/21 Unknown Urine Urobilinogen < 2.0 mg/dL (<2.0) 04/17/21 Unknown Ur Leukocyte Esterase Neg (Negative) 04/17/21 Unknown Urine WBC (Auto) 2.0 /HPF (0.0-6.0) 04/17/21 Unknown Urine RBC (Auto) 2.0 /HPF (0.0-6.0) 04/17/21 Unknown U Epithel Cells (Auto) < 1.0 /HPF (0-13.0) 04/17/21 Unknown Hyaline Casts 11 /LPF 04/17/21 Unknown Urine Mucus 1+ /HPF 04/17/21 Unknown Urine Sodium 170 mmol/L 04/25/21 08:40 Urine Opiates Screen Negative 04/17/21 Unknown Urine Methadone Screen Negative 04/17/21 Unknown Ur Barbiturates Screen Negative 04/17/21 Unknown Ur Phencyclidine Scrn Negative 04/17/21 Unknown Ur Amphetamines Screen Negative 04/17/21 Unknown U Benzodiazepines Scrn Negative 04/17/21 Unknown Urine Cocaine Screen Negative 04/17/21 Unknown U Marijuana (THC) Screen Negative 04/17/21 Unknown Drugs of Abuse Note Disclamer 04/17/21 Unknown Plasma/Serum Alcohol < 0.01 % (0-0.07) 04/17/21 15:55 Coronavirus (PCR) Negative (Negative) 04/22/21 Unknown Pérez/IV: Voiding Method Condom Catheter Active Medications - Current Medications Current Medications: Generic Name Dose Route Start Last Admin Trade Name Freq PRN Reason Stop Dose Admin Albuterol 2.5 mg 04/25/21 13:23 Albuterol 2.5 Mg/3 Ml Nebu IH Q4HRT PRN Wheezing Lipase/Protease/Amylase 1 each 04/18/21 13:56 Lipase 10,500/Protease 25,000/Amylase 43,750 (Units) Dr Metzger FEEDTUBE PRN PRN For Clogged Feeding Tube Dextrose 50 ml 04/24/21 09:26 Dextrose 50% In Water (25gm) 50 Ml Syringe IV Q30MIN PRN Hypoglycemia Protocol Famotidine 20 mg 04/23/21 22:00 04/27/21 10:05 Famotidine 20 Mg/2 Ml Inj IV 20 mg BID JUDY Administration Glycopyrrolate 0.2 mg 04/27/21 11:30 04/27/21 11:36 Glycopyrrolate 0.4 Mg/2 Ml Inj IV 0.2 mg Q4H PRN Administration Secretions Heparin Sodium (Porcine) 5,000 unit 04/19/21 22:00 04/27/21 10:05 Heparin 5,000 Unit/1 Ml Vial SUB-Q 5,000 unit Q12HR JUDY Administration Hydrophilic Ointment 1 applic 04/23/21 11:54 Lip Therapy Vaseline TP Q2HR PRN Dry Lips Propofol 1,000 mg in 100 mls @ 2.721 mls/hr 04/23/21 13:00 04/27/21 09:35 Diprivan 10 Mg/Ml IV 0 mcg/kg/min TITR JUDY 0 mls/hr Titration Protocol 5 MCG/KG/MIN Levetiracetam 500 mg/ Dextrose 105 mls @ 400 mls/hr 04/23/21 22:00 04/27/21 10:05 IV 400 mls/hr Q12HR JUDY Administration Insulin Human Regular 0 units 04/24/21 12:00 04/27/21 05:51 Insulin Regular, Human 100 Units/1 Ml SUB-Q 4 units Q6H JUDY Administration Protocol Lorazepam 2 mg 04/27/21 11:30 04/27/21 14:01 Lorazepam 2 Mg/Ml Vial IV 2 mg Q1H PRN Administration anxiety/insomnia Morphine Sulfate 2 mg 08/01/21 11:30 04/27/21 14:34 Morphine 2 Mg/1 Ml Inj IV 2 mg Q1H PRN Administration mod pain or comfort measures Morphine Sulfate 2 mg 04/27/21 11:30 Morphine 2 Mg/1 Ml Inj IV Q30MIN PRN Dyspnea Multi-Ingred Cream/Lotion/Oil/Oint 1 applic 04/23/21 11:54 Mineral Oil/Petrolatum, White Ophth Oint 3.5 Gm OU Q4HR PRN Dry Eye(s) Senna/Docusate Sodium 1 tab 04/23/21 22:00 04/26/21 21:36 Sennosides/Docusate Sodium 8.6/50 Mg Tab FEEDTUBE 1 tab BID JUDY Administration Simple Syrup 30 ml 04/18/21 13:56 Simple Syrup 15 Ml FEEDTUBE PRN PRN Hypoglycemia Simple Syrup 15 ml 04/26/21 11:08 Simple Syrup 15 Ml FEEDTUBE PRN PRN Hypoglycemia Sodium Bicarbonate 325 mg 04/26/21 10:57 Sodium Bicarbonate 325 Mg Tab FEEDTUBE PRN PRN For Clogged Feeding Tube Sodium Chloride 2 gm 04/24/21 10:00 04/27/21 10:05 Sodium Chloride 1 Gm Tab PO 2 gm QID JUDY Administration Nutrition/Malnutrition Assess - Dietary Evaluation Nutrition/Malnutrition Findings: Nutrition Notes Start: 04/18/21 1 3:50 Freq: Status: Active Protocol: Document 04/26/21 11:53 CW (Rec: 04/26/21 11:55 CW [id number]) Nutrition Notes Need for Assessment generated from: MD Order Initial or Follow up Brief Note Current Diet Vital HP at 65 ml/hr Labs/Tests Na 149 Subjective/Other Information MD increased flush to 75 ml q5h from 50 ml q4h d/t hypernatremia. Nutrition Intervention Change Diet Order: continue Nutrition Support: Vital HP at 65 ml/hr Flush 75 q4h for hypernatremia . Once resolved, resume flush of 50 ml q4h Kcal 1,560 Protein (gm) 137 Fluid (mL) 1,304 Goal #1 Meet at least 75% of protein and energy needs via TF Anticipated Discharge Needs: Unable to determine at this time Follow-Up By: 04/29/21 Additional Comments F/U for stable TF and Na levels
[2021-04-27] MEDS: SENNOSIDES/DOCUSATE SODIUM 8.6/50 MG TAB FEEDTUBE SCH ×2 (15:49→21:07)
[2021-04-28] MEDS: MORPHINE 2 MG/1 ML INJ IV PRN ×9 (00:18→12:45)
[2021-04-28] MEDS: INSULIN REGULAR, HUMAN 100 UNITS/1 ML SUB-Q SCH ×3 (00:24→13:49)
[2021-04-28] MEDS: LORazepam 2 MG/ML VIAL IV PRN ×9 (00:44→12:45)
[2021-04-28] MEDS: GLYCOPYRROLATE 0.4 MG/2 ML INJ IV PRN ×3 (02:17→08:43)
[2021-04-28] MEDS: FAMOTIDINE 20 MG/2 ML INJ IV SCH (10:01)
[2021-04-28] MEDS: SENNOSIDES/DOCUSATE SODIUM 8.6/50 MG TAB FEEDTUBE SCH (10:01)
[2021-04-28] MEDS: SODIUM CHLORIDE 1 GM TAB PO SCH (10:01)
[2021-04-28] MEDS: HEPARIN 5,000 UNIT/1 ML VIAL SUB-Q SCH (10:02)
[2021-04-28] MEDS: levETIRAcetam 500 MG in DEXTROSE 5% IN WATER 100 ML IV SCH (10:02)
--- NOTE | 2021-04-28 11:12 | Progress Note ---
Assessment and Plan Acute cerebrovascular accident with mass effect now Acute toxic metabolic encephalopathy LILO Acute Hypoxemic respiratory failure Acute kidney injuryMild metabolic acidosis Leukocytosis Obesity - to transfer to hospice care tentatively - continue care as below otherwise; - wean supplemental oxygen for target O2 sat's > 90% acutely - aspiration precautions - continue accuchecks with glycemic control per SSI (While critically ill target blood glucose of 140-180 mg/dL; avoid hypoglycemia) - avoid nephrotoxins, renally dose all medications - prn analgesia per CPOT score - Maintenance of sleep-wake cycle, avoid delirium - G.I. & VTE prophylaxis - PT/OT/ROM exercises - continue mobility protocols for pressure ulcer prophylaxis - Monitor hemodynamics closely - continue other care per attending / other consultants - discharge planning ongoing concurrently .... Re-evaluate in am & prn Subjective Date of service: 04/28/21 Principal diagnosis: Ac CVA; Ac encephalopathy; LILO; Acute Hypoxemic resp failure; THAI Interval history: Patient is seen today for: Acute cerebrovascular accident; Acute toxic metabolic encephalopathy; LILO; Acute Hypoxemic respiratory failure; THAI; Obesity Seen and examined at bedside; 24hour events reviewed; nursing and respiratory care staff consulted; no adverse overnight events reported to me; resting in bed; extubated; to tentatively transfer to home hospice care today; no emesis or overt aspiration; AMS is persistent Objective Vital Signs - 12hr 04/28/21 04/28/21 04/28/21 00:00 01:00 02:00 Temperature 103.9 F H Pulse Rate 145 H 141 H 138 H Respiratory 52 H 52 H 52 H Rate Blood Pressure 185/95 154/91 141/84 O2 Sat by Pulse 79 L 79 L 77 L Oximetry 04/28/21 04/28/21 04/28/21 03:00 04:00 05:00 Temperature 103.2 F H Pulse Rate 133 H 134 H 131 H Respiratory 52 H 50 H 53 H Rate Blood Pressure 128/75 142/76 127/77 O2 Sat by Pulse 78 L 80 L 80 L Oximetry 04/28/21 04/28/21 06:00 07:00 Temperature 102.6 F H Pulse Rate 130 H 128 H Respiratory 51 H 51 H Rate Blood Pressure 150/87 172/91 O2 Sat by Pulse 81 L 83 L Oximetry Constitutional: appears uncomfortable, other (middle aged male resting in bed with mildly increased respiratory effort at rest) Eyes: non-icteric ENT: oropharynx moist, oropharyngeal exudate pre, other (extubated) Neck: supple, no lymphadenopathy, no JVD, other (large circumference) Effort: mildly labored Ascultation: Bilateral: diminished breath sounds, rhonchi (scant), other (referred upper airway sounds ) Percussion: Bilateral: not dull Cardiovascular: regular rate and rhythm Gastrointestinal: normoactive bowel sounds, soft, non-tender, non-distended Integumentary: normal Extremities: no cyanosis, no edema, pink and warm, pulses normal Neurologic: pupils equal and round, other (left hemiparesis) Psychiatric: other (unable to assess) CBC and BMP: 04/19/21 06:21 04/27/21 00:13 ABG, PT/INR, D-dimer: ABG ABG pH 7.445 (7.320-7.450) 04/26/21 03:35 POC ABG pCO2 40.7 mmHg (32.0-48.0) 04/26/21 03:35 ABG pCO2 36.4 mm Hg 04/22/21 12:40 POC ABG pO2 87.2 mmHg (83-108) 04/26/21 03:35 ABG pO2 66.3 mm Hg (80.0-90.0) L 04/22/21 12:40 POC ABG HCO3 27.3 04/26/21 03:35 ABG O2 Saturation 97.6 (0-100) 04/26/21 03:35 Abnormal lab findings: Abnormal Labs 04/17/21 04/17/21 04/19/21 15:55 15:55 06:21 WBC 13.4 H RBC 5.81 H Hgb 17.2 H Hct 51.2 H Kay % (Auto) 8.1 H 10.0 H Kay # (Auto) 1.1 H 0.9 H Seg Neutrophils % 73.0 H Seg Neutrophils # 9.8 H ABG pH POC ABG pCO2 POC ABG pO2 ABG pO2 ABG Sodium ABG Potassium ABG Chloride ABG Glucose Oxyhemoglobin Carboxyhemoglobin Sodium Chloride Carbon Dioxide 20 L BUN 25 H Creatinine 1.5 H Glucose 138 H POC Glucose Calcium Total Protein Albumin Triglycerides Cholesterol LDL Cholesterol Direct HDL Cholesterol Arterial Blood Glucose Arterial Blood Ionized Calcium 07/24/21 07/24/21 07/24/21 06:21 06:21 23:08 WBC RBC Hgb Hct Kay % (Auto) Kay # (Auto) Seg Neutrophils % Seg Neutrophils # ABG pH POC ABG pCO2 POC ABG pO2 ABG pO2 ABG Sodium ABG Potassium ABG Chloride ABG Glucose Oxyhemoglobin Carboxyhemoglobin Sodium Chloride 107.9 H Carbon Dioxide BUN 21 H Creatinine Glucose 102 H 102 H POC Glucose 109 H Calcium Total Protein 5.8 L D Albumin 3.6 L Triglycerides 161 H Cholesterol 225 H LDL Cholesterol Direct 170 H HDL Cholesterol 38 L Arterial Blood Glucose Arterial Blood Ionized Calcium 04/20/21 04/20/21 04/21/21 06:10 23:46 05:49 WBC RBC Hgb Hct Kay % (Auto) Kay # (Auto) Seg Neutrophils % Seg Neutrophils # ABG pH POC ABG pCO2 POC ABG pO2 ABG pO2 ABG Sodium ABG Potassium ABG Chloride ABG Glucose Oxyhemoglobin Carboxyhemoglobin Sodium Chloride Carbon Dioxide BUN Creatinine Glucose POC Glucose 127 H 112 H 131 H Calcium Total Protein Albumin Triglycerides Cholesterol LDL Cholesterol Direct HDL Cholesterol Arterial Blood Glucose Arterial Blood Ionized Calcium 04/21/21 04/21/21 04/22/21 11:20 23:32 05:30 WBC RBC Hgb Hct Kay % (Auto) Kay # (Auto) Seg Neutrophils % Seg Neutrophils # ABG pH POC ABG pCO2 POC ABG pO2 ABG pO2 ABG Sodium ABG Potassium ABG Chloride ABG Glucose Oxyhemoglobin Carboxyhemoglobin Sodium Chloride Carbon Dioxide BUN Creatinine Glucose POC Glucose 106 H 161 H 117 H Calcium Total Protein Albumin Triglycerides Cholesterol LDL Cholesterol Direct HDL Cholesterol Arterial Blood Glucose Arterial Blood Ionized Calcium 04/22/21 04/22/21 04/22/21 12:03 12:40 23:36 WBC RBC Hgb Hct Kay % (Auto) Kay # (Auto) Seg Neutrophils % Seg Neutrophils # ABG pH POC ABG pCO2 POC ABG pO2 ABG pO2 66.3 L ABG Sodium ABG Potassium ABG Chloride ABG Glucose Oxyhemoglobin 93.2 L Carboxyhemoglobin Sodium Chloride Carbon Dioxide BUN Creatinine Glucose POC Glucose 120 H 144 H Calcium Total Protein Albumin Triglycerides Cholesterol LDL Cholesterol Direct HDL Cholesterol Arterial Blood Glucose Arterial Blood Ionized Calcium 04/23/21 04/23/21 04/23/21 04:40 05:01 13:30 WBC RBC Hgb Hct Kay % (Auto) Kay # (Auto) Seg Neutrophils % Seg Neutrophils # ABG pH 7.317 L POC ABG pCO2 48.9 H POC ABG pO2 131.3 H ABG pO2 ABG Sodium ABG Potassium ABG Chloride ABG Glucose 143 H Oxyhemoglobin Carboxyhemoglobin Sodium Chloride Carbon Dioxide BUN Creatinine 0.7 L Glucose 108 H POC Glucose 108 H Calcium Total Protein Albumin Triglycerides Cholesterol LDL Cholesterol Direct HDL Cholesterol Arterial Blood Glucose 143 H Arterial Blood Ionized Calcium 04/23/21 04/23/21 04/24/21 17:40 19:06 03:00 WBC RBC Hgb Hct Kay % (Auto) Kay # (Auto) Seg Neutrophils % Seg Neutrophils # ABG pH POC ABG pCO2 POC ABG pO2 ABG pO2 ABG Sodium ABG Potassium ABG Chloride ABG Glucose 158 H Oxyhemoglobin Carboxyhemoglobin 0.4 L Sodium 136 L Chloride Carbon Dioxide BUN Creatinine Glucose POC Glucose 126 H Calcium Total Protein Albumin Triglycerides Cholesterol LDL Cholesterol Direct HDL Cholesterol Arterial Blood Glucose 158 H Arterial Blood Ionized Calcium 4.5 L 04/24/21 04/24/21 04/24/21 06:08 06:52 11:31 WBC RBC Hgb Hct Kay % (Auto) Kay # (Auto) Seg Neutrophils % Seg Neutrophils # ABG pH POC ABG pCO2 POC ABG pO2 ABG pO2 ABG Sodium ABG Potassium ABG Chloride ABG Glucose Oxyhemoglobin Carboxyhemoglobin Sodium Chloride Carbon Dioxide BUN 25 H Creatinine Glucose 151 H POC Glucose 165 H 116 H Calcium 8.3 L Total Protein Albumin Triglycerides Cholesterol LDL Cholesterol Direct HDL Cholesterol Arterial Blood Glucose Arterial Blood Ionized Calcium 04/24/21 04/25/21 04/25/21 17:25 00:12 03:15 WBC RBC Hgb Hct Kay % (Auto) Kay # (Auto) Seg Neutrophils % Seg Neutrophils # ABG pH POC ABG pCO2 POC ABG pO2 ABG pO2 ABG Sodium ABG Potassium 4.6 H ABG Chloride 111.0 H ABG Glucose 175 H Oxyhemoglobin Carboxyhemoglobin Sodium Chloride Carbon Dioxide BUN Creatinine Glucose POC Glucose 172 H 163 H Calcium Total Protein Albumin Triglycerides Cholesterol LDL Cholesterol Direct HDL Cholesterol Arterial Blood Glucose 175 H Arterial Blood Ionized Calcium 04/25/21 04/25/21 04/25/21 05:31 10:54 11:32 WBC RBC Hgb Hct Kay % (Auto) Kay # (Auto) Seg Neutrophils % Seg Neutrophils # ABG pH POC ABG pCO2 POC ABG pO2 ABG pO2 ABG Sodium ABG Potassium ABG Chloride ABG Glucose Oxyhemoglobin Carboxyhemoglobin Sodium 146 H Chloride 111.3 H Carbon Dioxide BUN Creatinine Glucose 171 H POC Glucose 180 H 181 H Calcium Total Protein Albumin Triglycerides Cholesterol LDL Cholesterol Direct HDL Cholesterol Arterial Blood Glucose Arterial Blood Ionized Calcium 04/25/21 04/25/21 04/26/21 17:59 23:28 03:35 WBC RBC Hgb Hct Kay % (Auto) Kay # (Auto) Seg Neutrophils % Seg Neutrophils # ABG pH POC ABG pCO2 POC ABG pO2 ABG pO2 ABG Sodium 147.4 H ABG Potassium ABG Chloride 110.0 H ABG Glucose 210 H Oxyhemoglobin Carboxyhemoglobin Sodium Chloride Carbon Dioxide BUN Creatinine Glucose POC Glucose 216 H 213 H Calcium Total Protein Albumin Triglycerides Cholesterol LDL Cholesterol Direct HDL Cholesterol Arterial Blood Glucose 210 H Arterial Blood Ionized Calcium 04/26/21 04/26/21 04/26/21 05:07 07:51 11:23 WBC RBC Hgb Hct Kay % (Auto) Kay # (Auto) Seg Neutrophils % Seg Neutrophils # ABG pH POC ABG pCO2 POC ABG pO2 ABG pO2 ABG Sodium ABG Potassium ABG Chloride ABG Glucose Oxyhemoglobin Carboxyhemoglobin Sodium 149 H Chloride 109.4 H Carbon Dioxide BUN Creatinine Glucose 238 H POC Glucose 223 H 240 H Calcium Total Protein Albumin Triglycerides Cholesterol LDL Cholesterol Direct HDL Cholesterol Arterial Blood Glucose Arterial Blood Ionized Calcium 04/26/21 04/26/21 04/27/21 17:16 23:32 00:13 WBC RBC Hgb Hct Kay % (Auto) Kay # (Auto) Seg Neutrophils % Seg Neutrophils # ABG pH POC ABG pCO2 POC ABG pO2 ABG pO2 ABG Sodium ABG Potassium ABG Chloride ABG Glucose Oxyhemoglobin Carboxyhemoglobin Sodium 149 H Chloride 113.7 H Carbon Dioxide BUN 21 H Creatinine Glucose 226 H POC Glucose 205 H 195 H Calcium Total Protein Albumin Triglycerides Cholesterol LDL Cholesterol Direct HDL Cholesterol Arterial Blood Glucose Arterial Blood Ionized Calcium 04/27/21 04:58 WBC RBC Hgb Hct Kay % (Auto) Kay # (Auto) Seg Neutrophils % Seg Neutrophils # ABG pH POC ABG pCO2 POC ABG pO2 ABG pO2 ABG Sodium ABG Potassium ABG Chloride ABG Glucose Oxyhemoglobin Carboxyhemoglobin Sodium Chloride Carbon Dioxide BUN Creatinine Glucose POC Glucose 208 H Calcium Total Protein Albumin Triglycerides Cholesterol LDL Cholesterol Direct HDL Cholesterol Arterial Blood Glucose Arterial Blood Ionized Calcium Allied health notes reviewed: nursing
--- NOTE | 2021-04-28 12:45 | Discharge Summary ---
Providers - Providers Date of Admission: 04/17/21 18:30 Date of discharge: 04/28/21 Attending physician: OSCAR AZUL MD 04/17/21 18:30 Physical Therapy Evaluation and Treat [CONS] Routine Comment: Reason For Exam: Neuro deficits 04/17/21 20:43 Consult to Physician [CONS] Routine Comment: Consulting Provider: SHAVON PURDY Physician Instructions: Reason For Exam: enlarging Ischemic CVA 04/18/21 13:31 Consult to Dietitian/Nutrition [CONS] Stat Physician Instructions: Reason For Exam: Reason for Consult: Write/Manage Tube Feeding 04/21/21 15:10 Consult to Physician [CONS] Routine Comment: Consulting Provider: HEATHER ANDINO Physician Instructions: Reason For Exam: Acute CVA 04/22/21 07:33 Consult to Physician [CONS] Routine Comment: Consulting Provider: CRIS HENDRICKSON Physician Instructions: Reason For Exam: Acute CVA 04/23/21 10:02 Consult to Physician [CONS] Stat Comment: Consulting Provider: LIGIA ALVARADO II Physician Instructions: Reason For Exam: Large CVA/edema brain/mass-effect 04/23/21 11:54 Consult to Dietitian/Nutrition [CONS] Routine Physician Instructions: Reason For Exam: Reason for Consult: Evaluate nutritional intake 04/23/21 15:53 Consult to Physician [CONS] Routine Comment: Consulting Provider: BELLE SHARP Physician Instructions: Reason For Exam: Cerebral edema/CVA mass-effect/to maintain Na >145 04/26/21 10:57 Consult to Dietitian/Nutrition [CONS] Routine Physician Instructions: Assess nutrtn needs, initiate, modify, manage TF Reason For Exam: Reason for Consult: Write/Manage Tube Feeding Reason for Consult: Write/Manage Tube Feeding 04/28/21 11:35 Consult to Case Management [CONS] Routine Services Needed at Discharge: Other Additional Physician Instructions: admit to home hospice. 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 Hospitalization Reason for admission: Encephalopathy Condition: Critical Hospital course: Assessment and plan: This is a 48-year-old male with HTN, CVA admitted with large left hemispheric evolving CVA, SIRS, acute kidney injury, metabolic acidosis and acute metabolic encephalopathy A/P: Neuro: Large evolving left MCA infarct with edema/mass-effect, large acute left MCA distribution CVA, occluded left M1 segment, acute metabolic encephalopathy polysubstance abuse (ongoing nicotine and EtOH abuse) -Neurology, neurosurgery consulted, appreciate recommendations -Keppra twice daily -Sansca x1 with goal sodium of greater than 145 per nephro -HOB greater than 30 degrees at all times -Maintain normotensive, normothermia -04/17 CT head shows possible acute infarct -04/17 CTA head/neck shows occluded left M1 segment with very poor collateral circulation/greater than 50% stenosis on the right side, more than 60% stenosis on the left side in both internal carotid arteries, small ulcer in the left carotid plaque -04/17 bilateral carotid ultrasound shows right internal carotid artery 50 to 69% diameter stenosis, left internal carotid artery 50 to 69% diameter stenosis -04/17 CT head shows nonhemorrhagic ischemic changes extending into the posterior temporal lobe and inferior parietal lobule on the left side, no mass- effect -04/18 MRI brain shows large left MCA distribution infarction without hemorrhagic conversion or herniation -04/22 CT head shows evolutionary changes of the large left MCA infarct from 04/17/2021 with developing edema and mass-effect with midline shift with no clear CT evidence of hemorrhagic transformation -04/23 CT head shows increasing mass-effect associated with patient's large left MCA infarct -04/23 MRI brain shows left middle cerebral artery territory infarction has not progressed however mass-effect over the left lateral ventricle has increased significantly resulting in [id number] midline shift of 9 mm at the level of foramen of [place]ro, no hemorrhagic changes in the left MCA infarction -Intubated for GCS of less than 8 -Sedated with propofol and Fentanyl, RASS goal of 0 to -1 -Patient moved LLE to painful stimuli Cardio: Hypertensive emergency, hyperlipidemia, H/O HTN -Resume antihypertensives -Hydralazine as needed -Blood pressure monitoring per protocol Respiratory: Acute hypoxic respiratory failure -S/p BiPAP -Intubated 04/23 for airway protection -Serial ABGs - ABG 7.4 / on 50% -Mechanical ventilation settings as follows tidal volume 500, rate of 20, PEEP of 6 and 60% FiO2 -VAP bundle -Daily SBT and SAT as tolerated Patient was extubated today on 04/27 per family wishes GI: Tube feedings, obesity -Bowel regimen Senokot -Accu-Cheks every 6, SSI -Avoid hypoglycemia -PPI : Acute metabolic encephalopathy, THAI (resolved) -Strict intake and output -Avoid nephrotoxic medications -Daily weights -Renally dose medications -Trend BMP -Serial Na ID: SIRS, febrile -Met SIRS criteria on presentation -Patient is now febrile, per CCM use ice packs until temperature greater than 103 Heme: NAD -Transfuse for hemoglobin less than 7 -Trend CBC -SCDs to bilateral actions while in bed -Heparin subq Endo: Hyperglycemia -Accu-Checks every 6, SSI, long-acting insulin -Avoid hypoglycemia CODE STATUS: DNR Disposition: Leaving our facility today 04/28/2021 for home hospice Disposition: DC-50 TO HOSPICE (HOME) Final Discharge Diagnosis (Prints w/discharge instructions): Acute ischemic cerebrovascular accident Time spent for discharge: 35 - Discharge Diagnoses (1) THAI (acute kidney injury) Status: Acute (2) Acidosis Status: Acute (3) Acute ischemic left MCA stroke Status: Acute (4) Encephalopathy Status: Acute (5) Occlusion of middle cerebral artery Status: Acute (6) SIRS (systemic inflammatory response syndrome) Status: Acute Core Measure Documentation - Palliative Care Palliative Care/ Comfort Measures: Hospice Care (Home hospice) - Core Measures Any of the following diagnoses?: stroke - Stroke Discharge Requirements Statin for LDL = or >70 mg/dl on DC: No Reason for no statin on DC: Not Indicated Anticoag for atrial fib/atrial flutter: No Reason for no anticoag for AF/F on DC: Not Indicated Antithrombotic for ischemic stroke: No Reason for no antithrombotic on DC: Not Indicated Stroke additional comments: Hospice Exam - Physical Exam Narrative exam: General appearance: Present: no acute distress, well-nourished, other (resting on MV) - EENT Eyes: Present: PERRL ENT: clear oral mucosa - Neck Neck: Absent: masses or JVD, cervical LAD - Respiratory Respiratory effort: normal Respiratory: bilateral: CTA, diminished - Cardiovascular Rhythm: regular - Extremities Extremities: no ischemia, pulses intact, pulses symmetrical Peripheral Pulses: within normal limits - Abdominal General gastrointestinal: soft - Integumentary Integumentary: Present: warm, dry - Psychiatric Psychiatric: other - Neurologic Neurologic: other (Intact reflexes, does not follow commands, does not open eyes to verbal or tactile stimuli) - Allied Health Allied health notes reviewed: nursing, RT, social work - Constitutional Vitals: Temp Pulse Resp BP Pulse Ox 102.1 F H 128 H 51 H 172/91 83 L 04/28/21 11:54 04/28/21 07:00 04/28/21 07:00 04/28/21 07:00 04/28/21 07:00 Plan Plan of Treatment: Disposition Home with home hospice Follow up with: PRIMARY CARE, [Primary Care Provider] - 3-5 Days
[2021-04-28 13:41] VITALS: BP 142/76
== END 2021-04-28 18:30 | disposition hospice, home (50) | DRG 64 ==
LOC: ED 15:03 → OBSVTOIN 18:30 → 4A 18:30 → CC1 20:35 → IMCU 04-20 19:36 → CC1 04-23 12:01
PROVIDERS: ADMIT Internal Medicine; ATTEND Internal Medicine
PROC: 5A09557 Assistance with Respiratory Ventilation, Greater than 96 Consecutive Hours, Continuous Positive Airway Pressure (ICD-10-PCS; 2021-04-18)
PROC: 4A033R1 Measurement of Arterial Saturation, Peripheral, Percutaneous Approach (ICD-10-PCS; 2021-04-22)
PROC: 5A1945Z Respiratory Ventilation, 24-96 Consecutive Hours (ICD-10-PCS; principal; 2021-04-23)
PROC: 0BH17EZ Insertion of Endotracheal Airway into Trachea, Via Natural or Artificial Opening (ICD-10-PCS; 2021-04-23)
DX: I63.512 Cerebral infarction due to unspecified occlusion or stenosis of left middle cerebral artery (principal); J96.01 Acute respiratory failure with hypoxia; G92 Toxic encephalopathy; N17.0 Acute kidney failure with tubular necrosis; N17.9 Acute kidney failure, unspecified; E87.2 Acidosis; R65.10 Systemic inflammatory response syndrome (SIRS) of non-infectious origin without acute organ dysfunction; G81.94 Hemiplegia, unspecified affecting left nondominant side; E87.0 Hyperosmolality and hypernatremia; I16.1 Hypertensive emergency; I10 Essential (primary) hypertension; Z66 Do not resuscitate; F19.10 Other psychoactive substance abuse, uncomplicated; E66.9 Obesity, unspecified; G47.33 Obstructive sleep apnea (adult) (pediatric); D72.829 Elevated white blood cell count, unspecified; Z20.822 Contact with and (suspected) exposure to COVID-19; R00.0 Tachycardia, unspecified; E78.5 Hyperlipidemia, unspecified; R73.9 Hyperglycemia, unspecified; Z86.73 Personal history of transient ischemic attack (TIA), and cerebral infarction without residual deficits; Z68.31 Body mass index [BMI] 31.0-31.9, adult; Z71.51 Drug abuse counseling and surveillance of drug abuser
CPT/HCPCS: 31720; 36415; 36600; 70450; 70496; 70498; 70551; 71045; 74018; 80048; 80053; 80061; 80307; 80320; 81001; 82140; 82803; 82805; 82962; 83735; 84100; 84295; 84300; 85025; 85027; 93005; 93306; 93880; 94002; 94003; 94640; 94660; 96374; 99292; G0378; A9270-GY; G0480; J0330; J0360; J1170; J1644; J1815; J1940; J1953; J2060; J2270; J2704; J3010; J3370; J3490; J7030; J7040; J7050; Q9967; U0003